=== PATIENT | female | born 2000 | race Caucasian/White ===

== ENCOUNTER → 2018-03-30 12:00 | Outpatient (CLI) | payer MEDICAID, SELFPAY ==
--- NOTE | 2018-03-30 12:00 | DT_ITS ---
This patient was seen during an EMR downtime March 27, 2018 - April 03, 2018. This patient may have a combination of paper and electronic documentation or all paper documentation. All documentation is viewable within the e-chart portion of [facility] for each patient visit.
[2018-04-02 09:28] LABS: Chlamydia Trachomatis by PCR Negative (Negative); Neisserai gonorrhoeae by PCR Negative (Negative); Probe Check PASS; Sample Adequacy Control PASS; Specimen Processing Control PASS
== END ==
PROVIDERS: Visit Provider Obstetrics & Gynecology
DX: Z11.3 Encounter for screening for infections with a predominantly sexual mode of transmission (principal)
CPT/HCPCS: 87491; 87591

== ENCOUNTER → 2018-04-07 10:38 | Outpatient (CLI) | payer MEDICAID, SELFPAY ==
--- NOTE | 2018-04-07 10:44 | EKG12_ITS ---
Test Reason : SYNCOPE Blood Pressure : / mmHG Vent. Rate : 061 BPM Atrial Rate : 061 BPM P-R Int : 146 ms QRS Dur : 078 ms QT Int : 408 ms P-R-T Axes : -07 076 030 degrees QTc Int : 410 ms Normal sinus rhythm with sinus arrhythmia Normal ECG Confirmed by JAMIE MURRAY, SHIVA ([id number]), editor publications HANNAH ELLIS ([id number]) on 04/12/2018 3:16:22 PM Referred By: AYLA BAILEY Confirmed By:SHIVA AYALA MD
== END ==
PROVIDERS: Visit Provider Obstetrics & Gynecology
DX: R55 Syncope and collapse (principal)
CPT/HCPCS: 93005

== ENCOUNTER → 2018-04-28 10:35 | Outpatient (CLI) | payer MEDICAID, SELFPAY ==
[2018-04-28 11:40] LABS: Absolute Lymphocyte Count 1.53 X10^3/ul (0.83-4.51); Absolute Neutrophil Count 4.2 X10^3/uL (2.0-7.7); Basophil# 0.02 X10^3/uL; Basophil% 0.3 % (0-1); Eosinophil# 0.22 X10^3/uL; Eosinophils% 3.5 % (0-5); Hematocrit 38.2 % (37-47); Lymphocyte # 1.53 X10^3/ul (4.0); Lymphocyte % 24.4 % (19-41); Mean Corpuscular Hgb 28.4 pg (27.0-32.0); Mean Corpuscular Volume 83.6 fL (81-99); Monocyte# 0.32 X10^3/uL; Monocyte% 5.1 % (0-10); Neutrophil # 4.18 X10^3/uL (2.7-7.7); Neutrophil % 66.7 % (47-70); Platelet Count 204 K/mm3 (150-450); RBC Distribution Width SD 39.3 fl (35.1-43.9); Red Blood Count 4.57 M/mm3 (4.2-5.4); White Blood Count 6.3 K/mm3 (4.4-11.0)
[2018-04-28 11:41] LABS: POSITIVE COUNT NO; POSITIVE DIFFERENTIAL NO; POSITIVE MORPHOLOGY NO
[2018-04-28 11:43] LABS: Color, Urine Yellow (Yellow); Glucose, Dipstick Normal (Normal); Ketone-Dipstick Negative (Negative); Leukocyte Esterase-Dipstick 500 /ul (Negative); Nitrite-Dipstick Negative (Negative); Occult Blood-Urine Negative /ul (Negative); Protein-Dipstick Negative (Negative); Urine Bilirubin Dipstick Negative (Negative); Urine Clarity Clear (Clear); Urine Urobilinogen Normal (Normal)
[2018-04-28 11:56] LABS: Amphetamine Urine VISTA NEGATIVE (<1000 ng/mL); Barbiturate Urine VISTA NEGATIVE (< 200 ng/mL); Benzodiazepine Urine VISTA NEGATIVE (< 200 ng/mL); Cocaine Urine VISTA NEGATIVE (< 300 ng/mL); Ecstacy Urine VISTA NEGATIVE (< 500 ng/mL); Methadone Urine VISTA NEGATIVE (< 300 ng/mL); PCP Urine VISTA NEGATIVE (< 25 ng/mL); THC Urine VISTA NEGATIVE (< 50 ng/mL); Vista UDS pH Range 6
[2018-04-28 12:04] LABS: Free T3 2.8 pg/mL (2.18-3.98); T4 Free Direct 1.18 ng/dL (0.76-1.46); Thyroid Stim Hormone (TSH) 2.76 uIU/mL (0.358-3.74)
[2018-04-28 13:20] LABS: HIV - WCH Non-Reactive (Nonreactive)
[2018-05-01 10:23] LABS: HEPATITIS B SURFACE AG Negative (Negative); Hep C Antibodies <0.1 s/co ratio (0.0-0.9)
[2018-05-05 02:40] LABS: Prenatal RPR NONREACTIVE (NONREACTIVE)
== END ==
PROVIDERS: Visit Provider Obstetrics & Gynecology
DX: Z34.81 Encounter for supervision of other normal pregnancy, first trimester (principal)
CPT/HCPCS: 36415; 80307; 81002; 84439; 84443; 84481; 85025; 86703; 86762; 86803; 87340

== ENCOUNTER → 2018-05-03 09:45 | Outpatient (CLI) | payer MEDICAID, SELFPAY ==
--- NOTE | 2018-05-03 09:46 | ECHOD_ITS ---
Reason For Study: SYNCOPE/NEAR SYNCOPE Procedure This was a 2D Doppler, Color Flow transthoracic echocardiogram. Exam performed in department. Left Ventricle Normal size and thickness. The estimated ejection fraction is 65 %. Normal diastology for age. No regional wall motion abnormalities noted. Right Ventricle Normal size and thickness. Normal systolic function. Atria Normal left atrium. Normal right atrium. Normal atrial septum. Mitral Valve The mitral valve is structurally normal. No prolapse or stenosis seen. Tricuspid Valve Normal tricuspid valve. Trivial tricuspid valve insufficiency. Right ventricular systolic pressure estimated to be 33 mmHg. Aortic Valve Trisinus/trileaflet aortic valve. Pulmonic Valve Normal pulmonic valve. Trivial pulmonic valve insufficiency. Great Vessels Normal aortic root. Normal arch. Normal inferior vena cava. Inferior vena cava collapse with sniff. Pericardium/Pleural No pericardial effusion. MMode/2D Measurements & Calculations LVIDd: 4.9 cm IVSd: 0.86 cm Ao root diam: 2.4 cm LVIDs: 3.2 cm LVPWd: 0.87 cm LA dimension: 3.5 cm RVDd: 3.0 cm FS: 35.3 % LAV(MOD-bp): 48.9 ml LA A4 area: 17.9 cm2 RA A4 area: 15.8 cm2 LAV(MOD-bp) Indexed: 26.9 ml/m2 LAV(MOD-sp2): 42.3 ml LAV(MOD-sp4): 56.5 ml Doppler Measurements & Calculations MV E max leonel: 85.1 cm/sec Lat Peak E' Leonel: 23.1 cm/sec Med Peak E' Leonel: 15.0 cm/sec MV A max leonel: 44.4 cm/sec E/E' lat: 3.7 E/E' med: 5.7 MV E/A: 1.9 PA V2 max: 108.5 cm/sec TR max leonel: 260.8 cm/sec TR max P.2 mmHg Interpretation Summary The estimated ejection fraction is 65 %. Normal diastology for age. Trivial tricuspid valve insufficiency. Right ventricular systolic pressure estimated to be 33 mmHg. There is no comparison study available. Ordering Physician: Arsalan Logan Performed By: Yazmin Almanza, OTONIEL, RVT
[2018-05-03 11:04] LABS: Absolute Lymphocyte Count 1.64 X10^3/ul (0.83-4.51); Absolute Neutrophil Count 5.2 X10^3/uL (2.0-7.7); Basophil# 0.02 X10^3/uL; Basophil% 0.3 % (0-1); Eosinophil# 0.19 X10^3/uL; Eosinophils% 2.5 % (0-5); Hematocrit 36.9 % (37-47); Hemoglobin 12.6 g/dl (12.0-15.0); Lymphocyte # 1.64 X10^3/ul (4.0); Lymphocyte % 21.8 % (19-41); Mean Corp Hgb Conc 34.1 g/gl (32-36); Mean Corpuscular Hgb 28.5 pg (27.0-32.0); Mean Corpuscular Volume 83.5 fL (81-99); Mean Platelet Vol. 9.6 fl (6.2-12.0); Monocyte# 0.45 X10^3/uL; Neutrophil # 5.21 X10^3/uL (2.7-7.7); Neutrophil % 69.4 % (47-70); POSITIVE COUNT NO; POSITIVE DIFFERENTIAL NO; POSITIVE MORPHOLOGY NO; Platelet Count 231 K/mm3 (150-450); RBC Distribution Width CV 12.8 % (11.6-14.6); RBC Distribution Width SD 38.9 fl (35.1-43.9); Red Blood Count 4.42 M/mm3 (4.2-5.4); White Blood Count 7.5 K/mm3 (4.4-11.0)
[2018-05-03 11:36] LABS: AST(SGOT) 8 U/L (15-37); Alanine Aminotransfer ALT/SGPT 18 U/L (13-56); Albumin, Serum 3.4 g/dL (3.2-5.0); Alkaline Phosphatase 40 U/L (45-117); Anion Gap 10 (5-15); BUN 6 mg/dL (7-18); BUN/Creat Ratio 9.9 RATIO (10-20); Bilirubin, Direct 0.12 mg/dL (0.00-0.30); Calcium,Total 8.5 mg/dL (8.5-10.1); Chloride 107 mmol/L (98-107); Cholesterol 135 mg/dL (200); Creatinine, Serum 0.61 mg/dL (0.55-1.02); EST Glomerular Filtration Rate 135 mL/min (>60); Est Glom Filt Rate - Afr Amer 163 mL/min (>60); Globulin 3.5 g/dL (2.2-4.2); Glucose 77 mg/dL (74-106); High Density Lipoprotein 56 mg/dL; Potassium 3.7 mmol/L (3.5-5.1); Protein, Total 6.9 g/dL (6.4-8.2); Sodium Level 140 mmol/L (136-145); T4 Total, Thyroxin 17.5 ug/dL (4.8-13.9); Thyroid Stim Hormone (TSH) 4.02 uIU/mL (0.358-3.74); Triglycerides 88 mg/dL; Very Low Density Lipoprotein 18 mg/dL (5-40)
== END ==
PROVIDERS: Visit Provider Internal Medicine Cardiovascular Disease
DX: R55 Syncope and collapse (principal); Z87.898 Personal history of other specified conditions
CPT/HCPCS: 36415; 80048; 80061; 80076; 84436; 84443; 85025; 93306

== ENCOUNTER → 2018-06-22 13:31 | Outpatient (CLI) | payer MEDICAID, SELFPAY ==
[2018-06-22 15:49] LABS: Free T3 2.9 pg/mL (2.18-3.98); T4 Free Direct 1.09 ng/dL (0.76-1.46)
== END ==
PROVIDERS: Visit Provider Nurse Practitioner
DX: E03.9 Hypothyroidism, unspecified (principal)
CPT/HCPCS: 36415; 84439; 84443; 84481

== ENCOUNTER → 2018-08-02 16:42 | Outpatient (CLI) | payer MEDICAID, SELFPAY ==
[2018-08-02 17:38] LABS: Free T3 2.9 pg/mL (2.18-3.98); T4 Free Direct 1.05 ng/dL (0.76-1.46); Thyroid Stim Hormone (TSH) 3.59 uIU/mL (0.358-3.74)
== END ==
PROVIDERS: Referring Provider Nurse Practitioner; Visit Provider Nurse Practitioner
DX: E03.9 Hypothyroidism, unspecified (principal)
CPT/HCPCS: 36415; 84439; 84443; 84481

== ENCOUNTER → 2018-08-10 13:18 | Outpatient (CLI) | payer MEDICAID, SELFPAY ==
[2018-08-10 15:56] LABS: Glucose Challenge Gest 1H 50g 86 mg/dL (70-140)
[2018-08-10 16:12] LABS: Hematocrit 35.7 % (37-47); Mean Corp Hgb Conc 33.6 g/gl (32-36); Mean Corpuscular Hgb 29.1 pg (27.0-32.0); Mean Corpuscular Volume 86.4 fL (81-99); Mean Platelet Vol. 10.8 fl (6.2-12.0); Platelet Count 220 K/mm3 (150-450); RBC Distribution Width CV 12.6 % (11.6-14.6); RBC Distribution Width SD 38.5 fl (35.1-43.9); Red Blood Count 4.13 M/mm3 (4.2-5.4); White Blood Count 8.8 K/mm3 (4.4-11.0)
[2018-08-10 16:16] LABS: Scan Indicated on CBC? Y/N NO
== END ==
PROVIDERS: Visit Provider Obstetrics & Gynecology
DX: Z34.82 Encounter for supervision of other normal pregnancy, second trimester (principal)
CPT/HCPCS: 36415; 82950; 85027

== ENCOUNTER → 2018-09-25 15:34 | Outpatient (CLI) | payer MEDICAID, SELFPAY ==
[2018-08-02 16:14] VITALS: BMI 27.1
[2018-09-25 15:39] LABS: Mucous, Urine 0 SEEN /hpf (<or=2+)
[2018-09-25 16:13] LABS: Color, Urine Yellow (Yellow); Glucose, Dipstick Normal (Normal); Ketone-Dipstick Negative (Negative); Leukocyte Esterase-Dipstick 500 /ul (Negative); Nitrite-Dipstick Negative (Negative); Occult Blood-Urine 10 /ul (Negative); Protein-Dipstick 15 mg/dl (Negative); Specific Gravity, Urine 1.025 (1.002-1.030); Urine Bilirubin Dipstick Negative (Negative); Urine Clarity Cloudy (Clear); Urine Urobilinogen Normal (Normal)
[2018-09-25 16:30] LABS: Fetal Fibronectin POSITIVE
[2018-09-25 17:28] LABS: Bacteria 3+ /hpf (None Seen); Red Blood Cells-Urine 0-5 SEEN /hpf (0-5); Squamous Epithelial Cells - UA 0-5 SEEN /hpf (5-10); White Blood Cells 25-50 SEEN /hpf (0-5)
== END ==
PROVIDERS: Visit Provider Obstetrics & Gynecology
DX: Z34.83 Encounter for supervision of other normal pregnancy, third trimester (principal)
CPT/HCPCS: 81001; 82731; 87086; 87088

== ENCOUNTER → 2018-10-19 16:58 | Outpatient (CLI) | payer MEDICAID, SELFPAY ==
[2018-08-02 16:14] VITALS: BMI 27.1
== END ==
PROVIDERS: Visit Provider Obstetrics & Gynecology
DX: Z36.85 Encounter for antenatal screening for Streptococcus B (principal)
CPT/HCPCS: 87081

== ENCOUNTER 2018-11-04 18:05 | Inpatient (IN) | payer MEDICAID, SELFPAY ==
[2018-11-04 17:33] VITALS: BMI 29.7
[2018-11-04 17:57] LABS: ROM Internal Control Test YES-OK TO RESULT pt. (Internal QC)
[2018-11-04 17:59] LABS: ROM Patient Test POSITIVE (Negative)
[2018-11-04 18:33] LABS: Hematocrit 34.5 % (37-47); Hemoglobin 11.1 g/dl (12.0-15.0); Mean Corp Hgb Conc 32.2 g/gl (32-36); Mean Corpuscular Hgb 26.4 pg (27.0-32.0); Mean Corpuscular Volume 81.9 fL (81-99); Mean Platelet Vol. 10.2 fl (6.2-12.0); Platelet Count 196 K/mm3 (150-450); RBC Distribution Width CV 13.8 % (11.6-14.6); Red Blood Count 4.21 M/mm3 (4.2-5.4); White Blood Count 12.8 K/mm3 (4.4-11.0)
[2018-11-04 18:34] LABS: Scan Indicated on CBC? Y/N NO
[2018-11-04] MEDS: Lactated Ringers 1,000 ML 50 ML IV (18:57)
--- NOTE | 2018-11-04 20:10 | PCM.PN.OB ---
Subjective: Feeling more pressure. Objective: Afeb VSS FHR tracing Cat 1. - Physical Exam General: Alert, Oriented x3, Cooperative, No apparent distress Lungs: Clear to auscultation, Normal air movement Cardiovascular: Regular rate, Regular Rhythm Abdomen: Soft, Non Tender, Non-Distended, Gravid, Appropriate for Gestational Age Extremities: No edema Skin: No rashes Neurological: Neuro grossly intact Psych/Mental Status: Normal Affect Comment: CE /-1 forebag present Weight: 201 lb 0.985 oz Body Mass Index (BMI) 29.7 Laboratory Tests Past 24 Hrs 11/04/18 11/04/18 11/04/18 17:23 18:20 18:20 WBC 12.8 H RBC 4.21 Hgb 11.1 L Hct 34.5 L MCV 81.9 MCH 26.4 L MCHC 32.2 RDW 13.8 RDW Differential 41.0 Plt Count 196 MPV 10.2 Vag Amniotic Fld Detect POSITIVE H Blood Type B POSITIVE Antibody Screen NEGATIVE Medical Necessity - Tobacco Use Smoking Status: Never smoker Assessment/Plan All Active Problems (Last Reviewed 08/02/18 @ 16:13 by Rose Peralta) Orthostatic hypotension (Acute) Syncope and collapse (Acute) Progressing in labor. Expect to enter second stage of labor soon.
[2018-11-04] MEDS: Oxytocin 30 units/NS 500 ml 30 UNITS/500 ML IV.SOLN 334 UNITS IV (20:35)
--- NOTE | 2018-11-04 20:41 | PCM.OB.VAG ---
Vaginal Delivery Maternal Presentation: Active Labor, Spontaneous Rupture of Membranes Presents at 38w4d ega with SROM at home. Amniotic Membrane Rupture Type: Spontaneous at home Rupture of Membrane time: 1330 Amniotic Fluid Description: Clear Final [facility]: 11/14/18 Final [facility] Source: US <20 weeks Gestational age: 38 Weeks and 4 Days Date of Procedure: 11/04/18 Pre-Operative Diagnosis: Labor Post-Operative Diagnosis: same Surgery/ Procedure Performed: Spontaneous Vaginal Delivery Type of Anesthesia: None Description of Procedure: Progressed to FD then pushed for about 25 minutes to deliver a live male without complication. At delivery the mouth and nares were suctioned and baby dried. Delayed cord clamping was employed. There was an active cry within 30 seconds of delivery. The cord was then clamped and cut. The placenta delivered spontaneously intact with a centrally located 3VC. Inspection revealed no cervical, vaginal, or perineal tears. The uterus contracted well. Presentation: Vertex Placental Delivery Description: Spontaneous Placenta Disposition: [facility] Percentage of Placenta Abruption: 0 Cord Vessel Description: 3 Vessels Nuchal Cord Compression: Without compression Cord Entanglement: None Estimated Blood Loss: 250cc A gender: Male (1 minute): 8 (5 minute): 8 Episiotomy Description: None Laceration: None Medications given after delivery: IV Pitocin Complications: None
--- NOTE | 2018-11-04 20:46 | DCINST_ITS ---
Discharge Diet: No Restrictions Discharge Activity: Return to Normal Activity, May Drive, May Shower Return to work on:: 01/02/19 May shower in (days): 0 May resume sexual activity in: 4-6 weeks Call your doctor if your incision/area has: Sudden Increased Bleeding, Increased Pain/ Swelling, Increased Redness, Foul Smelling Discharge Call your doctor if you observe: Fever of 101 or Higher, Inability to urinate, Inability to have a bowel movement, Using more than one pad per hour, Shortness of breath, Chest pain, Calf discomfort, Uncontrolled pain Cleanse incision/area with: Soap & Water Additional Instructions: If you experience any of the following, contact your healthcare provider. * Bleeding that soaks a pad every hour for 2 hours * Fever 100.4 or higher * Unrelieved incision or abdominal pain * Swelling, redness, discharge or bleeding from your incision or episiotomy site * Your incision begins to separate * Problems urinating (including inability to urinate or burning while urinating). * Visual changes * Severe headache * Flu-like symptoms * Pain or redness in one of both of your breasts * Pain, warmth, tenderness or swelling in your legs, especially the calf area * Frequent nausea and vomiting * Symptoms of depression or anxiety If you experience any of the following, call 911 or go to the nearest Emergency Room. * Chest pain * Problems breathing * Seizure activity * Partial or complete paralysis of a body part, slurred speech, weakness or drooping of the face, or a sudden inability to walk or hold your balance Allergies/Adverse Reactions: Allergies ibuprofen Adverse Reaction (Mild, Verified 11/04/18 17:31) headache acetaminophen Adverse Reaction (Verified 11/04/18 17:31) Other headache NSAIDS (Non-Steroidal Anti-Inflamma Adverse Reaction (Verified 11/04/18 17:31) Other headache Medications to take at Discharge levothyroxine 50 mcg tablet See Rx Instructions PO .COMPLEX #34 tab 08/03/18 Ibuprofen 600 mg PO 4X/DAY #30 tab 11/04/18 The following prescriptions were given: Ibuprofen 600 mg PO 4X/DAY #30 tab Please Follow Up With: Jovanna Guevara MD When: 6 weeks Primary Care Physician: Care Physician,No Primary [Primary Care Provider] - Test Results: Test results from this visit will be discussed in further detail at your follow- up appointment, if applicable. Proposed Discharge Date: 11/06/18
[2018-11-04] MEDS: Oxytocin 30 units/NS 500 ml 30 UNITS/500 ML IV.SOLN 167 UNITS IV (21:05)
[2018-11-04] MEDS: 0.9% Saline Lock 10 ML Syringe IV (22:19)
[2018-11-05 01:30] VITALS: BP 124/50; PULSE 98; RESP 18; TEMP 36.6
[2018-11-05 04:35] VITALS: BP 111/45; PULSE 87; RESP 16; TEMP 36.4
[2018-11-05] MEDS: Levothyroxine 50 MCG Tablet PO (06:10)
[2018-11-05 06:28] LABS: Hematocrit 33.7 % (37-47); Hemoglobin 10.9 g/dl (12.0-15.0); Mean Corp Hgb Conc 32.3 g/gl (32-36); Mean Corpuscular Hgb 26.3 pg (27.0-32.0); Mean Corpuscular Volume 81.4 fL (81-99); Platelet Count 210 K/mm3 (150-450); RBC Distribution Width CV 13.8 % (11.6-14.6); RBC Distribution Width SD 40.7 fl (35.1-43.9); Red Blood Count 4.14 M/mm3 (4.2-5.4); White Blood Count 14.7 K/mm3 (4.4-11.0)
[2018-11-05 06:32] LABS: Scan Indicated on CBC? Y/N NO
[2018-11-05 08:58] VITALS: BP 119/45; PULSE 92; RESP 16; TEMP 37; O2SAT 97
--- NOTE | 2018-11-05 09:28 | NURSING ---
On assessment patient noted that she has been developing small blisters to nipples with cluster feeds. No blisters noted on assessment. Patient educated to encourage deeper latch with baby. Lanolin cream provided at patient request. Will continue to monitor.
--- NOTE | 2018-11-05 09:54 | PCM.PN.OB ---
Subjective: No complaints. Bleeding light. Breast feeding. Objective: Afeb VSS Hgb stable on PP day#1. - Physical Exam General: Alert, Oriented x3, Cooperative, No apparent distress Lungs: Clear to auscultation, Normal air movement Cardiovascular: Regular rate, Regular Rhythm Abdomen: Soft, Non Tender, Non-Distended, - - Fundus firm nontender Extremities: No edema Skin: No rashes Neurological: Neuro grossly intact Psych/Mental Status: Normal Affect Comment: Lochia light Vital Signs Temp Pulse Resp BP Pulse Ox 98.6 F 92 16 119/45 L 97 11/05/18 08:58 11/05/18 08:58 11/05/18 08:58 11/05/18 08:58 11/05/18 08:58 Oxygen Delivery Method Room Air Weight: 201 lb 0.985 oz Body Mass Index (BMI) 29.7 Intake and Output for Last 24 Hours 11/03/18 11/04/18 11/05/18 23:59 23:59 23:59 Output Total 500 / 500 Balance -500 / -500 Laboratory Tests Past 24 Hrs 11/04/18 11/04/18 11/04/18 17:23 18:20 18:20 WBC 12.8 H RBC 4.21 Hgb 11.1 L Hct 34.5 L MCV 81.9 MCH 26.4 L MCHC 32.2 RDW 13.8 RDW Differential 41.0 Plt Count 196 MPV 10.2 Vag Amniotic Fld Detect POSITIVE H Blood Type B POSITIVE Antibody Screen NEGATIVE 11/05/18 06:15 WBC 14.7 H RBC 4.14 L Hgb 10.9 L Hct 33.7 L MCV 81.4 MCH 26.3 L MCHC 32.3 RDW 13.8 RDW Differential 40.7 Plt Count 210 MPV 10.0 Vag Amniotic Fld Detect Blood Type Antibody Screen Medical Necessity - Tobacco Use Smoking Status: Never smoker Assessment/Plan All Active Problems (Last Reviewed 08/02/18 @ 16:13 by Rose Peralta) Orthostatic hypotension (Acute) Syncope and collapse (Acute) Doing well on PP day#1. Continue routine PP care. Anticipate discharge home on PP day#2.
[2018-11-05 14:00] VITALS: BP 125/44; PULSE 93; RESP 16; TEMP 36.6; O2SAT 97
[2018-11-05 20:30] VITALS: BP 131/59; PULSE 81; RESP 16; TEMP 37.3; O2SAT 98
[2018-11-06 02:00] VITALS: BP 114/36; PULSE 75; RESP 16; TEMP 36.3
[2018-11-06] MEDS: Levothyroxine 75 MCG Tablet PO (05:54)
--- NOTE | 2018-11-06 07:25 | PCM.PN.OB ---
Subjective: No specific complaints. Breast feeding. Bleeding light Objective: Afeb VSS - Physical Exam General: Alert, Oriented x3, Cooperative, No apparent distress Lungs: Clear to auscultation, Normal air movement Cardiovascular: Regular rate, Regular Rhythm Abdomen: Soft, Non Tender, Non-Distended, - - Fundus firm nontender Extremities: No edema Skin: No rashes Neurological: Neuro grossly intact Psych/Mental Status: Normal Affect Comment: Lochia light Vital Signs Temp Pulse Resp BP Pulse Ox 97.4 F L 75 16 114/36 L 98 11/06/18 02:00 11/06/18 02:00 11/06/18 02:00 11/06/18 02:00 11/05/18 20:30 Oxygen Delivery Method Room Air Weight: 201 lb 0.985 oz Body Mass Index (BMI) 29.7 Intake and Output for Last 24 Hours 11/04/18 11/05/18 11/06/18 23:59 23:59 23:59 Output Total 500 / 500 Balance -500 / -500 Medical Necessity - Tobacco Use Smoking Status: Never smoker Assessment/Plan All Active Problems (Last Reviewed 08/02/18 @ 16:13 by Rose Peralta) Orthostatic hypotension (Acute) Syncope and collapse (Acute) Doing well on PP day#2. Cleared for discharge home today. Home going instructions and warnings given.
--- NOTE | 2018-11-06 07:26 | PCM.DC.SUM ---
Discharge Date and Diagnosis Date of Admission: 11/04/18 Date of Discharge: 11/06/18 - Primary Discharge Diagnosis S/P - Secondary Discharge Diagnosis Chronic Problems (Last Reviewed 08/02/18 @ 16:13 by Rose Peralta) Hypothyroidism (acquired) (Chronic) History of palpitations (Chronic) Hospital Course and Treatment Operations: None Procedures: - - Summary of Care Provided: The patient is a 18 year old F [admitted in labor with SROM. Progressed to fully dilated then pushed for a short time to deliver a live without complication. Post course unremarkable. Discharged home on PP day#2.] - Physical Exam Vital Signs Temp Pulse Resp BP Pulse Ox 97.4 F L 75 16 114/36 L 98 11/06/18 02:00 11/06/18 02:00 11/06/18 02:00 11/06/18 02:00 11/05/18 20:30 Oxygen Delivery Method Room Air Weight: 201 lb 0.985 oz Body Mass Index (BMI) 29.7 Intake and Output for Last 24 Hours 11/04/18 11/05/18 11/06/18 23:59 23:59 23:59 Output Total 500 / 500 Balance -500 / -500 Discharge Diet: No Restrictions Discharge Activity: Return to Normal Activity, May Drive, May Shower Return to work on:: 01/02/19 May shower in (days): 0 May resume sexual activity in: 4-6 weeks Call your doctor if your incision/area has: Sudden Increased Bleeding, Increased Pain/ Swelling, Increased Redness, Foul Smelling Discharge Call your doctor if you observe: Fever of 101 or Higher, Inability to urinate, Inability to have a bowel movement, Using more than one pad per hour, Shortness of breath, Chest pain, Calf discomfort, Uncontrolled pain Cleanse incision/area with: Soap & Water Home Medications: Medications to take at Discharge levothyroxine 50 mcg tablet See Rx Instructions PO .COMPLEX #34 tab 08/03/18 Ibuprofen 600 mg PO 4X/DAY #30 tab 11/04/18 Following Prescrptions Were Given to Patient: Ibuprofen 600 mg PO 4X/DAY #30 tab Primary Care Physician: Care Physician,No Primary [Primary Care Provider] - Please Follow Up With: Jovanna Guevara MD When: 6 weeks Disposition: Home Minutes spent on discharge:: 15 Patient Condition:: Good Medical Necessity - Tobacco Use Smoking Status: Never smoker Meaningful Use Info Meaningful Use Diagnoses (Choose all that apply): None applicable
[2018-11-06 08:56] VITALS: BP 112/50; PULSE 69; RESP 16; TEMP 36.6
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
[2018-11-06 14:00] VITALS: BP 116/59; PULSE 69; RESP 16; TEMP 36.9
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
== END 2018-11-06 17:00 | disposition home or self-care (01) | DRG 560 ==
LOC: WPOUT 18:13
PROVIDERS: Admitting Provider Obstetrics & Gynecology; Referring Provider Obstetrics & Gynecology; Visit Provider Obstetrics & Gynecology
DX: O42.02 Full-term premature rupture of membranes, onset of labor within 24 hours of rupture (principal); O23.43 Unspecified infection of urinary tract in pregnancy, third trimester; O99.284 Endocrine, nutritional and metabolic diseases complicating childbirth; E03.9 Hypothyroidism, unspecified; Z86.79 Personal history of other diseases of the circulatory system; Z3A.38 38 weeks gestation of pregnancy; Z37.0 Single live birth
CPT/HCPCS: 59025; 59050; 84112; 85027; 86850; 86900; 99218; J7120; A4216; G0378

== ENCOUNTER → 2019-02-02 13:49 | Outpatient (CLI) | payer MEDICAID, SELFPAY ==
[2018-12-28 16:13] VITALS: BMI 28.0
[2019-02-02 18:21] LABS: Chlamydia Trachomatis by PCR Negative (Negative); Neisserai gonorrhoeae by PCR Negative (Negative); Probe Check PASS; Sample Adequacy Control PASS; Specimen Processing Control PASS
== END ==
PROVIDERS: Visit Provider Obstetrics & Gynecology
DX: Z11.3 Encounter for screening for infections with a predominantly sexual mode of transmission (principal); N39.0 Urinary tract infection, site not specified
CPT/HCPCS: 87086; 87088; 87186; 87491; 87591

== ENCOUNTER → 2019-02-20 10:29 | Outpatient (CLI) | payer MEDICAID, SELFPAY ==
[2018-12-28 16:13] VITALS: BMI 28.0
[2019-02-20 13:41] LABS: Color, Urine Yellow (Yellow); Glucose, Dipstick Normal (Normal); Ketone-Dipstick Negative (Negative); Leukocyte Esterase-Dipstick 25 /ul (Negative); Nitrite-Dipstick Negative (Negative); Occult Blood-Urine Negative /ul (Negative); Protein-Dipstick Negative (Negative); Urine Bilirubin Dipstick Negative (Negative); Urine Clarity Sl. Cloudy (Clear); Urine Urobilinogen Normal (Normal)
[2019-02-20 13:49] LABS: Absolute Lymphocyte Count 1.24 X10^3/ul (0.83-4.51); Absolute Neutrophil Count 4.8 X10^3/uL (2.0-7.7); Basophil# 0.02 X10^3/uL; Basophil% 0.3 % (0-1); Eosinophil# 0.23 X10^3/uL; Eosinophils% 3.4 % (0-5); Hematocrit 38.5 % (37-47); Lymphocyte # 1.24 X10^3/ul (4.0); Lymphocyte % 18.3 % (19-41); Mean Corp Hgb Conc 33.8 g/gl (32-36); Mean Platelet Vol. 10.9 fl (6.2-12.0); Monocyte# 0.54 X10^3/uL; Neutrophil # 4.75 X10^3/uL (2.7-7.7); Neutrophil % 69.9 % (47-70); Platelet Count 207 K/mm3 (150-450); RBC Distribution Width CV 13.1 % (11.6-14.6); Red Blood Count 4.81 M/mm3 (4.2-5.4); White Blood Count 6.8 K/mm3 (4.4-11.0)
[2019-02-20 13:53] LABS: Amphetamine Urine VISTA NEGATIVE (<1000 ng/mL); Barbiturate Urine VISTA NEGATIVE (< 200 ng/mL); Benzodiazepine Urine VISTA NEGATIVE (< 200 ng/mL); Cocaine Urine VISTA NEGATIVE (< 300 ng/mL); Ecstacy Urine VISTA NEGATIVE (< 500 ng/mL); Methadone Urine VISTA NEGATIVE (< 300 ng/mL); PCP Urine VISTA NEGATIVE (< 25 ng/mL); POSITIVE COUNT NO; POSITIVE DIFFERENTIAL NO; POSITIVE MORPHOLOGY NO; THC Urine VISTA NEGATIVE (< 50 ng/mL); Vista UDS pH Range 6
[2019-02-20 14:27] LABS: Thyroid Stim Hormone (TSH) 2.07 uIU/mL (0.358-3.74)
[2019-02-20 18:32] LABS: HIV - WCH Non-Reactive (Nonreactive); Rubella IgG 73.1 IU/mL; Vitamin D,25 Hydroxy 12.6 ng/mL (29.95-100.01)
[2019-02-21 09:04] LABS: HEPATITIS B SURFACE AG Negative (Negative); Hep C Antibodies <0.1 s/co ratio (0.0-0.9)
[2019-02-23 01:35] LABS: Prenatal RPR NONREACTIVE (NONREACTIVE)
== END ==
PROVIDERS: Visit Provider Obstetrics & Gynecology
DX: Z34.81 Encounter for supervision of other normal pregnancy, first trimester (principal)
CPT/HCPCS: 36415; 80307; 81002; 82306; 84443; 85025; 86703; 86762; 86803; 87340

== ENCOUNTER → 2019-04-12 | Outpatient (CLI) | payer MEDICAID, SELFPAY ==
[2018-12-28 16:13] VITALS: BMI 28.0
[2019-04-15 03:07] LABS: AFP MoM Value 0.56 (.); AFP Value-EIA 13.9 ng/mL (.); Comment Report (.); DIA MoM Value 0.77 (.); DSR (By Age) 1150 (.); DSR (Second Trimester) 3399 (.); Gestat. Age Based On As provided (.); Insulin Dep Diabetes No (.); Maternal Age At EDD 20.9 yr (.); hCG MoM 0.93 (.); hCG Value 49409 mIU/mL (.)
== END | disposition home or self-care (01) ==
LOC: WOBLAB 15:50
PROVIDERS: Visit Provider Obstetrics & Gynecology
DX: Z34.82 Encounter for supervision of other normal pregnancy, second trimester (principal)
CPT/HCPCS: 36415; 82105; 82677; 84702

== ENCOUNTER → 2019-06-14 17:21 | Outpatient (CLI) | payer MEDICAID, SELFPAY ==
[2019-05-15 15:54] VITALS: BMI 29.4
== END ==
PROVIDERS: Referring Provider Obstetrics & Gynecology; Visit Provider Obstetrics & Gynecology
DX: R30.0 Dysuria (principal)
CPT/HCPCS: 87077; 87086; 87088; 87186

== ENCOUNTER → 2019-07-12 10:12 | Outpatient (CLI) | payer MEDICAID, SELFPAY ==
[2019-05-15 15:54] VITALS: BMI 29.4
[2019-07-12 12:13] LABS: Hematocrit 34.1 % (37-47); Hemoglobin 11.2 g/dL (12.0-15.0); Mean Corp Hgb Conc 32.8 g/dL (32-36); Mean Corpuscular Hgb 28.5 pg (27.0-32.0); Mean Corpuscular Volume 86.8 fL (81-99); Mean Platelet Vol. 10.8 fl (6.2-12.0); Platelet Count 183 K/mm3 (150-450); RBC Distribution Width CV 13.1 % (11.6-14.6); RBC Distribution Width SD 41.3 fl (35.1-43.9); Red Blood Count 3.93 M/mm3 (4.2-5.4)
[2019-07-12 12:55] LABS: Free T3 2.7 pg/mL (2.18-3.98); Glucose Challenge Gest 1H 50g 109 mg/dL (70-140); T4 Free Direct 0.94 ng/dL (0.76-1.46); Thyroid Stim Hormone (TSH) 3.59 uIU/mL (0.358-3.74)
[2019-07-12 13:00] LABS: Vitamin D,25 Hydroxy 21.9 ng/mL (29.95-100.01)
[2019-07-12 14:04] LABS: T4 Total, Thyroxin 15.7 ug/dL (4.8-13.9)
== END ==
PROVIDERS: Internal Medicine Cardiovascular Disease; Visit Provider Obstetrics & Gynecology
DX: O99.283 Endocrine, nutritional and metabolic diseases complicating pregnancy, third trimester (principal); E55.9 Vitamin D deficiency, unspecified; Z3A.00 Weeks of gestation of pregnancy not specified
CPT/HCPCS: 36415; 82306; 82950; 84436; 84439; 84443; 84481; 85027

== ENCOUNTER → 2019-07-26 12:48 | Outpatient (CLI) | payer MEDICAID, SELFPAY ==
[2019-05-15 15:54] VITALS: BMI 29.4
[2019-07-26 13:09] LABS: Color, Urine Yellow (Yellow); Glucose, Dipstick Normal (Normal); Ketone-Dipstick 5 mg/dl (Negative); Leukocyte Esterase-Dipstick 500 /ul (Negative); Nitrite-Dipstick Negative (Negative); Occult Blood-Urine 25 /ul (Negative); Protein-Dipstick 30 mg/dl (Negative); Urine Bilirubin Dipstick Negative (Negative); Urine Clarity Sl. Cloudy (Clear); Urine Urobilinogen Normal (Normal)
[2019-07-26 13:15] LABS: White Blood Cells 50-100 SEEN /hpf (0-5)
[2019-07-26 13:17] LABS: Bacteria 2+ /hpf (None Seen); Mucous, Urine RARE /hpf (<or=2+); Red Blood Cells-Urine 0-5 SEEN /hpf (0-5); Squamous Epithelial Cells - UA 25-50 SEEN /hpf (5-10)
[2019-07-26 13:25] LABS: ROM Internal Control Test YES-OK TO RESULT pt. (Internal QC)
[2019-07-26 13:26] LABS: ROM Patient Test Negative (Negative); Record Kit Lot#, ROM+ J8255
== END ==
PROVIDERS: Referring Provider Obstetrics & Gynecology; Visit Provider Obstetrics & Gynecology
DX: O23.43 Unspecified infection of urinary tract in pregnancy, third trimester (principal); Z3A.00 Weeks of gestation of pregnancy not specified
CPT/HCPCS: 81001; 84112; 87086; 87088

== ENCOUNTER 2019-07-29 17:10 | Outpatient (CLI) | payer MEDICAID, SELFPAY ==
[2019-05-15 15:54] VITALS: BMI 29.4
[2019-07-29 17:40] VITALS: BMI 29.9
[2019-07-29 18:03] LABS: Absolute Lymphocyte Count 0.64 X10^3/uL (0.83-4.51); Absolute Neutrophil Count 3.9 X10^3/uL (2.0-7.7); Basophil# 0.01 X10^3/uL; Basophil% 0.2 % (0-1); Eosinophil# 0.01 X10^3/uL; Eosinophils% 0.2 % (0-5); Hematocrit 30.4 % (37-47); Lymphocyte # 0.64 X10^3/ul (4.0); Lymphocyte % 12.9 % (19-41); Mean Corp Hgb Conc 32.9 g/dL (32-36); Mean Corpuscular Hgb 28.3 pg (27.0-32.0); Mean Corpuscular Volume 86.1 fL (81-99); Monocyte# 0.35 X10^3/uL; NRBC Flagged by Analyzer 0 % (0-5); Neutrophil # 3.93 X10^3/uL (2.7-7.7); Neutrophil % 78.9 % (47-70); Platelet Count 199 K/mm3 (150-450); RBC Distribution Width CV 13.2 % (11.6-14.6); RBC Distribution Width SD 41.1 fl (35.1-43.9); Red Blood Count 3.53 M/mm3 (4.2-5.4)
--- NOTE | 2019-07-29 18:44 | US_ITS ---
HISTORY: Vaginal bleeding on third trimester for one day. UTI. Pelvic pain for 5 days. 29 images. No comparison imaging. Findings: Some fluid is present within the endocervical canal likely representing blood. The endocervical canal measures 6 cm. There is a length of perhaps 4.8 cm within the region of the endocervical canal that could be considered finally into the side of the cervix, or could be related to a posterior uterine lower uterine segment contraction. The placenta is anterior. heart motion is detected at 152 bpm. Presentation is cephalic. MELY is 21.4 cm. The independent agent music education describes an area of anterior lower uterine placental separation. Thinners and color Doppler imaging over this region. I believe this likely represents normal venous lakes that have flow too slow to be demonstrated on the settings of color Doppler insonated by the independent agent music education I do not believe it is placental separation. measurements were not obtained. anatomy assessment was not performed. US/OB Limited (No Biometrics) IMPRESSION: Fluid, likely blood within the endocervical canal. 4.8 cm area of possible funneling into the side of the endocervical canal and the internal cervical os with widening of the canal filled with fluid. at 2108 Reported and signed by: Mic King MD Electronically Signed: Mic King MD at 21:06 EDT Tel , Service support ,
--- NOTE | 2019-07-29 18:47 | OB.TRI.NOTE ---
- Problem List (1) 31 weeks gestation of Status: Acute (2) Third trimester bleeding, antepartum Status: Acute History of Present Illness Date of Service: 07/29/19 Was patient seen by the physician?: Yes Reason For Visit: RULE OUT LABOR Final [facility]: 09/28/19 Final [facility] Source: US <20 weeks Gestational age: 31 Weeks and 2 Days History of Present Illness: 18yo @ 31 2/7wga with c/o vaginal bleeding, lower abdominal pain and fever. Was seen in the office last week and diagnosed with UTI. She started Keflex with no improvement of symptoms over 48 hours. She was evaluated in [place] yesterday evening and switched to Nitrofurantoin for UTI and started on Metronidazole PO. She had 3 vaginal exams at that visit and noted passage of some mucus plug. She has had low grade fevers today to 100.6, however had Tm 102.5 yesterday. This afternoon she started with BRB per vagina also noted with wiping after sitting on toilet. She had to use a pad and came in. She reports bleeding has slowed now. Denies abdominal trauma or falls or motor vehicle accidents. + FM, no leaking of fluid. Allergies ibuprofen Adverse Reaction (Mild, Verified 07/24/19 18:35) headache acetaminophen Adverse Reaction (Verified 07/29/19 17:59) Other headache NSAIDS (Non-Steroidal Anti-Inflamma Adverse Reaction (Verified 07/24/19 18:35) Other headache - Pertinent Past Medical History Medical History: Past Medical History (Last Updated 07/29/19 @ 23:09 by Jovanna Guevara MD) Frequent PVCs (Acute) Palpitations (Acute) Asthma (Chronic) Hypothyroidism (acquired) (Chronic) Syncope and collapse (Acute) Normal vaginal delivery Onset Date: 11/04/18 Surgical History: Past Surgical History (Last Updated 07/29/19 @ 23:30 by Jovanna Guevara MD) No history of previous surgery Laboratory Studies: Laboratory Tests 07/29/19 Range/Units 17:47 WBC 5.0 (4.4-11.0) K/mm3 RBC 3.53 L (4.2-5.4) M/mm3 Hgb 10.0 L (12.0-15.0) g/dL Hct 30.4 L (37-47) % MCV 86.1 (81-99) fL MCH 28.3 (27.0-32.0) pg MCHC 32.9 (32-36) g/dL RDW Std Deviation 41.1 (35.1-43.9) fl RDW Coeff of [place] 13.2 (11.6-14.6) % Plt Count 199 (150-450) K/mm3 MPV 10.0 (6.2-12.0) fl Immature Gran % (Auto) 0.800 (0.0-0.9) % Neut % (Auto) 78.9 H (47-70) % Lymph % (Auto) 12.9 L (19-41) % [place] % (Auto) 7.0 (0-10) % Eos % (Auto) 0.2 (0-5) % Baso % (Auto) 0.2 (0-1) % Absolute Neuts (auto) 3.9 (2.0-7.7) X10^3/uL Absolute Lymphs (auto) 0.64 L (0.83-4.51) X10^3/uL Nucleated RBC % 0 (0-5) % Review of Systems Constitutional: Reports: Fever Cardiovascular: Denies: Chest Pain, Light Headedness, Palpitations Respiratory: Denies: Shortness of Breath Gastrointestinal: Reports: Abdominal Pain, Constipation. Denies: Diarrhea, Hematochezia, Nausea, Vomiting Genitourinary: Denies: Dysuria, Hematuria Gynecological: Reports: Vaginal bleeding Physical Exam Vitals: avss General: Alert, Oriented x3, Cooperative, No apparent distress HEENT: Atraumatic, Normocephalic Cardiovascular: Regular rate, Regular Rhythm, Normal S1, Normal S2 Lungs: Clear to auscultation, Normal air movement Abdomen: Soft, Non Tender, Non-Distended, - - blood on underwear Neurological: Neuro grossly intact RECYCLING OPERATIONS MANAGER: Normal external genitalia Estimated gestational size: Appropriate for gestational size Presentation: Cephalic NST - FHR Rate Baby A Baseline: 150 Variability:: Moderate Accelerations:: 15 x 15 Decelerations:: None NST Reactive:: Yes FHR Category:: Category I Uterine Activity:: 0/10 min Impression/Plan 31 2/7wga with third trimester bleeding and fever, Cat I FHR -No clear evidence of infection, patient not cricket, wbc normal, pt completing treatment for UTI. Possible viral syndrome, however bleeding concerning given drop in H/H from prior labs. Cannot r/o partial abruption. Bleeding may also be due to serial vaginal exams. Will send iron studies, KB, PT/PTT. US ordered.
[2019-07-29 19:46] LABS: Prothrombin Time (Protime)PT. 12.7 SECONDS (11.7-14.9)
[2019-07-29 19:51] LABS: ROM Internal Control Test YES-OK TO RESULT pt. (Internal QC); ROM Patient Test POSITIVE (Negative)
[2019-07-29 19:52] LABS: Record Kit Lot#, ROM+ J8255
[2019-07-29 20:11] LABS: Ferritin 25 ng/mL (8-252); Iron 26 ug/dL (50-170); Iron Binding Capacity,Total 450 ug/dL (250-450); PERCENT IRON SATURATION 5.8 % (15.0-55.0)
[2019-07-29 22:53] LABS: Bacteria 0 SEEN /hpf (None Seen); Mucous, Urine 0 SEEN /hpf (<or=2+)
[2019-07-29 22:57] LABS: Color, Urine Yellow (Yellow); Glucose, Dipstick Normal (Normal); Ketone-Dipstick 50 mg/dl (Negative); Leukocyte Esterase-Dipstick Negative /ul (Negative); Nitrite-Dipstick Negative (Negative); Occult Blood-Urine 25 /ul (Negative); Protein-Dipstick Negative (Negative); Urine Bilirubin Dipstick Negative (Negative); Urine Clarity Clear (Clear); Urine Urobilinogen Normal (Normal)
[2019-07-29 23:02] LABS: Squamous Epithelial Cells - UA 0-5 SEEN /hpf (5-10)
[2019-07-29] MEDS: Acetaminophen 325 MG Tablet 650 MG PO (23:03)
[2019-07-29 23:04] LABS: Red Blood Cells-Urine 0-5 SEEN /hpf (0-5); White Blood Cells 0-5 SEEN /hpf (0-5)
--- NOTE | 2019-07-29 23:08 | HP.PCM_ITS ---
- Problem List (1) 31 weeks gestation of Status: Acute (2) Third trimester bleeding, antepartum Status: Acute (3) Maternal pyrexia, antepartum Status: Acute History Date of Admission: 11/04/18 Final [facility]: 09/28/19 Final [facility] Source: US <20 weeks Gestational age: 31 Weeks and 2 Days History of this : This is a 18 year-old, G 3 P2002 at 31 2/7 weeks gestational age admitted with vaginal bleeding and fever. She felt unwell for the last several day c/o persistent lower abdominal pain, fever and discharge and was seen in the office 07/26/19 and diagnosed with recurrent UTI. Vaginitis swab and ROM plus was negative for infection. She was started on Keflex with no significant improvement of symptoms after 48 hours and was evaluated at [facility] on 07/28/19. She was switched to Macrobid and Flagyl and discharged home. She reports her cervix there was no more than 1cm dilated. She presented to our hospital this evening with vaginal bleeding. Last intercourse 3 weeks ago, no recent motor vehicle collisions or abdominal trauma or falls. She wore 1 pad into the hospital. Denies cramping or contractions. She continues with discharge. +FM. OB Problem List: -NSAID Allergy -hx syncope -hx palpitation on Pindolol -History UTI -Short interval Medical History: Medical History (Last Updated 07/29/19 @ 23:09 by Jovanna Guevara MD) Frequent PVCs (Acute) I49.3 Palpitations (Acute) R00.2 Asthma (Chronic) J45.909 Hypothyroidism (acquired) (Chronic) E03.9 Syncope and collapse (Acute) R55 Normal vaginal delivery Onset Date: 11/04/18 O80 Surgical History: Surgical History (Last Updated 07/29/19 @ 23:30 by Jovanna Guevara MD) No history of previous surgery Allergies ibuprofen Adverse Reaction (Mild, Verified 07/24/19 18:35) headache acetaminophen Adverse Reaction (Verified 07/29/19 17:59) Other headache NSAIDS (Non-Steroidal Anti-Inflamma Adverse Reaction (Verified 07/24/19 18:35) Other headache Home Medications: Home Medications compression stocking,knee high,long length,large circum See Dose Instructions .ROUTE .MEDSUPPLY #2 ea 04/09/19 cholecalciferol (vitamin D3) 5,000 unit capsule 5,000 unit PO DAILY 05/15/19 vitamin,calcium,uzdxgpkd-eyzg-qnuky acid tablet 1 tab PO DAILY 05/15/19 Nitrofurantoin 100 mg PO BID 07/29/19 RX: Levothyroxine Sodium See Rx Instructions PO .COMPLEX 07/29/19 RX: Metronidazole 1 tab PO BID 07/29/19 RX: Pindolol [Pindolol (Beta Randall)] 5 mg PO .COMPLEX 07/29/19 Smoking Status: Never smoker Alcohol: None Number of Fetus(es): 1 NST - FHR Rate Baby A Baseline: 150 Variability:: Moderate Accelerations:: 15 x 15 Decelerations:: None NST Reactive:: Yes FHR Category:: Category I Uterine Activity:: 3-01/31 History Past Pregnancies: Past Pregnancies Delivery Date Name GA/Weeks Outcome Route Weight Gender Labor Length Anesthesia Delivery Location Provider FOB 02/2017 Manfred 38 Living 7lb 7 oz M 8 Epidural Ashtyn Benekos Jair 10/2018 Dre 38 Living 7lb 11oz M 3 None Ashtyn Seals Jair Labs: Mom's Microbiology 07/29/19 22:25 Blood Culture (Wb) - Venous Blood Culture - Pending 07/29/19 22:25 Blood Culture (Wb) - Venous Blood Culture - Pending Mom's Problem List Problem Status Onset Code 31 weeks gestation of Acute Z3A.31 Third trimester bleeding, antepartum Acute O46.93 labs 07/12/19 1h GTT 109 mg/dL 02/20/19 RPR nonreactive, HCV Ab negative, HBsAg neg, HIV nonreactive, Rubella immune, B positive 02/02/19 GC/CT neg Mom's Labs & Results 07/29/19 07/29/19 07/29/19 17:47 19:05 19:21 WBC 5.0 RBC 3.53 L Hgb 10.0 L Hct 30.4 L MCV 86.1 MCH 28.3 MCHC 32.9 RDW Std Deviation 41.1 RDW Coeff of [place] 13.2 Plt Count 199 MPV 10.0 Immature Gran % (Auto) 0.800 Neut % (Auto) 78.9 H Lymph % (Auto) 12.9 L Jenkins % (Auto) 7.0 Eos % (Auto) 0.2 Baso % (Auto) 0.2 Absolute Neuts (auto) 3.9 Absolute Lymphs (auto) 0.64 L Nucleated RBC % 0 Kleihauer-Betke F Hgb PT INR Lactic Acid Iron 26 L TIBC 450 Iron Saturation 5.8 L Ferritin 25 Urine Color Urine Clarity Urine pH Ur Specific [place] Urine Protein Urine Glucose (UA) Urine Ketones Urine Occult Blood Urine Nitrite Urine Bilirubin Urine Urobilinogen Ur Leukocyte Esterase Urine RBC Urine WBC Ur Squamous Epith Cells Urine Bacteria Urine Mucus Vag Amniotic Fld Detect POSITIVE H Group B Strep DNA Specimen Comment 07/29/19 07/29/19 07/29/19 19:21 19:21 22:25 WBC RBC Hgb Hct MCV MCH MCHC RDW Std Deviation RDW Coeff of [place] Plt Count MPV Immature Gran % (Auto) Neut % (Auto) Lymph % (Auto) Jenkins % (Auto) Eos % (Auto) Baso % (Auto) Absolute Neuts (auto) Absolute Lymphs (auto) Nucleated RBC % Kleihauer-Betke F Hgb Pending PT 12.7 INR 1.0 Lactic Acid Pending Iron TIBC Iron Saturation Ferritin Urine Color Urine Clarity Urine pH Ur Specific [place] Urine Protein Urine Glucose (UA) Urine Ketones Urine Occult Blood Urine Nitrite Urine Bilirubin Urine Urobilinogen Ur Leukocyte Esterase Urine RBC Urine WBC Ur Squamous Epith Cells Urine Bacteria Urine Mucus Vag Amniotic Fld Detect Group B Strep DNA Specimen Comment 07/29/19 07/29/19 22:30 22:30 WBC RBC Hgb Hct MCV MCH MCHC RDW Std Deviation RDW Coeff of [place] Plt Count MPV Immature Gran % (Auto) Neut % (Auto) Lymph % (Auto) Jenkins % (Auto) Eos % (Auto) Baso % (Auto) Absolute Neuts (auto) Absolute Lymphs (auto) Nucleated RBC % Kleihauer-Betke F Hgb PT INR Lactic Acid Iron TIBC Iron Saturation Ferritin Urine Color Yellow Urine Clarity Clear Urine pH 7.0 Ur Specific [place] 1.010 Urine Protein Negative Urine Glucose (UA) Normal Urine Ketones 50 H Urine Occult Blood 25 H Urine Nitrite Negative Urine Bilirubin Negative Urine Urobilinogen Normal Ur Leukocyte Esterase Negative Urine RBC 0-5 SEEN Urine WBC 0-5 SEEN Ur Squamous Epith Cells 0-5 SEEN Urine Bacteria 0 SEEN Urine Mucus 0 SEEN Vag Amniotic Fld Detect Group B Strep DNA Pending Specimen Comment Pending Number of Visits: 7 Review of Systems Constitutional: Reports: Chills, Fever HEENT: Denies: Head Aches, Nasal Congestion, Sinus Congestion, Sore Throat Respiratory: Denies: Cough Gastrointestinal: Reports: Abdominal Pain, Constipation. Denies: Diarrhea, Hematochezia, Nausea, Vomiting Genitourinary: Reports: Dysuria, Frequency. Denies: Hematuria Gynecological: Reports: Vaginal bleeding Physical Exam Vitals: AVSS General: Alert, Oriented x3, Cooperative, No apparent distress HEENT: Atraumatic, Normocephalic Cardiovascular: Regular Rhythm, Normal S1, Normal S2, Tachycardic Lungs: Clear to auscultation, Normal air movement, No rhonchi, No wheeze, No rales Abdomen: Soft, Non Tender, Non-Distended, Gravid Extremities:: No edema, No tenderness/swelling Neurological: Neuro grossly intact ISOTOPE HYDROLOGIST: Normal external genitalia Presentation: Cephalic Cervix Dilation (cm): 0 - visually on SSE, neg pool, 50cc blood/clot Assessment/Plan All Active Problems (Last Updated 07/29/19 @ 23:09 by Jovanna Guevara MD) 31 weeks gestation of (Acute) Third trimester bleeding, antepartum (Acute) Maternal pyrexia, antepartum (Acute) Frequent PVCs (Acute) Palpitations (Acute) Syncope and collapse (Acute) This is a 18 year-old, G [3], P [2], at 31 2/7 weeks gestational age with resolved vaginal bleed, fever, positive ROM plus. Patient was seen for (Last Updated 07/29/19 @ 23:09 by Jovanna Guevara MD) 31 weeks gestation of (Acute) Third trimester bleeding, antepartum (Acute) - US with no evidence of retroplacental bleeding however clearly from uterus - H/H decreased from prior thus KB pending. Normal coags and patient nontender. - Will need biometry Maternal Fever -Dfdx viral syndrome, recurrent UTI, PPROM. -Patient generally well appearing with no leukocytosis, suspect false positive PPROM due to bleeding however too much blood to appreciate fern, otherwise, no pool on SSE. Nitrazine deferred. -Blood culture pending; outpatient Ucx c/w contamination and vaginitis NAAT negative -GBS NAAT -Call to [facility] - following discussion with Dr. Chowdhury patient to be transported to [facility]. Will send straight cath Ucx, start IV fluid bolus and Ceftriaxone.
[2019-07-29 23:21] LABS: Lactic Acid 0.7 mmol/L (0.4-2.0)
[2019-07-29] MEDS: Ceftriaxone 1 GM/50 ML BAG IV (23:35)
[2019-07-29] MEDS: 0.9% Normal Saline 1,000 ML 999 ML IV (23:35)
[2019-07-29 23:57] LABS: Group B Strep DNA By PCR Negative (Negative); Internal Control PASS; Probe Check PASS; Specimen Processing Control PASS
[2019-07-30 08:49] LABS: Kleihauer-Betke POSITIVE
== END 2019-07-30 | disposition short-term general hospital (02) ==
LOC: WPOUT 17:37 → OBT 17:38 → WP 22:08
PROVIDERS: Referring Provider Obstetrics & Gynecology; Visit Provider Obstetrics & Gynecology
DX: O46.93 Antepartum hemorrhage, unspecified, third trimester (principal); O23.43 Unspecified infection of urinary tract in pregnancy, third trimester; Z87.440 Personal history of urinary (tract) infections; O99.283 Endocrine, nutritional and metabolic diseases complicating pregnancy, third trimester; E03.9 Hypothyroidism, unspecified; O99.413 Diseases of the circulatory system complicating pregnancy, third trimester; I49.3 Ventricular premature depolarization; Z3A.31 31 weeks gestation of pregnancy
CPT/HCPCS: 96365; 36415; 59025; 59050; 76815; 81001; 82728; 83540; 83550; 83605; 84112; 85025; 85460; 85610; 87040; 87081; 87086; 87653; 99218; J7030; G0378; J0702

== ENCOUNTER → 2019-08-29 15:02 | Outpatient (CLI) | payer MEDICAID, SELFPAY ==
[2019-08-31 16:23] LABS: HSV 1 IgG < 0.91 index (0.00-0.90)
== END ==
PROVIDERS: Visit Provider Obstetrics & Gynecology
DX: Z11.3 Encounter for screening for infections with a predominantly sexual mode of transmission (principal)
CPT/HCPCS: 36415; 86695; 86696

== ENCOUNTER → 2019-09-13 16:53 | Outpatient (CLI) | payer MEDICAID, SELFPAY ==
[2019-09-19 12:44] LABS: HPV Reflexed? NOT INDICATED
== END ==
PROVIDERS: Visit Provider Obstetrics & Gynecology
DX: Z12.4 Encounter for screening for malignant neoplasm of cervix (principal); Z78.0 Asymptomatic menopausal state
CPT/HCPCS: 88175; G0145

== ENCOUNTER → 2020-06-16 12:24 | Outpatient (CLI) | payer MEDICAID, SELFPAY ==
[2020-06-16 14:25] LABS: HIV - WCH Non-Reactive (Nonreactive); Hepatitis B Surface Antibody Non-Reactive; Hepatitis C Antibody Non-Reactive (Nonreactive)
== END ==
PROVIDERS: Referring Provider Obstetrics & Gynecology; Visit Provider Obstetrics & Gynecology
DX: Z11.3 Encounter for screening for infections with a predominantly sexual mode of transmission (principal)
CPT/HCPCS: 36415; 86703; 86706; 86803

== ENCOUNTER → 2020-09-03 14:19 | Outpatient (CLI) | payer MEDICAID, SELFPAY ==
[2020-09-03 15:16] LABS: Absolute Neutrophil Count 6.2 X10^3/uL (2.0-7.7); Basophil# 0.03 X10^3/uL; Basophil% 0.4 % (0-1); Eosinophil# 0.16 X10^3/uL; Eosinophils% 1.9 % (0-5); Hematocrit 37.6 % (37-47); Hemoglobin 12.4 g/dL (12.0-15.0); Mean Corpuscular Hgb 28.2 pg (27.0-32.0); Mean Corpuscular Volume 85.6 fL (81-99); Mean Platelet Vol. 10.1 fl (6.2-12.0); Monocyte# 0.46 X10^3/uL; Monocyte% 5.5 % (0-10); NRBC Flagged by Analyzer 0 % (0-5); Neutrophil # 6.16 X10^3/uL (2.7-7.7); Neutrophil % 72.8 % (47-70); Platelet Count 276 K/mm3 (150-450); RBC Distribution Width CV 12.3 % (11.6-14.6); RBC Distribution Width SD 38.5 fl (35.1-43.9); Red Blood Count 4.39 M/mm3 (4.2-5.4); White Blood Count 8.4 K/mm3 (4.4-11.0)
[2020-09-03 15:23] LABS: Color, Urine Yellow (Yellow); Glucose, Dipstick Normal (Normal); Ketone-Dipstick Negative (Negative); Leukocyte Esterase-Dipstick 500 /ul (Negative); Nitrite-Dipstick Negative (Negative); Occult Blood-Urine Negative /ul (Negative); Protein-Dipstick 15 mg/dl (Negative); Specific Gravity, Urine 1.015 (1.002-1.030); Urine Bilirubin Dipstick Negative (Negative); Urine Clarity Sl. Cloudy (Clear); Urine Urobilinogen Normal (Normal); Urine pH 6.5 (5.0 - 8.0)
[2020-09-03 15:37] LABS: Amphetamine Urine VISTA NEGATIVE (<1000 ng/mL); Barbiturate Urine VISTA NEGATIVE (< 200 ng/mL); Benzodiazepine Urine VISTA NEGATIVE (< 200 ng/mL); Cocaine Urine VISTA NEGATIVE (< 300 ng/mL); Ecstacy Urine VISTA NEGATIVE (< 500 ng/mL); Methadone Urine VISTA NEGATIVE (< 300 ng/mL); PCP Urine VISTA NEGATIVE (< 25 ng/mL); THC Urine VISTA NEGATIVE (< 50 ng/mL); Vista UDS pH Range 6
[2020-09-03 16:00] LABS: Free T3 2.7 pg/mL (2.18-3.98); T4 Free Direct 1.18 ng/dL (0.76-1.46); Thyroid Stim Hormone (TSH) 2.08 uIU/mL (0.358-3.74)
[2020-09-03 16:31] LABS: HIV - WCH Non-Reactive (Nonreactive); Hepatitis B Surface Antigen Non-Reactive (Nonreactive); Hepatitis C Antibody Non-Reactive (Nonreactive); Progesterone Level 19.68 ng/mL (See Comment); Rubella IgG Reactive (Nonreactive); Vitamin D,25 Hydroxy 24.4 ng/mL
[2020-09-04 01:21] LABS: Prenatal RPR NONREACTIVE (NONREACTIVE)
[2020-09-06 03:06] LABS: Chlamydia By Nucleic Acid AMP Negative (Negative)
[2020-09-08 04:35] LABS: Gonococcus By Nucleic Acid AMP Negative (Negative)
[2020-09-11 13:42] LABS: CF, Screen Comment: (.)
== END ==
PROVIDERS: Visit Provider Obstetrics & Gynecology
DX: O09.91 Supervision of high risk pregnancy, unspecified, first trimester (principal); E55.9 Vitamin D deficiency, unspecified; Z3A.00 Weeks of gestation of pregnancy not specified
CPT/HCPCS: 36415; 80307; 81002; 81220; 82306; 84144; 84439; 84443; 84481; 85025; 86703; 86762; 86803; 87086; 87088; 87340; 87491; 87591

== ENCOUNTER → 2020-09-16 10:50 | Outpatient (CLI) | payer MEDICAID, SELFPAY | PROVIDERS: Visit Provider Obstetrics & Gynecology | DX: Z34.81 Encounter for supervision of other normal pregnancy, first trimester (principal) ==

== ENCOUNTER → 2020-12-23 10:26 | Outpatient (CLI) | payer MEDICAID, SELFPAY ==
[2020-10-30 14:41] VITALS: BMI 25.5
[2020-12-23 11:08] LABS: Hemoglobin 12.1 g/dL (12.0-15.0); Mean Corp Hgb Conc 32.7 g/dL (32-36); Mean Corpuscular Hgb 28.5 pg (27.0-32.0); Mean Corpuscular Volume 87.3 fL (81-99); Mean Platelet Vol. 10.1 fl (6.2-12.0); Platelet Count 290 K/mm3 (150-450); RBC Distribution Width CV 12.8 % (11.6-14.6); RBC Distribution Width SD 39.9 fl (35.1-43.9); Red Blood Count 4.24 M/mm3 (4.2-5.4); White Blood Count 15.1 K/mm3 (4.4-11.0)
[2020-12-23 11:26] LABS: Glucose Challenge Gest 1H 50g 123 mg/dL (70-140)
== END ==
PROVIDERS: Visit Provider Student in an Organized Health Care Education/Training Program
DX: Z34.82 Encounter for supervision of other normal pregnancy, second trimester (principal)
CPT/HCPCS: 36415; 82950; 85027

== ENCOUNTER 2020-12-25 04:22 | Emergency (ER) | payer MEDICAID, SELFPAY ==
[2020-10-30 14:41] VITALS: BMI 25.5
[2020-12-25 04:23] VITALS: BP 133/46; PULSE 76; RESP 16; TEMP 36.9; O2SAT 92; BMI 29.5
[2020-12-25 04:26] VITALS: BP 133/46; PULSE 76; RESP 16; TEMP 36.9; O2SAT 92
--- NOTE | 2020-12-25 04:43 | ED.VIS.GEN ---
History of Present Illness Chief Complaint: Dental Narrative: 20-year-old female presenting with right-sided facial pain and swelling. She states that she has an infected tooth. This started on Tuesday and she saw her dentist yesterday who could not look in her mouth because her job is too swollen to open. She cannot be sedated because she is 25 weeks . She has not had a fever. She states that the jaw pain radiates into the upper portion of her neck although has no throat swelling, tongue swelling, difficulty breathing. Patient took 1 dose of amoxicillin at 1 AM. - Past Medical History (1) Asthma Status: Chronic (2) Hypothyroidism (acquired) Status: Chronic Past Medical History - Allergies and Home Meds Allergies/Adverse Reactions: Allergies ibuprofen Adverse Reaction (Mild, Verified 12/25/20 04:27) headache acetaminophen Adverse Reaction (Verified 12/25/20 04:27) Other headache NSAIDS (Non-Steroidal Anti-Inflamma Adverse Reaction (Verified 12/25/20 04:27) Other headache Primary Care Physician: Care Physician,No Primary [Primary Care Provider] - Prior records reviewed: Yes Past Medical History: - - Reviewed in problem list Surgical History: noncontributory Lives: Spouse/ Significant Other Smoking Status: Never smoker Alcohol: None Drugs: None Review of Systems General: Denies: Chills, Fever, Malaise Eyes: Denies: Visual changes - bilaterally, Diplopia ENT: Reports: - - Right sided jaw swelling. Percussion tenderness on the right mandible. No sublingual edema. Right sided dental pain. Denies: Rhinorrhea, Sore throat Respiratory: Denies: Dyspnea, Cough Gastrointestinal: Denies: Abdominal pain, Nausea Genitourinary: Denies: Dysuria, Hematuria Musculoskeletal: Denies: Myalgias, Arthralgias Skin: Denies: Rash, Abscess Neurological: Denies: Headache, Weakness, Parasthesia Physical Exam Vital Signs/Narrative: Vital Signs Temp Pulse Resp BP Pulse Ox 12/25/20 04:26 98.5 F 76 16 133/46 H 92 12/25/20 04:23 98.5 F 76 16 133/46 H 92 Inital Vital Signs reviewed: Yes General: Well nourished, Well developed Head: Atraumatic Eyes: Perrl, EOMI ENT: Moist mucous membranes, No rhinorrhea, - - Right sided jaw swelling. Percussion tenderness on the right mandible. No sublingual edema. Tongue is not swollen. No stridor. Patient is swallowing her own secretions. Neck: Supple, No lymphadenopathy Cardiovascular: Regular rate, Regular rhythm Respiratory: No distress, CTA bilaterally Extremities: Nontender, No edema Skin: Normal color, No rash Neurological: Alert, Oriented x3, Cranial nerves II-XII grossly intact Psychological: Normal affect, Normal Mood Diagnostic/Tx/Re-eval - Medical Decision Making 20-year-old female presented with dental pain and facial swelling. She states is been swelling since Tuesday. She is only taken 1 dose of antibiotics which is amoxicillin. The dentist will not remove her tooth until her swelling goes down. She has not had a fever or red flag signs or symptoms. There is no signs of Art's angina. Given that the patient is we did discuss risk benefits of getting CT imaging versus changing her to Augmentin and seeing if her facial swelling gets better. At this time she wants to withhold the CT and try Augmentin. She will return if he has worsening symptoms. Patient stable for discharge at this time. Impression: 1. Dental abscess ED Disposition - Plan for ED Patient: Instructions: Dental Abscess Prescriptions: Amox/Clavulanate Tablet [Augmentin Tablet] 875 mg PO Q12H #20 tab Prescription Printed DiphenhydrAMINE [Benadryl] 25 mg PO QHS PRN PRN #20 cap PRN Reason: Insomnia Prescription Printed Referrals: Care Physician,No Primary [Primary Care Provider] -
== END 2020-12-25 05:52 | disposition home or self-care (01) ==
PROVIDERS: Emergency Provider Student in an Organized Health Care Education/Training Program
DX: O99.612 Diseases of the digestive system complicating pregnancy, second trimester (principal); K04.7 Periapical abscess without sinus; Z3A.25 25 weeks gestation of pregnancy
CPT/HCPCS: 99282

== ENCOUNTER 2021-02-17 20:30 | Outpatient (CLI) | payer MEDICAID, SELFPAY ==
[2021-02-17 20:56] VITALS: BP 119/61; PULSE 97; PULSE 99; TEMP 36.8; O2SAT 98
[2021-02-17 21:03] VITALS: BMI 33.3
[2021-02-17 21:54] LABS: ROM Internal Control Test YES-OK TO RESULT pt. (Internal QC); ROM Patient Test Negative (Negative)
--- NOTE | 2021-02-19 19:00 | PN_ITS ---
Progress Note 20-year-old G4, P3 living 2 at 32/5 weeks who presented to triage with thin watery discharge and decreased movement. Patient had watery discharge throughout the day and had had intercourse that morning. Did have some cramping but no regular contractions. Stated that her baby was still moving but that movements have changed or felt decrease. Physical Exam Narrative Exam completed by fire lieutenant & Plan Assessment/Plan (1) Decreased movement: Status: Acute Code(s): O36.8190 - Decreased movements, unspecified trimester, not applicable or unspecified Plan: G4, P3 living 2 at 32/5 weeks presenting with decreased movement. Patient feeling more movement while in triage. NST reactive: heart rate 125/moderate variability/positive accelerations/no decelerations, toco quiet. Cervix not checked as there were no contractions noted on the monitor and abdomen was palpated soft by nurse. ROM was sent and was found to be negative. No evidence of rupture of membranes. Patient discharged with precautions and kick counts. Follow-up in office the next morning.
== END 2021-02-17 22:05 ==
LOC: WPOUT 20:32 → WP 20:33
PROVIDERS: Visit Provider Student in an Organized Health Care Education/Training Program
DX: O36.8130 Decreased fetal movements, third trimester, not applicable or unspecified (principal); Z3A.32 32 weeks gestation of pregnancy
CPT/HCPCS: 59025; 59050; 84112

== ENCOUNTER → 2021-03-17 12:20 | Outpatient (CLI) | payer MEDICAID, SELFPAY ==
[2021-02-17 21:03] VITALS: BMI 33.3
[2021-03-17 13:21] LABS: Hematocrit 32.7 % (37-47); Hemoglobin 10.5 g/dL (12.0-15.0); Mean Corp Hgb Conc 32.1 g/dL (32-36); Mean Corpuscular Hgb 26.6 pg (27.0-32.0); Mean Corpuscular Volume 82.8 fL (81-99); Mean Platelet Vol. 11.3 fl (6.2-12.0); Platelet Count 200 K/mm3 (150-450); RBC Distribution Width CV 13.5 % (11.6-14.6); RBC Distribution Width SD 40.5 fl (35.1-43.9); Red Blood Count 3.95 M/mm3 (4.2-5.4); White Blood Count 10.1 K/mm3 (4.4-11.0)
[2021-03-17 13:30] LABS: Protein, Urine (Random) 15.5 mg/dL (<11.9); Protein:Creat Ratio 167 mg/g CRE (0-200)
[2021-03-17 13:38] LABS: ALB/GLOB Ratio 0.7 RATIO (0.9-2.4); AST(SGOT) 12 U/L (15-37); Alanine Aminotransfer ALT/SGPT 18 U/L (13-56); Albumin, Serum 2.7 g/dL (3.2-5.0); Alkaline Phosphatase 100 U/L (45-117); Anion Gap 5 (5-15); BUN 7 mg/dL (7-18); BUN/Creat Ratio 9.9 RATIO (10-20); Calcium,Total 8.7 mg/dL (8.5-10.1); Chloride 109 mmol/L (98-107); EST Glomerular Filtration Rate 110 mL/min (>60); Est Glom Filt Rate - Afr Amer 133 mL/min (>60); Globulin 3.8 g/dL (2.2-4.2); Glucose 102 mg/dL (74-106); Potassium 3.8 mmol/L (3.5-5.1); Protein, Total 6.5 g/dL (6.4-8.2); Sodium Level 138 mmol/L (136-145); Uric Acid 3.8 mg/dL (2.6-6.0)
[2021-03-17 17:00] LABS: Group B Strep DNA By PCR Negative (Negative)
[2021-03-17 17:01] LABS: Internal Control PASS; Probe Check PASS; Specimen Processing Control PASS
== END ==
PROVIDERS: Referring Provider Obstetrics & Gynecology; Visit Provider Obstetrics & Gynecology
DX: Z36.85 Encounter for antenatal screening for Streptococcus B (principal)
CPT/HCPCS: 36415; 80053; 82570; 84156; 84550; 85027; 87081; 87653

== ENCOUNTER → 2021-03-25 11:24 | Outpatient (CLI) | payer MEDICAID, SELFPAY | PROVIDERS: Visit Provider Obstetrics & Gynecology | DX: Z36.85 Encounter for antenatal screening for Streptococcus B (principal) | CPT/HCPCS: 87081 ==

== ENCOUNTER 2021-04-07 06:50 | Inpatient (IN) | payer MEDICAID, SELFPAY ==
[2021-04-07] VITALS (37 sets, daily range): BP systolic 101–155; BP diastolic 46–83; PULSE 38–107; RESP 16–18; TEMP 36.2–37; O2SAT 82–100; BMI 37.1
[2021-04-07] MEDS: Lactated Ringers 1,000 ML 50 ML IV (07:45)
[2021-04-07] MEDS: Oxytocin 30 units/NS 500 ml 30 UNITS/500 ML IV.SOLN IV (07:50)
[2021-04-07 08:00] LABS: Absolute Lymphocyte Count 1.76 X10^3/uL (0.83-4.51); Absolute Neutrophil Count 8.1 X10^3/uL (2.0-7.7); Basophil# 0.03 X10^3/uL; Basophil% 0.3 % (0-1); Eosinophil# 0.28 X10^3/uL; Eosinophils% 2.5 % (0-5); Hematocrit 31.9 % (37-47); Hemoglobin 10.1 g/dL (12.0-15.0); Lymphocyte # 1.76 X10^3/ul (0.83-4.51); Lymphocyte % 15.7 % (19-41); Mean Corp Hgb Conc 31.7 g/dL (32-36); Mean Corpuscular Hgb 25.8 pg (27.0-32.0); Mean Corpuscular Volume 81.4 fL (81-99); Monocyte# 0.86 X10^3/uL; Monocyte% 7.7 % (0-10); NRBC Flagged by Analyzer 0 % (0-5); Neutrophil # 8.14 X10^3/uL (2.7-7.7); Neutrophil % 72.6 % (47-70); Platelet Count 166 K/mm3 (150-450); RBC Distribution Width CV 14.6 % (11.6-14.6); RBC Distribution Width SD 42.5 fl (35.1-43.9); Red Blood Count 3.92 M/mm3 (4.2-5.4); White Blood Count 11.2 K/mm3 (4.4-11.0)
--- NOTE | 2021-04-07 08:39 | HP.PCM_ITS ---
History and Physical Date of Admission: 04/07/21 ACOG ANTEPARTUM RECORD - HISTORY AND PHYSICAL (04/07/2021) Name: KAITLIN SAEED History of this : This is a 20 year old [id number] presents at 39 wks + 5 days gestation for prior demise for HSV. History of prior section and 2 prior vaginal deliveries. OB Physician: Jovanna Hilliard MD [place]'s Physician: Dr Burton ...................................................................... : 2000 Age: 20 Address: [address] [place] [address] Phone: H) [phone] ([phone] Insurance Carrier: [employer] CLAIMS DEPT [id number] Emergency Contact: RICARDO SAEED [phone] ...................................................................... Final A[facility]A: 04/09/21 By Ultrasound: 10 weeks 5 days PARITY: (G-Total Pregnancies P-Fullterm,Premature,Induced AB,Spont AB, Ectopics, Multiple,Living) [facility] CONFIRMATION: By LMP: 07/03/20 Initial Exam: 04/09/21 By First Ultrasound Exam: 04/06/21 Final [facility]: 04/09/21 OB PROBLEM LIST: ALLERGIC TO ALL NSAIDS. 2nd cousin and niece with Heterotaxy Breast feeding planned. Depression - on Zoloft Emergency C/S with 3rd child, she plans a EPDS on 09/03/2020 = 20. G3 - PPROM, chorioamnioniotis, C/S for NRFHT with infant demise 2/2 HSV H/O UTIs HSV ppx at 36wga hx syncope, palpitations New FOB, he has a 3 year old son Pt has a first cousin with Spina Bifida, Muscular Dystophy, Autism, chromosomal defect REPEAT GBS AFTER 03/18- LAB error, no culture run only PCR Short interval ALLERGIES: Advil Migraine Aleve Migraine Ibuprofen Migraine No Known Drug Allergies MEDICATIONS: Valtrex 1 gram tablet 1 tab po bid x 7 days Valtrex 1 gram tablet 1 tab po daily Valtrex 500 mg tablet two times daily Vitamin D3 125 mcg (5,000 unit) tablet 1 tab po daily Zoloft 100 mg tablet 1 tab po daily SOCIAL HISTORY: Smoking - Never Alcohol Use - denies drinking Diet - needs improvement Lifestyle - moderate stress lifestyle and single Exercise - minimal Job Description - Illicit Drug Use - denies use of street drugs Sexual Activity - multiple sexual partners Residence - R[place] duplex lives with new GUY and her boys. Place of - [place] Spouse-Sig Other Name - Jake TOVAR Spouse-Sig Other Occupation - [employer] Spouse-Sig Other Phone No - [phone] Children Name(s) - Manfred (EB), Dre (DS), Pamela (19-) PRIOR DELIVERY HISTORY DEL DATE GEST LAB WT LB WT OZ TYPE ANES LABOR TX 10 Aug 11 31 48 4 0 C-Sec Epidural No March 09 38 8 7 7 Vag Epidural No Nov 11 38 3 7 11 Vag None No ANTEPARTUM FLOW CHART VISIT GE RTC FU F F HI U U DATE WK MD WKS HT PN HR M SS BP ED WT HI GL D EF ST __ ____ ___ __ __ ___ __ __ __ ___ __ __ __ ___ __ 09 Mar 38 SHM 1 38 V + 134/72 2+ 226 tr - 2 60 -3 Mar 37 SHM 1 37 V + + 126/60 tr 221 ne ne 2 60 -3 17 March 36 SHM 1 37 V + + 142/72 2+ 222 - - 09 March 35 SHM 1 35 V + + 142/70 1+ 218 tr ne 28 Apr 32 CM + 132/66 1+ 208 tr - 13 Apr 30 CM 2 30 + + 126/62 1+ 200 - - 30 Jan 18 JM 2 28 - + + 132/70 sl 194 - - 02 Mar 24 CM 4 24 + + 134/72 0 183 - tr Feb 20 CM 4 20 +U + 120/62 0 177 - - Oct 06 JMW 4 14 + O 120/70 0 169 tr - 04 Oct 04 SHM 4 + o 122/62 0 164 tr - Sep 02 SHM 4 on US 120/72 0 163 tr - ANTEPARTUM NOTE(S): Apr 01 2021: wants induction Mar 25 2021: Mar 17 2021: see note Mar 09 2021: US today Feb 18 2021: Feb 03 2021: swelling Jan 20 2021: loose joints, nito barba Dec 23 2020: Nov 25 2020: Sono Today, Good FM,Feeling Well Oct 15 2020: see note Sep 26 2020: heart palpations Sep 16 2020: see note COMPREHENSIVE ANTEPARTUM NOTE(S): Apr 02 2021: H taken to OB. tkg Apr 02 2021: I spoke with Carolina CHERY at and scheduled Induction for Tuesday04/07/21 at 0700 and reminded Kaitlin to call at 0500 for verification of arrival/room. Verbalized understanding. ENIO Apr 01 2021: Interested in having membranes stripped and discussing induction. More uncomfortable with increased edema again. Further discussion regarding induction with Dr SKY. LMT Apr 01 2021: Cervix moderate and midposition. Mar 25 2021: Kaitlin is here for PNV. Shares that her swelling has gone way down from last week. Still showing a trace of edema in hands and feet. Also states that she is having no ctx. Having good FM. Would like a cervix check today. Asked about having a membrane sweep. Advised usually wait until 39 weeks. Urine neg/neg. LSS Mar 25 2021: NST today for audible deceleration. Defer membrane stripping for 39wga, will do if patient feels well and no sx HSV. Continue Valtrex ppx. Labor, ROM, FM precautions. Mar 25 2021: H taken to OB. tkg Mar 17 2021: Declines cervical check today. GBS obtained. Discussed r/b TOLAC/ vs. Repeat C/S. Reviewed risk for uterine rupture approx 0.5-1% with catastrophic rupture and loss approx 1/800. Pt understands maternal complications greater with C/S and that safety campos > scheduled C/S > emergency C/S. Pt anxious that she had not yet delivered and potential for IOL. Reviewed with her that there is n Mar 17 2021: Kaitlin is here for visit. Has several concerns today. States increased edema and worried about this. B/P slightly elevated again today, 142/72. No proteinuria noted. She relates she has no contractions and concerned about this. She is planning a but worried about not going into labor prior to 40 weeks. Advised this is not likely a concern at this point. She declines LARC but ma Mar 09 2021: Kaitlin is here with SO for PVN following US. Has noteable edema in hands and feet. BP prior to US elevated 142/70 using lg cuff on left arm. Having good FM. Would like examined for and outbreak in the perineal area. Urine tr/neg. LSS BP retaken after US 134/64 using lg cuff right arm. LSS Mar 09 2021: Perineal tenderness without lesions present. Pt reports frequent nonadherence to twice daily schedule. Will treat with high dose Valtrex as if primary outbreak given non-adherence, then reduce to once daily 1g po dosing. Labor, ROM, FM precautions. US today, EFW 2921g (71st%), MELY 15.6cm. Feb 18 2021: Went to OB last night d/t watery discharge. ROM negative. No further watery discharge. No cramping. No spotting. Good FM. Long dip ua showing sp gr 1.015, ph 6.5, trace protein, rest is negative. kb Feb 18 2021: 32/6w visit. Was seen in triage last night for watery discharge and decreased FM. NST reactive, ROM neg. Reports normal discharge today, baby moving well. Cramping decreased. DIscussed kick counts, labor precautions. Hx of secondary to disseminated HSV. Pt still desiring TOLAC. Discussed risks of HSV, need for c/s with symptoms or lesions. Okay with being induced. F/u 2w. CM Feb 03 2021: Kaitlin is here with her SO for a PNV at 30 wk's. Good FM. 1+ edema in hands, sl in feet. Pt states she consistently has swelling in her hands especially in the mornings. Worries about baby's positioning due to a lot of FM, wants to make sure baby is head down. No other concerns expressed. Feb 03 2021: 30/5w visit. Hx of disseminated HSV in last delivery with of . Continue valtrex. DIscussed possible TOLAC vs c/s. Discussed need for c/s if she has symptoms or evidence of lesions. Depression stable. F/u 2w. CM Jan 20 2021: Kaitlin is here for a PNV with SO. Good FM. Sl edema present in fingers. Complains of loose joints' in hips and lower back. Occasional [place] Barba. Recently stopped taking Zoloft, pt states she stopped taking it because she got to the place she needed to be. Has not started Valtrex yet. No concerns expressed at this time. Jan 20 2021: 28wk, 1hr GTT wnl. Hx of Depression previously on zoloft. Stopped meds on her own, discussed depression and . Agreeable to start back up if need in the future. Pt with hx of demise with HSV, to start on valtrex after last visit but pt did no start. Uncertain why she needs it, educated. Pt reassured and says she will start valtrex after her oral surgery in a few weeks. Dec 23 2020: Kaitlin has an appt tomorrow @ [facility] in [place] re: tooth infection. Dental protocol given to her. Reporting good FM. 1 Hr Glucose, CBC drawn today. kbm Dec 23 2020: 24/5w visit. Hx of secondary to disseminated HSV. Start valtrex suppression. Dental issue - seeing dentist tomorrow. Depression - stable on zoloft. Pt worried about milk supply, encouraged continuation of med at this time as it is helping her a lot. F/u 4w. CM Nov 25 2020: 20/5w visit. Anatomy US wnl. Hx of depression: stable on zoloft. Hx of HSV with baby who of disseminated HSV. Will need PPX. Considering . F/u 4w. CM Oct 15 2020: Kaitlin is here for visit. Dr SKY out and pt will be discussed with her, FHT's easily obtained and in the 140's. Weight gain is noted today in office, She had cfDNA testing that showed normal female and reports that this has helped her feel more motivated. Still not feeling much motivation. Zoloft increased to 100 mg daily. No counseling appt yet. Will call and try to expediate Sep 26 2020: Kaitlin is here for a PNV. N/V have improved. Handling increased Zoloft dose w/o issues. Feels her moods are increasingly better and finds that she has more motivation to do things throughout the day. Denies thoughts of harming herself and others. Denies need for vitamin B6, motion sickness bracelets and Unisom. Tries to stay hydrated throughout the day, drinks approximately 3 - 16 oz water bottl Sep 26 2020: Kaitlin presents for emergency entertainment & media correspondent visit. Reports 24h of irritation outside of the vagina with intermittent nerve irritation. Denies vaginal discharge, odor, painfulness, itching, burning sensation. She has long hair and reported shedding a lot and had removed a couple of hairs that had gotten caught between her legs and she noted worsed irritation at that time. Denies fever, chills. hx 31w PPR Sep 17 2020: TELEHEALTH NOB VISIT, DURATION 45 MINUTES. Kaitlin is a 19 year old L2 (32 week loss), with an AURORA of 04/09/2021, current GA is 10 w 6 d. She resides with her SO/new FOB, Jake Valles, and she shares custody of her two sons with their father. Jake has a 3 year old son form a prior relationship. Kaitlin states that Jake is supportive. Delivery at [facility] is planned, she had a emergency C/ Sep 16 2020: Kaitlin is here for visit. She reports that she is feeling poorly. The Zoloft increased her nausea and now she feels like she has thrown up all day even if she has not. She initially thought maybe the Zoloft was helping but now she is not so sure. She has actually felt much worse this last week. Relates that she has no motivation to do anything. She is laying around all day and then Sep 16 2020: Mood not significantly improved. Continues with decreased motivation, apathy, depressed emotions. Denies SI/HI. Will increase Zoloft to 100mg daily. She has been awaiting call back from [facility]. I asked her to call them again as she has been followed by them previously in the last year. REviewe d labs, B pos, low Vitamin D. She is taking Vitamin D gummies 2000 IU daily, I advised her to luis Sep 03 2020: Kaitlin is her with Jake FOMichelle for missed menses. LMP 07/03/20 UPT in office positive with AURORA of 04/09/21, approx 8 wks 6 days. Both her had FOB are happy and excited about this . She states that she is nausea, tender breast and depression has increased the past months. She is not on any Rx or vitamins. States that she is not taking care of her health. pkt reviewed and Sep 03 2020: as above. Kaitlin is here with her boyfriend and FOB, May, for confirmation. Kaitlin is a with hx depression, hypothyroidism and tachycardia. She had at 38w, then at 37w, then C/S at 32wga. C/S on 08/02/20 for NFHT during 32w IOL for PPROM with chorioamnionoitis at [facility] however her due to HSV infection. She notes she lost all 3 of her ch REVIEW OF SYSTEMS: GENERAL - Denies fever, or chills SKIN - Denies rash, new skin lesions, or change in moles EYES - Denies blurred vision, or change in visual acuity EARS - Denies ear pain, or difficulty hearing NOSE - Denies nasal congestion, discharge, or bleeding MOUTH - Denies sore throat, or difficulty swallowing NECK - Denies pain or swelling RESPIRATORY - Denies shortness of breath, cough, wheezing CARDIOVASCULAR - Denies palpitations, chest pain, orthopnea, PND, peripheral edema, syncope or claudication GASTROINTESTINAL - Denies nausea, vomiting, diarrhea, constipation, Denies abdominal pain, melena and or bright red blood GENITOURINARY - Denies dysuria, frequency of urination, urgency, or hesitancy MUSCULOSKELETAL - Denies joint or muscle pain, or back pain NEUROLOGICAL - Denies localized numbness, weakness, or tingling PSYCHIATRIC - Denies depression, anxiety, substance abuse or suicide attempts ENDOCRINE - Denies heat or cold intolerance, weight loss or gain, increasing thirst HEMATO-IMMUNOLOGIC - Denies easy bruising, bleeding, oral ulcerations or recurrent infections GENETICS SCREENING: Age 35+ years: No, ` Thalassemia: No Neural Tube Defect: No Down Syndrome: No MONSE-SACHS: No Sickle Cell Disease: No Hemophilia: No Musc. Dystrophy: Yes Cystic Fibrosis: No, Screening done [place] Chorea: No Mental Retardation: No Fragile X: No Other genetic: Heterotaxy Other defects: Heterotaxy SABs/still births: No Drugs since LMP: No INFECTION HISTORY: High risk AIDS: No High risk Hepatitis: No Exposed to TB: No Exposed to Herpes: No Rash/viral illness since LMP: No History of STD: No Comments: HSV MENSTRUAL HISTORY: *Menses Amount/Duration: 4 days and normal amountMenses Regularity: RegularFrequency: monthlyMenarche (Age Onset): 9* PAST SUMMARY: PARITY: 1. Total Pregnancies............ 4 2. Full Term Pregnancies........ 2 3. Premature.................... 1 4. Abortions - Induced.......... 0 5. Abortions - Spontaneous...... 0 6. Ectopics..................... 0 7. Multiple Births.............. 0 8. Living Children.............. 2 PAST #1: Date of :.................. 03/03/17 Gestation Weeks:................ 38 Length of labor(hours):......... 8 Sex:............................ M Weight-lbs:............... 7 Weight-oz:................ 7 Type of Delivery:............... Vag Type of Anesthesia:............. Epidural Place of Delivery:.............. [place] Treatment of Labor?:.... No Comment: SROM PAST #2: Date of :.................. 11/04/18 Gestation Weeks:................ 38 Length of labor(hours):......... 3 Sex:............................ M Weight-lbs:............... 7 Weight-oz:................ 11 Type of Delivery:............... Vag Type of Anesthesia:............. None Place of Delivery:.............. [place] Treatment of Labor?:.... No Comment: UTIS IN PG. PAST #3: Date of :.................. 08/02/19 Gestation Weeks:................ 31 Length of labor(hours):......... 48 Sex:............................ F Weight-lbs:............... 4 Weight-oz:................ 0 Type of Delivery:............... C-Sect Type of Anesthesia:............. Epidural Place of Delivery:.............. [place] Treatment of Labor?:.... No Comment: PPROM, NRFHT, HSV, PHYSICAL EXAMINATION General Appearence: 20 yo female in no acute distress Vital Signs: AF, VSS Heart: RRR without rubs or gallops Lungs: CTA x 2 Breasts: deferred Abdomen: gravid Pelvis: Cervix: 1/60 Presentation: cephalic Station: -3 Fetus: Size: AGA Movement: present Heart: present Impression /Plan: 39 wks + 5 days intrauterine for induction. Preparations in progress for delivery.
[2021-04-07] MEDS: Ondansetron 4 MG/2 ML Vial IV (11:53)
[2021-04-07] MEDS: Lactated Ringers 500 ML 999 ML IV (11:57)
[2021-04-07] MEDS: Oxytocin 30 units/NS 500 ml 30 UNITS/500 ML IV.SOLN 334 UNITS IV (13:15)
--- NOTE | 2021-04-07 13:27 | EX.PCM.OBRPT ---
Assessment & Plan (1) 39 weeks gestation of : (2) (vaginal after ): Maternal Data Information A[facility]A Calculator Estimated Delivery Date Method Current WG Current Estimate 04/09/21 Manual 39w 5d Final A[facility]A: 04/09/21 Final A[facility]A Source: US <20 weeks Gestational age: 39 5/7 weeks gestation Vaginal Delivery Maternal Presentation Maternal Presentation: Medically Indicated Induction Maternal Presentation: 20-year-old 4 para 2-1-0-2 presents at 39-5/7 weeks gestational age for scheduled induction of labor for prior demise due to disseminated HSV. Type of Induction: Pitocin and Amniotomy Medical Reason for Induction: - (History of demise due to disseminated HSV) Operative Information Date of Procedure: 04/07/21 Pre-Operative Diagnosis: 39-5/7 weeks gestation, trial of labor after section Post-Operative Diagnosis: A 9-5/7 weeks gestation, vaginal after section Surgery / Procedure Performed: Type of Anesthesia: Epidural Anesthesiologist: Luke Bell Estimated Blood Loss: 200 mL Time of Delivery: 13:07 Findings Description of Procedure: Arrived to room and patient was fully dilated and +32 station with category 1 heart rate tracing. She pushed to deliver the head in [place]. Infant mouth and nares were bulb suctioned at the perineum. The female infant delivered through a tight nuchal cord and was placed on the maternal abdomen. The infant was further attended by the nursery personnel. The cord was doubly clamped and cut at 5 minutes of life. The placenta delivered spontaneously and appeared intact on inspection. On fundal massage there was expulsion of urine thus straight catheterization of the bladder was performed after chlorhexidine wash was applied and rinsed. Fundal massage expressed a small clot. Intrauterine exam was performed with retrieval of approximately 50 cc clot. Hemostasis was obtained. A right labial minora tear was noted however superficial and hemostatic, no repair indicated. Perineum was intact. Sponge count was correct x2. Presentation: Vertex Amniotic Membrane Rupture Type: Artificial Amniotic Fluid Description: Clear Placental Delivery Description: Spontaneous Placenta Disposition: [facility] Cord Vessel Description: 3 Vessels Cord Entanglement: Around neck x 1, tight Infant A Gender: Female (1 minute): 8 (5 minute): 9 Delayed Cord Clamping: Yes Post Vaginal Delivery Medications Given After Delivery: IV Pitocin Episiotomy Description: None Laceration: None Complication Complications: None
[2021-04-07] MEDS: 0.9% Saline Lock 10 ML Syringe IV (15:51)
[2021-04-07] MEDS: Acyclovir 200 MG Capsule 400 MG PO (21:27)
[2021-04-08 01:00] VITALS: BP 108/52; PULSE 84; RESP 14; TEMP 37.1
[2021-04-08 01:02] VITALS: BP 108/52; PULSE 84
[2021-04-08 03:43] VITALS: BP 120/60; PULSE 83; RESP 16; TEMP 36.2
--- NOTE | 2021-04-08 08:30 | PCM.PN.OB ---
Subjective Subjective Has intermittent uterine cramping. Denies heavy lochia. is going well. She would like to go home later today. Objective Data Objective Data Vital Signs: Vital Signs Temp Pulse Resp BP Pulse Ox 97.1 F L 83 16 120/60 83 04/08/21 03:43 04/08/21 03:43 04/08/21 03:43 04/08/21 03:43 04/07/21 13:09 Oxygen Delivery Method Room Air Weight: 104.5 kg Body Mass Index (BMI) 37.1 Intake & Output: Intake and Output for Last 24 Hours 04/06/21 04/07/21 04/08/21 23:59 23:59 23:59 Intake Total 1538.53 / 1538.53 Output Total 950 / 950 Balance 588.53 / 588.53 Lab / Micro Data Result Diagrams: 04/07/21 07:45 Labs: Laboratory Results - last 24 hr 04/07/21 07:45 Blood Type B POSITIVE Antibody Screen NEGATIVE Micro: Microbiology 04/07/21 08:05 Mucosa - Nose SARS-CoV-2 Antigen (Rapid) - Final Physical Exam Const alert, oriented x3 and no apparent distress Narrative: Fundus firm and nontender, lochia scant Extremity no calf tenderness Extremity Narrative: trace b/l LE edema Assessment & Plan (1) (vaginal after ): PLAN: Rh positive Routine care Case management consultation - hx prior demise anticipate d/c later today
--- NOTE | 2021-04-08 08:46 | PCM.DC.SUM ---
Providers Date of Admission: 04/07/21 Primary Care Physician: Jessica Primary Care Phys Reason For Visit: VAGINAL DELIVERY Diagnosis Discharge Diagnosis (1) (vaginal after ): Status: Acute Code(s): O34.219 - Maternal care for unspecified type scar from previous delivery Medications at Discharge Home Medications valacyclovir [Valtrex] 1,000 mg PO DAILY 04/07/21 ibuprofen 600 mg PO Q8H PRN PRN #30 tab 04/08/21 Hospital Course Operations None Procedures None Summary of Care Provided Hospital Course: 20yo admitted at 39 5/7 weeks gestation for induction of labor. She received pitocin and amniotomy performed. She had an uncomplicated approximately 4 hours later. Her course was unremarkable and she was discharged to home on day #1. Weight / BMI Weight Weight: 104.5 kg Body Mass Index (BMI) 37.1 ABG / Lab / Microbiology Data Result Diagrams: 04/07/21 07:45 Laboratory: Laboratory Results - last 24 hr 04/07/21 07:45 Blood Type B POSITIVE Antibody Screen NEGATIVE Microbiology: Microbiology 04/07/21 08:05 SARS-CoV-2 Antigen (Rapid) - Final Mucosa - Nose Microbiology 04/07/21 08:05 Mucosa - Nose SARS-CoV-2 Antigen (Rapid) - Final D/C Instructions Discharge Diet: No restrictions May resume sexual activity in: 4-6 weeks Lifting Restricted to (Lbs): 20 Call your doctor if you observe: Fever of 101 or Higher, Using more than 1 pad per hour, Shortness of breath, Chest pain, Calf discomfort, Uncontrolled pain and - (Persistent or severe headache) Please Follow Up With: Jovanna Hilliard MD When: 3 weeks for telehealth follow up 6 weeks for visit Meaningful Use Info Meaningful Use Diagnoses (Choose all that apply): None applicable Discharge Plan Admission Admit Date/Time: 04/07/21 06:50 Primary Reason for Your Visit: Vaginal after section Attending Provider: Jovanna Breaux Primary Care Provider: Care Physician,No Primary Instructions Patient Instructions: After a Vaginal Discharge Orders/Prescriptions Prescriptions: New ibuprofen 600 mg Tablet 600 mg PO Q8H PRN PRN (Reason: Pain Score 1-3) Qty: 30 RF: 0 Continued valacyclovir [Valtrex] 1 gram Tablet 1,000 mg PO DAILY RF: 0 Referrals / Follow Up: Care Physician,No Primary [Primary Care Provider] - Disposition Disposition (needs filled in before D/C Order can be placed): Home, self care
[2021-04-08 08:53] VITALS: BP 131/63; PULSE 93; RESP 16; TEMP 36.9
[2021-04-08] MEDS: Acyclovir 200 MG Capsule 400 MG PO (10:11)
[2021-04-08 12:00] VITALS: BP 132/60; PULSE 86; RESP 16; TEMP 36.7
[2021-04-08 13:53] VITALS: BP 132/60; PULSE 86
[2021-04-08] MEDS: Ibuprofen 600 MG Tablet PO (14:02)
== END 2021-04-08 15:30 | disposition home or self-care (01) | DRG 560 ==
PROVIDERS: Admitting Provider Obstetrics & Gynecology; Visit Provider Obstetrics & Gynecology
DX: O34.219 Maternal care for unspecified type scar from previous cesarean delivery (principal); Z37.0 Single live birth; Z3A.39 39 weeks gestation of pregnancy; O98.32 Other infections with a predominantly sexual mode of transmission complicating childbirth; A60.00 Herpesviral infection of urogenital system, unspecified; O99.344 Other mental disorders complicating childbirth; F32.9 Major depressive disorder, single episode, unspecified; O69.1XX0 Labor and delivery complicated by cord around neck, with compression, not applicable or unspecified; O70.0 First degree perineal laceration during delivery
CPT/HCPCS: 59025; 59050; 85025; 86850; 86900; 86901; 87426; 99218; J7120; A4216; G0378; J2405

== ENCOUNTER → 2021-05-19 15:20 | Outpatient (CLI) | payer MEDICAID, SELFPAY ==
[2021-04-07 07:29] VITALS: BMI 37.1
[2021-05-19 16:42] LABS: Free T3 2.7 pg/mL (2.18-3.98); T4 Free Direct 0.86 ng/dL (0.76-1.46); Thyroid Stim Hormone (TSH) 3.18 uIU/mL (0.358-3.74)
[2021-05-22 03:07] LABS: Chlamydia By Nucleic Acid AMP Negative (Negative)
[2021-05-22 10:21] LABS: Gonococcus By Nucleic Acid AMP Negative (Negative)
== END ==
PROVIDERS: Visit Provider Obstetrics & Gynecology
DX: E03.9 Hypothyroidism, unspecified (principal)
CPT/HCPCS: 36415; 84439; 84443; 84481; 87491; 87591

== ENCOUNTER → 2021-10-05 16:47 | Outpatient (CLI) | payer MEDICAID, SELFPAY | PROVIDERS: Visit Provider Student in an Organized Health Care Education/Training Program | DX: Z00.00 Encounter for general adult medical examination without abnormal findings (principal); N77.1 Vaginitis, vulvitis and vulvovaginitis in diseases classified elsewhere ==

== ENCOUNTER → 2022-03-02 | Outpatient (CLI) | payer MEDICAID, SELFPAY ==
[2022-03-05 01:08] LABS: Chlamydia By Nucleic Acid AMP Negative (Negative)
[2022-03-05 13:47] LABS: Gonococcus By Nucleic Acid AMP Negative (Negative)
== END | disposition home or self-care (01) ==
PROVIDERS: Visit Provider Obstetrics & Gynecology
DX: Z11.3 Encounter for screening for infections with a predominantly sexual mode of transmission (principal)
CPT/HCPCS: 87491; 87591

== ENCOUNTER 2022-06-29 07:55 | Emergency (ER) | payer MEDICAID, SELFPAY ==
[2022-06-29 07:55] VITALS: BP 113/50; PULSE 86; RESP 16; TEMP 35.6; O2SAT 100; BMI 27.9
--- NOTE | 2022-06-29 08:09 | EKG12_ITS ---
Test Reason : DIZZINESS Blood Pressure : / mmHG Vent. Rate : 077 BPM Atrial Rate : 077 BPM P-R Int : 168 ms QRS Dur : 076 ms QT Int : 386 ms P-R-T Axes : -06 068 004 degrees QTc Int : 436 ms Sinus rhythm with frequent Premature ventricular complexes Otherwise normal ECG Confirmed by GRETCHEN MURRAY, MISTY ([id number]), magazine editor KYLIE EWING ([id number]) on 06/30/2022 9:29:00 AM Referred By: PENG Confirmed By:MISTY GODINEZ MD
--- NOTE | 2022-06-29 08:10 | EDS_ITS ---
HPI History of Present Illness Chief Complaint: Dizziness Informant: patient Onset/Context/Timing Onset: Today Timing: Intermittent Quality: lightheaded / near-syncope Current Severity: Mild Maximum Severity: Severe Worsened by: working/exertion Relieved by: lying on floor w/ head down Associated Symptoms Associated Symptoms: palpitations Narrative Narrative: Patient has a longstanding history of palpitations for which she has been on beta-blockers before, she is 10-12 weeks right now and was restarted on propranolol 1 week ago, she states it has been helping but she still has palpitations that are usually worse in the morning, and this morning at work she has been having them, and she started feeling lightheaded like she was going to pass out. She had a lay down on the floor multiple times to keep from passing out so her resident services supervisor sent her to the emergency department. The patient states she has had this happen before. She follows with cardiology. She denies any recent illness. 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 She had COVID 3 weeks ago or so, she said that it hit her hard and she was really wiped out and weak and ever since she feels like she does not have as much work capacity as she did before due to feeling tired. She has been having no dyspnea but she feels like occasionally she has to take a deep breath or yawn, and it may be associated with the palpitation she has been having when they occur more. The near syncopal episodes this morning have not necessarily been associated with feeling more palpitations but she states since she is feeling foggy in her head it is hard to tell. She denies any chest pain, abdominal pain, vaginal bleeding or leakage, she has not had an ultrasound during this yet. [facility] Medical History Asthma Frequent PVCs Hypothyroidism (acquired) Palpitations Syncope and collapse Home Medications valacyclovir 1 gram tablet (Valtrex) 1,000 mg PO DAILY hx of loss 04/07/21 [History Last Taken 04/06/21 21:00] ibuprofen 600 mg tablet 600 mg PO Q8H PRN PRN Pain Score 1-3 #30 tabs 04/08/21 [Rx Last Taken Unknown] Allergy/AdvReac Type Severity Reaction Status Date / Time No Known Allergies Allergy Verified 04/07/21 07:31 Family History Mother Heart disease Thyroid disorder Surgical History No history of previous surgery Social History Smoking Status: Never smoker alcohol intake: never caffeine: No ROS ROS ED Constitutional Constitutional ED: Denies chills or fever(s) Eyes Eyes: Denies change in vision or diplopia ENT ENT ED: Denies rhinorrhea or sore throat Cardiovascular Cardiovascular: Reports lightheadedness and palpitations; Denies chest pain Respiratory/Chest Respiratory/Chest: Denies cough or dyspnea Gastrointestinal Gastrointestinal: Denies abdominal pain, diarrhea, nausea or vomiting Genitourinary Genitourinary ED: Denies dysuria or hematuria Musculoskeletal Musculoskeletal: Denies back pain or neck pain Integumentary Denies abscess or rash Neurologic Neurologic: Denies headache(s), paresthesias or weakness Psychiatric Psychiatric: Denies anxiety or suicidal thoughts EXAM Physical Exam Const Vital Signs: 06/29/22 07:55 Temperature 96.0 F L Temperature Source Temporal Pulse Rate 86 Respiratory Rate 16 Blood Pressure 113/50 L Blood Pressure Mean 71 Pulse Ox 100 Oxygen Delivery Method Room Air Positive well nourished and well developed General Appearance ED: well developed and NAD HEENT Reports moist mucous membranes normocephalic and atraumatic Eyes PERRL and EOMs intact bilaterally Neck full ROM and supple Resp normal respiratory effort and clear to auscultation bilaterally Cardio no murmurs Rhythm: abnormal rhythm irregularly irregular GI non-tender and non-distended Auscultation: normoactive bowel sounds Palpation: soft Back/Spine no CVA tenderness General Back: other FROM Extremity normal to inspection General Extremety ED: Negative for edema, pulses abnormal or tenderness General Extremity: Negative for edema or pulses abnormal Neuro oriented x3, CN's II-XII intact bilaterally, no sensory deficits noted and gait normal Sensorium / Orientation: awake and alert Motor Exam: strength 5/5 throughout Skin no rashes or lesions noted and no wounds MDM MDM MDM Narrative Medical decision making narrative: Patient is on propranolol 10 mg twice daily for the last week. She is having frequent PVCs here in emergency department and symptomatic with most of them, including lightheadedness. Her blood pressure is on the low side, currently 112/43. She was 113/50 when she signed in. Discussed with cardiology and we discussed her prior echocardiogram and event monitor that she wore for over 2 weeks and had 3300 PVCs, 3500 PACs, no dysrhythmias. She has had no dysrhythmias here. Dr. Pugh request that under the circumstances along with her borderline blood pressures and frequent PVCs/ectopy, that we discontinue her propranolol, place her on a 24-hour Holter monitor and have her follow-up closely in the office. We will give her a work note for today and a liter of IV fluids. Lab Data Attestation: I reviewed the patient's lab results. Labs: Laboratory Results - last 24 hr 06/29/22 06/29/22 06/29/22 08:33 08:59 08:59 WBC 8.2 RBC 4.23 Hgb 12.3 Hct 35.7 L MCV 84.4 MCH 29.1 MCHC 34.5 RDW Std Deviation 41.1 RDW Coeff of [place] 13.5 Plt Count 266 MPV 10.3 Immature Gran % (Auto) 0.200 Neut % (Auto) 79.0 H Lymph % (Auto) 14.1 L Dougherty % (Auto) 4.6 Eos % (Auto) 1.7 Baso % (Auto) 0.4 Absolute Neuts (auto) 6.5 Absolute Lymphs (auto) 1.16 Nucleated RBC % 0 Sodium 138 Potassium 3.7 Chloride 103 Carbon Dioxide 24.0 Anion Gap 11 BUN 8 Creatinine 0.67 Estim Creat Clear Calc 122.25 Est GFR (MDRD) Af Amer 140 Est GFR (MDRD) Non-Af 115 BUN/Creatinine Ratio 12.0 Glucose 86 Calcium 8.7 POC Glucose 82 Rhythm Strip Rhythm Strip: Sinus Rhythm Rate: 85 Ectopy: PVC(s) EKG Initial EKG: Attestation: I personally reviewed and interpreted this EKG as follows: Interpretation: Sinus Rhythm and No Acute Injury Pattern Comments: Frequent monofocal PVCs. Otherwise normal. Discharge Plan Triage Chief Complaint: Dizziness ED Provider: Bryan Tang Dx/Rx/DC Orders Clinical Impression: Near syncope, Frequent PVCs, First trimester Instructions: PVCs Prescriptions: No Action valacyclovir [Valtrex] 1 gram Tablet 1,000 mg PO DAILY ibuprofen 600 mg Tablet 600 mg PO Q8H PRN PRN (Reason: Pain Score 1-3) Qty: 30 0RF Stand Alone Forms: ED Work / School Excuse Primary Care Provider: Care Physician,No Primary Referrals: Zachary Pugh MD [Med Staff - Active Staff] - As soon as possible (call for appt) Care Physician,No Primary [Primary Care Provider] - Activity Restrictions/Additional Instructions: STOP your propranolol. Drink plenty of fluids. Disposition Disposition: Home, Self Care
[2022-06-29 08:55] LABS: Bedside Glucose 82 mg/dL (74-106)
[2022-06-29 09:07] LABS: Absolute Lymphocyte Count 1.16 X10^3/uL (0.83-4.51); Absolute Neutrophil Count 6.5 X10^3/uL (2.0-7.7); Basophil# 0.03 X10^3/uL; Basophil% 0.4 % (0-1); Eosinophil# 0.14 X10^3/uL; Eosinophils% 1.7 % (0-5); Hematocrit 35.7 % (37-47); Hemoglobin 12.3 g/dL (12.0-15.0); Lymphocyte # 1.16 X10^3/ul (0.83-4.51); Lymphocyte % 14.1 % (19-41); Mean Corp Hgb Conc 34.5 g/dL (32-36); Mean Corpuscular Hgb 29.1 pg (27.0-32.0); Mean Corpuscular Volume 84.4 fL (81-99); Mean Platelet Vol. 10.3 fl (6.2-12.0); Monocyte# 0.38 X10^3/uL; Monocyte% 4.6 % (0-10); NRBC Flagged by Analyzer 0 % (0-5); Neutrophil # 6.51 X10^3/uL (2.7-7.7); Platelet Count 266 K/mm3 (150-450); RBC Distribution Width CV 13.5 % (11.6-14.6); RBC Distribution Width SD 41.1 fl (35.1-43.9); Red Blood Count 4.23 M/mm3 (4.2-5.4); White Blood Count 8.2 K/mm3 (4.4-11.0)
[2022-06-29 09:21] LABS: Anion Gap 11 (5-15); BUN 8 mg/dL (7-18); Calcium,Total 8.7 mg/dL (8.5-10.1); Chloride 103 mmol/L (98-107); Creatinine, Serum 0.67 mg/dL (0.55-1.02); EST Glomerular Filtration Rate 115 mL/min (>60); Est Glom Filt Rate - Afr Amer 140 mL/min (>60); Estimated Creatinine Clearance 122.25 ml/min; Glucose 86 mg/dL (74-106); Potassium 3.7 mmol/L (3.5-5.1); Sodium Level 138 mmol/L (136-145)
[2022-06-29] MEDS: 0.9% Normal Saline 1,000 ML 999 ML IV (10:05)
[2022-06-29 10:06] VITALS: BP 113/56; PULSE 62; RESP 16; O2SAT 100
[2022-06-29 11:49] VITALS: BP 109/43; PULSE 56; RESP 16; O2SAT 99
== END 2022-06-29 11:54 | disposition home or self-care (01) ==
PROVIDERS: Emergency Provider Emergency Medicine; Visit Provider Emergency Medicine
DX: O99.891 Other specified diseases and conditions complicating pregnancy (principal); O99.411 Diseases of the circulatory system complicating pregnancy, first trimester; I49.3 Ventricular premature depolarization; R55 Syncope and collapse; Z86.16 Personal history of COVID-19; Z3A.12 12 weeks gestation of pregnancy
CPT/HCPCS: 93005; 82962; 80048; 85025; J7030; A4216

== ENCOUNTER → 2022-06-29 | Outpatient (CLI) | payer MEDICAID, SELFPAY | END | disposition home or self-care (01) | LOC: CVS 09:49 | PROVIDERS: Visit Provider Emergency Medicine | DX: O99.891 Other specified diseases and conditions complicating pregnancy (principal); O99.411 Diseases of the circulatory system complicating pregnancy, first trimester; R42 Dizziness and giddiness; I49.3 Ventricular premature depolarization; R55 Syncope and collapse; Z86.16 Personal history of COVID-19; Z3A.12 12 weeks gestation of pregnancy | CPT/HCPCS: 80048; 82962; 85025; 93005; 93225; 93226; 99284; J7030; A4216 ==

== ENCOUNTER → 2022-07-01 | Outpatient (CLI) | payer MEDICAID, SELFPAY ==
[2022-07-01 12:24] LABS: Free T3 2.6 pg/mL (2.18-3.98); Magnesium 1.8 mg/dL (1.6-2.6); T4 Free Direct 1.31 ng/dL (0.76-1.46); Thyroid Stim Hormone (TSH) 1.43 uIU/mL (0.358-3.74)
== END | disposition home or self-care (01) ==
LOC: LAB 11:22
PROVIDERS: PCP Family Medicine; Visit Provider Nurse Practitioner Gerontology
DX: R00.2 Palpitations (principal)
CPT/HCPCS: 36415; 83735; 84439; 84443; 84481

== ENCOUNTER → 2022-07-13 | Outpatient (CLI) | payer MEDICAID, SELFPAY ==
[2022-07-13 17:32] LABS: Absolute Lymphocyte Count 1.82 X10^3/uL (0.83-4.51); Absolute Neutrophil Count 6.4 X10^3/uL (2.0-7.7); Basophil# 0.03 X10^3/uL; Basophil% 0.3 % (0-1); Eosinophils% 2.2 % (0-5); Hematocrit 33.6 % (37-47); Lymphocyte # 1.82 X10^3/ul (0.83-4.51); Lymphocyte % 20.3 % (19-41); Mean Corp Hgb Conc 32.7 g/dL (32-36); Mean Corpuscular Hgb 28.3 pg (27.0-32.0); Mean Corpuscular Volume 86.4 fL (81-99); Mean Platelet Vol. 11.3 fl (6.2-12.0); Monocyte# 0.56 X10^3/uL; Monocyte% 6.2 % (0-10); NRBC Flagged by Analyzer 0 % (0-5); Neutrophil # 6.35 X10^3/uL (2.7-7.7); Neutrophil % 70.8 % (47-70); Platelet Count 176 K/mm3 (150-450); RBC Distribution Width SD 43.8 fl (35.1-43.9); Red Blood Count 3.89 M/mm3 (4.2-5.4)
[2022-07-13 19:22] LABS: HIV - WCH Non-Reactive (Nonreactive); Hepatitis B Surface Antigen Non-Reactive (Nonreactive); Hepatitis C Antibody Non-Reactive (Nonreactive); Rubella IgG Reactive (Nonreactive); Syphilis Antibodies Non-reactive
[2022-07-15 08:29] LABS: V-Zoster IgG (Immunity) 369 index (Immune >165)
[2022-07-16 05:07] LABS: Chlamydia By Nucleic Acid AMP Negative (Negative)
[2022-07-16 19:21] LABS: Gonococcus By Nucleic Acid AMP Negative (Negative)
[2022-07-21 10:58] LABS: HPV Reflexed? NOT INDICATED
== END | disposition home or self-care (01) ==
LOC: WOBLAB 16:57
PROVIDERS: PCP Family Medicine; Visit Provider Student in an Organized Health Care Education/Training Program
DX: Z34.81 Encounter for supervision of other normal pregnancy, first trimester (principal)
CPT/HCPCS: 36415; 85025; 86703; 86762; 86780; 86787; 86803; 87340; 87491; 87591; 88175; G0145

== ENCOUNTER → 2022-07-15 | Outpatient (CLI) | payer MEDICAID, SELFPAY ==
--- NOTE | 2022-07-15 13:48 | ECHOD_ITS ---
Reason For Study: Palpitations, Near Syncope Procedure This was a 2D Doppler, Color Flow transthoracic echocardiogram. Exam performed in department. Left Ventricle Normal left ventricle. The left ventricular ejection fraction is 65 %. Right Ventricle Normal right ventricle. Atria The left and right atria are normal. Mitral Valve The mitral valve is structurally normal. No prolapse or stenosis seen. Tricuspid Valve Normal tricuspid valve. Aortic Valve There is no aortic stenosis. No aortic valve insufficiency. Pulmonic Valve The pulmonic valve is not well visualized. Great Vessels Normal sized aortic root. Pericardium/Pleural No pericardial effusion. MMode/2D Measurements & Calculations LVIDd: 4.9 cm IVSd: 0.64 cm LVOT diam: 2.1 cm LVIDs: 3.3 cm LVPWd: 0.74 cm LVOT area: 3.4 cm2 RVDd: 3.2 cm FS: 32.4 % Ao root diam: 2.5 cm LAV(MOD-bp): 55.0 ml LVAd ap4: 31.2 cm2 LAV(MOD-bp) Indexed: 29.3 ml/m2 LVLd ap4: 8.7 cm LAV(MOD-sp2): 41.7 ml EDV(MOD-sp4): 93.0 ml LAV(MOD-sp4): 56.1 ml EDV(sp4-el): 94.3 ml LVAs ap4: 18.1 cm2 LVLs ap4: 7.3 cm ESV(MOD-sp4): 41.1 ml ESV(sp4-el): 38.3 ml EF(MOD-sp4): 55.8 % EF(sp4-el): 59.4 % LVAd ap2: 32.2 cm2 SV(MOD-sp4): 51.9 ml SV(MOD-sp2): 64.9 ml LVLd ap2: 8.7 cm EDV(MOD-sp2): 100.4 ml EDV(sp2-el): 100.8 ml LVAs ap2: 17.3 cm2 LVLs ap2: 7.5 cm ESV(MOD-sp2): 35.5 ml ESV(sp2-el): 34.0 ml EF(MOD-sp2): 64.7 % SV(sp4-el): 56.0 ml LA dimension(2D): 3.7 cm LA A4 area: 19.6 cm2 RA A4 area: 15.1 cm2 Time Measurements MV dec time: 0.22 sec Doppler Measurements & Calculations MV E max leonel: 85.7 cm/sec Lat Peak E' Leonel: 24.8 cm/sec Med Peak E' Leonel: 18.1 cm/sec MV A max leonel: 58.1 cm/sec E/E' lat: 3.5 E/E' med: 4.7 MV E/A: 1.5 Ao V2 max: 173.4 cm/sec LV V1 max: 101.4 cm/sec MV dec slope: 393.5 cm/sec2 Ao max P.1 mmHg LV V1 max P.1 mmHg Ao V2 mean: 124.5 cm/sec LV V1 mean P.6 mmHg Ao mean P.0 mmHg LV V1 mean: 76.7 cm/sec Ao V2 VTI: 35.5 cm LV V1 VTI: 22.2 cm YANET(I,D): 2.2 cm2 YANET(V,D): 2.0 cm2 SV(LVOT): 76.3 ml PA V2 max: 122.8 cm/sec ECHO/Echo Complete Interpretation Summary The left ventricular ejection fraction is 65 %. Ordering Physician: Kitty Martinez Referring Physician: Eusebio Ramires Performed By: Yazmin Almanza, OTONIEL, RVT
== END | disposition home or self-care (01) ==
LOC: CVS 13:48
PROVIDERS: PCP Family Medicine; Referring Provider Nurse Practitioner Gerontology; Visit Provider Nurse Practitioner Gerontology
DX: R00.2 Palpitations (principal); R55 Syncope and collapse
CPT/HCPCS: 93306

== ENCOUNTER → 2022-08-09 | Outpatient (CLI) | payer MEDICAID, SELFPAY | END | disposition home or self-care (01) | LOC: LABSPEC 16:27 | PROVIDERS: PCP Family Medicine; Visit Provider Student in an Organized Health Care Education/Training Program | DX: N39.0 Urinary tract infection, site not specified (principal) | CPT/HCPCS: 87086; 87088 ==

== ENCOUNTER → 2022-08-16 | Outpatient (CLI) | payer MEDICAID, SELFPAY ==
[2022-08-16 13:42] LABS: Anion Gap 10 (5-15); BUN 8 mg/dL (7-18); BUN/Creat Ratio 12.8 RATIO (10-20); Calcium,Total 9.1 mg/dL (8.5-10.1); Chloride 106 mmol/L (98-107); Creatinine, Serum 0.62 mg/dL (0.55-1.02); EST Glomerular Filtration Rate 125 mL/min (>60); Est Glom Filt Rate - Afr Amer 152 mL/min (>60); Glucose 81 mg/dL (74-106); Magnesium 1.9 mg/dL (1.6-2.6); Potassium 3.9 mmol/L (3.5-5.1); Sodium Level 136 mmol/L (136-145)
== END | disposition home or self-care (01) ==
LOC: LAB 11:21
PROVIDERS: PCP Family Medicine; Referring Provider Internal Medicine Cardiovascular Disease; Visit Provider Internal Medicine Cardiovascular Disease
DX: I49.3 Ventricular premature depolarization (principal)
CPT/HCPCS: 36415; 80048; 83735

== ENCOUNTER → 2022-08-20 | Outpatient (CLI) | payer MEDICAID, SELFPAY ==
--- NOTE | 2022-08-23 11:38 | STRESSREP ---
Stress Test Report Date: 08/23/2022 Procedure: Exercise tolerance test Indications: Palpitations Consent: Per the patient Procedure: The patient exercised on a Anshu protocol for 9 minutes achieving a peak heart rate of 164 bpm (83% predicted maximal heart rate) with a peak blood pressure 144/38 mmHg and a peak MET capacity of approximately 10.1 MET's. The baseline ECG demonstrated normal sinus rhythm. The peak exercise ECG demonstrated no ischemic changes. PVCs noted during exercise and in recovery. The functional capacity was considered average. The patient had no complaints of chest discomfort during exercise or recovery. The examination was discontinued secondary to target heart rate being achieved. Impression: 1. Technically adequate (percent predicted maximal heart rate greater than 85%) exercise tolerance test 2. Peak exercise ECG with no ischemic changes. 3. PVCs noted during exercise and in recovery. No sustained or nonsustained VT. No couplets or triplets. This note was generated with [employer] software. It may contain incorrect words, spelling, and punctuation that were not noted in checking the note before signing.
== END | disposition home or self-care (01) ==
LOC: CVS 12:07
PROVIDERS: PCP Family Medicine; Visit Provider Internal Medicine Cardiovascular Disease
DX: O99.891 Other specified diseases and conditions complicating pregnancy (principal); O99.413 Diseases of the circulatory system complicating pregnancy, third trimester; I49.3 Ventricular premature depolarization; R00.2 Palpitations; R55 Syncope and collapse; Z3A.39 39 weeks gestation of pregnancy
CPT/HCPCS: 93017

== ENCOUNTER → 2022-10-04 | Outpatient (CLI) | payer MEDICAID, SELFPAY ==
[2022-10-04 16:38] LABS: Absolute Lymphocyte Count 0.95 X10^3/uL (0.83-4.51); Basophil# 0.02 X10^3/uL; Basophil% 0.3 % (0-1); Eosinophil# 0.12 X10^3/uL; Eosinophils% 1.6 % (0-5); Hematocrit 30.7 % (37-47); Hemoglobin 9.8 g/dL (12.0-15.0); Lymphocyte # 0.95 X10^3/ul (0.83-4.51); Lymphocyte % 12.4 % (19-41); Mean Corp Hgb Conc 31.9 g/dL (32-36); Mean Corpuscular Hgb 26.6 pg (27.0-32.0); Mean Corpuscular Volume 83.4 fL (81-99); Mean Platelet Vol. 11.3 fl (6.2-12.0); Monocyte# 0.57 X10^3/uL; Monocyte% 7.4 % (0-10); NRBC Flagged by Analyzer 0 % (0-5); Neutrophil # 5.97 X10^3/uL (2.7-7.7); Neutrophil % 77.8 % (47-70); Platelet Count 150 K/mm3 (150-450); RBC Distribution Width SD 39.1 fl (35.1-43.9); Red Blood Count 3.68 M/mm3 (4.2-5.4); White Blood Count 7.7 K/mm3 (4.4-11.0)
[2022-10-04 17:39] LABS: Glucose Challenge Gest 1H 50g 93 mg/dL (70-140)
== END | disposition home or self-care (01) ==
LOC: WOBLAB 15:49
PROVIDERS: PCP Family Medicine; Visit Provider Student in an Organized Health Care Education/Training Program
DX: Z34.82 Encounter for supervision of other normal pregnancy, second trimester (principal)
CPT/HCPCS: 36415; 82950; 85025

== ENCOUNTER → 2022-10-28 | Outpatient (CLI) | payer MEDICAID, SELFPAY | END | disposition home or self-care (01) | LOC: LABSPEC 16:12 | PROVIDERS: PCP Family Medicine; Visit Provider Obstetrics & Gynecology | DX: R30.0 Dysuria (principal) | CPT/HCPCS: 87077; 87086; 87088; 87186 ==

== ENCOUNTER → 2022-11-29 | Outpatient (CLI) | payer MEDICAID, SELFPAY | END | disposition home or self-care (01) | PROVIDERS: PCP Family Medicine; Visit Provider Student in an Organized Health Care Education/Training Program | DX: Z36.85 Encounter for antenatal screening for Streptococcus B (principal) | CPT/HCPCS: 87081 ==

== ENCOUNTER 2022-12-01 20:45 | Inpatient (IN) | payer MEDICAID, SELFPAY ==
[2022-12-01 19:47] VITALS: PULSE 80; O2SAT 99
[2022-12-01 19:49] VITALS: BP 118/57; PULSE 83
[2022-12-01 20:00] VITALS: BMI 30.4
[2022-12-01 20:20] LABS: ROM Internal Control Test YES-OK TO RESULT pt. (Internal QC)
[2022-12-01 20:21] LABS: ROM Patient Test POSITIVE (Negative)
[2022-12-01 20:26] LABS: Color, Urine Yellow (Yellow); Glucose, Dipstick Normal (Normal); Ketone-Dipstick 5 mg/dl (Negative); Leukocyte Esterase-Dipstick 25 /ul (Negative); Nitrite-Dipstick Negative (Negative); Occult Blood-Urine Negative /ul (Negative); Protein-Dipstick 30 mg/dl (Negative); Urine Bilirubin Dipstick Negative (Negative); Urine Clarity Clear (Clear); Urine Urobilinogen 1 mg/dl (Normal); Urine pH 6.5 (5.0 - 8.0)
[2022-12-01] MEDS: Betamethasone/Betamethasone 30 MG/5 ML Vial 12 MG IM (21:14)
--- NOTE | 2022-12-01 21:21 | PCM.HP.BLA ---
History and Physical Date of Admission: 12/01/22 Chief complaint: Leakage of fluid History present illness: 22-year-old G5, P4 living 3 at 33 weeks and 0 days with [facility]: 01/19/2023 arrives with leakage of clear fluid at 1800. Denies headache, vision change, chest pain, shortness of breath, nausea vomit, right upper quadrant pain. Patient states good movement. is complicated by history of demise baby from HSV 9 days after delivery, history of section, history of HSV Obstetric history: G1: 37-week 7 pounds 7 ounces male G2: 36-week 7 pounds 11 ounces male G3: 31-week P PROM primary section 4 pounds female. 9 days later from HSV G4: 39-week 8 pounds 12 ounces female G5: Current Past medical history: HSV Medications: vitamin Past surgical history: section Allergies: Ibuprofen Family history: Denies history DVT or PE Social history: Denies smoking, alcohol use, drug use Review of systems: Besides above pertinent positives a full review of systems was performed and found to be negative Physical exam: Vitals: Blood pressure 118/57 pulse 83 General: Normal-appearing no acute distress HEENT: Normocephalic atraumatic no cervical lymphadenopathy Cardiac/respiratory: No use of accessory muscles, nonlabored breathing Abdomen: Soft, nontender, gravid Pelvic exam: Sterile speculum exam with signs of grossly ruptured, 3 cm cervical dilation visualized. No signs of herpes lesions Extremities: No peripheral edema normal peripheral pulses Psych: Normal affect normal demeanor nonpressured speech Bedside ultrasound: Cephalic Labs: ROM positive Assessment plan: 22-year-old living 3 at 33 weeks and 0 days with P PROM. Celestone given. To start azithromycin 500 mg IV daily. Start ampicillin 2 g IV every 6 hours. PCN for GBS. Patient afebrile, vital signs stable. No signs of chorioamnionitis for latency antibiotics as above and needs antepartum continuous monitoring for planned delivery at 34 weeks. Patient with history of HSV, no history of lesions baby previously from HSV but patient has never had lesions and has always been asymptomatic, patient not taking Valtrex as instructed for suppression therapy as she did not think she would deliver this early. To start acyclovir now. Sterile speculum exam negative for lesions. Baby cephalic. Discussed patient with Dr. Alexy GARDINER, who accepted transport for P PROM. Transfer team called. Physician Intensivist notified.
[2022-12-01] MEDS: Lactated Ringers 1,000 ML 50 ML IV (21:45)
[2022-12-01 21:46] VITALS: TEMP 36.8
[2022-12-01 22:00] VITALS: BP 109/52; PULSE 83
[2022-12-01 22:02] LABS: Absolute Neutrophil Count 8.4 X10^3/uL (2.0-7.7); Basophil# 0.02 X10^3/uL; Basophil% 0.2 % (0-1); Eosinophil# 0.14 X10^3/uL; Eosinophils% 1.3 % (0-5); Hematocrit 28.6 % (37-47); Hemoglobin 8.9 g/dL (12.0-15.0); Lymphocyte % 14.6 % (19-41); Mean Corp Hgb Conc 31.1 g/dL (32-36); Mean Corpuscular Hgb 24.3 pg (27.0-32.0); Mean Corpuscular Volume 77.9 fL (81-99); Monocyte# 0.76 X10^3/uL; Monocyte% 6.9 % (0-10); NRBC Flagged by Analyzer 0 % (0-5); Neutrophil # 8.39 X10^3/uL (2.7-7.7); Neutrophil % 76.4 % (47-70); POSITIVE COUNT YES; Platelet Count 78 K/mm3 (150-450); RBC Distribution Width CV 14.7 % (11.6-14.6); RBC Distribution Width SD 41.1 fl (35.1-43.9); Red Blood Count 3.67 M/mm3 (4.2-5.4)
[2022-12-01 22:15] LABS: Differential Indicated SCAN CRITERIA MET
[2022-12-01] MEDS: Acyclovir 200 MG Capsule 400 MG PO (22:38)
[2022-12-01 22:52] LABS: Differential Comment SCANNED
[2022-12-01 22:59] LABS: Partial Thromboplast Time 27.8 Seconds (24.1-36.2)
[2022-12-01 23:13] LABS: ALB/GLOB Ratio 0.8 RATIO (0.9-2.4); AST(SGOT) 8 U/L (15-37); Alanine Aminotransfer ALT/SGPT 14 U/L (13-56); Albumin, Serum 2.9 g/dL (3.2-5.0); Alkaline Phosphatase 69 U/L (45-117); Anion Gap 6 (5-15); BUN 8 mg/dL (7-18); BUN/Creat Ratio 14.2 RATIO (10-20); Calcium,Total 9.1 mg/dL (8.5-10.1); Chloride 111 mmol/L (98-107); Creatinine, Serum 0.56 mg/dL (0.55-1.02); EST Glomerular Filtration Rate 141 mL/min (>60); Est Glom Filt Rate - Afr Amer 170 mL/min (>60); Estimated Creatinine Clearance 150.64 ml/min; Globulin 3.5 g/dL (2.2-4.2); Glucose 115 mg/dL (74-106); LDH 149 U/L (84-246); Potassium 3.4 mmol/L (3.5-5.1); Protein, Total 6.4 g/dL (6.4-8.2); Sodium Level 140 mmol/L (136-145)
[2022-12-01 23:55] VITALS: BP 108/53; PULSE 80
[2022-12-01 23:56] VITALS: TEMP 36.9
== END 2022-12-02 01:45 | disposition short-term general hospital (02) | DRG 566 ==
LOC: WPOUT 20:47 → WP 20:47
PROVIDERS: Admitting Provider Obstetrics & Gynecology; PCP Family Medicine; Visit Provider Obstetrics & Gynecology
DX: O42.913 Preterm premature rupture of membranes, unspecified as to length of time between rupture and onset of labor, third trimester (principal); Z36.85 Encounter for antenatal screening for Streptococcus B; Z3A.33 33 weeks gestation of pregnancy; Z91.14 Patient's other noncompliance with medication regimen; Z87.59 Personal history of other complications of pregnancy, childbirth and the puerperium; Z86.19 Personal history of other infectious and parasitic diseases
CPT/HCPCS: 59025; 59050; 76815; 80053; 81002; 83615; 84112; 85025; 85610; 85730; 86850; 86900; 86901; 87081; J7120; J0702

== ENCOUNTER 2023-01-15 14:35 | Emergency (ER) | payer MEDICAID, SELFPAY ==
[2023-01-15 14:36] VITALS: BP 132/59; PULSE 68; RESP 16; TEMP 36.4; O2SAT 99
--- NOTE | 2023-01-15 14:54 | EX.ED.DYSGE1 ---
HPI <LISSET Rae - Last Filed: 01/15/23 15:28> History of Present Illness Chief Complaint: Lower Extremity Injury Narrative Narrative: Patient presenting today with pain to her left pinky toe after falling down the steps yesterday and hitting her toe against a door that was at the bottom of the steps. She denies hitting her head or any loss of consciousness. She denies any other injuries. She is concerned that her toe may be broken. She is able to ambulate. PFSH <LISSET Rae - Last Filed: 01/15/23 15:28> PFSH Medical History Asthma Frequent PVCs Hypothyroidism (acquired) Palpitations Syncope and collapse (vaginal after ) Home Medications metoprolol tartrate 25 mg tablet 25 mg PO BID #30 tabs 09/29/22 [Rx Last Taken Unknown] Allergy/AdvReac Type Severity Reaction Status Date / Time No Known Allergies Allergy Verified 01/15/23 14:38 Family History Mother Heart disease Thyroid disorder Surgical History History of No history of previous surgery Social History Smoking Status: Never smoker alcohol intake: never substance use type: does not use caffeine: No ROS <LISSET aRe - Last Filed: 01/15/23 15:28> ROS ED Constitutional Constitutional ED: Denies chills, fever(s) or sweats Eyes Eyes: Denies blurry vision or diplopia Cardiovascular Cardiovascular: Denies chest pain or palpitations Respiratory/Chest Respiratory/Chest: Denies cough, dyspnea, tachypnea or wheezing Gastrointestinal Gastrointestinal: Denies abdominal pain, nausea or vomiting Musculoskeletal Musculoskeletal: Reports arthralgias; Denies back pain, myalgias or neck pain Integumentary Denies abscess, Abrasions or rash Neurologic Neurologic: Denies confusion, dizziness or paresthesias Psychiatric Psychiatric: Denies anxiety, depression, suicidal ideation or suicidal thoughts EXAM <LISSET Rae - Last Filed: 01/15/23 15:28> Physical Exam Const Vital Signs: 01/15/23 14:36 Temperature 97.5 F L Temperature Source Temporal Pulse Rate 68 Respiratory Rate 16 Blood Pressure 132/59 H Blood Pressure Mean 83 Pulse Ox 99 Oxygen Delivery Method Room Air Positive well nourished, well developed and no apparent distress General Appearance ED: well developed HEENT Reports normocephalic and head/scalp atraumatic Mouth ED: Yes moist mucous membranes normal Eyes PERRL and EOMs intact bilaterally Neck full ROM and supple Chest Wall inspection of chest normal Resp normal respiratory effort and clear to auscultation bilaterally Cardio regular rate and regular rhythm GI soft to palpation, non-tender, non-distended and no masses Back/Spine normal ROM and normal to inspection Extremity full ROM Extremity Narrative: Left fifth toe edematous and tender to palpation. DP pulses 2+ and equal bilaterally, good capillary refill, sensation intact. Neuro oriented x3, CN's II-XII intact bilaterally, moves all extremities, no focal motor deficits and no sensory deficits noted Sensorium / Orientation: awake and alert Psych mental status grossly normal and thought process normal Skin no rashes or lesions noted and no wounds <Dr. Bryan Tang MD - Last Filed: 01/15/23 15:21> Physical Exam Const Vital Signs: 01/15/23 14:36 Temperature 97.5 F L Temperature Source Temporal Pulse Rate 68 Respiratory Rate 16 Blood Pressure 132/59 H Blood Pressure Mean 83 Pulse Ox 99 Oxygen Delivery Method Room Air [facility] <LISSET Rae - Last Filed: 01/15/23 15:28> [facility] Narrative Medical decision making narrative: Patient presenting today with pain in her left pinky toe, she is concerned that it is broken. She injured it yesterday when she fell down a few steps and her toe hit against a door located at the bottom of the steps. X-ray of the left foot obtained to rule out fracture and is negative. She has been given RICE instructions and has been given geni tape. She will be discharged home in stable condition and is comfortable with plan. <Dr. Bryan Tang MD - Last Filed: 01/15/23 15:21> [facility] Treatment and Re-Evaluation Comments:: Seen and evaluated independently and in conjunction with physician contact lens assistant. Agree with notes above unless documented otherwise. Jammed left fifth toe on a door, concerned about fracture. Exam: Contusion medial aspect proximal phalanx of the left fifth toe, tender, no deformity. No other areas of foot bony tenderness. X-ray 3 views of my interpretation negative for any acute fracture. Patient reassured, she was offered a postop shoe and geni taping, she wants both of those, explained use. Discharge Plan Triage Chief Complaint: Lower Extremity Injury ED Midlevel Provider: Sylvie Walsh ED Provider: Bryan Tang Dx/Rx/DC Orders Clinical Impression: Contusion of fifth toe of left foot Instructions: ED Finger or Toe Contusion Prescriptions: No Action metoprolol tartrate 25 mg tablet 25 mg PO BID Qty: 30 6RF Primary Care Provider: Eusebio Ramires Referrals: Eusebio Ramires MD [Primary Care Provider] - 10-14 Days if not better Activity Restrictions/Additional Instructions: Use postop shoe and/or geni tape toes together as needed for discomfort. Also, icing when resting, ibuprofen as needed. Disposition Disposition: Home, Self Care
--- NOTE | 2023-01-15 15:02 | RAD_ITS ---
INDICATION: 5th toe pain and swelling EXAMINATION/TECHNIQUE: X-RAY - LEFT XR Foot 2 Views 3 VIEWS COMPARISON: None. FINDINGS: SOFT TISSUES: No soft tissue swelling or gas. No radiopaque foreign body. BONES/JOINTS: No acute fracture. Joint spaces anatomically aligned. RAD/Foot min 3 Views IMPRESSION: No acute bony abnormality. Electronically Signed: Steve Hanson MD at 15:47 EDT ,
== END 2023-01-15 15:30 | disposition home or self-care (01) ==
LOC: ED 15:27
PROVIDERS: Emergency Provider Emergency Medicine; PCP Family Medicine; Visit Provider Emergency Medicine
DX: S90.122A Contusion of left lesser toe(s) without damage to nail, initial encounter (principal); W10.9XXA Fall (on) (from) unspecified stairs and steps, initial encounter
CPT/HCPCS: 73630; 99283

== ENCOUNTER 2023-11-16 21:12 | Emergency (ER) | payer MEDICAID, SELFPAY ==
[2023-11-16 21:13] VITALS: BP 118/63; PULSE 95; RESP 16; TEMP 36.6; O2SAT 100; BMI 35.9
--- NOTE | 2023-11-16 21:20 | RAD_ITS ---
STUDY: X-RAY - LEFT HAND REASON FOR EXAM: Female, 23 years old. PAIN TECHNIQUE: 3 view(s) of the hand. COMPARISON: None. FINDINGS: Normal radiocarpal articulation. Normal distal radioulnar joint. Normal visualized carpal bones. Normal carpal articulations Normal carpometacarpal articulation of the thumb. Normal second through fifth carpometacarpal joints. Normal metacarpi. Normal metacarpophalangeal joint of the thumb. Normal interphalangeal joint of the thumb. Normal proximal and distal phalanges of the thumb. Normal metacarpophalangeal joints of the second through fifth fingers. Normal proximal and distal interphalangeal joints of the second through fifth fingers. Normal phalanges of the second through fifth fingers. The soft tissue structures are unremarkable. RAD/Hand Min 3 Views IMPRESSION: Normal x-ray examination of the hand. Electronically Signed: Nirav Schultz MD at 21:59 EST ,
--- NOTE | 2023-11-16 22:15 | EX.ED.UPPERE ---
HPI History of Present Illness Chief Complaint: Upper Extremity Injury Detail of Chief Complaint: Left index finger swelling Informant: patient Narrative Narrative: Patient presents with swelling and bruising to her left index finger. She does not know of injury. She states that she had picked up her 8 pound dog and carried him to another room. She felt some swelling in her left finger and when she looked down had swelling and some early bruising. She does not remember injuring her finger. She is right-hand dominant. PFSH PFS Medical History Asthma Frequent PVCs Hypothyroidism (acquired) Palpitations Syncope and collapse (vaginal after ) Home Medications metoprolol tartrate 25 mg tablet 25 mg PO BID #30 tabs 09/29/22 [Rx Last Taken Unknown] Allergy/AdvReac Type Severity Reaction Status Date / Time No Known Allergies Allergy Verified 11/16/23 21:16 Family History Mother Heart disease Thyroid disorder Surgical History History of No history of previous surgery Social History Smoking Status: Never smoker alcohol intake: never substance use type: does not use caffeine: No ROS ROS ED Constitutional Constitutional ED: Denies chills or fever(s) ENT ENT ED: Denies rhinorrhea Cardiovascular Cardiovascular: Denies chest pain Respiratory/Chest Respiratory/Chest: Denies cough or dyspnea Gastrointestinal Gastrointestinal: Denies abdominal pain Musculoskeletal Musculoskeletal: Reports extremity pain; Denies back pain Integumentary Reports other Details: Ecchymosis ; Denies Abrasions or rash Neurologic Neurologic: Denies headache(s), paresthesias or weakness Allergic/Immunologic Allergic/Immunologic ED: Denies lip swelling or urticaria EXAM Physical Exam Const Vital Signs: 11/16/23 21:13 Temperature 97.8 F Temperature Source Temporal Pulse Rate 95 Respiratory Rate 16 Blood Pressure 118/63 Blood Pressure Mean 81 Pulse Ox 100 Oxygen Delivery Method Room Air Positive well nourished and well developed General Appearance ED: well developed Eyes EOMs intact bilaterally Neck full ROM Chest Wall inspection of chest normal and palpation of chest normal Resp normal respiratory effort and clear to auscultation bilaterally Cardio regular rate and regular rhythm GI non-tender Palpation: soft Extremity Extremity Narrative: Minimal edema noted to the left index finger. Slight bruising noted over the flexor surface along the middle phalanx. Good range of motion of the digit. Normal cap refill and sensation distally. No tenderness over the metacarpals or carpals. Neuro oriented x3, moves all extremities, no focal motor deficits and no sensory deficits noted MDM MDM MDM Narrative Medical decision making narrative: Left hand x-ray obtained per nursing protocol. Per my interpretation no evidence of fracture or malalignment. Radiology interpretation is reviewed and agrees. Test results discussed with the patient. She is encouraged to use Tylenol as needed for pain. We discussed appropriate elevation to help with swelling. Radiography Diagnostic Testing: Clinical Impression(s) from Imaging Studies Hand X-Ray 11/16/23 21:20 IMPRESSION: Normal x-ray examination of the hand. Electronically Signed: Nirav Schultz MD at 21:59 EST , Discharge Plan Triage Chief Complaint: Upper Extremity Injury ED Provider: Laura Mendez Dx/Rx/DC Orders Clinical Impression: Contusion of finger Instructions: ED Finger Contusion Prescriptions: No Action metoprolol tartrate 25 mg tablet 25 mg PO BID Qty: 30 6RF Primary Care Provider: Eusebio Ramires Referrals: Eusebio Ramires MD [Primary Care Provider] - As Needed Disposition Disposition: Home, Self Care Discharge Date/Time: 11/16/23 22:21
[2023-11-16 22:19] VITALS: PULSE 77; RESP 15; O2SAT 99
--- OUTSIDE RECORDS SUMMARY | 2023-11-16 22:25 | XMS RPT_ITS | CCD ---
Author Name Unknown Address [address] [place] [address] Organization [facility] Care Team Providers 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 Name Role Phone No, Physician Unavailable Unavailable Longsdorf, Cynthia A Unavailable Unavailab le [place], Jhoana March Unavailable Unavailab le Longsdorf, Cynthia A Unavailable Unavailab le Longsdorf, Cynthia A Unavailable Unavailab le [place], Jhoana March Unavailable Unavailab le Longsdorf, Cynthia A Unavailable Unavailab le Longsdorf, Cynthia A Unavailable Unavailab le [place]sdorf, Cynthia A Unavailable Unavailab le [place], Jhoana March Unavailable Unavailab COCO García Unavailable Unavailable NO, PHYSICIAN Unavailable Unavailable LAN SERNA Unavailable Unavailable REFERRED, SELF Unavailable Unavailable LAN SERNA Unavailable Unavailable Arsalan Logan Unavailable Unavailable Primary Care Provider UnavailLarry Pringle MD Primary Care Provider Larry Ramires MD Primary Care Provider Larry Ramires MD Primary Care Provider Larry Ramires MD Primary Care Provider STELLA MCGREGOR Attending Unavailable KYUNG RTACEY Admitting Unavailable DAVID KOLB Consulting Unavailable No, Physician Primary Care Provider Unavailabl e NO, PHYSICIAN Primary Care Unavailable LOBO GONSALES Attending Unavailable MATY REYES Attending Unavailable LARRY RAMIRES Referring Unavailable LARRY RAMIRES Primary Care Unavailable LARRY RAMIRES Primary Care Unavailable MATY REYES Attending Unavailable LARRY RAMIRES Primary Care Unavailable MATY REYES Attending Unavailable LARRY RAMIRES Primary Care Unavailable PAULINE SAINI Referring Unavailable NITA GARCIA Attending Unavailable ELDERBROCK, LARRY De La Cruz Primary Care Unavailable PAULINE SAINI Referring Unavailable YOEL FRANCO Attending Unavailable ELDERBROCK, LARRY De La Cruz Primary Care Unavailable ELDERBROCK, LARRY De La Cruz Referring Unavailable DAPHNE LAWRENCE Attending Unavailable ELDERBROCK, LARRY De La Cruz Primary Care Unavailable DAPHNE LAWRENCE Referring Unavailable ELDERBROCK, LARRY De La Cruz Primary Care Unavailable YOON GAYTAN Attending Unavailable DAPHNE LAWRENCE Referring Unavailable ELDERBROCK, LARRY De La Cruz Primary Care Unavailable ELDERBROCK, LARRY De La Cruz Primary Care Unavailable LEAH MODI Attending Unavailable ELDERBROCK, LARRY De La Cruz Primary Care Unavailable MELITA ARENAS Attending Unavailable ELDERBROCK, LARRY De La Cruz Primary Care Unavailable LEONIE ARENASA Referring Unavailable ELDERBROCK, LARRY De La Cruz Primary Care Unavailable PAULINE SAINI Referring Unavailable NITA GARCIA Attending Unavailable ELDERBROCK, LARRY De La Cruz Primary Care Unavailable NITA GARCIA Referring Unavailable ELDERBROCK, LARRY Dorothy Primary Care Unavailable NITA GARCIA Referring Unavailable ELDERBROCK, LARRY Dorothy Primary Care Unavailable ELDERBROCK, LARRY Dorothy Primary Care Unavailable ELDERBROCK, LARRY Dorothy Primary Care Unavailable TIARA CHEUNG Attending Unavail able ELDERBROCK, LARRY Dorothy Primary Care Unavailable TIARA CHEUNG Referring Unavail able ELDERBROCK, LARRY Dorothy Primary Care Unavailable PAULINE SAINI Attending Unavailable Allergies Allergy Classification Reported Allergen(s) Allergy Type Date of Onset Reaction(s) Facility (1 source) ibuprofen; Translations: [Motrin] Drug Allergy [facility] Repository (3 sources) Acetaminophen Drug Allergy 9 Other: See Comments [facility] (3 sources) Ibuprofen Drug Allergy 9 Intolerance [facility] Medications Current Medications Medication Drug Class(es) Dates Sig (Normalized) Sig (Original) acetaminophen 325 mg oral tablet (3 sources) Start: 08-02-2019 take 325 mg by mouth every four hours 325 mg, Oral, EVERY 4 HOURS, First dose on Bertha 08/02/19 at 1445 Maximum dose of acetaminophen is 4000 mg from all sources in 24 hours. Completed/Discontinued Medications Medication Drug Class(es) Dates Sig (Normalized) Sig (Original) [id number] 200 actuat albuterol 0.09 mg/actuat metered dose inhaler (20 sources) beta2-Adrenergic Agonist Start: 12-02-2021 take 2 puff(s) by inhalation every four hours as needed for wheezing albuterol HFA (PROVENTIL HFA, VENTOLIN HFA) 90 mcg/actuation inhaler Inhale 2 Puffs as instructed every 4 hours as needed for wheezing/shortnes s of breath. 18 g 1 12/02/2021 Active Problems Active Problems Problem Classification Problem Date Documented Da te Episodic/Chronic Administrative/social admission (1 source) Food insecurity; Translations: [Food insecurity] 06-22-2023 Episodic Allergic reactions (1 source) Contact dermatitis due to Genus Toxicodendron; Translations: [Unspecified contact dermatitis due to plants, except food] Episodic Anxiety disorders (20 sources) Mixed anxiety and depressive disorder; Translations: [Other specified anxiety disorders] Onset: 08-27-2021 08-27-2021 Chronic Cardiac dysrhythmias (20 sources) Ventricular premature depolarization; Translations: [Multiple premature ventricular complexes] Onset: 09-30-2022 Chronic Cardiac dysrhythmias (2 sources) Palpitations; Translations: [Palpitations] Episodic Fever of unknown origin (2 sources) Fever with infection; Translations: [Fever due to infection] Onset: 07-30-2019 Resolved: 08-05-2019 08-05-2019 Immunizations and screening for infectious disease (3 sources) Mantoux: positive; Translations: [Nonspecific reaction to tuberculin skin test without active tuberculosis] Onset: 09-14-2023 09-14-2023 Episodic Miscellaneous mental health disorders (20 sources) Binge eating disorder; Translations: [Binge eating disorder] Onset: 08-27-2021 08-27-2021 Chronic Mood disorders (5 sources) Depressive disorder; Translations: [Depression, unspecified depression type] Onset: 09-23-2023 08-26-2023 Chronic Mood disorders (1 source) Mood disorders; Translations: [ depression in second trimester] Onset: 09-14-2023 Mycoses (1 source) Tinea pedis; Translations: [Tinea pedis] Episodic Other complications of (2 sources) Maternal obesity complicating , childbirth and the puerperium, antepartum; Translations: [Obesity complicating , second trimester] 08-12-2023 Chronic Other complications of (1 source) Obesity complicating , second trimester; Translations: [Obesity affecting in second trimester, unspecified obesity type] Onset: 10-13-2023 Chronic Other complications of (1 source) Uncertain viability of ; Translations: [ with inconclusive viability, not applicable or unspecified] 06-22-2023 Episodic Other complications of (8 sources) Complication occurring during ; Translations: [ complication before ] Onset: 08-29-2023 08-29-2023 Episodic Other complications of (1 source) depression; Translations: [Other mental disorders complicating , second trimester] 09-14-2023 Episodic Other complications of (1 source) Other mental disorders complicating , second trimester; Translations: [ depression in second trimester] Onset: 09-14-2023 Episodic Other complications of (1 source) with inconclusive viability, not applicable or unspecified; Translations: [ with uncertain viability, single or unspecified fetus] Onset: 08-26-2023 Episodic Other female genital disorders (1 source) Personal history of pre-term labor; Translations: [History of delivery] Onset: 10-13-2023 Episodic Other infections; including parasitic (1 source) Post-viral disorder; Translations: [Post covid-19 condition, unspecified] Chronic Other infections; including parasitic (1 source) Personal history of other infectious and parasitic diseases; Translations: [History of herpes genitalis] Onset: 11-04-2023 Episodic Other nutritional; endocrine; and metabolic disorders (1 source) H/O: hypothyroidism; Translations: [Personal history of other endocrine, nutritional and metabolic disease] 06-09-2023 Episodic Other nutritional; endocrine; and metabolic disorders (1 source) Personal history of other endocrine, nutritional and metabolic disease; Translations: [History of hypothyroidism] Onset: 11-04-2023 Episodic Other and delivery including normal (3 sources) Early stage of ; Translations: [Encounter for supervision of normal , unspecified, unspecified trimester] Onset: 10-13-2023 Episodic Other upper respiratory infections (4 sources) Viral upper respiratory tract infection; Translations: [Acute upper respiratory infection, unspecified] Onset: 09-07-2023 Episodic Residual codes; unclassified (1 source) History of syncope; Translations: [Personal history of other specified conditions] Episodic Residual codes; unclassified (1 source) Gestation period, 17 weeks; Translations: [17 weeks gestation of ] 07-29-2023 Episodic Residual codes; unclassified (1 source) Gestation period, 19 weeks; Translations: [19 weeks gestation of ] 08-12-2023 Episodic Residual codes; unclassified (2 sources) Gestation period, 21 weeks; Translations: [21 weeks gestation of ] 08-26-2023 Episodic Residual codes; unclassified (1 source) 31 weeks gestation of ; Translations: [31 weeks gestation of ] Onset: 11-04-2023 Episodic Residual codes; unclassified (1 source) 28 weeks gestation of ; Translations: [28 weeks gestation of ] Onset: 10-13-2023 Episodic Residual codes; unclassified (1 source) 26 weeks gestation of ; Translations: [26 weeks gestation of ] Onset: 10-13-2023 Episodic Thyroid disorders (20 sources) Acquired hypothyroidism; Translations: [Hypothyroidism, unspecified] Onset: 08-27-2021 08-27-2021 Chronic Viral infection (1 source) Viral disease; Translations: [Viral infection, unspecified] Episodic Past or Other Problems Problem Classification Problem Date Documented Date Episodic/Chronic Conditions associated with dizziness or vertigo (3 sources) Dizziness; Translations: [Dizziness and giddiness] Onset: 06-09-2023 Episodic Nausea and vomiting (2 sources) Nausea; Translations: [Nausea] Onset: 01-10-2023 Episodic Other acquired deformities (20 sources) Osteochondral defect of talus; Translations: [Other specified acquired deformities of musculoskeletal system] Onset: 04-09-2020 04-09-2020 Episodic Other and unspecified benign neoplasm (2 sources) Other benign neoplasm of skin of trunk; Translations: [Other benign neoplasm of skin of trunk] Onset: 07-05-2017 Episodic Other complications of (20 sources) H/O: ; Translations: [Supervision of with other poor reproductive or obstetric history, first trimester] Onset: 06-22-2023 06-22-2023 Episodic Other complications of (20 sources) H/O: premature delivery; Translations: [Supervision of other high risk pregnancies, unspecified trimester] Onset: 06-22-2023 06-22-2023 Episodic Other complications of (20 sources) H/O: depression; Translations: [History of depression, currently ] Onset: 06-22-2023 06-22-2023 Episodic Other non-traumatic joint disorders (20 sources) Acute ankle pain; Translations: [Pain in right ankle and joints of right foot] Onset: 04-09-2020 04-09-2020 Episodic Other screening for suspected conditions (not mental disorders or infectious disease) (4 sources) Patient encounter status; Translations: [Encounter for screening for diseases of the blood and blood-forming organs and certain disorders involving the immune mechanism] Onset: 06-09-2023 06-09-2023 Episodic Other skin disorders (2 sources) Acne vulgaris; Translations: [Acne vulgaris] Onset: 07-05-2017 Episodic Polyhydramnios and other problems of amniotic cavity (4 sources) Chorioamnionitis; Translations: [ premature rupture of membranes, unspecified as to length of time between rupture and onset of labor, unspecified trimester] Onset: 12-02-2022 Resolved: 08-05-2019 08-05-2019 Episodic Previous (1 source) Maternal care for unspecified type scar from previous delivery; Translations: [Hx successful (vaginal after ), currently ] Onset: 06-22-2023 Episodic Residual codes; unclassified (1 source) 17 weeks gestation of ; Translations: [17 weeks gestation of ] Onset: 07-29-2023 Episodic NEGATED: Highlighted row has been ruled out!Unclassified (1 source) No known active problems 09-07-2023 Results Test Name Value Interpretation Reference Range Facil ity Vital Signs Date Time Vital Sign Value Performing Clinician Facility 09-07-2023 18:39-0500 Body temperature 97.59 [degF] Lobo Gonsales DO Work Phone: [facility] 09-07-2023 18:39-0500 Diastolic blood pressure 65 mm[Hg] Lobo Gonsales DO Work Phone: [facility] 09-07-2023 18:39-0500 Heart rate 92 /min Lobo Gonsales DO Work Phone: [facility] 09-07-2023 18:39-0500 Respiratory rate 16 /min Lobo Gonsales DO Work Phone: [facility] 09-07-2023 18:39-0500 SaO2% (BldA) [Mass fraction] 97 % Lobo Gonsales DO Work Phone: [facility] 09-07-2023 18:39-0500 Systolic blood pressure 105 mm[Hg] Lobo Gonsales DO Work Phone: [facility] 08-26-2023 15:56-0400 Body weight 89.81 kg Nita Garcia PHOTOGRAPHER ASSISTANT.CNM Work Phone: [facility] 08-26-2023 15:56-0400 Diastolic blood pressure 74 mm[Hg] Nita Garcia PHOTOGRAPHER ASSISTANT.CNM Work Phone: [facility] 08-26-2023 15:56-0400 Systolic blood pressure 116 mm[Hg] Nita Garcia PHOTOGRAPHER ASSISTANT.CNM Work Phone: [facility] 07-29-2023 16:34-0400 Body weight 90.45 kg Nita Garcia PHOTOGRAPHER ASSISTANT.CNM Work Phone: [facility] 07-29-2023 16:34-0400 Diastolic blood pressure 70 mm[Hg] Nita Garcia PHOTOGRAPHER ASSISTANT.CNM Work Phone: [facility] 07-29-2023 16:34-0400 Systolic blood pressure 110 mm[Hg] Nita Garcia APRN.CNM Work Phone: [facility] 06-22-2023 13:10-0400 Body height 167.6 cm Pauline Saini APRN.AIRCRAFT 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: [facility] 06-22-2023 13:10-0400 Body weight 86.55 kg Pauline Saini APRN.AIRCRAFT 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: [facility] 06-22-2023 13:10-0400 Diastolic blood pressure 60 mm[Hg] Pauline Saini APRN.AIRCRAFT 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: [facility] 06-22-2023 13:10-0400 Systolic blood pressure 100 mm[Hg] Pauline Saini PHOTOGRAPHER ASSISTANT.AIRCRAFT 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: [facility] 06-09-2023 09:23-0400 Body weight 86.18 kg Tiara Shen MD Work Phone: [facility] 06-09-2023 09:23-0400 Diastolic blood pressure 64 mm[Hg] Tiara Shen MD Work Phone: [facility] 06-09-2023 09:23-0400 Systolic blood pressure 116 mm[Hg] Tiara Shen MD Work Phone: [facility] 01-10-2023 14:28-0400 Body weight 86.64 kg Leah Modi PHOTOGRAPHER ASSISTANT.AIRCRAFT 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: [facility] 01-10-2023 14:28-0400 Diastolic blood pressure 80 mm[Hg] Leah Luxhof PHOTOGRAPHER ASSISTANT.AIRCRAFT 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: [facility] 01-10-2023 14:28-0400 Heart rate 78 /min Leah Luxhof PHOTOGRAPHER ASSISTANT.AIRCRAFT 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: [facility] 01-10-2023 14:28-0400 Respiratory rate 16 /min Leah Luxhof PHOTOGRAPHER ASSISTANT.AIRCRAFT 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: [facility] 01-10-2023 14:28-0400 SaO2% (BldA) [Mass fraction] 96 % Leah Luxhof PHOTOGRAPHER ASSISTANT.AIRCRAFT 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: [facility] 01-10-2023 14:28-0400 Systolic blood pressure 118 mm[Hg] Leah Luxhof PHOTOGRAPHER ASSISTANT.AIRCRAFT 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: [facility] 08-29-2022 12:13-0500 Body temperature 98.29 [degF] Melba Wilson PA-C Work Phone: [facility] 08-29-2022 12:13-0500 Body weight 79.29 kg Melba Wilson PA-C Work Phone: [facility] 08-29-2022 12:13-0500 Diastolic blood pressure 52 mm[Hg] Melba Athy PA-C Work Phone: [facility] 08-29-2022 12:13-0500 Heart rate 90 /min Melba Athy PA-C Work Phone: [facility] 08-29-2022 12:13-0500 Respiratory rate 21 /min Melba Athy PA-C Work Phone: [facility] 08-29-2022 12:13-0500 SaO2% (BldA) [Mass fraction] 98 % Melba Athy PA-C Work Phone: [facility] 08-29-2022 12:13-0500 Systolic blood pressure 100 mm[Hg] Melba Athy PA-C Work Phone: [facility] 06-22-2022 10:30-0400 Body weight 78.74 kg Larry Ramires MD Work Phone: [facility] 06-22-2022 10:30-0400 Diastolic blood pressure 72 mm[Hg] Larry Ramires MD Work Phone: [facility] 06-22-2022 10:30-0400 Heart rate 80 /min Larry Ramires MD Work Phone: [facility] 06-22-2022 10:30-0400 Respiratory rate 16 /min Larry Ramires MD Work Phone: [facility] 06-22-2022 10:30-0400 Systolic blood pressure 114 mm[Hg] Larry Ramires MD Work Phone: [facility] 04-20-2022 16:23-0400 Body temperature 97.11 [degF] Nigel Peña APRN.AIRCRAFT 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: [facility] 04-20-2022 16:23-0400 Body weight 80.74 kg Nigel Peña APRN.AIRCRAFT 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: [facility] 04-20-2022 16:23-0400 Diastolic blood pressure 62 mm[Hg] Nigel Peña APRN.AIRCRAFT 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: [facility] 04-20-2022 16:23-0400 Heart rate 96 /min Nigel Csaey PHOTOGRAPHER ASSISTANT.AIRCRAFT 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: [facility] 04-20-2022 16:23-0400 Respiratory rate 16 /min Nigel Casey PHOTOGRAPHER ASSISTANT.AIRCRAFT 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: [facility] 04-20-2022 16:23-0400 SaO2% (BldA) [Mass fraction] 98 % Nigel Casey PHOTOGRAPHER ASSISTANT.AIRCRAFT 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: [facility] 04-20-2022 16:23-0400 Systolic blood pressure 108 mm[Hg] Nigel Casey PHOTOGRAPHER ASSISTANT.AIRCRAFT 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: [facility] 01-16-2022 13:29-0400 Body temperature 100.71 [degF] Tatyana Praisler-Wood PHOTOGRAPHER ASSISTANT.AIRCRAFT 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: [facility] 01-16-2022 13:29-0400 Body weight 83.46 kg Tatyana Praisler-Wood PHOTOGRAPHER ASSISTANT.AIRCRAFT 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: [facility] 01-16-2022 13:29-0400 Diastolic blood pressure 70 mm[Hg] Tatyana Praisler-Wood PHOTOGRAPHER ASSISTANT.AIRCRAFT 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: [facility] 01-16-2022 13:29-0400 Heart rate 108 /min Tatyana Praisler-Wood PHOTOGRAPHER ASSISTANT.AIRCRAFT 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: [facility] 01-16-2022 13:29-0400 Respiratory rate 20 /min Tatyana Praisler-Wood PHOTOGRAPHER ASSISTANT.AIRCRAFT 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: [facility] 01-16-2022 13:29-0400 SaO2% (BldA) [Mass fraction] 98 % Tatyana Praisler-Wood PHOTOGRAPHER ASSISTANT.AIRCRAFT 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: [facility] 01-16-2022 13:29-0400 Systolic blood pressure 118 mm[Hg] Tatyana Praisler-Wood PHOTOGRAPHER ASSISTANT.AIRCRAFT 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: [facility] 08-05-2019 14:56-0400 BP Diastolic 60 mm[Hg] Meli Jose Alfredo [place], [place] 08-05-2019 14:56-0400 BP Systolic 114 mm[Hg] Meli [place], [place] 08-05-2019 14:56-0400 Pulse (Heart Rate) 78 /min Meli Saeed [place], [place] 08-05-2019 08:45-0400 Body Temperature 97 [degF] Melihumberto Saeed [place], [place] 08-05-2019 08:45-0400 Pulse Oximetry 98 % Melihumberto Saeed [place], [place] 08-05-2019 08:45-0400 Respiratory Rate 16 /min [place], [place] 07-30-2019 02:12-0400 BMI (Body Mass Index) 31.37 kg/m2 Melihumberto Saeed [place], [place] 07-30-2019 02:12-0400 Body weight 90.86 kg Meli Jose Alfredo [place], [place] 07-30-2019 02:12-0400 Height 170.2 cm [place], [place] Encounters Encounter Date Encounter Type Care Provider Facility Start: 11-04-2023 End: 11-05-2023 ambulatory LARRY RAMIRES Facility:[facility] Start: 10-13-2023 End: 10-14-[address] [facility] Start: 10-07-2023 End: 10-07-2023 [facility] Maty Reyes Work Phone: Psychiatry Procedures Date Procedure Procedure Detail Performing Clinician Start: 08-26-2023 URINE OB DIP B/O Dakotah Garcia APRN.CNJhoana Work Phone: Start: 08-26-2023 Us preg uterus after 1st trimest 1/1st gestation Pauline Saini APRN.AIRCRAFT 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: Start: 08-12-2023 Us preg uterus after 1st trimest 1/1st gestation Nita Garcia APRN.CNM Work Phone: Start: 06-22-2023 Antibody screen LARRY DIAZ Plan of Treatment Date Care Activity Detail Author Start: 07-31-2029 Tetanus vaccination Tetanus: Every [address] [facility] Start: 07-31-2029 Urine microalbumin profile [facility] Start: 07-13-2025 PAP TESTING PAP TESTING [facility] Start: 07-13-2025 Screening for malign ant neoplasm of cervix Pap Testing [facility] Start: 06-22-2024 Screening for Chlamy lisa trachomatis Chlamydia Screening [facility] Start: 01-11-2024 ANNUAL PCP TEAM BUFFING WHEEL RAKER MAMIE DISEASE VISIT ANNUAL PCP TEAM CHRONIC DISEASE VISIT [facility] Start: 09-30-2023 End: 09-23-2024 ECG COMPLETE ECG COMPLETE ECG Routine Moderate mixed bipolar I disorder (HCC) Expected: 09/30/2023 (Approximate), Expires: 09/23/2024 [facility] Work Phone: Immunizations Immunization Date Immunization Notes Care Provider Fa nicolety 08-02-2019 diphtheria, tetanus toxoids and acellular pertussis vaccine, unspecified formulation [facility] , [place] 08-02-2019 measles, mumps and rubella virus vaccine [facility], [place] 07-31-2019 tetanus toxoid, redu lavonne diphtheria toxoid, and acellular pertussis vaccine, adsorbed [facility] Work Phone: 07-31-2019 diphtheria, tetanus toxoids and acellular pertussis vaccine, unspecified formulation [facility] , [place] 05-14-2016 meningococcal oligosaccharide (groups A, C, Y and W-135) diphtheria toxoid conjugate vaccine (MCV4O) Leah Modi APRN.AIRCRAFT 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: [facility] Work Phone: 04-04-2012 human papilloma viru s vaccine, quadrivalent Leah Modi APRN.AIRCRAFT 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: [facility] Work Phone: 09-09-2011 hepatitis A vaccine, pediatric/adolescent dosage, 2 dose schedule Leah Modi APRN.AIRCRAFT 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: [facility] Work Phone: 09-09-2011 human papilloma viru s vaccine, quadrivalent Leah Modi APRN.AIRCRAFT 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: [facility] Work Phone: 01-08-2010 hepatitis A vaccine, pediatric/adolescent dosage, 2 dose schedule Leah Modi APRN.[facility] Work Phone: [facility] Work Phone: 01-08-2010 human papilloma viru s vaccine, quadrivalent Leah Modi PHOTOGRAPHER ASSISTANT.[facility] Work Phone: [facility] Work Phone: 01-08-2010 meningococcal polysaccharide (groups A, C, Y and W-135) diphtheria toxoid conjugate vaccine (MCV4P) Leah Modi APRN.[facility] Work Phone: [facility] Work Phone: 01-08-2010 tetanus toxoid, redu lavonne diphtheria toxoid, and acellular pertussis vaccine, adsorbed Leahjian Modi PHOTOGRAPHER ASSISTANT.[facility] Work Phone: [facility] Work Phone: 01-08-2010 varicella virus vaccine Shwetha Modi PHOTOGRAPHER ASSISTANT.[facility] Work Phone: [facility] Work Phone: 11-13-2009 influenza, seasonal, injectable Leah Modi APRN.[facility] Work Phone: [facility] Work Phone: 11-13-2009 novel Influenza-H1N1 -09, live virus for nasal administration Leah Modi APRN.[facility] Work Phone: [facility] Work Phone: 11-13-2009 influenza virus vacc ine, unspecified formulation Jhoana Triplett [facility] 07-01-2004 diphtheria, tetanus toxoids and acellular pertussis vaccine Leah Modi APRN.[facility] Work Phone: [facility] Work Phone: 07-01-2004 measles, mumps and rubella virus vaccine Leah Modi PHOTOGRAPHER ASSISTANT.[facility] Work Phone: [facility] Work Phone: 07-01-2004 poliovirus vaccine, inactivated Leah Modi PHOTOGRAPHER ASSISTANT.[facility] Work Phone: [facility] Work Phone: 09-21-2000 pneumococcal conjuga te vaccine, 7 valent Leah Modi PHOTOGRAPHER ASSISTANT.AIRCRAFT 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: [facility] Work Phone: 09-21-2000 poliovirus vaccine, inactivated Leah Modi PHOTOGRAPHER ASSISTANT.AIRCRAFT 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: [facility] Work Phone: 02-06-2000 diphtheria, tetanus toxoids and acellular pertussis vaccine Leah Maravillaf PHOTOGRAPHER ASSISTANT.[facility] Work Phone: [facility] Work Phone: 02-06-2000 haemophilus influenz ae type b vaccine, PRP-T conjugate Leah Luxf PHOTOGRAPHER ASSISTANT.[facility] Work Phone: [facility] Work Phone: 10-31-1999 measles, mumps and rubella virus vaccine Leah Luxhof PHOTOGRAPHER ASSISTANT.AIRCRAFT 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: [facility] Work Phone: 10-31-1999 varicella virus vaccine Ash dennis Luxf PHOTOGRAPHER ASSISTANT.[facility] Work Phone: [facility] Work Phone: 1999 hepatitis B vaccine, pediatric or pediatric/adolescent dosage Leah Luxhof PHOTOGRAPHER ASSISTANT.AIRCRAFT 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: [facility] Work Phone: 07-27-1999 hepatitis B vaccine, pediatric or pediatric/adolescent dosage Leah Luxhof PHOTOGRAPHER ASSISTANT.AIRCRAFT 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: [facility] Work Phone: 05-02-1999 diphtheria, tetanus toxoids and acellular pertussis vaccine Leah Maravillaf PHOTOGRAPHER ASSISTANT.AIRCRAFT 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: [facility] Work Phone: 05-02-1999 haemophilus influenz ae type b vaccine, PRP-T conjugate Leah Luxf PHOTOGRAPHER ASSISTANT.AIRCRAFT 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: [facility] Work Phone: 02-07-1999 diphtheria, tetanus toxoids and acellular pertussis vaccine Leah Tannhof PHOTOGRAPHER ASSISTANT.AIRCRAFT 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: [facility] Work Phone: 02-07-1999 haemophilus influenz ae type b vaccine, PRP-T conjugate Leah Tannhof PHOTOGRAPHER ASSISTANT.[facility] Work Phone: [facility] Work Phone: 02-07-1999 poliovirus vaccine, inactivated Leah Tannhof PHOTOGRAPHER ASSISTANT.[facility] Work Phone: [facility] Work Phone: 1998 diphtheria, tetanus toxoids and acellular pertussis vaccine Leah Tannhof PHOTOGRAPHER ASSISTANT.[facility] Work Phone: [facility] Work Phone: 1998 haemophilus influenz ae type b vaccine, PRP-T conjugate Leah Tannhof PHOTOGRAPHER ASSISTANT.[facility] Work Phone: [facility] Work Phone: 1998 hepatitis B vaccine, pediatric or pediatric/adolescent dosage Leah Tannhof PHOTOGRAPHER ASSISTANT.[facility] Work Phone: [facility] Work Phone: 1998 poliovirus vaccine, inactivated Leah Tannhof PHOTOGRAPHER ASSISTANT.[facility] Work Phone: [facility] Work Phone: 1998 hepatitis B vaccine, pediatric or pediatric/adolescent dosage Leah Tannhof PHOTOGRAPHER ASSISTANT.[facility] Work Phone: [facility] Work Phone: NEGATED: Highlighted row has not occurred!08-05-2019 measles, mumps and rubella virus vaccine [facility]- [place], [place] Payers Date Payer Category Payer Medicaid [employer] [id number] 2019-Present [phone] [address] [place] [address] Medicaid [id number] 2018 Unknown xxxxxxxxxxx [id number] 2017 Unknown 2016 Medicaid [id number] 2016 Medicaid [id number] 2016 Medicaid [id number] 1998 Unknown [id number] 1998 Unknown [id number] Social History Date Type Detail Facility Start: 07-05-2017 End: 08-29-2022 Tobacco smoking status WYIS Never smoker [facility] Work Phone: Start: 2000 Sex Assigned At Not on file [facility] Work Phone: Start: 07-27-2019 Tobacco smoking status [facility] Unknown if ever smoked [facility] Start: 08-02-2019 End: 06-09-2023 Alcohol intake Not Currently [facility] Start: 05-28-2019 End: 08-29-2022 Tobacco use and exposure Smokeless tobacco non-user [facility] Work Phone: Start: 2000 Sex Assigned At Female [facility] Start: 12-27-2021 End: 08-29-2022 Exposure to SARS-CoV-2 (event) Not sure [facility] Start: 06-09-2023 End: 10-07-2023 History of Social function [facility] Adult Depression Screening Assessment 6 [facility] Start: 08-13-2021 Gender identity Identifies as female gender (finding) [facility] Start: 08-13-2021 Sexual orientation Heterosexual (finding) [facility] Start: 06-22-2023 End: 09-29-2023 Alcohol intake Ex-drinker (finding) [facility] Start: 04-11-2023 [facility] Goals Date Patient Goal Desired Activity /State Personal health goal Clinical Notes 01-15-2022 to 11-07-2023 Maty Reyes, DO - 10/07/2023 10:09 AM Maty Frank, - 09/23/2023 11:04 AM ESTTelephone Encounter - Nita aGrcia APRN.CNM - 09/23/2023 9:38 AM ESTPatient Instructions Note Date & Type Note Facility 11-07-2023 Note HNO ID: [id number] Author: YOEL FRANCO LISW Service: ? Author Type: Control Cabinet Assembler Type: Progress Notes Filed: 11/07/2023 08:46 Note Text: System cancelled appointment technical difficulties in MYC. R/S Add-on TuesdayNov 09 t 4 pm VV FLAVIO [facility] 10-13-2023 Note HNO ID: [id number] Author: Fernando Montilla Cma Service: ? Author Type: ? Type: Progress Notes Filed: 10/13/2023 4:37 PM Note Text: Patient identified by name and date of . Kaitlin Saeed presents today for a vaccination of Tdap. Patient denies an allergy to latex: yes Patient denies a severe (life-threatening) allergy to a previous dose of Tdap, DTP, DTaP, DT or Td vaccine. Yes Patient denies history of epilepsy or neurological problems: Yes Patient is afebrile and denies being moderately or severely ill: Yes Patient denies history of Guillain-Blackwater Syndrome (a severe paralytic illness): Yes Tdap Adacel injection was given without incident. See immunizations for details of immunizations administered today. VIS sheet provided: Yes Provider Yoon Gaytan CNM was present in office at time of injection. Fernando Montilla Cma [facility] 10-07-2023 Note HNO ID: [id number] Author: Maty Reyes DO Service: ? Author Type: Physician Type: Progress Notes Filed: 10/07/2023 3:36 PM Note Text: FOLLOW UP - PSYCHIATRIC PROGRESS NOTE Visit Type:Virtual Visit utilizing two-way audio and video for at least a portion of the visit. Consent for virtual visit obtained verbally. Confidentiality limitations with virtual visits reviewed with the patient and guardian, if present, who have accepted the risk verbally prior to proceeding with encounter. I have communicated my name and active licensure. The patient's identity and physical location were verified at the time of this visit. Either the patient or their legal office machines sales representative has been informed of the risks and benefits of -- and alternatives to -- treatment through a remote evaluation and consents to proceed with the evaluation remotely. Reason for Visit: Outpatient follow-up and safety monitoring of previously prescribed psychiatric medication, psychotherapy or other treatment CC: insomnia HPI: She has been with less down moods in terms of not feeling to take a nap throughout the day for the last 3 weeks. She is less exhausted and less irritable. She felt she was sleeping with the seroquel 100 mg but when she increased the lamictal to 50 mg po daily . She is currently not . She has been trying to pick a name and feeling him move. Alejandrina has RSV and has been clinging. Her being less irritable has given her the chance to hollis better . She was at the ER last night with baby having RSV. She has the time off work right now. Risks and benefits of the medication, including any black box warnings, were discussed with the patient. Interval Progress: some improvement PATIENT DATA: Generalized Anxiety Disorder Scale (LORI-7) LORI - 7 SCORES 09/23/2023 10/07/2023 LORI-7 Score 12 6 (0-4) minimal anxiety, (5-9) mild anxiety, (10-14) moderate anxiety, (15-21) severe anxiety Patient Health Questionnaire (PHQ-9) PHQ-9 08/27/2021 09/23/2023 10/07/2023 Score 21 16 14 (0-4) minimal depression, (5-9) mild depression, (10-14) moderate depression, (15-19) moderately severe depression, (20-27) severe depression PROMIS Global Health PROMIS Global Health - (T-Scores - the mean of general population = 50. Five points is a clinically meaningful difference.) 09/23/2023 10/07/2023 Physical T-Score 44.9 47.7 Mental T-Score 36.3 36.3 PAST MEDICAL HISTORY Diagnosis Date Asthma History of depression, currently Hypothyroidism Palpitations PAST SURGICAL HISTORY Procedure Laterality Date DELIVERY ONLY Current Outpatient Medications Medication Sig Dispense Refill QUEtiapine (SEROQUEL) 100 mg tablet Take 1 tablet by mouth daily at bedtime. 30 tablet 2 lamoTRIgine (LAMICTAL) 25 mg tablet take one tablet daily for 2 weeks then increase to 2 tablets daily 60 tablet 0 QUEtiapine (SEROQUEL) 100 mg tablet Take 1 tablet by mouth daily at bedtime. 30 tablet 0 Cholecalciferol, Vitamin D3, (VITAMIN D) 25 mcg (1,000 unit) cap Take 1 capsule by mouth once daily. 90 capsule 3 multivitamin (CLASSIC ) 28 mg iron- 800 mcg tab(s) Take 1 tablet by mouth once daily. 90 tablet 3 fluticasone (FLONASE) 50 mcg/actuation nasal spray Use 2 Sprays in each nostril once daily. Rinse mouth after use. 1 Each 0 Arm Brace (WRIST BRACE MEDIUM) misc 1 Each once daily. 1 Each 0 albuterol HFA (PROVENTIL HFA, VENTOLIN HFA) 90 mcg/actuation inhaler Inhale 2 Puffs as instructed every 4 hours as needed for wheezing/shortness of breath. 18 g 1 fluticasone (FLONASE) 50 mcg/actuation nasal spray Use 2 Sprays in each nostril once daily. Rinse mouth after use. 1 Bottle 0 No current facility-administered medications for this visit. ROS: denied PFSH: none VITAL SIGNS: There were no vitals filed for this visit. MENTAL STATUS EXAM: CONSTITUTIONAL: Appropriately dressed ORIENTATION: Person, Place, Time and Situation MEMORY: wnl CONCENTRATION: Normal MOOD: tired AFFECT: Full affect SPEECH : Clear AND distinct LANGUAGE : Normal ASSOCIATIONS: Intact THOUGHT PROCESS : Logical, Coherent, and Rational PROGRESSION : There was no evidence of disturbance in thought perception or progression. FUND OF KNOWLEDGE : Appropriate and Adequate SUICIDE: None HOMICIDE: None DATA REVIEWED: None DIAGNOSIS MINI-MENTAL STATUS EXAMINATION: not performed IMPRESSION: 22 yr old female who is 24 weeks with PPD (baby 10 months old) DIAGNOSIS: PRIMARY:PTSD depression PPD Bipolar 2 depression PLAN: 1.Lamictal 50 mg po daily for 2 weeks then 100 mg po daily , SJS not 2. Applied for SSI and food stamps will write for leave. 3. Seroquel 200 mg po if unable to sleep can increase to 300 mg po qhs 4. QTC EKG needed 5. Yoel Franco in Oct 6. Not interested in group therapy I spent a total of 60 m (more content not included)... [facility] 10-07-2023 History of Present illness Narrative FOLLOW UP - PSYCHIATRIC PROGRESS NOTE Visit Type:Virtual Visit utilizing two-way audio and video for at least a portion of the visit. Consent for virtual visit obtained verbally. Confidentiality limitations with virtual visits reviewed with the patient and guardian, if present, who have accepted the risk verbally prior to proceeding with encounter. I have communicated my name and active licensure. The patient's identity and physical location were verified at the time of this visit. Either the patient or their legal office machines sales representative has been informed of the risks and benefits of -- and alternatives to -- treatment through a remote evaluation and consents to proceed with the evaluation remotely. Reason for Visit: Outpatient follow-up and safety monitoring of previously prescribed psychiatric medication, psychotherapy or other treatment CC: insomnia HPI: She has been with less down moods in terms of not feeling to take a nap throughout the day for the last 3 weeks. She is less exhausted and less irritable. She felt she was sleeping with the seroquel 100 mg but when she increased the lamictal to 50 mg po daily . She is currently not . She has been trying to pick a name and feeling him move. Alejandrina has RSV and has been clinging. Her being less irritable has given her the chance to hollis better . She was at the ER last night with baby having RSV. She has the time off work right now. Risks and benefits of the medication, including any black box warnings, were discussed with the patient. Interval Progress: some improvement PATIENT DATA: Generalized Anxiety Disorder Scale (LORI-7) LORI - 7 SCORES 09/23/2023 10/07/2023 LORI-7 Score 12 6 (0-4) minimal anxiety, (5-9) mild anxiety, (10-14) moderate anxiety, (15-21) severe anxiety Patient Health Questionnaire (PHQ-9) PHQ-9 08/27/2021 09/23/2023 10/07/2023 Score 21 16 14 (0-4) minimal depression, (5-9) mild depression, (10-14) moderate depression, (15-19) moderately severe depression, (20-27) severe depression PROMIS Global Health PROMIS Global Health - (T-Scores - the mean of general population = 50. Five points is a clinically meaningful difference.) 09/23/2023 10/07/2023 Physical T-Score 44.9 47.7 Mental T-Score 36.3 36.3 PAST MEDICAL HISTORY Diagnosis Date Asthma History of depression, currently Hypothyroidism Palpitations PAST SURGICAL HISTORY Procedure Laterality Date DELIVERY ONLY Current Outpatient Medications Medication Sig Dispense Refill QUEtiapine (SEROQUEL) 100 mg tablet Take 1 tablet by mouth daily at bedtime. 30 tablet 2 lamoTRIgine (LAMICTAL) 25 mg tablet take one tablet daily for 2 weeks then increase to 2 tablets daily 60 tablet 0 QUEtiapine (SEROQUEL) 100 mg tablet Take 1 tablet by mouth daily at bedtime. 30 tablet 0 Cholecalciferol, Vitamin D3, (VITAMIN D) 25 mcg (1,000 unit) cap Take 1 capsule by mouth once daily. 90 capsule 3 multivitamin (CLASSIC ) 28 mg iron- 800 mcg tab(s) Take 1 tablet by mouth once daily. 90 tablet 3 fluticasone (FLONASE) 50 mcg/actuation nasal spray Use 2 Sprays in each nostril once daily. Rinse mouth after use. 1 Each 0 Arm Brace (WRIST BRACE MEDIUM) misc 1 Each once daily. 1 Each 0 albuterol HFA (PROVENTIL HFA, VENTOLIN HFA) 90 mcg/actuation inhaler Inhale 2 Puffs as instructed every 4 hours as needed for wheezing/shortness of breath. 18 g 1 fluticasone (FLONASE) 50 mcg/actuation nasal spray Use 2 Sprays in each nostril once daily. Rinse mouth after use. 1 Bottle 0 No current facility-administered medications for this visit. ROS: denied PFSH: none VITAL SIGNS: There were no vitals filed for this visit. MENTAL STATUS EXAM: CONSTITUTIONAL: Appropriately dressed ORIENTATION: Person, Place, Time and Situation MEMORY: wnl CONCENTRATION: Normal MOOD: tired AFFECT: Full affect SPEECH : Clear & distinct LANGUAGE : Normal ASSOCIATIONS: Intact THOUGHT PROCESS : Logical, Coherent, and Rational PROGRESSION : There was no evidence of disturbance in thought perception or progression. FUND OF KNOWLEDGE : Appropriate and Adequate SUICIDE: None HOMICIDE: None DATA REVIEWED: None DIAGNOSIS MINI-MENTAL STATUS EXAMINATION: not performed IMPRESSION: 22 yr old female who is 24 weeks with PPD (baby 10 months old) DIAGNOSIS: PRIMARY:PTSD depression PPD Bipolar 2 depression PLAN: 1.Lamictal 50 mg po daily for 2 weeks then 100 mg po daily , SJS not 2. Applied for SSI and food stamps will write for leave. 3. Seroquel 200 mg po if unable to sleep can increase to 300 mg po qhs 4. QTC EKG needed 5. Yoel Franco in Oct 29. Not interested in group therapy I spent a total of 60 minutes on the date of the service which included preparing to see the patient, [id number] patient care, and completing clinical documentation. I spent a total of 30 minutes on the date of the service which included preparing to see the patient, [id number] patient care, and completing clinical documentation. ADD ON PSYCHOTHERAPY CODE : No SIGNATURE: Maty Reyes DO PATIENT NAME: Kaitlin Saeed DATE: October 07, 2023 TIME: 10:10 AM documented in this encounter [facility] 09-23-2023 Note HNO ID: [id number] Author: Maty Reyes DO Service: ? Author Type: Physician Type: Progress Notes Filed: 09/23/2023 3:37 PM Note Text: FOLLOW UP - PSYCHIATRIC PROGRESS NOTE Visit Type:Virtual Visit utilizing two-way audio and video for at least a portion of the visit. Consent for virtual visit obtained verbally. Confidentiality limitations with virtual visits reviewed with the patient and guardian, if present, who have accepted the risk verbally prior to proceeding with encounter. I have communicated my name and active licensure. The patient's identity and physical location were verified at the time of this visit. Either the patient or their legal office machines sales representative has been informed of the risks and benefits of -- and alternatives to -- treatment through a remote evaluation and consents to proceed with the evaluation remotely. Reason for Visit: Outpatient follow-up and safety monitoring of previously prescribed psychiatric medication, psychotherapy or other treatment CC: bipolar in follow up HPI: Pt is very irritable and annoyed with the children currently on the video visit with them. She knows to walk away and never has smacked them. Pt is 26 weeks has a 2.5 yr old and 10 month old son who is sleeping through the night. Pt will wake up 2-3 times with seroquel 50 mg at bedtime. Denies any side effects . She is concerned about the mood swings as her bf pointed out that at Thanksgiving will have to leave the room. She feels not overwhelmed but that she is irritable. She gets into moods where she is talking a lot , doesn't stop talking will be random things not a full conversation . She admits to having racing thoughts and a lot of irritability. When she is cleaning she is cleaning excessively with organizing. She just moved here and ignores things she doesn't touch. She denies any panic attacks. She has more down moods and the up moods are less often and not as long. Patient has manic days where she is absolutely doing everything and accomplishing a lot. Her partner doesn't live with her and she doesn't want him to be with her . She doesn't know how she is going to feel . It is leading to problems with his relationship. She has a rabbit that she got impulsively. She has 10 depressed days and 3 manic days that cycle. Dx with depression at 10 or 11 and ppd. Its more than ppd as she has been one after another. She is more up during the . During the she has the ability to say that she can deal with it but after not the case where she sees it. Risks and benefits of the medication, including any black box warnings, were discussed with the patient. Interval Progress: same PATIENT DATA: Generalized Anxiety Disorder Scale (LORI-7) LORI - 7 SCORES 09/23/2023 LORI-7 Score 12 (0-4) minimal anxiety, (5-9) mild anxiety, (10-14) moderate anxiety, (15-21) severe anxiety Patient Health Questionnaire (PHQ-9) PHQ-9 08/27/2021 09/23/2023 Score 21 16 (0-4) minimal depression, (5-9) mild depression, (10-14) moderate depression, (15-19) moderately severe depression, (20-27) severe depression PROMIS Global Health PROMIS Global Health - (T-Scores - the mean of general population = 50. Five points is a clinically meaningful difference.) 09/23/2023 Physical T-Score 44.9 Mental T-Score 36.3 PAST MEDICAL HISTORY Diagnosis Date Asthma History of depression, currently Hypothyroidism Palpitations PAST SURGICAL HISTORY Procedure Laterality Date DELIVERY ONLY Current Outpatient Medications Medication Sig Dispense Refill QUEtiapine (SEROQUEL) 25 mg tablet Take 1 tablet by mouth daily at bedtime. 30 tablet 2 Cholecalciferol, Vitamin D3, (VITAMIN D) 25 mcg (1,000 unit) cap Take 1 capsule by mouth once daily. 90 capsule 3 multivitamin (CLASSIC ) 28 mg iron- 800 mcg tab(s) Take 1 tablet by mouth once daily. 90 tablet 3 fluticasone (FLONASE) 50 mcg/actuation nasal spray Use 2 Sprays in each nostril once daily. Rinse mouth after use. 1 Each 0 Arm Brace (WRIST BRACE MEDIUM) misc 1 Each once daily. 1 Each 0 albuterol HFA (PROVENTIL HFA, VENTOLIN HFA) 90 mcg/actuation inhaler Inhale 2 Puffs as instructed every 4 hours as needed for wheezing/shortness of breath. 18 g 1 fluticasone (FLONASE) 50 mcg/actuation nasal spray Use 2 Sprays in each nostril once daily. Rinse mouth after use. (Patient not taking: Reported on 01/10/2023) 1 Bottle 0 No current facility-administered medications for this visit. ROS: denied PFSH: none VITAL SIGNS: There were no vitals filed for this visit. MENTAL STATUS EXAM: CONSTITUTIONAL: Well groomed ORIENTATION: Person, Place, Time and Situation MEMORY: Recent intact CONCENTRATION: Normal MOOD: irritable AFFECT: Full and appropriate to topic SPEECH : Clear AND distinct LANGUAGE : Normal ASSOCIATIONS: Intact THOUGHT PROCESS : (more content not included)... [facility] 09-23-2023 History of Present illness Narrative FOLLOW UP - PSYCHIATRIC PROGRESS NOTE Visit Type:Virtual Visit utilizing two-way audio and video for at least a portion of the visit. Consent for virtual visit obtained verbally. Confidentiality limitations with virtual visits reviewed with the patient and guardian, if present, who have accepted the risk verbally prior to proceeding with encounter. I have communicated my name and active licensure. The patient's identity and physical location were verified at the time of this visit. Either the patient or their legal office machines sales representative has been informed of the risks and benefits of -- and alternatives to -- treatment through a remote evaluation and consents to proceed with the evaluation remotely. Reason for Visit: Outpatient follow-up and safety monitoring of previously prescribed psychiatric medication, psychotherapy or other treatment CC: bipolar in follow up HPI: Pt is very irritable and annoyed with the children currently on the video visit with them. She knows to walk away and never has smacked them. Pt is 26 weeks has a 2.5 yr old and 10 month old son who is sleeping through the night. Pt will wake up 2-3 times with seroquel 50 mg at bedtime. Denies any side effects . She is concerned about the mood swings as her bf pointed out that at Thanksgiving will have to leave the room. She feels not overwhelmed but that she is irritable. She gets into moods where she is talking a lot , doesn't stop talking will be random things not a full conversation . She admits to having racing thoughts and a lot of irritability. When she is cleaning she is cleaning excessively with organizing. She just moved here and ignores things she doesn't touch. She denies any panic attacks. She has more down moods and the up moods are less often and not as long. Patient has manic days where she is absolutely doing everything and accomplishing a lot. Her partner doesn't live with her and she doesn't want him to be with her . She doesn't know how she is going to feel . It is leading to problems with his relationship. She has a rabbit that she got impulsively. She has 10 depressed days and 3 manic days that cycle. Dx with depression at 10 or 11 and ppd. Its more than ppd as she has been one after another. She is more up during the . During the she has the ability to say that she can deal with it but after not the case where she sees it. Risks and benefits of the medication, including any black box warnings, were discussed with the patient. Interval Progress: same PATIENT DATA: Generalized Anxiety Disorder Scale (LORI-7) LORI - 7 SCORES 09/23/2023 LORI-7 Score 12 (0-4) minimal anxiety, (5-9) mild anxiety, (10-14) moderate anxiety, (15-21) severe anxiety Patient Health Questionnaire (PHQ-9) PHQ-9 08/27/2021 09/23/2023 Score 21 16 (0-4) minimal depression, (5-9) mild depression, (10-14) moderate depression, (15-19) moderately severe depression, (20-27) severe depression PROMIS Global Health PROMIS Global Health - (T-Scores - the mean of general population = 50. Five points is a clinically meaningful difference.) 09/23/2023 Physical T-Score 44.9 Mental T-Score 36.3 PAST MEDICAL HISTORY Diagnosis Date Asthma History of depression, currently Hypothyroidism Palpitations PAST SURGICAL HISTORY Procedure Laterality Date DELIVERY ONLY Current Outpatient Medications Medication Sig Dispense Refill QUEtiapine (SEROQUEL) 25 mg tablet Take 1 tablet by mouth daily at bedtime. 30 tablet 2 Cholecalciferol, Vitamin D3, (VITAMIN D) 25 mcg (1,000 unit) cap Take 1 capsule by mouth once daily. 90 capsule 3 multivitamin (CLASSIC ) 28 mg iron- 800 mcg tab(s) Take 1 tablet by mouth once daily. 90 tablet 3 fluticasone (FLONASE) 50 mcg/actuation nasal spray Use 2 Sprays in each nostril once daily. Rinse mouth after use. 1 Each 0 Arm Brace (WRIST BRACE MEDIUM) misc 1 Each once daily. 1 Each 0 albuterol HFA (PROVENTIL HFA, VENTOLIN HFA) 90 mcg/actuation inhaler Inhale 2 Puffs as instructed every 4 hours as needed for wheezing/shortness of breath. 18 g 1 fluticasone (FLONASE) 50 mcg/actuation nasal spray Use 2 Sprays in each nostril once daily. Rinse mouth after use. (Patient not taking: Reported on 01/10/2023) 1 Bottle 0 No current facility-administered medications for this visit. ROS: denied PFSH: none VITAL SIGNS: There were no vitals filed for this visit. MENTAL STATUS EXAM: CONSTITUTIONAL: Well groomed ORIENTATION: Person, Place, Time and Situation MEMORY: Recent intact CONCENTRATION: Normal MOOD: irritable AFFECT: Full and appropriate to topic SPEECH : Clear & distinct LANGUAGE : Normal ASSOCIATIONS: Intact THOUGHT PROCESS : Logical, Coherent, and Rational PROGRESSION : There was no evidence of disturbance in thought perception or progression. FUND OF KNOWLEDGE : Appropriate and Adequate SUICIDE: None HOMICIDE: None DATA REVIEWED: None DIAGNOSIS: Bipolar disorder mixed episode Binge eating disorder TREATMENT PLAN: 1. Seroquel increase to 100 mg po qhs, start lamictal 25 mg po for 2 weeks then increase to 50 mg po daily for 2 weeks r/b/a SJS low risk of defects early on so now 26 weeks if came in at 6 weeks would wait but not a concern in now and safe 2. EKG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 past previous 2 pregnancies she has not taken any levothyroxine. Patient states she does have a history of anemia. Patient offers no other concerns at this time. OB History T0 L0 SAB0 IAB0 Ectopic0 Multiple0 Live Births0 Financial Aid History LMP: 01/03/2022 (Exact Date), Unknown Age at Menarche: Age at First : Age at Menopause: Financial Aid History Comments: Sexual Activity: No sexual activity data on record; No partner data on record Contraception: No contraception data on record PAST MEDICAL HISTORY Diagnosis Date Asthma Hypothyroidism Palpitations No past surgical history on file. No family history on file. Social History Tobacco Use Smoking status: Never Smokeless tobacco: Never Current Outpatient Medications Medication Sig metoprolol tartrate, short acting, (LOPRESSOR) 25 mg tablet TAKE 1/2 (ONE-HALF) TABLET BY MOUTH TWICE DAILY fluticasone (FLONASE) 50 mcg/actuation nasal spray Use 2 Sprays in each nostril once daily. Rinse mouth after use. albuterol HFA (PROVENTIL HFA, VENTOLIN HFA) 90 mcg/actuation inhaler Inhale 2 Puffs as instructed every 4 hours as needed for wheezing/shortness of breath. PARoxetine (PAXIL) 10 mg tablet Take 1 tablet by mouth once daily. propranolol (INDERAL) 10 mg tablet Take 1 tablet by mouth twice daily. (Patient not taking: Reported on 08/29/2022) Arm Brace (WRIST BRACE MEDIUM) misc 1 Each once daily. fluticasone (FLONASE) 50 mcg/actuation nasal spray Use 2 Sprays in each nostril once daily. Rinse mouth after use. (Patient not taking: Reported on 01/10/2023) No current facility-administered medications for this visit. Allergies As of Date: 06/09/2023 (No Known Allergies) Fully Assessed 06/09/2023 REVIEW OF SYSTEMS Allergies and current medication updated:Yes EXAM: BP 116/64 Wt 190 lb (86.2kg) LMP 03/28/2023 GENERAL: pleasant, female in no apparent distress HEENT: Normocephalic and atraumatic NECK: full range of motion DERMATOLOGY: without lesions NEURO: alert and oriented x3,exam grossly non-focal ASSESSMENT AND PLAN: Encounter Diagnosis ICD-10-CM 1. Dizziness R42 CBC BASIC METABOLIC PNL 2. Palpitations R00.2 3. Early stage of Z34.90 4. History of hypothyroidism Z86.39 TSH BLD 5. Screening, anemia, deficiency, iron Z13.0 6. Encounter for vitamin deficiency screening Z13.21 VITAMIN D 25 HYDROXY 7. Discussed common causes of dizziness in . Reviewed changing positions slowly avoid sitting or standing for prolonged time. Discussed staying hydrated and using electrolyte drinks. Discussed using higher protein snacks and avoiding high sugar carbohydrates. We will get basic lab results today. Discussed that she needs to follow-up with cardiology. Discussed beta-blockers in . 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 Reviewed blood pressure parameters and reassurance was given. 8. Follow up new ob as scheduled Medical Decision Making: Problems: Moderate: 1+ chronic illnesses with change Data: Unique test(s) ordered: 3+ Medical Decision Making Level: 4 - Moderate Tiara King MD [facility] 06-09-2023 History of Present illness Narrative Kaitlin Saeed is a 22 year old female who presents for clearance for her job due to increasing blood pressure after episodes of dizziness. Patient reports she takes metoprolol for fast heartbeat but has not been taking it for approximately the past month. Patient states that at work she sometimes gets dizzy and then her team takes her blood pressure and it can be as high as 140/48 or 140/60. Her job is making her get clearance. Patient reports has never had high blood pressure. She states with her previous pregnancies she does take propranolol or metoprolol for her fast heartbeat. Last time she used a Holter monitor was approximately 9 months ago. She reports that her next follow-up visit with cardiology is approximately 4 months. She states she has not told cardiology that she is . She states that she does have a history of hypothyroid and previously was on levothyroxine but a couple of years ago. She states that for the past previous 2 pregnancies she has not taken any levothyroxine. Patient states she does have a history of anemia. Patient offers no other concerns at this time. OB History T0 L0 SAB0 IAB0 Ectopic0 Multiple0 Live Births0 Financial Aid History LMP: 01/03/2022 (Exact Date), Unknown Age at Menarche: Age at First : Age at Menopause: Financial Aid History Comments: Sexual Activity: No sexual activity data on record; No partner data on record Contraception: No contraception data on record PAST MEDICAL HISTORY Diagnosis Date Asthma Hypothyroidism Palpitations No past surgical history on file. No family history on file. Social History Tobacco Use Smoking status: Never Smokeless tobacco: Never Current Outpatient Medications Medication Sig metoprolol tartrate, short acting, (LOPRESSOR) 25 mg tablet TAKE 1/2 (ONE-HALF) TABLET BY MOUTH TWICE DAILY fluticasone (FLONASE) 50 mcg/actuation nasal spray Use 2 Sprays in each nostril once daily. Rinse mouth after use. albuterol HFA (PROVENTIL HFA, VENTOLIN HFA) 90 mcg/actuation inhaler Inhale 2 Puffs as instructed every 4 hours as needed for wheezing/shortness of breath. PARoxetine (PAXIL) 10 mg tablet Take 1 tablet by mouth once daily. propranolol (INDERAL) 10 mg tablet Take 1 tablet by mouth twice daily. (Patient not taking: Reported on 08/29/2022) Arm Brace (WRIST BRACE MEDIUM) misc 1 Each once daily. fluticasone (FLONASE) 50 mcg/actuation nasal spray Use 2 Sprays in each nostril once daily. Rinse mouth after use. (Patient not taking: Reported on 01/10/2023) No current facility-administered medications for this visit. Allergies As of Date: 06/09/2023 (No Known Allergies) Fully Assessed 06/09/2023 REVIEW OF SYSTEMS Allergies and current medication updated:Yes EXAM: BP 116/64 Wt 190 lb (86.2kg) LMP 03/28/2023 GENERAL: pleasant, female in no apparent distress HEENT: Normocephalic and atraumatic NECK: full range of motion DERMATOLOGY: without lesions NEURO: alert and oriented x3,exam grossly non-focal ASSESSMENT AND PLAN: Encounter Diagnosis ICD-10-CM 1. Dizziness R42 CBC BASIC METABOLIC PNL 2. Palpitations R00.2 3. Early stage of Z34.90 4. History of hypothyroidism Z86.39 TSH BLD 5. Screening, anemia, deficiency, iron Z13.0 6. Encounter for vitamin deficiency screening Z13.21 VITAMIN D 25 HYDROXY 7. Discussed common causes of dizziness in . Reviewed changing positions slowly avoid sitting or standing for prolonged time. Discussed staying hydrated and using electrolyte drinks. Discussed using higher protein snacks and avoiding high sugar carbohydrates. We will get basic lab results today. Discussed that she needs to follow-up with cardiology. Discussed beta-blockers in . 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 Reviewed blood pressure parameters and reassurance was given. 8. Follow up new ob as scheduled Medical Decision Making: Problems: Moderate: 1+ chronic illnesses with change Data: Unique test(s) ordered: 3+ Medical Decision Making Level: 4 - Moderate Tiara King MD documented in this encounter [facility] 01-10-2023 Note HNO ID: [id number] Author: Leah Modi APRN.AIRCRAFT MAINTENANCE TECHNICIAN Service: ? Author Type: Nurse Practitioner Type: Progress Notes Filed: 01/10/2023 3:29 PM Note Text: This is a 22 year old female who presents today with: Patient presents with: Acute Visit: depression HISTORY OF PRESENT ILLNESS: Kaitlin Saeed is a 22 year old female. Patient presents with: Acute Visit: depression Here in the office to discuss depression. Just had a baby boy on 12/03/2022, baby was in NICU for several weeks. Refers that he was having heart events at the hospital. Increased anxiety because she is worried about the baby. Her previous daughter at 31 weeks. Holding him to fall asleep. Some mild sadness, loss of interest or get out of bed. Denies any SI/HI. History of anxiety with depression in the past, was taking Paxil prior to .Currently . PAST MEDICAL HISTORY: PAST MEDICAL HISTORY Diagnosis Date Asthma Hypothyroidism Palpitations No past surgical history on file. ALLERGIES Patient has no known allergies. MEDICATIONS Current Outpatient Medications Medication Sig metoprolol tartrate, short acting, (LOPRESSOR) 25 mg tablet TAKE 1/2 (ONE-HALF) TABLET BY MOUTH TWICE DAILY fluticasone (FLONASE) 50 mcg/actuation nasal spray Use 2 Sprays in each nostril once daily. Rinse mouth after use. propranolol (INDERAL) 10 mg tablet Take 1 tablet by mouth twice daily. (Patient not taking: Reported on 08/29/2022) Arm Brace (WRIST BRACE MEDIUM) misc 1 Each once daily. albuterol HFA (PROVENTIL HFA, VENTOLIN HFA) 90 mcg/actuation inhaler Inhale 2 Puffs as instructed every 4 hours as needed for wheezing/shortness of breath. fluticasone (FLONASE) 50 mcg/actuation nasal spray Use 2 Sprays in each nostril once daily. Rinse mouth after use. No current facility-administered medications for this visit. No family history on file. Social History Tobacco Use Smoking status: Never Smokeless tobacco: Never REVIEW OF SYSTEMS GENERAL: No weight loss, malaise or fevers/chills HEENT: Negative for frequent or significant headaches, No changes in hearing or vision. NECK: Negative for lumps, goiter, pain and significant neck swelling RESPIRATORY: Negative for cough, hemoptysis, wheezing, dyspnea or shortness of breath CARDIOVASCULAR: Negative for chest pain, leg swelling, orthopnea, or palpitations GI: No nausea, vomiting, or diarrhea/constipation. No hematochezia/melena. No heartburn or reflux symptoms. : No history of dysuria, frequency or incontinence MUSCULOSKELETAL: Negative for joint pain or swelling. SKIN: Negative for lesions, rash, and itching ENDOCRINE: Negative for cold or heat intolerance, polyuria, polydipsia and goiter NEURO: No history of headaches, syncope, paralysis, seizures or tremors MOOD: + Anxiety, Sadness EXAM: BP 118/80 Pulse 78 Resp 16 Wt 86.6 kg (191 lb) LMP 01/03/2022 (Exact Date) SpO2 96% Yes PHYSICAL EXAM: General Appearance: Well appearing, alert, in no acute distress, well-hydrated, well nourished. Skin: Skin color, texture, turgor normal, no suspicious rashes or lesions. Head: Normocephalic, no masses, lesions, tenderness or abnormalities. Eyes: Anicteric sclera. Extraocular movements are intact. Lungs: Lungs clear to auscultation. No wheezing, rhonchi, rales. Heart: RRR without murmur, gallop, or rubs. No ectopy. Extremities: No deformities, edema, skin discoloration, clubbing or cyanosis. Good capillary refill. Peripheral Pulses: Normal, Capillary refill <2secs, strong peripheral pulses, Pulses palpable. Neurologic: Gait normal. Reflexes normal and symmetric. Sensation grossly intact.. Mood: Pleasant, good eye contact, engaged. ASSESSMENT/PLAN: 1. Anxiety with depression - ICD9: 300.4, ICD10: F41.8 (primary diagnosis) - Start Paxil 10 mg daily. - Medication education and instructions discussed. - Discussed safe sleep with baby. - Follow-up in 1 month. - PAROXETINE 10 MG TABLET 2. Nausea - ICD9: 787.02, ICD10: R11.0 - May use Zofran as needed. - ONDANSETRON 4 MG DISINTEGRATING TABLET Follow-up in 1 month or sooner as needed. Discussed treatment plan and patient voices understanding. Patient's questions answered appropriately. Medications and potential side effects were discussed and patient voices understanding. Leah Modi APRN.ZAHIRA This note was partially generated using Keepio voice recognition system. Note was reviewed for accuracy. There may be minor misspellings or grammar miscues with Keepio voice recognition. [facility] 01-10-2023 Instructions Leah Modi APRN.CNP - 01/10/2023 2:39 PM EDT Start Paxil 10 mg daily. May increase to 20 mg daily in 2 weeks. Follow up in 1 month or sooner as needed. May use zofran as needed for nausea. SSRI: We discussed starting medication during today s visit for your anxiety and/or depression. This medication will take 4-6 weeks to start feeling better. The most common side effects of this medication are nausea and dry mouth. If you experience any side effects from this medication (mood changes, insomnia, etc), please contact your healthcare provider for further instructions. Do not stop taking this medication abruptly. documented in this encounter [facility] 01-10-2023 History of Present illness Narrative This is a 22 year old female who presents today with: Patient presents with: Acute Visit: depression HISTORY OF PRESENT ILLNESS: Kaitlin Saeed is a 22 year old female. Patient presents with: Acute Visit: depression Here in the office to discuss depression. Just had a baby boy on 12/03/2022, baby was in NICU for several weeks. Refers that he was having heart events at the hospital. Increased anxiety because she is worried about the baby. Her previous daughter at 31 weeks. Holding him to fall asleep. Some mild sadness, loss of interest or get out of bed. Denies any SI/HI. History of anxiety with depression in the past, was taking Paxil prior to .Currently . PAST MEDICAL HISTORY: PAST MEDICAL HISTORY Diagnosis Date Asthma Hypothyroidism Palpitations No past surgical history on file. ALLERGIES Patient has no known allergies. MEDICATIONS Current Outpatient Medications Medication Sig metoprolol tartrate, short acting, (LOPRESSOR) 25 mg tablet TAKE 1/2 (ONE-HALF) TABLET BY MOUTH TWICE DAILY fluticasone (FLONASE) 50 mcg/actuation nasal spray Use 2 Sprays in each nostril once daily. Rinse mouth after use. propranolol (INDERAL) 10 mg tablet Take 1 tablet by mouth twice daily. (Patient not taking: Reported on 08/29/2022) Arm Brace (WRIST BRACE MEDIUM) misc 1 Each once daily. albuterol HFA (PROVENTIL HFA, VENTOLIN HFA) 90 mcg/actuation inhaler Inhale 2 Puffs as instructed every 4 hours as needed for wheezing/shortness of breath. fluticasone (FLONASE) 50 mcg/actuation nasal spray Use 2 Sprays in each nostril once daily. Rinse mouth after use. No current facility-administered medications for this visit. No family history on file. Social History Tobacco Use Smoking status: Never Smokeless tobacco: Never REVIEW OF SYSTEMS GENERAL: No weight loss, malaise or fevers/chills HEENT: Negative for frequent or significant headaches, No changes in hearing or vision. NECK: Negative for lumps, goiter, pain and significant neck swelling RESPIRATORY: Negative for cough, hemoptysis, wheezing, dyspnea or shortness of breath CARDIOVASCULAR: Negative for chest pain, leg swelling, orthopnea, or palpitations GI: No nausea, vomiting, or diarrhea/constipation. No hematochezia/melena. No heartburn or reflux symptoms. : No history of dysuria, frequency or incontinence MUSCULOSKELETAL: Negative for joint pain or swelling. SKIN: Negative for lesions, rash, and itching ENDOCRINE: Negative for cold or heat intolerance, polyuria, polydipsia and goiter NEURO: No history of headaches, syncope, paralysis, seizures or tremors MOOD: + Anxiety, Sadness EXAM: BP 118/80 Pulse 78 Resp 16 Wt 86.6 kg (191 lb) LMP 01/03/2022 (Exact Date) SpO2 96% Yes PHYSICAL EXAM: General Appearance: Well appearing, alert, in no acute distress, well-hydrated, well nourished. Skin: Skin color, texture, turgor normal, no suspicious rashes or lesions. Head: Normocephalic, no masses, lesions, tenderness or abnormalities. Eyes: Anicteric sclera. Extraocular movements are intact. Lungs: Lungs clear to auscultation. No wheezing, rhonchi, rales. Heart: RRR without murmur, gallop, or rubs. No ectopy. Extremities: No deformities, edema, skin discoloration, clubbing or cyanosis. Good capillary refill. Peripheral Pulses: Normal, Capillary refill <2secs, strong peripheral pulses, Pulses palpable. Neurologic: Gait normal. Reflexes normal and symmetric. Sensation grossly intact.. Mood: Pleasant, good eye contact, engaged. ASSESSMENT/PLAN: 1. Anxiety with depression - ICD9: 300.4, ICD10: F41.8 (primary diagnosis) - Start Paxil 10 mg daily. - Medication education and instructions discussed. - Discussed safe sleep with baby. - Follow-up in 1 month. - PAROXETINE 10 MG TABLET 2. Nausea - ICD9: 787.02, ICD10: R11.0 - May use Zofran as needed. - ONDANSETRON 4 MG DISINTEGRATING TABLET Follow-up in 1 month or sooner as needed. Discussed treatment plan and patient voices understanding. Patient's questions answered appropriately. Medications and potential side effects were discussed and patient voices understanding. Leah Modi APRN.AIRCRAFT MAINTENANCE TECHNICIAN This note was partially generated using MR Presta recognition system. Note was reviewed for accuracy. There may be minor misspellings or grammar miscues with Dragon voice recognition. documented in this encounter [facility] 12-05-2022 Note Department of Obstet rics and Gynecology Delivery Discharge Summary Admission on 12/02/2022 2:54 AM Hospital course: Kaitlin Saeed at 33w2d admitted for PPROM. She received latency antibiotics and 2 doses of BMZ. She declined expectant management. Her labor course consisted of pitocin. Once she progressed to 9 cm she was moved to the OR and the NICU staff was contacted for delivery. She quickly made change to complete and pushed once prior to successful . course & complications: - Uncomplicated Surgical Operations & Procedures: Date of delivery: 12/03/22 Procedure: : Spontaneous Anesthesia: none Laceration(s): None Delivery Complications: none EBL: 400 mL Pertinent Findings & Procedures: Information for the patient's : Olena Saeed [[id number]] male 5 lb 0.8 oz (2.29 kg) Apgars: Information for the patient's : Jose AlfredoOlena [[id number]] : Infant: boy Blood Type/Rh: B Antibody Screen: No results found for: LABANTI Rubella: No results found for: RUBELLAIGG Contraception: no method : VTE Prophylaxis: Not Indicated Meds at Discharge: Medication List START taking these medications DSS 100 MG capsule Take 1 capsule (100 mg) by mouth 2 times daily as needed for constipation (Vaginal Delivery) for up to 10 days. ferrous sulfate 325 (65 Fe) MG tablet Take 1 tablet (325 mg) by mouth daily (with breakfast). ibuprofen 600 MG tablet Take 1 tablet (600 mg) by mouth every 6 hours as needed for mild pain (1-3) for up to 10 days. CONTINUE taking these medications albuterol 108 (90 Base) MCG/ACT inhaler metoprolol tartrate 25 MG tablet Commonly known as: Lopressor STOP taking these medications valACYclovir 1 g tablet Commonly known as: Valtrex Where to Get Your Medications These medications were sent to [facility] [address] [place] [id number] Hours: Tuesday to Tuesday 10 am to 6 pm DSS 100 MG capsule ferrous sulfate 325 (65 Fe) MG tablet ibuprofen 600 MG tablet Activity: Activity as tolerated Diet: Regular diet Follow-up Appointments: - visit - depression screen If a patient meets criteria for hypertension, make sure the following are done prior to discharge: [] Order a blood pressure kit through [facility] (or the patient's own pharmacy on the weekend) [] [facility] [] Place an office visit or telephone encounter for a 3-to-5-day blood pressure check. [] Include blood pressure dot phrase (.sumobhypertension) in discharge instructions [x] Check here if the patient does NOT meet criteria for hypertension Condition on discharge: Stable Discharge to: Home Discharge date: 12/05/22 Discharge Dx: 1. s/p 2. Hx CD 3. HSV 4. Thrombocytopenia 5. Asthma 6. Palpitations 7. Hx demise premature rupture of membranes (PPROM) with unknown onset of labor [O42.919] Patient Active Problem List Diagnosis premature rupture of membranes (PPROM) with unknown onset of labor Asthma Anxiety with depression Vaginal after Palpitations Acquired hypothyroidism Comments: Home care, Follow-up care and control were reviewed. Signs and symptoms of mastitis and Depression were reviewed. The patient is to notify her physician if any of these occur. [facility] 12-03-2022 Note Labor Progress Note Date: 12/03/2022 Time: 12:36 AM Subjective: Kaitlin Saeed is a 22 y.o. female at 33w2d admitted for PPROM. Complications: PPROM HSV Hx PTD, Hx Demise Hx CD Palpitations Asthma Thrombocytopenia SVE on admission: Visually 2-3 cm GBS: []Pos []Neg [x]Unknown Patient admitted to PNU for management of PPROM. She was started on latency antibiotics and received two dose of BMZ. Through shared decision making, decision made to proceed with induction of labor given patient's history of in similar situation. Patient has a history of one prior section and TOLAC consent was signed with patient. Patient was confirmed vertex prior to induction. Latency antibiotics were discontinued. Cx:defer FHT: Cat I [place]:none A/P: 1. AOL-PPROM: Cat I FHT with baseline 130, moderate variability, spontaneous accelerations, and no decelerations. BP normotensive since last note time. Will plan to start pitocin and titrate per protocol. CCM. Cx:defer FHT: Cat I [place]:None A/P: 1. AOL-PROM. FHT 130 baseline, with moderate variability, Accelerations present Yes, and no decelerations seen . BP normotensive. Pitocin running at 2cc/hr, will continue to titrate per protocol. Cx:defer FHT: Cat I [place]:none A/P: 1. AOL-PPROM. FHT 125 baseline. Moderate variability. Spontaneous accelerations present. No decelerations. Pitocin at 4 mL/hr. Continue to titrate per protocol. CCM. Cx:defer FHT: Cat I [place]:not tracing well A/P: 1. AOL-PPROM: Cat I FHT with baseline 120, moderate variability, spontaneous accelerations, and no decelerations. BP normotensive since last note time. Pitocin @ 8 cc/hr, continue to titrate per protocol. CCM. Cx:Defer FHP: Defer FHT: Cat I [place]:difficulty tracing A/P: 1. AOL-PPROM FHT Cat I with normal baseline, moderate variability and spontaneous accelerations present, no deceleration. Pitocin @ 12 mL/hr, continue to titrate per protocol. BP normotensive. CCM. Cx: defer FHP: defer FHT: Cat I [place]: not tracing well A/P: 1. AOL-PPROM: FHT Category I, with moderate variability, accelerations spontaneous, and decelerations absent. Blood pressure NT. Pit @ 14. RN states she is still very comfortable. Continue titration. PARI BLANC DO 12/03/2022 10:22 AM Cx:3/70/-2 FHP:defer FHT: Cat I [place]:not tracing well A/P: 1. AOL-PPROM - Cat I. Pitocin now at 20. Patient not really feeling any contractions, just some mild cramping. IUPC placed at this time. Will monitor MVUs and determine POC, of maintaining at 20 vs going above despite TOLAC status. Patient still oc with continuing induction at this time. Normotenisv.e Discussed plan with Dr. Isaacs, pit currently at 20cc/hr since 1115 and patient still not getting uncomfortable. Will do a pit holiday for 30 minutes and restart at half after. Patient agreeable. Contractions q 2 min. FHT cat I. BP's normotensive to mild range. CCM. Toyin Levine MD 12/03/2022 1:28 PM Pitocin restarted at 10cc/hr, continue to titrate per protocol. FHT cat I. Toyin Levine MD 12/03/2022 2:14 PM Cx:defer FHP: defer FHT: Cat I [place]:q3-4min A/P: 1. AOL-PPROM FHR Cat I with a baseline of 130 's, moderate variability, accelerations present, and no decelerations. Pitocin at 16 cc/hr. Continue to titrate per protocol. BP's normotensive. Will reassess when pitocin at 20cc/hr. Cx:unchanged per Dr. Elkins FHP: defer FHT: Cat I [place]:q3-4 min A/P: 1. AOL-PPROM: FHT Category I. Pit at 20 ml/hr. Patient still comfortable. Normotensive. IUPC in place with inadequate MVUs. Continue currnet management. Patient wants to continue for at least 3 hours, and consider section at that time. PARI BLANC DO 12/03/2022 6:13 PM SVE at this time. 570/-3. Rupture of forebag at this time for minimal bloody fluid. Has been overall Cat I. Due to rupture and forebag with SVE, will continue AOL at this time. PARI BLANC DO 12/03/2022 9:24 PM Patient feeling pressured. Unchanged. PARI JAYASHREE, DO 12/03/2022 9:56 PM Feeling pressure, SVE 6/80/-3. PARI JAYASHREE, DO 12/03/2022 10:23 PM [facility] 12-03-2022 Note Patient: Kaitlin Saeed Procedure Information Date: 12/02/22 Procedure: Labor Analgesia Relevant Problems No relevant active problems Clinical information reviewed: Tobacco Allergies Meds Med Hx Surg Hx Fam Hx Soc Hx Physical Exam Airway Mallampati: II TM distance: >3 FB Neck ROM: full Mouth Open: normalendotracheal tube not in place Cardiovascular - normal exam Dental Pulmonary - normal exam Abdominal - normal exam Anesthesia Plan ASA 2 epidural The patient is not a current smoker. Anesthetic plan and risks discussed with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 immediately: Trouble breathing Persistent pain or pressure in the chest New confusion Inability to wake or stay awake Bluish lips or face *This list is not all possible symptoms. Please call your medical provider for any other symptoms that are severe or concerning to you. Call 911 or call ahead to your local emergency facility: Notify the motor coach tour operator that you are seeking care for someone who has or may have COVID-19. Ending Home Isolation - When you can be around others after you had or likely had COVID-19 When you can be around others after you had or likely had COVID-19 If You Test Positive for COVID-19 (Isolation) Everyone, regardless of vaccination status: 1. Stay home for 5 days. Note: Day 0 is your first day of symptoms or the date of collection of a positive viral test if no symptoms. Day 1 is the first full day after symptoms developed or test specimen was collected. 2. If you have no symptoms or your symptoms are resolving after 5 days, you can leave your house. 3. Continue to wear a mask around others for 5 additional days. If you have a fever, continue to stay home until your fever resolves, even if it is longer than 5 days. If You Were Exposed to Someone with COVID-19 (Quarantine) If you: 1. Have been boosted OR 2. Completed the primary series of Pfizer or Moderna vaccine within the last 6 months OR 3. Completed the primary series of J&J vaccine within the last 2 months THEN: 1. Wear a mask around others for 10 days. 2. Test on day 5, if possible. If you develop symptoms get a test and stay home. If You Were Exposed to Someone with COVID-19 (Quarantine) If you: 1. Completed the primary series of Pfizer or Moderna vaccine over 6 months ago and are not boosted OR 2. Completed the primary series of J&J over 2 months ago and are not boosted OR 3. Are unvaccinated THEN: 1. Stay home for 5 days. After that continue to wear a mask around others for 5 additional days. 2. If you can't quarantine you must wear a mask for 10 days. 3. Test on day 5 if possible. If you develop symptoms get a test and stay home. I had COVID-19 or I tested positive for COVID-19 and I have a weakened immune system If you have a weakened immune system (immunocompromised) due to a health condition or medication, you might need to stay home and isolate longer than 10 days. Talk to your healthcare provider for more information. Your doctor may work with an infectious disease expert at your local health department to determine when you can be around others. How to Manage Common Symptoms Associated with COVID for Adults Fever- Fever is a temperature over 100.4 F and can occur when the body is fighting an infection. To help treat a fever: Drink plenty of fluids and stay well hydrated. Eat small amounts of easy to digest food. Rest. Your body needs rest to recover, but getting up and moving around the house frequently is a good idea. You should try to continue doing your normal daily activities (bathing, toileting, grooming, cooking), though you will probably feel tired, and need to rest often. Avoid any heavy activity or exercise, as this will increase your body temperature. Dress in light clothing and stay covered in a light sheet. Keep the room temperature cool. Take a slightly warm (not cold or cool) bath, or apply damp washcloths to the forehead and wrists. Cough- Cough is a common symptom associated with COVID and can be bothersome. To help treat a cough: Stay well hydrated. Try warm water or tea with lemon and/or honey to help soothe the cough. Use a humidifier to add moisture to the air. Try a product with menthol, like a cough drop or a rub for your chest such as Vicks, which can help reduce cough. Try cough drops. Avoid smoking and other strong odors or perfumes. Try breathing exercises to keep your lungs open and clear. Take a big deep breath through your nose and hold for 5 seconds before slowly releasing. Repeat frequently, while you are awake. Congestion- Runny nose or nasal congestion can occur with COVID. Treatment can help relieve symptoms: Try OTC nasal saline spray, or nasal saline rinse to relieve mucus congestion. Nasal strips can help keep nasal passages open, to increase airflow. Elevating your head with an extra pillow in bed can help reduce congestion. Using a humidifier can increase moisture in the air, and make breathing easier. Sore Throat- Another common symptom with COVID, can be managed at home by: Stay well hydrated. Gargle with salt water mix teaspoon salt with 1 cup of warm water and gargle. This helps to loosen mucus in the back of the throat and may reduce discomfort. Try ice chips, popsicles or lozenges to soothe the throat. Nausea/Vomiting/Diarrhea- These are common symptoms, and staying hydrated is most important. If you are nauseous or vomiting, start with small sips of water every 10-15 minutes and increase as tolerated. You can try sucking an ice cube too. If tolerating, you can try pedialyte or Gatorade, or flat sprite or maryjane-kang. Start slowly and increase as you are able to. Instead of meals, try smaller, more frequent snacks. Try eating bland foods like crackers, toast, rice, and applesauce. Avoid spicy, greasy or fried foods and dairy containing foods. Even if you aren't feeling hungry due to lack of smell or taste, it is important to try to take in some food when you are able. After drinking and eating, rest in an upright position for up to two hours as needed to help decrease nauseous feelings. Try closing your eyes, avoid moving and watching TV. Avoid strong odors that can make you feel more nauseated. When to seek emergency medical attention Look for emergency warning signs for COVID-19. If having any of these symptoms, seek emergency medical care immediately: Trouble breathing Persistent pain or pressure in the chest New confusion Inability to wake or stay awake Bluish lips or face *This list is not all possible symptoms. Please call your medical provider for any other symptoms that are severe or concerning to you. documented in this encounter [facility] 01-15-2022 Miscellaneous Notes Pt notified via [place]. Jo [place] Ma Can you please call the patient and let her know that I reviewed her EMG results. Results show mild bilateral carpal tunnel. I would recommend continuing to use wrist braces and NSAIDs as discussed during office visit. If pain is getting worse and I would recommend following up with orthopedics. Please let me know if she has any questions. Thank you. Leah Modi APRN.ZAHIRA documented in this encounter [facility] Diagnosis Rhus dermatitis- Primary Contact dermatitis and other eczema due to plants (except food) Athlete's foot on left Dermatophytosis of foot [facility] Diagnosis Palpitations- Primary Dizziness Dizziness and giddiness Hx of syncope Other specified personal history presenting hazards to health Hypothyroidism, unspecified type at early stage state, incidental Post covid-19 condition, unspecified [facility] Diagnosis Viral URI- Primary Acute upper respiratory infections of unspecified site [facility] Diagnosis Anxiety with depression- Primary Nausea Nausea alone [facility] Diagnosis Dizziness- Primary Dizziness and giddiness Palpitations Early stage of state, incidental History of hypothyroidism Personal history of other endocrine, metabolic, and immunity disorders Screening, anemia, deficiency, iron Screening for iron deficiency anemia Encounter for vitamin deficiency screening Screening for other and unspecified endocrine, nutritional, metabolic, and immunity disorders [facility] Diagnosis with uncertain viability, single or unspecified fetus- Primary in first trimester with history of , antepartum History of delivery, currently with history of pre-term labor Hx successful (vaginal after ), currently Previous delivery, unspecified as to episode of care or not applicable Premature ventricular contractions (PVCs) (VPCs) Other premature beats History of depression, currently with other poor obstetric history Food insecurity [facility] Diagnosis 17 weeks gestation of - Primary state, incidental documented in this encounter [facility] note* Diagnosis Encounter for anatomic survey- Primary 19 weeks gestation of state, incidental Obesity affecting in second trimester, unspecified obesity type documented in this encounter [facility] note* Diagnosis History of delivery, currently - Primary with history of pre-term labor 21 weeks gestation of state, incidental documented in this encounter [facility] note* Diagnosis Obesity affecting in second trimester, unspecified obesity type- Primary 21 weeks gestation of state, incidental History of depression Depression, unspecified depression type documented in this encounter [facility] note* Diagnosis Acute non-recurrent maxillary sinusitis- Primary documented in this encounter [facility]* 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 depression in second trimester [facility] Diagnosis History of delivery- Primary documented in this encounter [facility] note* Diagnosis Moderate mixed bipolar I disorder (HCC)- Primary Bipolar I disorder, most recent episode (or current) mixed, moderate documented in this encounter [facility] note* Diagnosis Moderate mixed bipolar I disorder (HCC)- Primary Bipolar I disorder, most recent episode (or current) mixed, moderate [facility] Attachments The following attachments cannot be sent through Care Everywhere. * Sinusitis: Acute ([place] Leone[place]) documented in [facility] encounter[facility]Health[facility] for referral (narrative)* Diagnostic Procedure Only (Routine) - Authorized Specialty Diagnoses / Procedures Referred By Contearnest t Referred To Contact [facility] Diagnoses 17 weeks gestation of Procedures OBSTETRIC ULTRASOUND WHI US PREG UTERUS AFTER 1ST TRIMEST GESTATION Nita Garcia APRN.CNJhoana [address] [place] [address] [id number] [place] [address] Referral ID Status Reason Start Date Expiration Date Visits Requested Visits Authorized [id number] Authorized Auto-Generat ed Referral 07/29/2023 07/28/2024 1 1 * Consult, Test, Treat (Routine) - Authorized Specialty Diagnoses / Procedures Referred By Contac t Referred To Contact Diagnoses 17 weeks gestation of Procedures CONSULT TO MATERNAL MEDI OFFICE/OUTPATIENT NEW HIGH MDM 60-74 MINUTES Nita Garcia APRN.CNM [address] [place] [address] Referral ID Status Reason Start Date Expiration Date Visits Requested Visits Authorized [id number] Authorized PCP Requested Referral Auto-Generate d Referral 07/29/2023 07/28/2024 1 1 [facility] for referral (narrative)* Diagnostic Procedure Only (Routine) - Authorized Specialty Diagnoses / Procedures Referred By Contac t Referred To Contact [facility] Diagnoses History of delivery Procedures OBSTETRIC ULTRASOUND WHI US PREG UTERUS AFTER 1ST TRIMEST 1/ GESTATION Nita Garcia APRN.CNM [address] [place] [address] [address] Referral ID Status Reason Start Date Expiration Date Visits Requested Visits Authorized [id number] Authorized Auto-Generat ed Referral 09/23/2023 09/22/2024 1 1 [facility] for referral (narrative)* Outpatient Procedure (Routine) - Pending Review Specialty Diagnoses / Procedures Referred By Contac t Referred To [facility] Diagnoses Moderate mixed bipolar I disorder (HCC) Procedures ECG COMPLETE ECG ROUTINE ECG W/LEAST 12 LDS W/I&R Reyes, Maty W, DO [address] [place] [address] [facility] [place] [address] Referral ID Status Reason Start Date Expiration Date Visits Requested Visits Authorized [id number] Pending Review Auto-Generat ed Referral 09/30/2023 09/22/2024 1 1 [facility] Assessments Diagnosis Acne vulgaris - Primary Other acne Benign neoplasm of skin of t runk, except scrotum Diagnosis Fever due to infection Chorioamnionitis in third trimester Infection of amniotic cavity, antepartum Summary Purpose Family History No Family History Records FoundNo Family History Records FoundNo Family History Records FoundNo Family History Records FoundNo Family History Records FoundNo Family History Records FoundNo Family History Records FoundNo Family History Records FoundNo Family History Records FoundNo Family History Records FoundNo Family History Records Found Advance Directives No Advanced Directives Records FoundDocuments on File Type Date Recorded 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 Advance Directives and Living Will Power of Director Medical Surgical Latest Code Status on File Code Status Date Activated Date Inactivated Comments Full Code 08/02/2019 2:22 PM Full Code 08/02/2019 11:41 AM 08/02/2019 2:22 PM Full Code 07/31/2019 8:08 PM 08/02/2019 11:41 AM Full Code 07/30/2019 2:52 AM 07/31/2019 8:08 PM Full Code 07/30/2019 2:34 AM 07/30/2019 2:52 AM Hospital Course * Michele Augustin MD - 07/30/2019 4:20 AM EDT Department of Obstetrics and Gynecology Discharge Summary Admission on 07/30/2019 1:19 AM Reason for admission: VB, PPROM Kaitlin Saeed is a 18yo at 31w3d presented to [facility] as a transfer for [facility]. Patient was evaluated on 07/29/19 for concern for PPROM. She had initially presented to the outpatient office on Wednesday 07/25 with complaints of fever and LOF. She was diagnosed with a UTI and started on Keflex.Symptoms did not improve so she was switched on Macrobid. On 07/29 she presented to [facility] ED with worsening suprapubic pain and bleeding. She was diagnosed with PPROM on ROM-plus test with MELY 21, and transferred to [facility] for further evaluation. On admission she was found to have 30cc blood in vault with a small area of ferning. She was started on latency antibiotics on 07/30/19 and received BMZ (07/30,07/31) for lung maturity. Fibrinogenand coag studies were within normal limits. Intrapartum Course: Choriamnionitis and Cat 2 FHR PC-01 Indications for Delivery: Was patient delivered between 37 - 39 weeks? yes: OBSTETRIC INDICATIONS: PROM: onset of labor more than 24 hours after rupture, INDICATIONS: N/A: indications not applicable to this patient. See obstetrical or maternal, MATERNAL INDICATIONS: N/A: maternal indications not applicable for this patient. See or obstetrical Surgical Operations & Procedures: Date of delivery: 08/02/19 Delivery Type: with labor Anesthesia: Epidural anesthesia Laceration(s): n/a Delivery Complications: none EBL: 800 cc Pertinent Findings & Procedures: Information for the patient's : Joao Saeed [[id number]] female Weight: 4 lb 0.9 oz (1.84 kg) Apgars: Information for the patient's : Joao Saeed [[id number]] One Minute : 7 Five Minute : 8 Course: Uncomplicated : Female Blood Type/Rh: B POS Antibody Screen: Antibody Screen Date Value Ref Range Status 08/02/2019 NEG NA Final Comment: Test Performed by [facility], [address] [place] [id number] Rubella: No results found for: RUBELLAIGG Contraception: no method : yes DVT ppx: none Meds: Kaitlin Saeed Home Medication Instructions SHANEKA:[id number] Printed on:08/05/19 1449 Medication Information acetaminophen (TYLENOL) 325 MG tablet Take 650 mg by mouth every 6 hours as needed for Pain (fever >101.0) ibuprofen (ADVIL;MOTRIN) 600 MG tablet Take 1 tablet by mouth every 6 hours levothyroxine (SYNTHROID) 75 MCG tablet Take 75 mcg by mouth Daily Tuesday & Tuesday-75 mcg. Tuesday-50mcg-Pt takes at HS Vit-Fe Fumarate-FA ( 1 PLUS 1 PO) Take 1 tablet by mouth daily propranolol (INDERAL) 10 MG tablet Take 1 tablet by mouth 3 times daily Activity: Activity as tolerated Diet: Regular diet Follow up Care: Follow up appointment in [address] [facility] Condition on discharge: Good and stable Discharge to: Home Discharge date: 08/05/2019 Discharge Dx: same Instructions to Patient:: Pelvic Rest (no intercourse, tampons, douching, etc) x 6 weeks Specific discharge instruction printed Fever due to infection [R50.81, B99.9] Patient Active Problem List Diagnosis (none) - all problems resolved or deleted Comments: Home care, Follow-up care and control were reviewed. Signs and symptoms of mastitis and Post Depression were reviewed. The patient is to notify her physician if any of these occur. Michele Augustin MD on 08/05/2019 at 2:42 PM documented in this encounter Discharge Instructions * Instructions* Cyndi Mustafa RN - 08/05/2019 After Your Delivery (the Period): Your Care Instructions Congratulations on the of your baby. Like , the period can be a time of excitement, timoteo, and exhaustion. You may look at your wondrous little baby and feel happy. You may also be overwhelmed by your new sleep hours and new responsibilities. In these first weeks after delivery, try to take good care of yourself. It may take 4 to 6 weeks to feel like yourself again, and possibly longer if you had a . You will likely feel very tired for several weeks. Your dayswill be full of ups and downs, but lots of timoteo as well. FOLLOW-UP: Your follow-up care is a delacruz part of your treatment and safety. Follow-up with your OB doctor in {Time; 1 to 12 weeks:69258} weeks or as specified by your physician. Be sure to make and go to all appointments, and call your doctor if you are having problems. It's also a good idea to know your test results and keep a list of the medicines you take. BLEEDING Vaginal bleeding will decrease in amount over the next few weeks. Bleeding may sweet pickle maker and then decrease again around 7-10 days . Use pads instead of tampons for the bloody flow that may last as long as 2 weeks. You will notice that as your activity increases, your flow may increase. Call your doctor if you are saturating one maxi pad in an hour & passing large clots for 3 hours or more. ACTIVITY NO SEXUAL activity for 6 weeks or until advised by your doctor; Nothing in vagina: intercourse, tampons, or douching. Showering is okay; NO tub baths, swimming, or hot tubs. Gradually increase your activity. Resume exercise regimen only after advice by your doctor. Avoid lifting anything heavier than your baby or a gallon of milk for six weeks. Avoid driving 1 week for vaginal delivery and 2 weeks for section, or longer if you are onprescription pain medicine unless otherwise instructed by your doctor. Rise slowly from a lying to sitting and then a standing position. Climb stairs carefully. Use caution when carrying your baby up and down the stairs. You may feel tired or have a lack of energy. You may continue your vitamin to replenish nutrients post delivery. Nap when baby naps to catch up on sleep. EMOTIONS You may feel ku, sad, teary, & overwhelmed for the first 2 weeks ; however, feelings of post depression may occur any time within the first year after delivery. Contact your OB provider if you feel you may be showing signs of depression, or have thoughts of harming yourself or your . If will not stop crying, contact another adult for help or place infant in their crib on their back and take a break. NEVER shake your infant. WOUND CARE For Vaginal Delivery: Shower daily, and cleanse your perineum (bottom) with mild soap from front to Back. Use the plasticsquirt bottle until bleeding stops each time you use the restroom instead of wiping with toilet paper. Ease soreness of hemorrhoids and the area between your vagina and rectum with ice compresses or witch lashae pads. If used, stitches will dissolve in 4-6 weeks on their own. You may use a sitz bath or soak in a clean tub with drain open and water running for comfort. Kegel exercises will help restore bladder control. To do these tighten your muscles as if you were stopping your urine flow. Hold for a few seconds and then relax. Do these throughout the day. For Section Delivery: Keep your incision clean and dry. If you had steri-strips you may remove these once they start falling off. If you have jae they need to be removed 3-10 days after delivery. If you have steri-strips, remove after 7 - 10 days. Do not wear clothing that irritates the incision line. If your incision in in a crease that is not dry, use a hair-dryer to dry the area 3 times a day. If you develop fever, shaking chills, redness, swelling, drainage or discharge from your wound, or if your wound looks like it's coming apart call your doctor immediately. BREAST CARE If you develop a warm, red, tender area on your breast or develop a fever contact your doctor. For moms: If you become engorged, feeding may be more difficult or painful for 1-2 days. You may find it helpful to hand express some milk so that the infant can latch on more easily or ease soreness with wet,warm washcloths. While , continue to take your vitamins as directed by your doctor. For non- moms: You may apply ice packs to your breasts over you bra for twenty minutes at a time for comfort. Cabbage leaves may be applied to breasts, replace when wilted. Avoid stimulation to your breasts, when showering allow the water to strike your back not your breasts. Do not express milk or your body will make more. Wear a good fitting bra until your milk dries, such as a sports bra. DIET & CONSTIPATION Eat a well balanced diet focusing on foods high in fiber and protein such as: whole grain cereals and breads, fruits and vegetables and legumes (eg, beans, lentils) Drink 8-10 glasses of fluids daily, especially water. To avoid constipation you may take a mild [id number] stool softener (such as colace) as recommended by your doctor. SWELLING Try to keep your legs elevated when you are sitting or lying down. Stay hydrated and take walks. BABY Babies sleep safest on their back in a crib without bumpers, blankets or stuffed animals. Do not sleep with your baby in your bed or the couch. Do not expose baby to smoke, this can increase risks of asthma and sudden syndrome. Ifyou or someone around baby smokes have them change their shirt and wash any facial hair before holding baby. Do not smoke inside the house and change the ventilation filters in the house before bringing baby home. WHEN TO CALL THE DOCTOR Signs of infection, including fever and chills Increased bleeding: soaking more than one sanitary pad an hour Wounds that become red, swollen or drain pus Vaginal discharge that smells foul New pain, swelling, or tenderness in your legs Pain that you can't control with the medications you've been given Pain, burning, urgency or frequency of urination, or persistent bleeding in the urine Cough, shortness of breath, or chest pain Depression, suicidal thoughts, or feelings of harming your baby Breasts that are hot, red and accompanied by fever Any cracking or bleeding from the nipple or areola (the dark-colored area of the breast) In case of an emergency, call 911 immediately. documented in this encounter History of Present Illness * Tamra Cervantes IBCLC - 08/05/2019 11:04 AM EDT Mom pumping for baby in NICU. States her areola is thicker and firmer since she having the baby. States she noticed it when she started getting IV fluids. Discussed how this area can have swelling after delivery that subsides as her baby excretes the extra fluid. Discussed breast engorgement. Shownbreastfeeding section of Taking Care of Yourself and Baby booklet.Reviewed: breast engorgement, contact information, and mothers group. Encouraged patient to call for assistance prn. Patient verbalized understanding. * Michele Augustin MD - 08/05/2019 6:03 AM EDT POST DAY # 3 Kaitlin Saeed is a 18 y.o. female This patient was seen & examined today. Her was complicated by: Patient Active Problem List Diagnosis Fever due to infection Chorioamnionitis in third trimester She is doing well today without any complaints. +BM. Vital Signs: Vitals: 08/04/19 1945 08/04/19 2133 08/05/19 0048 08/05/19 0539 BP: (!) 114/58 (!) 123/50 (!) 102/50 133/67 Pulse: 73 60 60 57 Resp: 16 Temp: 96.5 F (35.8 C) TempSrc: Temporal Temporal Temporal SpO2: 97% 96% 97% Weight: Height: Physical Exam: General: no apparent distress, alert and cooperative Abdomen: abdomen soft, non-distended, non-tender Fundus: non-tender, normal size, firm, below umbilicus Incision: clean, dry, intact and steri trips in place Assessment and Plan: Kaitlin Saeed is a POD # 3 s/p PLTCS 2/2 Chorio and PPROM - Doing well, VSS - female - Hx arrhythmia - currently asx - propranolol 10 mg TID - cardiology consulted this admission - Chorioamnionitis - amp and gent continued for 24 hr PP - last maternal fever 08/02 at 0900 - afebrile and asx this a.m. 1. Contraception: None 2. DVT prophylaxis:ppx dosing until discharge 3. Antihypertensive medication: None 4. Disposition: per private attending Nandini Escamilla MD Family Medicine PGY-1 Pager [phone] Maternal Medicine Attending attestation: Patient was seen and evaluated. 18 yo P2 POD #3 s/p CD Chorio and PPROM Patient reports to be feeling very well, denies any abnormal symptoms in any organ system. She stated that she is ambulating and has no dizziness and is able to walk long distance and stand for a long time, and is ready to go home today. She denies depression and is very happy to have breast fed the baby directly today and had good latching Abd: soft non tender, incision with steri-strips, clean dry and intact and non-tender Extr: no calf tenderness Agree with plan above, plus: - stable for discharge home today - Routine post- and post op care and continue vitamins - Monitor closely for signs and symptoms of post- depression * Michele Augustin MD - 08/04/2019 6:19 AM EDT POST DAY # 2 Kaitlin Saeed is a 18 y.o. female This patient was seen & examined today. Her was complicated by: Patient Active Problem List Diagnosis Fever due to infection She is doing well today without any complaints. She has met all milestones including adequate pain control on standard medication, stable lochia, spontaneous voiding, passing flatus, tolerating solids and liquids, and ambulation. Vital Signs: Vitals: 08/03/19 0406 08/03/19 0710 08/03/19 0844 08/03/19 1110 BP: (!) 101/47 (!) 109/51 110/60 113/76 Pulse: 60 55 68 79 Resp: 18 16 16 Temp: 96.6 F (35.9 C) 96 F (35.6 C) 96.8 F (36 C) TempSrc: Temporal Temporal Temporal SpO2: 93% 94% 100% Weight: Height: Physical Exam: General: no apparent distress, alert and cooperative Abdomen: abdomen soft, non-distended, non-tender Fundus: non-tender, normal size, firm, below umbilicus Incision: clean, dry and intact Assessment and Plan: Kaitlin Saeed is a POD # 2 s/p PLTCS 2/2 Chorio and PPROM - Doing well, VSS - female 1. Hx arrhythmia - currently asx - propranolol 10 mg TID - cardiology consulted this admission 2. Chorioamnionitis - amp and gent continued for 24 hr PP - last maternal fever 08/02 at 0900 - afebrile and asx this a.m. 3. Contraception: None 4. DVT prophylaxis: ppx dosing until discharge 5. Antihypertensive medication: None 6. Disposition: continue current care Maternal Medicine Attending attestation: Attempted to see patient twice today Patient not in room and was in NICU Case was discussed with Nurse who stated that the patient is doing well and only comes up briefly for medications and goes back down to NICU POD#2 s/p primary CS Agree with plan above, plus: - DVT prophylaxis also with SCDs and ambulate ad salina - Monitor closely for signs and symptoms of post- depression * Tamra Cervantes IBCLC - 08/03/2019 8:29 AM EDT Reinforced use and care of hospital breast pump and pumping for baby in NICU. instr mom to speak with NICU staff about a pump for home use. Gave mom number for LC to call with BF concerns and [facility] BF support group information. Mom verbalized understanding. * Ford Kendall MD - 08/03/2019 5:17 AM EDT POST OPERATIVE DAY # 1 Kaitlin Saeed is a 18 y.o. female This patient was seen & examined today. Her was complicated by: Patient Active Problem List Diagnosis Fever due to infection No acute events reported overnight. She has no new complaints this AM. Her lochia is light. She denies chest pain, shortness of breath, headache, lightheadedness and blurred vision. She is ambulatingwithout difficulty. She is passing flatus. Patient has not had a bowel movement. She has not voidedyet since the flor catheter was removed this AM. Pain is well-controlled at this time. Vital Signs: Vitals: 08/02/19 1941 08/02/19 2221 08/03/19 0020 08/03/19 0406 BP: (!) 107/50 (!) 112/39 (!) 105/37 (!) 101/47 Pulse: 81 74 72 60 Resp: 18 18 18 Temp: 96.9 F (36.1 C) 97.9 F (36.6 C) 96.6 F (35.9 C) 96.6 F (35.9 C) TempSrc: Temporal Temporal Temporal Temporal SpO2: 91% 96% 93% Weight: Height: BLOOD PRESSURE RANGE: Systolic (24hrs), Av , Min:101 , Max:117 ; Diastolic (24hrs), Av, Min:33, Max:52 Urine Input & Output last 24hrs: Intake/Output Summary (Last 24 hours) at 08/03/2019 0517 Last data filed at 08/03/2019 0225 Gross per 24 hour Intake 3678 ml Output 3140 ml Net 538 ml Physical Exam: General: no apparent distress, alert and cooperative Affect: appropriate Lungs: No increased work of breathing, good air exchange, clear to auscultation bilaterally, no crackles or wheezing Heart: regular rate and rhythm Abdomen: abdomen soft, non-distended, non-tender Fundus: non-tender, normal size, firm, below umbilicus Incision: clean, dry and intact Extremities: no calf tenderness, non edematous Labs: Lab Results Component Value Date WBC 3.2 (L) 08/02/2019 HGB 10.3 (L) 08/03/2019 HCT 26.2 (L) 08/02/2019 MCV 82.9 08/02/2019 PLT 176 08/02/2019 B POS Antibody Screen: Antibody Screen Date Value Ref Range Status 08/02/2019 NEG NA Final Comment: Test Performed by [facility], [address] [place] [id number] No results found for: RUBELLAIGG LABOR DELIVERY ??? SCD's ONLY (labor through ambulation) SCD's PLUS Prophylactic Anticoagulation until discharge SCD's PLUS Prophylactic Anticoagulation for 6 weeks SCD's PLUS Therapeutic Anticoagulation for 6 weeks Vaginal Delivery [] BMI ? 40 kg/m2 Delivery All patients Vaginal Delivery [] BMI ? 40 kg/m2 AND [] Antepartum hospitalization ? 72 hours within the past month Delivery 1 Major Risk Factor: [] BMI ? 35 kg/m2 [] Low Risk Thrombophilia [] PPH+RBCs, IR, or operation [x] Infection+Antibiotics [x] Antepartum hospitalization ? 72 hours within the past month [] PMH: Sickle Cell, SLE, Cardiac Dz, Active IBD, Active Cancer, Nephrotic Syndrome OR 2 Minor Risk Factors: [] Multiple gestation [] Age > 40 [] PPH ? 1,000cc [] (+)FMH of VTE [] Smoker [] Preeclampsia [] BMI ? 40 kg/m2 AND [] Low Risk Thrombophilia OR ANY OF THE FOLLOWING: [] High Risk Thrombophilia without prior VTE [] Low Risk Thrombophilia with (+)FMH of VTE [] Any single prior VTE ANY OF THE FOLLOWING: [] Already on LMWH/UFH [] Multiple prior VTE [] High Risk Thrombophilia with prior VTE [] Not Applicable [] Not Applicable [] Not Applicable [] Not Applicable Low Risk Thrombophilia: FVL (heterozygous), Prothrombin (heterozygous), Protein C, Protein S High Risk Thrombophilia: FVL (homozygous), Prothrombin (homozygous), FVL+Prothrombin (heterozygous), Antithrombin III, APLS Active Problems: Fever due to infection Resolved Problems: * No resolved hospital problems. * Assessment/Plan: 1. Kaitlin Saeed is a POD # 1 s/p PLTCS 2/2 Chorio and PPROM per [facility] recomendations - Doing well, VSS - Female - Encourage ambulation - Postoperative Hb 10.3 2. Post VTE Prophylaxis: Prophylactic Lovenox Dosing until Discharge 3. Hx of Arrhythmia 1. Asymptomatic 2. Propranolol 10 mg TID 3. Cardiology consulted this admission 4. Chorioamnionitis 1. Continue Amp and Gent for 24 hours post 2. Last maternal fever on 08/02/19 at 0100 3. Afebrile and asymptomatic this AM 5. Breast and Bottle feeding 6. Contraception: per private attending 7. Continue current care Provider's Name: MD Elio Arredondo MD Maternal Medicine attending attestation: I reviewed and agree with the care provided by the resident during or immediately following the visit including the patient's medical history, the resident's findings in the physical exam, patient's diagnosis and treatment plan. I spent 15 minutes evaluating the patient * Do Braden RN - 08/02/2019 2:19 PM EDT Spoke with Dr. Navarrete regarding request of orders for phenergan and a probiotic, states he will place those orders. * Nasrin Mata DO - 08/02/2019 11:25 AM EDT Section Brief Operative Note Patient: Kaitlin Saeed : 2000 Date of Procedure: 08/02/19 Pre-operative Diagnosis: 18 y.o. female PPROM, Chorioamnionitis , Cat II FHT unable to Augment, Remote from Delivery Post-operative Diagnosis: Same, Procedure: Primary Low Transverse Section Surgeon: Dr. Andrews Dialysis Nurse(s): Dr. Mata Anesthesia: spinal, Duramorph Utilized: Yes, TAP Block Yes Findings: viable female infant in cephalic presentation, weight 1840g. Uterus, tubes, and ovaries wnl. Total IV fluids/Blood products: 2000 ml crystalloid Urine Output: 500 ml clear urine Estimated blood loss: 800 ml Drains: flor catheter Specimens: Placenta, cord blood Instrument and Sponge Count: Correct x 2 Yes Complications: none Disposition: Mother stable to recovery and infant stable to NICU VTE Prophylaxis: Prophylactic Dosing until Discharge LABOR DELIVERY ??? SCD's ONLY (labor through ambulation) SCD's PLUS Prophylactic Anticoagulation until discharge SCD's PLUS Prophylactic Anticoagulation for 6 weeks SCD's PLUS Therapeutic Anticoagulation for 6 weeks Vaginal Delivery [] BMI ? 40 kg/m2 Delivery All patients Vaginal Delivery [] BMI ? 40 kg/m2 AND [] Antepartum hospitalization ? 72 hours within the past month Delivery 1 Major Risk Factor: [] BMI ? 35 kg/m2 [] Low Risk Thrombophilia [] PPH+RBCs, IR, or operation [] Infection+Antibiotics [x] Antepartum hospitalization ? 72 hours within the past month [] PMH: Sickle Cell, SLE, Cardiac Dz, Active IBD, Active Cancer, Nephrotic Syndrome OR 2 Minor Risk Factors: [] Multiple gestation [] Age > 40 [] PPH ? 1,000cc [] (+)FMH of VTE [] Smoker [] Preeclampsia [] BMI ? 40 kg/m2 AND [] Low Risk Thrombophilia OR ANY OF THE FOLLOWING: [] High Risk Thrombophilia without prior VTE [] Low Risk Thrombophilia with (+)FMH of VTE [] Any single prior VTE ANY OF THE FOLLOWING: [] Already on LMWH/UFH [] Multiple prior VTE [] High Risk Thrombophilia with prior VTE Low Risk Thrombophilia: FVL (heterozygous), Prothrombin (heterozygous), Protein C, Protein S High Risk Thrombophilia: FVL (homozygous), Prothrombin (homozygous), FVL+Prothrombin (heterozygous), Antithrombin III, APLS See full operative report for further details. Nasrin Mata DO 08/02/2019, 11:25 AM Associated attestation - Francis Andrews MD - 08/03/2019 5:28 PM EDT I reviewed and agree with the care provided by the resident/CNM/AMBROCIO during the visit including the patient's medical history, the resident's findings in the physical exam, patient's diagnosis and treatment plan. * Alta Clemens DTR - 08/01/2019 12:42 PM EDT Nutrition rescreen completed. Chart reviewed. Monitor liquid diet status. Patient to be monitored and followed by the diet electronic sales and service technician. * Levar Krishnan MD - 08/01/2019 12:08 PM EDT CARDIOLOGY PROGRESS NOTE Chart and interval events reviewed. Reason for Visit Tachycardia SUBJECTIVE: Kaitlin Saeed states she feels much better. Denies palpitations. Echo still pending. SCHEDULED MEDICATIONS: propranolol 10 mg Oral TID lactated ringers bolus 1,000 mL Intravenous Once ibuprofen 600 mg Oral Once ampicillin IV 2 g Intravenous 4 times per day gentamicin 5 mg/kg Intravenous Q24H misoprostol 25 mcg Vaginal Q4H metroNIDAZOLE 500 mg Oral TID levothyroxine 75 mcg Oral Q MWF levothyroxine 50 mcg Oral Once per day on Tue influenza virus vaccine 0.5 mL Intramuscular Once Active Problems: Fever due to infection Resolved Problems: * No resolved hospital problems. * Review of Systems: Review of Systems Constitutional: Feeling better. Heart racing has resolved. No lightheadedness Cardiovascular: Negative for chest pain and palpitations. Neurological: Negative for dizziness and light-headedness. All other systems reviewed and are negative. VITAL SIGNS: Vitals: 08/01/19 1032 08/01/19 1035 08/01/19 1040 08/01/19 1045 BP: (!) 111/37 Pulse: 99 100 102 100 Resp: Temp: TempSrc: SpO2: Weight: Height: Intake/Output Summary (Last 24 hours) at 08/01/2019 1208 Last data filed at 07/31/2019 1848 Gross per 24 hour Intake 2175 ml Output Net 2175 ml Patient Vitals for the past 96 hrs (Last 3 readings): Weight 07/30/19 0212 200 lb 5 oz (90.9 kg) Physical Exam: Physical Exam Constitutional: She is oriented to person, place, and time. She appears well- developed and well-nourished. HENT: Head: Normocephalic. Right Ear: External ear normal. Left Ear: External ear normal. Nose: Nose normal. Mouth/Throat: Oropharynx is clear and moist. Eyes: Pupils are equal, round, and reactive to light. Conjunctivae and EOM are normal. Right eye exhibits no discharge. Left eye exhibits no discharge. No scleral icterus. Neck: Neck supple. No JVD present. Carotid bruit is not present. No thyromegaly present. Cardiovascular: Regular rhythm. Tachycardia present. PMI is not displaced. Exam reveals no gallop and no friction rub. Murmur (LUSB) heard. Systolic murmur is present with a grade of 2/6. Pulmonary/Chest: Effort normal and breath sounds normal. No respiratory distress. She has no wheezes. She has no rhonchi. She has no rales. Abdominal: Soft. Bowel sounds are normal. She exhibits no distension, no abdominal bruit and no mass. There is no hepatosplenomegaly. There is no tenderness. , 31 weeks Musculoskeletal: She exhibits no edema, tenderness or deformity. Neurological: She is alert and oriented to person, place, and time. She has normal strength. Coordination normal. Skin: Skin is warm, dry and intact. No rash noted. No erythema. Psychiatric: She has a normal mood and affect. Her behavior is normal. Data: Scheduled Meds: Reviewed Continuous Infusions: oxytocin 1 sandeep-units/min (08/01/19 1008) lactated ringers 125 mL/hr at 07/31/19 2030 oxytocin magnesium sulfate 2 g/hr (08/01/19 0916) lactated ringers 125 mL/hr at 07/31/19 1331 CBC: Recent Labs 07/30/19 0323 WBC 4.4 HGB 9.9* HCT 29.1* PLT 184 BMP:No results for input(s): NA, K, CL, CO2, BUN, CREATININE, LABGLOM in the last 72 hours. Invalid input(s): GLU, CA INR: Recent Labs 07/30/19 0323 INR 0.9 No results for input(s): BNP in the last 72 hours. TSH: No results found for: TSH Cardiac Injury Profile: No results for input(s): CKTOTAL, CKMB, TROPONINI in the last 72 hours. Lipid Profile: No results found for: TRIG, HDL, LDLCALC, CHOL EKG: personally reviewed. Sinus tachycardia. No ectopy Telemetry Reviewed: N/A Echo: See Report IMPRESSIONS/RECOMMENDATIONS: 1. Tachycardia/palpitations: marked improvement after changing Pindolol to Propranolol. Propranololdose may be increased safely, if so desired. 2. History of syncope: evaluation has to wait until after delivery and normalization of hormonal status. 3. L&D: preparing for delivery. I will continue to follow. Electronicallysigned by Levar Krishnan MD on 08/01/2019 at 12:08 PM * Jacinta Tinoco MD - 07/31/2019 9:37 PM EDT Labor Progress Note Date: 07/31/2019 Time: 9:37 PM Assessment/Plan: 1. Kaitlin Saeed is a 18 y.o. female 31w4d admitted for IOL - chorio and PPROM 2. Heart Rate: Category 2 3. GBS negative, No indication, Ampicillin and Pen G for GBS prophylaxis 4. Membranes Are: Ruptured clear fluid 5. Chorio 6. PPROM 7. Continue management Cx: /-3 FHT: Cat II [place]: not tracing well A/P: 1. IOL - Chorio and PPROM. Cat II for tachycardia but overall reassuring with moderate variability and accels. Cytotec placed at this time. Febrile 101.3 @ 2100. Cx: defer FHT: Cat II [place]: not tracing well A/P: 1. IOL - Chorio and PPROM. Cat II for tachycardia but overall reassuring with moderate variability and accels. Afebrile since last note. BP's normotensive. Cytotec up at this time. Magnesium started @ 2330, no UOP recorded at this time. Cx: /-3 FHT: Cat II [place]: not tracing well, irritable A/P: 1. Cat II for tachycardia with baseline FHR 160-165. Overall reassuring w/ mod variability. Second cytotec placed at this note time. Febrile to 100.6, tylenol 650mg PO given. Cx: /-3 FHT: Cat II [place]: not tracing well A/P: 1. Cat II for rare variable deceleration. Baseline FHR 150. Ctx not tracing on toco, pt reports she has only felt 4 ctx in the last hour, and they are not painful. Third cytotec placed at this time. Per RN, afebrile on most recent temp check. 520cc UOP over last 4h. Cx:defer FHT: Cat I [place]:Not tracing well A/P: 1. IOL - PPROM complicated by Chorio - Cytotec placed at 0600. 2. Chorio/PPROM - Intermittently febrile since 07/25/19 with history of UTI. Currently on Amp/Gent. Tmax 101.3, Last temp today at 0900 - 100.4. No foul smelling discharge or fundal tenderness. 3. POTS/Arrythmia - Cleared by cardiology for labor and delivery this admission. Medication changed from Pindolol to Propranolol 10 mg TID. Cx:defer FHP:defer FHT: Cat II [place]:irritable A/P: 1. IOL-PPROM/Chorio Third cytotec time is up. Plan to start standard pit protocol at this time. Defer cvx exam to reduce risk of infection. Currently tachy with baseline at 160-165 bpm. Maternal fever at 100.4. Tylenol given. Will recheck when ctx are regular. Cx:deferred FHP: NA FHT: Cat I [place]:q4-6min A/P: 1. IOL -PPROM/Chorio: Pit at 4cc/hr, cricket every 4-6min. Not yet uncomfortable with contractions. Will continue to titrate pitocin per protocol. Most recently afebrile. No longer tachycardic. Will recheck once more uncomfortable. Cx:defer FHT: Cat I [place]:q2-3mins A/P: 1. IOL-PPROM/Chorio: Pit @ 6 mu/min. Most recently afebrile and not tachycardic at this time. Continue to titrate pitocin per protocol. Will recheck once patient is more uncomfortable. Cx:3/40/-3 FHT: Cat I [place]:q2-6mins A/P: 1. IOL-PPROM/Chorio: Patient requesting SVE. Remains unchanged. Pit @ 12 mu/min. Patient feeling contractions but is relatively comfortable. Will continue to titrate pitocin to get contractions more regular and patient more uncomfortable. Will reassess once pitocin reaches 20. Last febrile at 1400. Tylenol was given. Not currently tachycardic. Cx: defer FHT: Cat II [place]: q2-5m A/P: 1. Cat II for intermittent late and rare variable decelerations. Overall moderate variability so low concern for hypoxia at this time. Pit at 18cc/hr. Considering IUPC placement, which will allow for determination of ctx adequacy. At that point, if ctx are inadequate, will consider goingabove pit of 20cc/hr. UOP 256cc over last 4 hours. Normotensive. Labor course reviewed. Pit is currently at 20mu/min. Deferred IUPC placement as patient has chorio.Patient having intermittent variable decels. Will do pit holiday for 1 hr. Magnesium discontinued as it has likely had max effect for neuroprotection at this point. BPs normotensive. Pitocin restarted at 2100, now at 4mu/min. FHT cat I since restarting. Patient has been afebrile since 09 this AM. BPs have been normotensive. deferred. Pit at 10, titrate per protocol. Will plan for SVE at next note time. FHT Cat I with ctx 2-5 min. Temp 101.1, will give Tylenol and recheck 1hr. Amp/Gent running for ABx for intrapartumintra amniotic infection. CCM Cx: unchanged FHT: Cat I [place]: q3min A/P: 1. IOL-PPROM/chorio. SVE unchanged, pit at 10mu/min. Forebag AROMed for copious amounts of clear fluid. FHT cat I. On amp and gent. Last febrile at 0100. Vital signs otherwise normal. Cx: unchanged FHT: Cat I [place]: not tracing well A/P: 1. IOL-PPROM/chorio. SVE unchanged. Pit now at 14mu/min, will titrate per protocol. Afebrile since 0100. Discussed plan of care with RADHA Ramirez to place [facility] as we will likely need to titratepit above 20mu/min. Vital signs within normal limits Cx:defer FHT: Cat II [place]: q 3 min A/P: 1. IOL - PPROM/Chorio - Pitocin at 14 ml/Hr will titrate per protocol. Recurrent late decels for 30 minutes with moderate variability. Pt repositioned and fluid bolus given. Plan to continue conservative interventions at this time. Cx:/-3 FHT: Cat II [place]: q 3 min A/P: 1. IOL - PROM - Pitocin off at this time for recurrent variable decels for 45 minutes in latent phase labor. Continues to have moderate variability. Fluid bolus given and pt repositioned. Plan to continue conservative interventions at this time. Safety Huddle Note Decision Time: 934 Safety Huddle occurred to discuss: Section Attendees included: Primary RN, CNRA, CNM, Charge Nurse and Patient's Primary Nurse Events prior to safety huddle: Pt previously admitted for PPROM when she developed chorio the decision was made to induce for maternal indications. During induction there were periods of cat II for tachycardia and then recurrent late decels requiring stopping pitocin. During rounds with MFM and neonatology the descision was made to proceed with delivery - remote from delivery unable augment and cat II. - Not a 30 minute section. The decision was made to proceed with Urgent Non-Emergent Section All parties present agree and all concerns/questions addressed * Leah Isaacs MD - 07/31/2019 6:38 PM EDT Notified by RN of temp 99.8 and flushed. Patient evaluated at bedside. No complaints, intermittent cramping. No fundal tenderness on exam. Will plan to trend oral temps q1h with CEFM. FHT Cat II intermittently for tachy. Plan of care discussed with Dr. Allison Temp 100.5 with repeat 30min tempt of 100.6. Now meets criteria for chorio. Will proceed with IOL. Start Amp/Gent. Vtx by BSUS. SVE /3, plan for cytotec augmentation. Dr. Alilson updated over phone, induction will be covered by [facility]. * Marylou Aguilera RN - 07/31/2019 6:03 PM EDT Pt temp 99.8, HR 120, BP 86/50. Pt cheeks hakeem and pt has chills. FHR tachy in the 170's-180's. Resident paged * Marylou Aguilera RN - 07/31/2019 5:[address] Velazco requested return pae through [employer] with updated BP and HR 30 Min after propanolol. Perfect [employer] page automatically diverted the page to who is senior information security consultant which is Dr Ortiz. [employer] paged sent with BP and HR. NO return call at this time. Patient continues to be asymptomatic. Educated patient on moving slowly from sit to stand and call if any feelings of being dizzy or unstable. Pt verbalized understanding * Marylou Aguilera RN - 07/31/2019 4:[address] Christensen paged through [employer] regarding patient BP, HR and propanolol. He wants the propanolol given now and to check a HR and BP in 30 minutes. Orders in EPIC * Marylou Aguilera RN - 07/31/2019 3:47 PM EDT Pt due for propanolol. BP 88/52, HR 124. Pt asymptomatic. Dr Masters paged. Will assess for parameters for propanolol. * Nasrin Mata DO - 07/31/2019 8:24 AM EDT Notified by the RN of patient feeling abdominal cramps and when placed on the monitor was found to having contractions. Repeat SSE closed on exam discharge think like pink tinged fluid. Wet prep negative. Slide with ferning and wbcs.MHR 120s at this time pt reports feeling jittery. FHT baseline 165mod variability. accels present, no decels noted. TOCO with occasional contractions q 10 min with mostly irritability. Will continue to keep patient on the monitor at this time. * Demond Hauser DO - 07/31/2019 5:56 AM EDT Maternal Medicine Service Resident Progress Note 07/31/2019 5:56 AM 07/30/2019 Hospital Day: 2 Kaitlin Saeed, 18 y.o. 31w4d Patient has been seen and examined. Pt complains of feeling jittery and short of breath. Patient states that her Pindolol makes her feel this way from time to time. Denies fever, chills, nausea, vomiting, chest pain, headache, blurred vision. No changes in the odor or color of her fluid. Positive movement Negative vaginal bleeding Positive LOF Negative Contractions Vitals: 07/30/19203707/30/19 2040 07/30/19 2314 07/31/19 0259 BP: (!) 111/53 (!) 111/53 (!) 112/50 (!) 109/57 Pulse: 121 121 103 114 Resp: 16 16 16 Temp: 97.9 F (36.6 C) 98.6 F (37 C) 98.9 F (37.2 C) TempSrc: Temporal Temporal Temporal SpO2: 98% 98% 96% Weight: Height: FHT: 150, moderate variability Accels: present Decels: absent Contractions: none Physical Exam: Gen: NAD HEENT: Normocephalic, Atraumatic, EOMI, MMM Resp: CTABL, no WRR Card: RRR S1S2 Abd: soft, gravid, NTND, no rebound, no guarding. Negative fundal tenderness Ext: No LE edema, no calf tenderness or swelling Medications: Current Facility-Administered Medications Medication Dose Route Frequency Provider Last Rate Last Dose pindolol (VISKEN) tablet 5 mg 5 mg Oral BID Jeimy Clemente MD 5 mg at 07/30/192037 metroNIDAZOLE (FLAGYL) tablet 500 mg 500 mg Oral TID Jeimy Clemente MD 500 mg at 07/30/192037 sodium chloride flush 0.9 % injection 10 mL 10 mL Intravenous 2 times per day Jeimy Clemente MD sodium chloride flush 0.9 % injection 10 mL 10 mL Intravenous PRN Jeimy Clemente MD docusate sodium (COLACE) capsule 100 mg 100 mg Oral BID Jeimy Clemente MD ondansetron (ZOFRAN) injection 4 mg 4 mg Intravenous Q6H PRN Jeimy Clemente MD vitamin 27-1 MG tablet 1 tablet 1 tablet Oral Daily Jeimy Clemente MD 1 tablet at 07/30/19 09 azithromycin (ZITHROMAX) 500 mg in D5W 250ml Vial Mate 500 mg Intravenous Q24H Jeimy Clemente MD 250 mL/hr at 07/31/19 0255 500 mg at 07/31/19 0255 ampicillin 2 g ivpb mini bag 2 g Intravenous 4 times per day Jeimy Clemente MD Stopped at 07/30/19 233 Followed by [START ON 08/01/2019] amoxicillin (AMOXIL) capsule 500 mg 500 mg Oral TID Jeimy Clemente MD lactated ringers infusion Intravenous Continuous Jeimy Clemente MD 125 mL/hr at 07/30/19 183 levothyroxine (SYNTHROID) tablet 75 mcg 75 mcg Oral Q MWF Jeimy Clemente MD 75 mcg at 07/30/192037 levothyroxine (SYNTHROID) tablet 50 mcg 50 mcg Oral Once per day on Tue Jeimy Clemente MD albuterol sulfate HFA 108 (90 Base) MCG/ACT inhaler 2 puff 2 puff Inhalation Q6H PRN Demond Hauser DO influenza quadrivalent split vaccine (FLUZONE;FLUARIX;FLULAVAL;AFLURIA) injection 0.5 mL 0.5 mL Intramuscular Once Cynthia Allison DO Nnbvgxa-Biizuh-Uudhh Pertussis (BOOSTRIX) injection 0.5 mL 0.5 mL Intramuscular Once Cynthia Allison DO Assessment/Plan: Kaitlin Saeed is a 18 y.o. female 31w4d 1. VB, PPROM - Timing of ROM unclear, patient states she started leaking fluid on 10/2, however SSE negative at that time. - SSE 07/29 + ROM Plus test. Positive SSE at [facility] 07/30 with 30cc pooled blood, + Nitrazine, small area of ferning. - MELY 07/29 @ OSH 21.9cm. Repeat 07/30 23.8cm. - On Latency antibiotics, Day 2 - Given BMZ x2 07/30, 07/31. - Patient intermittently febrile for 4 days, has been afebrile since admit. No fundal tenderness, no tachycardia. Continue to monitor for signs of chorio. - PT/INR, Fibrinogen, CBC WNL. Low suspicion for abruption given patient presentation. - Vaginal bleeding resolved at this time. 2. Fever - Febrile since 07/25, per patient report. - Treated with Keflex 07/25 for suspicion of UTI, transitioned to Macrobid 07/27, started on Flagyl 07/28. - Blood Cx and Urine Cx pending at [facility]. Will obtain results today. - Procal negative. - Last febrile to 101.8 @ 2150 on 07/29. 3. Cardiac Arrhythmia - Follows with [facility]. - On Pindolol 5mg BID, continue. - Per patient, cleared for vaginal delivery. - Patient states she is currently feeling jittery and short of breath, which she states is due to the Pindolol. Has had this occur before. She states that she has an arrhythmia where her heart spasms every fifth beat. 4. Hypothyroid - Continue home Synthroid 75mcg MWFSu, 50mg TuThSa 5. BV - Continue treatment with Flagyl. Currently Day 4. 6. IUP @ - Cephalic on BSUS - CLD - NST BID - BMZ x2 07/30, 07/31 - GBS pending. Further plan pending d/w attending. Demond Hauser DO 07/31/2019, 5:56 AM Associated attestation - Cynthia Allison DO - 07/31/2019 11:00 AM EDT Attending Supervising Physician's Attestation Statement I performed a history and physical examination on the patient and discussed the management with theresident physician. I reviewed and agree with the findings and plan as documented in the note. 31w4d PPROM, reported cramping. SSE repeated, cervix remains closed. No s/s of chorio. No active bleeding. Monitoring: CFM due to contractions. Maternal tachycardia and hx of arrhythmia. On pindolol from cardiology. Consult cardiology for evaluation. I spent 15 minutes in the visit, with more than 50% of the total rrek-pu-peae time of the visit in counseling/coordination of care. * Post, Melita E - 07/31/2019 5:52 AM EDT Maternal Medicine Service Resident Progress Note 07/31/2019 5:52 AM 07/30/2019 Hospital Day: 2 Kaitlin Saeed, 18 y.o. 31w4d Patient has been seen and examined. Pt is worried about affect of BMZ on arrhythmia- states she feels palpitations and chest tightening afterwards. Denies CP/SOB/lightheadedness/dizziness. She is concerned her current B-jaime dose is insufficient. Positive movement Negative vaginal bleeding Positive LOF- saturated 1 pad overnight with pink-tinged fluid Negative Contractions (does feel crampy) Vitals: 07/30/19203707/30/19 2040 07/30/19 2314 07/31/19 0259 BP: (!) 111/53 (!) 111/53 (!) 112/50 (!) 109/57 Pulse: 121 121 103 114 Resp: 16 16 16 Temp: 97.9 F (36.6 C) 98.6 F (37 C) 98.9 F (37.2 C) TempSrc: Temporal Temporal Temporal SpO2: 98% 98% 96% Weight: Height: FHT: 155, moderate variability Accels: present Decels: absent Contractions: none Physical Exam: Gen: NAD HEENT: Normocephalic, Atraumatic, EOMI Resp: CTABL, no WRR Card: RRR S1S2 Abd: soft, gravid, NTND, no rebound, no guarding. No fundal tenderness Ext: No LE edema, no calf tenderness or swelling Medications: Current Facility-Administered Medications Medication Dose Route Frequency Provider Last Rate Last Dose pindolol (VISKEN) tablet 5 mg 5 mg Oral BID Jeimy Clemente MD 5 mg at 07/30/192037 metroNIDAZOLE (FLAGYL) tablet 500 mg 500 mg Oral TID Jeimy Clemente MD 500 mg at 07/30/192037 sodium chloride flush 0.9 % injection 10 mL 10 mL Intravenous 2 times per day Jeimy Clemente MD sodium chloride flush 0.9 % injection 10 mL 10 mL Intravenous PRN Jeimy Clemente MD docusate sodium (COLACE) capsule 100 mg 100 mg Oral BID Jeimy Clemente MD ondansetron (ZOFRAN) injection 4 mg 4 mg Intravenous Q6H PRN Jeimy Clemente MD vitamin 27-1 MG tablet 1 tablet 1 tablet Oral Daily Jeimy Clemente MD 1 tablet at 07/30/19 0926 azithromycin (ZITHROMAX) 500 mg in D5W 250ml Vial Mate 500 mg Intravenous Q24H Jeimy Clemente MD 250 mL/hr at 07/31/19 0255 500 mg at 07/31/19 0255 ampicillin 2 g ivpb mini bag 2 g Intravenous 4 times per day Jeimy Clemente MD Stopped at 07/30/19 2339 Followed by [START ON 08/01/2019] amoxicillin (AMOXIL) capsule 500 mg 500 mg Oral TID Jeimy Clemente MD lactated ringers infusion Intravenous Continuous Jeimy Clemente MD 125 mL/hr at 07/30/19 183 levothyroxine (SYNTHROID) tablet 75 mcg 75 mcg Oral Q MWF Jeimy Clemente MD 75 mcg at 07/30/192037 levothyroxine (SYNTHROID) tablet 50 mcg 50 mcg Oral Once per day on Tue Jeimy Clemente MD albuterol sulfate HFA 108 (90 Base) MCG/ACT inhaler 2 puff 2 puff Inhalation Q6H PRN Demond Hauser DO influenza quadrivalent split vaccine (FLUZONE;FLUARIX;FLULAVAL;AFLURIA) injection 0.5 mL 0.5 mL Intramuscular Once Cynthia Allison DO Hpbycta-Xkiefb-Oawaq Pertussis (BOOSTRIX) injection 0.5 mL 0.5 mL Intramuscular Once Cynthia Allison DO Assessment/Plan: Kaitlin Saeed is a 18 y.o. female 31w4d 1. PPROM - Time of ROM unclear- patient reports leaking clear fluid Tuesday, but SSE 07/25 and 10/5 negative for ROM. SSE 07/29 with positive ROM Plus test - SSE on presentation to [facility] 07/30 positive for pooling of 30cc blood, positive Nitrazine, 1 small spot of ferning with RBCs - MELY 23.87 on US 07/30 - Latency antibiotics started 07/30, currently day 2 - S/p BMZ x 2 on 07/30 and 07/31 - Afebrile since admission, no signs/sx of IAI 2. Fever - Febrile since 07/25 per patient report - Treated with Keflex on 07/25 for UTI due to suprapubic pain, called nursing line 07/27 d/t persistent fever and antibiotics changed to Macrobid - ROS negative for cough, congestion, N/V/diarrhea - Negative UA at [facility]- denies dysuria, urgency, frequency. Straight cath culture pending. -No fundal tenderness, tachycardia or purulent discharge. - Blood cultures and urine culture pending at [facility]. Will need to call for results - LA 0.7 at [facility]. Procal wnl. - Last febrile 101.8 on 07/29 at 2152, afebrile since admission 3. Vaginal bleeding - SVE with 30cc dark blood in the vault. 10cc clot expressed from os with valsalva on admission. - Concern for abruption given active bleeding and suprapubic pain - Anterior placenta away from os on US at [facility] - Abruption labs wnl - FHT cat I currrently and not cricket on toco. Will continue to monitor 4. Hypothyroidism - continue home Synthroid 75mcg MWFSu, 50mg TuThSa 5. Cardiac Arrhythmia - per patient follows with cardiology- referred to EP but has not seen them yet. States they would defer intervention until after delivery - per Patient, OK for vaginal delivery - on Pindolol 5mg BID, will continue - BP wnl on presentation, HR > 120 x 2 overnight 6. Asthma - Continue albuterol inhaler PRN 7. Bacterial vaginosis - dx on 07/28 - continue Flagyl 50mg BID 8. IUP at 31w3d - dated by 1st trimester US - cephalic - CLD - CEFM - BMZ x2 given on 07/30, 07/31 - GBS pending Further plan pending d/w attending. Melita Jernigan, MS4 07/31/2019, 5:52 AM Associated attestation - Cynthia Allison DO - 07/31/2019 2:35 PM EDT See progress note. * Analisa Demond Horacio, - 07/30/2019 5:36 AM EDT Maternal Medicine Service Resident Progress Note 07/30/2019 5:37 AM 07/30/2019 Hospital Day: 1 Kaitlin Saeed, 18 y.o. 31w3d Patient has been seen and examined. Pt without complaint this morning. Woke from sleep. States she has not had any additional vaginal bleeding. Patient denies fever, chills, nausea, vomiting, shortness of breath, chest pain, headache, vision changes. Positive movement Negative vaginal bleeding Negative LOF Negative Contractions Vitals: 07/30/19 0235 07/30/19 0240 07/30/19 0245 07/30/19 0421 BP: (!) 111/57 Pulse: 90 87 86 96 Resp: 18 Temp: 98.3 F (36.8 C) TempSrc: Oral SpO2: 98% Weight: Height: FHT: 130, moderate variability Accels: present Decels: absent Contractions: Rare Physical Exam: Gen: NAD HEENT: Normocephalic, Atraumatic, EOMI, MMM Resp: CTABL, no WRR Card: RRR S1S2 Abd: soft, gravid, NTND, no rebound, no guarding. Negative fundal tenderness Ext: No LE edema, no calf tenderness or swelling Medications: Current Facility-Administered Medications Medication Dose Route Frequency Provider Last Rate Last Dose pindolol (VISKEN) tablet 5 mg 5 mg Oral BID Jeimy Clemente MD metroNIDAZOLE (FLAGYL) tablet 500 mg 500 mg Oral TID Jeimy Clemente MD sodium chloride flush 0.9 % injection 10 mL 10 mL Intravenous 2 times per day Jeimy Clemente MD sodium chloride flush 0.9 % injection 10 mL 10 mL Intravenous PRN Jeimy Clemente MD docusate sodium (COLACE) capsule 100 mg 100 mg Oral BID Jeimy Clemente MD ondansetron (ZOFRAN) injection 4 mg 4 mg Intravenous Q6H PRN Jeimy Clemente MD vitamin 27-1 MG tablet 1 tablet 1 tablet Oral Daily Jeimy Clemente MD azithromycin (ZITHROMAX) 500 mg in D5W 250ml Vial Mate 500 mg Intravenous Q24H Jeimy Clemente MD 250 mL/hr at 07/30/19 0405 500 mg at 07/30/19 0405 betamethasone acetate-betamethasone sodium phosphate (CELESTONE) injection 12 mg 12 mg Intramuscular Q24H Jeimy Clemente MD 12 mg at 07/30/19 0302 ampicillin 2 g ivpb mini bag 2 g Intravenous 4 times per day Jeimy Clemente MD Stopped at 07/30/19 0350 Followed by [START ON 08/01/2019] amoxicillin (AMOXIL) capsule 500 mg 500 mg Oral TID Jeimy Clemente MD lactated ringers infusion Intravenous Continuous Jeimy Clemente MD 125 mL/hr at 07/30/19 0322 levothyroxine (SYNTHROID) tablet 75 mcg 75 mcg Oral Q MWF Jeimy Clemente MD [START ON 07/31/2019] levothyroxine (SYNTHROID) tablet 50 mcg 50 mcg Oral Once per day on Tue Jeimy Clemente MD albuterol sulfate HFA 108 (90 Base) MCG/ACT inhaler 2 puff 2 puff Inhalation Q6H PRN Demond Hauser, Assessment/Plan: Kaitlin Saeed is a 18 y.o. female 31w3d 1. VB, PPROM - Timing of ROM unclear, patient states she started leaking fluid on 07/25, however SSE negative at that time. - SSE 07/29 + ROM Plus test. Positive SSE at [facility] 07/30 with 30cc pooled blood, + Nitrazine, small area of ferning. - MELY 07/29 @ OSH 21.9cm. Repeat pending this AM. - On Latency antibiotics, Day 1 - Given BMZ x1 07/30 @ 0300. Repeat dose tomorrow. - Patient has been intermittently febrile for 4 days; currently afebrile, no fundal tenderness, no tachycardia. Continue to monitor for signs of chorio. - PT/INR, Fibrinogen, CBC WNL. Low suspicion for abruption given patient presentation. 2. Fever - Febrile since 07/25, per patient report. - Treated with Keflex 07/25 for suspicion of UTI, transitioned to Macrobid 07/27, started on Flagyl 07/28. - Blood Cx and Urine Cx pending at [facility]. Will obtain results. - Procal pending. - Last febrile to 101.8 @ 2150 on 07/29. 3. Cardiac Arrhythmia - Follows with cardiology. - On Pindolol 5mg BID, continue. - Per patient, cleared for vaginal delivery. 4. Hypothyroid - Continue home Synthroid 75mcg MWFSu, 50mg TuThSa 5. BV - Continue treatment with Flagyl. Currently Day 3. 6. IUP @ 21/01 - Cephalic on BSUS - CLD - CEFM - BMZ x1 07/30 @ 0300 - GBS pending. Further plan pending d/w attending. Demond Hauser DO 07/30/2019, 5:37 AM Associated attestation - Cynthia Allison DO - 07/30/2019 2:02 PM EDT Attending Supervising Physician's Attestation Statement I performed a history and physical examination on the patient and discussed the management with theresident physician. I reviewed and agree with the findings and plan as documented in the note. Pt 31w3d with PPROM, VB. Reported fever at home, afebrile since admission. No uterine tenderness. Appears well. Recommend continuing latency antibiotics. Continue Flagyl for tx of BV. Recommend delivery if signs of chorioamnionitis. I spent 30 minutes in the visit, with more than 50% of the total mqaz-eq-qyxh time of the visit in counseling/coordination of care. * Melita Jernigan - 07/30/2019 5:32 AM EDT Maternal Medicine Service Resident Progress Note 07/30/2019 5:32 AM 07/30/2019 Hospital Day: 1 Kaitlin Saeed, 18 y.o. 31w3d Patient has been seen and examined. Pt has no current complaints. Reports cramping but does not feel like they are contractions. Positive movement Positive vaginal bleeding- reports ~light period, has changed pad 3x since admission Positive LOF Negative Contractions Vitals: 07/30/19 0235 07/30/19 0240 07/30/19 0245 07/30/19 0421 BP: (!) 111/57 Pulse: 90 87 86 96 Resp: 18 Temp: 98.3 F (36.8 C) TempSrc: Oral SpO2: 98% Weight: Height: FHT: 140, moderate variability Accels: absent Decels: absent Contractions: none Physical Exam: Gen: NAD HEENT: Normocephalic, Atraumatic, EOMI Resp: CTABL, no WRR Card: RRR S1S2 Abd: soft, gravid, NTND, no rebound, no guarding. No fundal tenderness Ext: No LE edema, no calf tenderness or swelling Medications: Current Facility-Administered Medications Medication Dose Route Frequency Provider Last Rate Last Dose pindolol (VISKEN) tablet 5 mg 5 mg Oral BID Jeimy Clemente MD metroNIDAZOLE (FLAGYL) tablet 500 mg 500 mg Oral TID Jeimy Clemente MD sodium chloride flush 0.9 % injection 10 mL 10 mL Intravenous 2 times per day Jeimy Clemente MD sodium chloride flush 0.9 % injection 10 mL 10 mL Intravenous PRN Jeimy Clemente MD docusate sodium (COLACE) capsule 100 mg 100 mg Oral BID Jeimy Clemente MD ondansetron (ZOFRAN) injection 4 mg 4 mg Intravenous Q6H PRN Jeimy Clemente MD vitamin 27-1 MG tablet 1 tablet 1 tablet Oral Daily Jeimy Clemente MD azithromycin (ZITHROMAX) 500 mg in D5W 250ml Vial Mate 500 mg Intravenous Q24H Jeimy Clemente MD 250 mL/hr at 07/30/19 0405 500 mg at 07/30/19 0405 betamethasone acetate-betamethasone sodium phosphate (CELESTONE) injection 12 mg 12 mg Intramuscular Q24H Jeimy Clemente MD 12 mg at 07/30/19 0302 ampicillin 2 g ivpb mini bag 2 g Intravenous 4 times per day Jeimy Clemente MD Stopped at 07/30/19 0350 Followed by [START ON 08/01/2019] amoxicillin (AMOXIL) capsule 500 mg 500 mg Oral TID Jeimy Clemente MD lactated ringers infusion Intravenous Continuous Jeimy Clemente MD 125 mL/hr at 07/30/19 0322 levothyroxine (SYNTHROID) tablet 75 mcg 75 mcg Oral Q MWF Jeimy Clemente MD [START ON 07/31/2019] levothyroxine (SYNTHROID) tablet 50 mcg 50 mcg Oral Once per day on Tue Sat Jeimy Clemente MD albuterol sulfate HFA 108 (90 Base) MCG/ACT inhaler 2 puff 2 puff Inhalation Q6H PRN Demond Hauser, Assessment/Plan: Kaitlin Saeed is a 18 y.o. female 31w3d 1. PPROM - Time of ROM unclear- patient reports leaking clear fluid Tuesday, but SSE 07/25 and 07/28 negative for ROM. SSE 07/29 with positive ROM Plus test - SSE on presentation to [facility] 07/30 positive for pooling of 30cc blood, positive Nitrazine, 1 small spot of ferning with RBCs - MELY at [facility] 21.9, will repeat US today - Latency antibiotics started - BMZ x1 given at 0302 on 07/30 - Has been febrile since 07/25, however, currently afebrile, no fundal tenderness, no tachycardia 2. Fever - Febrile since 07/25 per patient report - Treated with Keflex on 07/25 for UTI due to suprapubic pain, called nursing line 07/27 d/t persistent fever and antibiotics changed to Macrobid - ROS negative for cough, congestion, N/V/diarrhea - Negative UA at [facility]- denies dysuria, urgency, frequency. Straight cath culture pending. -No fundal tenderness, tachycardia or purulent discharge. - Blood cultures and urine culture pending at [facility]. Will need to call for results - LA 0.7 at [facility]. Procal pending - last febrile 101.8 on 07/29 at 2152 3. Vaginal bleeding - SVE with 30cc dark blood in the vault. 10cc clot expressed from os with valsalva on admission. - Concern for abruption given active bleeding and suprapubic pain - Anterior placenta away from os on US at [facility] - Abruption labs wnl - FHT cat I currrently and not cricket on toco. Will continue to monitor 4. Hypothyroidism - continue home Synthroid 75mcg MWFSu, 50mg TuThSa 5. Cardiac Arrhythmia - per patient follows with cardiology- referred to EP but has not seen them yet. States they would defer intervention until after delivery - per Patient, OK for vaginal delivery - on Pindolol 5mg BID, will continue - BP wnl on presentation 6. Asthma - Continue albuterol inhaler PRN 7. Bacterial vaginosis - dx on 07/28 - continue Flagyl 50mg BID 8. IUP at 31w3d - dated by 1st trimester US - cephalic - CLD - CEFM - BMZ x1 given at 0302 on 07/30 - GBS pending Further plan pending d/w attending. Associated attestation - Cynthia Allison DO - 07/31/2019 2:35 PM EDT See progress note. * Fallon Magaña RN - 07/30/2019 4:35 AM EDT Culture tubes obtained by Dr Clemente labeled, scanned & sent to lab. * Fallon Magaña RN - 07/30/2019 3:25 AM EDT Scant amt of red drainage noted on peripad after returning from bathroom. there wasn't any when I was in the [place] documented in this encounter Health Concerns Infection Onset Date Last Indicated Resolved Time COVID-19 Rule-Out 01/16/2022 01/16/2022 Infection Onset Date Last Indicated Resolved Time COVID-19 Rule-Out 08/29/2022 08/29/2022 Problem Noted Date Diagnosed Date [facility] - [facility] 06/22/2023 [place] - [place] 06/22/2023 Problem Noted Date Diagnosed Date [facility] - [facility] 06/22/2023 [place] - [place] 06/22/2023 Problem Noted Date Diagnosed Date [facility] - [facility] 06/22/2023 [place] - [place] 06/22/2023 Problem Noted Date Diagnosed Date [facility] - [facility] 06/22/2023 Education - [place] 06/22/2023 Problem Noted Date Diagnosed Date [facility] - [facility] 06/22/2023 Education - [place] 06/22/2023 Problem Noted Date Diagnosed Date [facility] - [facility] 06/22/2023 Education - [place] 06/22/2023 Problem Noted Date Diagnosed Date [facility] - [facility] 06/22/2023 Education - [place] 06/22/2023 Problem Noted Date Diagnosed Date [facility] - [facility] 06/22/2023 Education - [place] 06/22/2023 Problem Noted Date Diagnosed Date [facility] - [facility] 06/22/2023 Education - [place] 06[place]22/2023 Problem Noted Date Diagnosed Date [facility] - [facility] 06/22/2023 Education - [place] 06/22/2023 Problem Noted Date Diagnosed Date [facility] - [facility] 06/22/2023 Education - [place] 06/22/2023 Problem Noted Date Diagnosed Date [facility] - [facility] 06/22/2023 Education - [place] 06/22/2023 Problem Noted Date Diagnosed Date [facility] - [facility] 06/22/2023 [place] - [place] 06/22/2023 Reason for Referral Specialty Diagnoses / Procedures Referred By Curtis t Referred To Contact Diagnoses in first trimester with history of , antepartum History of delivery, currently History of depression, currently Food insecurity Procedures PRIMARY CARE SOCIAL WORK CONSULT Pauline Saini APRN.AIRCRAFT MAINTENANCE TECHNICIAN [address] [address] Adriana Almodovar, MALIA Referral ID Status Reason Start Date Expiration Date Visits Requested Visits Authorized [id number] Ref Not Required PCP Requested Referral 06/22/2023 09/20/2023 1 1 Specialty Diagnoses / Procedures Referred By Curtis t Referred To Contact [facility] Diagnoses with uncertain viability, single or unspecified fetus Procedures OBSTETRIC ULTRASOUND WHI US PREG UTERUS AFTER 1ST TRIMEST 1/ GESTATION Pauline Saini APRN.AIRCRAFT MAINTENANCE TECHNICIAN [address] [place] [address] [facility] [address] [address] Referral ID Status Reason Start Date Expiration Date Visits Requested Visits Authorized [id number] Pending Review Auto-Generat ed Referral 06/22/2023 06/21/2024 1 1 Specialty Diagnoses / Procedures Referred By Contac t Referred To Contact [facility] Diagnoses with uncertain viability, single or unspecified fetus Procedures NUCHAL TRANSLUCENCY WHI US NUCHAL TRANSLUCENCY 1ST GESTATION Pauline Saini, MARCELA.AIRCRAFT MAINTENANCE TECHNICIAN [address] [place] [address] [facility] [address] [address] Referral ID Status Reason Start Date Expiration Date V isits Requested Visits Authorized [id number] Closed Auto-Generate d Referral 06/22/2023 06/21/2024 1 1 Additional Source Comments INFORMATION SOURCE (unrecogn ized section and content) DATE CREATED AUTHOR AUTHOR'S ORGANIZ ATION 04/19/2018 [facility] DATE CREATED AUTHOR AUTHOR'S ORGANIZ ATION 04/19/2018 [facility] DATE CREATED AUTHOR AUTHOR'S ORGANIZ ATION 08/14/2019 [facility] DATE CREATED AUTHOR AUTHOR'S ORGANIZ ATION 08/19/2019 [facility] DATE CREATED AUTHOR AUTHOR'S ORGANIZ ATION 10/01/2022 [facility] DATE CREATED AUTHOR AUTHOR'S ORGANIZ ATION 04/03/2023 [facility] DATE CREATED AUTHOR AUTHOR'S ORGANIZ ATION 09/09/2023 [facility] DATE CREATED AUTHOR AUTHOR'S ORGANIZ ATION 11/01/2023 [facility] DATE CREATED AUTHOR AUTHOR'S ORGANIZ ATION 11/08/2023 [facility] DATE CREATED AUTHOR AUTHOR'S ORGANIZ ATION 11/11/2023 [facility] Reason for Visit (unrecogniz ed section and content) Reason Comments Results Reason Comments Fever nausea, diarrhea, fa tigue x last night Reason Comments Rash x 2 days, itching Reason Comments Follow Up Reason Comments External labs Reason Comments Sinus Problem X 2 days Reason Comments Acute Visit depression Reason Comments Discussion Reason Comments Initial OB Visit Reason Onset Date Comments Care 07/29/2023 Reason Comments US Specialty Diagnoses / Procedures Referred By Contac t Referred To Contact [facility] Diagnoses 17 weeks gestation of Procedures OBSTETRIC ULTRASOUND WHI US PREG UTERUS AFTER 1ST TRIMEST GESTATION Nita Garcia, PHOTOGRAPHER ASSISTANT.CNM [address] [place] [address] [facility] [address] [place] [address] Referral ID Status Reason Start Date Expiration Date V isits Requested Visits Authorized [id number] Closed Auto-Generate d Referral 07/29/2023 07/28/2024 1 1 Reason Comments Appointment Specialty Diagnoses / Procedures Referred By Contac t Referred To Contact [facility] Diagnoses with uncertain viability, single or unspecified fetus Procedures OBSTETRIC ULTRASOUND WHI US PREG UTERUS AFTER 1ST TRIMEST GESTATION Pauline Saini, PHOTOGRAPHER ASSISTANT.AIRCRAFT MAINTENANCE TECHNICIAN [address] [place] [address] [address] Referral ID Status Reason Start Date Expiration Date V isits Requested Visits Authorized [id number] Closed Auto-Generate d Referral 06/22/2023 06/21/2024 1 1 Reason Onset Date Comments Care 08/26/2023 Reason Comments PRAF Reason Comments Illness Head congestion, sin us pressure, facial pain, drainage ST, coughing x's 3-4 weeks, 23 weeks Specialty Diagnoses / Procedures Referred By Contac t Referred To Contact Psychiatry / ADULT PSYCHIATRY Diagnoses 21 weeks gestation of [Z3A.21] History of depression [Z87.59, Z86.59] Procedures NEW PSYC ADULT Larry Ramires MD [address] [place] [address] Maty Reyes, [address] [place] [address] Referral ID Status Reason Start Date Expiration Date V isits Requested Visits Authorized [id number] Pending Review 09/14/2023 12/13/2023 1 1 Reason Comments Bipolar Disorder Reason Comments Bipolar Disorder Specialty Diagnoses / Procedures Referred By Contac t Referred To Contact Psychiatry / ADULT PSYCHIATRY Diagnoses vv Procedures VIDEO PSYC/PSYL EST Self Maty Reyes, [address] [place] [address] Referral ID Status Reason Start Date Expiration Date V isits Requested Visits Authorized [id number] Outside PCP 10/07/2023 10/23/2024 99 99 Source Comments (unrecognize d section and content) In the event this informatio n is protected by the Federal Confidentiality of Alcohol and Drug Abuse Patient Records regulations: The Federal rules restrict any use of the information to criminally investigate or prosecute any alcohol or drug abuse patient.[facility] the event this information is protected by the Federal Confidentiality of Alcohol and Drug Abuse Patient Records regulations: The Federal rules restrict any use of the information to criminally investigate or prosecute any alcohol or drug abuse patient.[facility] the event this information is protected by the Federal Confidentiality of Alcohol and Drug Abuse Patient Records regulations: The Federal rules restrict any use of the information to criminally investigate or prosecute any alcohol or drug abuse patient.[facility] the event this information is protected by the Federal Confidentiality of Alcohol and Drug Abuse Patient Records regulations: The Federal rules restrict any use of the information to criminally investigate or prosecute any alcohol or drug abuse patient.[facility] Hospital[facility] the event this information is protected by the Federal Confidentiality of Alcohol and Drug Abuse Patient Records regulations: The Federal rules restrict any use of the information to criminally investigate or prosecute any alcohol or drug abuse patient.[facility] HospitalIn the event this information is protected by the Federal Confidentiality of Alcohol and Drug Abuse Patient Records regulations: The Federal rules restrict any use of the information to criminally investigate or prosecute any alcohol or drug abuse patient.[facility] Hospital[facility] the event this information is protected by the Federal Confidentiality of Alcohol and Drug Abuse Patient Records regulations: The Federal rules restrict any use of the information to criminally investigate or prosecute any alcohol or drug abuse patient.[facility] HospitalIn the event this information is protected by the Federal Confidentiality of Alcohol and Drug Abuse Patient Records regulations: The Federal rules restrict any use of the information to criminally investigate or prosecute any alcohol or drug abuse patient.[facility] Hospital[facility] the event this information is protected by the Federal Confidentiality of Alcohol and Drug Abuse Patient Records regulations: The Federal rules restrict any use of the information to criminally investigate or prosecute any alcohol or drug abuse patient.[facility] Hospital[facility] the event this information is protected by the Federal Confidentiality of Alcohol and Drug Abuse Patient Records regulations: The Federal rules restrict any use of the information to criminally investigate or prosecute any alcohol or drug abuse patient.[facility] HospitalIn the event this information is protected by the Federal Confidentiality of Alcohol and Drug Abuse Patient Records regulations: The Federal rules restrict any use of the information to criminally investigate or prosecute any alcohol or drug abuse patient.[facility] HospitalIn the event this information is protected by the Federal Confidentiality of Alcohol and Drug Abuse Patient Records regulations: The Federal rules restrict any use of the information to criminally investigate or prosecute any alcohol or drug abuse patient.[facility] HospitalIn the event this information is protected by the Federal Confidentiality of Alcohol and Drug Abuse Patient Records regulations: The Federal rules restrict any use of the information to criminally investigate or prosecute any alcohol or drug abuse patient.[facility] Hospital[facility] the event this information is protected by the Federal Confidentiality of Alcohol and Drug Abuse Patient Records regulations: The Federal rules restrict any use of the information to criminally investigate or prosecute any alcohol or drug abuse patient.[facility] HospitalIn the event this information is protected by the Federal Confidentiality of Alcohol and Drug Abuse Patient Records regulations: The Federal rules restrict any use of the information to criminally investigate or prosecute any alcohol or drug abuse patient.[facility] HospitalIn the event this information is protected by the Federal Confidentiality of Alcohol and Drug Abuse Patient Records regulations: The Federal rules restrict any use of the information to criminally investigate or prosecute any alcohol or drug abuse patient.[facility] HospitalIn the event this information is protected by the Federal Confidentiality of Alcohol and Drug Abuse Patient Records regulations: The Federal rules restrict any use of the information to criminally investigate or prosecute any alcohol or drug abuse patient.[facility] HospitalIn the event this information is protected by the Federal Confidentiality of Alcohol and Drug Abuse Patient Records regulations: The Federal rules restrict any use of the information to criminally investigate or prosecute any alcohol or drug abuse patient.[facility] HospitalIn the event this information is protected by the Federal Confidentiality of Alcohol and Drug Abuse Patient Records regulations: The Federal rules restrict any use of the information to criminally investigate or prosecute any alcohol or drug abuse patient.[facility] HospitalIn the event this information is protected by the Federal Confidentiality of Alcohol and Drug Abuse Patient Records regulations: The Federal rules restrict any use of the information to criminally investigate or prosecute any alcohol or drug abuse patient.[facility] HospitalIn the event this information is protected by the Federal Confidentiality of Alcohol and Drug Abuse Patient Records regulations: The Federal rules restrict any use of the information to criminally investigate or prosecute any alcohol or drug abuse patient.[facility] HospitalIn the event this information is protected by the Federal Confidentiality of Alcohol and Drug Abuse Patient Records regulations: The Federal rules restrict any use of the information to criminally investigate or prosecute any alcohol or drug abuse patient.[facility] HospitalIn the event this information is protected by the Federal Confidentiality of Alcohol and Drug Abuse Patient Records regulations: The Federal rules restrict any use of the information to criminally investigate or prosecute any alcohol or drug abuse patient.[facility] HospitalIn the event this information is protected by the Federal Confidentiality of Alcohol and Drug Abuse Patient Records regulations: The Federal rules restrict any use of the information to criminally investigate or prosecute any alcohol or drug abuse patient.[facility] HospitalIn the event this information is protected by the Federal Confidentiality of Alcohol and Drug Abuse Patient Records regulations: The Federal rules restrict any use of the information to criminally investigate or prosecute any alcohol or drug abuse patient.[facility] HospitalIn the event this information is protected by the Federal Confidentiality of Alcohol and Drug Abuse Patient Records regulations: The Federal rules restrict any use of the information to criminally investigate or prosecute any alcohol or drug abuse patient.[facility] HospitalIn the event this information is protected by the Federal Confidentiality of Alcohol and Drug Abuse Patient Records regulations: The Federal rules restrict any use of the information to criminally investigate or prosecute any alcohol or drug abuse patient.[facility] Care Teams (unrecognized sec tion and content) 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 Relationship Specialty Start Date End Date Larry Ramires MD [address] [place] [address] PCP - General Family Practice 09/21/21 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 Relationship Specialty Start Date End Date Larry Ramires MD [address] [place] [address] PCP - General Family Practice 09/21/21 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 Relationship Specialty Start Date End Date Larry Ramires MD [address] [place] [address] PCP - General Family Practice 09/21/21 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 Relationship Specialty Start Date End Date Larry Ramires MD [address] [place] [address] PCP - General Family Medicine 09/21/21 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 Relationship Specialty Start Date End Date Larry Ramires MD [facility] [place] [address] PCP - General Family Medicine 09/21/21 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 Relationship Specialty Start Date End Date Larry Ramires MD [address] [place] [address] PCP - General Family Medicine 09/21/21 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 Relationship Specialty Start Date End Date Larry Ramires MD [address] [place] [address] PCP - General Family Medicine 09/21/21 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 Relationship Specialty Start Date End Date Larry Ramires MD [address] [place] [address] PCP - General Family Medicine 09/21/21 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 Relationship Specialty Start Date End Date Larry Ramires MD [address] [place] [address] PCP - General Family Medicine 09/21/21 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 Relationship Specialty Start Date End Date Larry Ramires MD [address] [place] [address] PCP - General Family Medicine 09/21/21 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 Relationship Specialty Start Date End Date Larry Ramires MD [address] [place] [address] PCP - General Family Medicine 09/21/21 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 Relationship Specialty Start Date End Date Larry Ramires MD [address] [place] [address] PCP - General Family Medicine 09/21/21 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 Relationship Specialty Start Date End Date Larry Ramires MD [address] [place] [address] PCP - General Family Medicine 09/21/21 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 Relationship Specialty Start Date End Date Larry Ramires MD [address] [place] [address] PCP - General Family Medicine 09/21/21 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 Relationship Specialty Start Date End Date Larry Ramires MD [address] [place] [address] PCP - General Family Medicine 09/21/21 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 Relationship Specialty Start Date End Date Larry Ramires MD [address] [place] [address] PCP - General Family Medicine 09/21/21 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 Relationship Specialty Start Date End Date Larry Ramires MD [address] [place] [address] PCP - General Family Medicine 09/21/21 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 Relationship Specialty Start Date End Date , [facility] PCP - General 07/01/17 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 Relationship Specialty Start Date End Date Larry Ramires MD [address] [place] [address] PCP - General Family Medicine 09/21/21 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 This clinical summary was aggregated from multiple sources. Caution should be exercised in using it in the provision of clinical care. This summary normalizes information from multiple sources, and as a consequence, information in this document may materially change the coding, format and clinical context of patient data. In addition, data may be omitted in some cases. CLINICAL DECISIONS SHOULD BE BASED ON THE PRIMARY CLINICAL RECORDS. [facility] [facility]. provides no warranty or guarantee of the accuracy or completeness of information in this document.
== END 2023-11-16 22:21 | disposition home or self-care (01) ==
LOC: ED 22:21
PROVIDERS: Emergency Provider Emergency Medicine; PCP Family Medicine; Visit Provider Emergency Medicine
DX: S60.022A Contusion of left index finger without damage to nail, initial encounter (principal); X58.XXXA Exposure to other specified factors, initial encounter
CPT/HCPCS: 73130; 99282

== ENCOUNTER 2023-12-01 18:30 | Outpatient (CLI) | payer MEDICAID, SELFPAY ==
[2023-12-01 18:43] VITALS: BP 114/57; PULSE 86
--- OUTSIDE RECORDS SUMMARY | 2023-12-01 18:43 | XMS RPT_ITS | CCD ---
Author Name Unknown Address [address] [place] [address] Organization [facility] Care Team Providers Care Manager Enterprise Content Management Name Role Phone No, Physician Unavailable Unavailable Longsdorf, Cynthia A Unavailable Unavailab le [place], Jhoana March Unavailable Unavailab le Longsdorf, Cynthia A Unavailable Unavailab le Longsdorf, Cynthia A Unavailable Unavailab le [place], Jhoana March Unavailable Unavailab le Longsdorf, Cynthia A Unavailable Unavailab le Longsdorf, Cynthia A Unavailable Unavailab le Longsdorf, Cynthia A Unavailable Unavailab le [place], Jhoana March Unavailable Unavailab COCO García Unavailable Unavailable NO, PHYSICIAN Unavailable Unavailable LAN SERNA Unavailable Unavailable REFERRED, SELF Unavailable Unavailable LAN SERNA Unavailable Unavailable Arsalan Logan Unavailable Unavailable Primary Care Provider UnavailLarry Pringle MD Primary Care Provider Larry Ramires MD Primary Care Provider Larry Ramires MD Primary Care Provider Larry Ramires MD Primary Care Provider STELLA MCGREGOR Attending Unavailable KYUNG TRACEY Admitting Unavailable DAVID KOLB Consulting Unavailable No, Physician Primary Care Provider Unavailabl e NO, PHYSICIAN Primary Care Unavailable LOBO GONSALES Attending Unavailable DAPHNE LAWRENCE Attending Unavailable LARRY RAMIRES Primary Care Unavailable DAPHNE LAWRENCE Referring Unavailable LARRY RAMIRES Primary Care Unavailable YOON GAYTAN Attending Unavailable DAPHNE LAWRENCE Referring Unavailable LARRY RAMIRES Primary Care Unavailable LARRY RAMIRES Primary Care Unavailable WISWELL, MELITA Attending Unavailable ELDERBROCK, LARRY D Primary Care Unavailable WISWELL, MELITA Referring Unavailable ELDERBROCK, LARRY D Primary Care Unavailable EDVIN JOHNSONILY Attending Unavailable ELDERBROCK, LARRY D Primary Care Unavailable PAULINE SAINI Attending Unavailable ELDERBROCK, LARRY D Primary Care Unavailable NITA GARCIA Attending Unavailable ELDERBROCK, LARRY D Primary Care Unavailable GARCIA, NITA Referring Unavailable ELDERBROCK, LARRY D Primary Care Unavailable ELDERBROCK, LARRY D Primary Care Unavailable PARVEEN PAULINE Referring Unavailable ELDERBROCK, LARRY D Primary Care Unavailable LEAH MODI Attending Unavailable ELDERBROCK, LARRY D Primary Care Unavailable TIARA CHEUNG Attending Unavail able ELDERBROCK, LARRY D Primary Care Unavailable FALCONIDRE Referring Unavail able GARCIA, NITA Referring Unavailable ELDERBROCK, LARRY D Primary Care Unavailable ELDERBROCK, LARRY D Primary Care Unavailable PARVEEN, PAULINE Referring Unavailable JOSE, NITA Attending Unavailable ELDERBROCK, LARRY D Primary Care Unavailable PARVEEN, PAULINE Referring Unavailable YOEL FRANCO Attending Unavailable ELDERBROCK, LARRY D Primary Care Unavailable ELDERBROCK, LARRY D Referring Unavailable ELDERBROCK, LARRY D Referring Unavailable ELDERBROCK, LARRY D Primary Care Unavailable ERIC, MATY W Attending Unavailable ELDERBROCK, LARRY D Primary Care Unavailable ERIC, MATY W Attending Unavailable ELDERBROCK, LARRY D Primary Care Unavailable ERIC, MATY W Attending Unavailable ELDERBROCK, LARRY D Primary Care Unavailable REYES, MATY W Referring Unavailable REYES, MATY W Attending Unavailable Allergies Allergy Classification Reported Allergen(s) Allergy Type Date of Onset Reaction(s) Facility (1 source) ibuprofen; Translations: [Motrin] Drug Allergy [facility] Repository (3 sources) Acetaminophen Drug Allergy 9 Other: See Comments [facility] (3 sources) Ibuprofen Drug Allergy 9 Intolerance [facility] Medications Current Medications Medication Drug Class(es) [...] Drug Class(es) Dates Sig (Normalized) Sig (Original) [id number] 200 actuat albuterol 0.09 mg/actuat metered dose [...] type] Onset: 09-23-2023 08-26-2023 Chronic Mood disorders (2 sources) Mood disorders; Translations: [ depression in third trimester] Onset: 09-14-2023 Mycoses (1 source) Tinea [...] (1 source) Other mental disorders complicating , third trimester; Translations: [ depression in third trimester] Onset: 11-24-2023 Episodic Other complications of (1 source) Other mental disorders complicating , second trimester; Translations: [ depression in second trimester] Onset: 09-14-2023 Episodic Other female genital disorders (1 source) [...] currently ] Onset: 06-22-2023 06-22-2023 Episodic Other complications of (1 source) with inconclusive viability, not applicable or unspecified; Translations: [ with uncertain viability, single or unspecified fetus] Onset: 06-22-2023 Episodic Other non-traumatic joint disorders (20 [...] 97.59 [degF] Lobo Gonsales DO Work Phone: [facility] 09-07-2023 18:39-0500 Diastolic blood pressure 65 mm[Hg] Lobo Gonsales DO Work Phone: [facility] 09-07-2023 18:39-0500 Heart rate 92 /min Lobo Gonsales DO Work Phone: [facility] 09-07-2023 18:39-0500 Respiratory rate 16 /min Lobo Gonsales DO Work Phone: [facility] 09-07-2023 18:39-0500 SaO2% (BldA) [Mass fraction] 97 % Lobo Gonsales DO Work Phone: [facility] 09-07-2023 18:39-0500 Systolic blood pressure 105 mm[Hg] Lobo Gonsales DO Work Phone: [facility] 08-26-2023 15:56-0400 Body weight 89.81 kg Nita Garcia APRN.CNM Work Phone: [facility] 08-26-2023 15:56-0400 Diastolic blood pressure 74 mm[Hg] Nita Garcia APRN.CNM Work Phone: [facility] 08-26-2023 15:56-0400 Systolic blood pressure 116 mm[Hg] Nita Garcia APRN.CNM Work Phone: [facility] 07-29-2023 16:34-0400 Body weight 90.45 kg Nita Garcia APRN.CNM Work Phone: [facility] 07-29-2023 16:34-0400 Diastolic blood pressure 70 mm[Hg] Nita Garcia APRN.CNM Work Phone: [facility] 07-29-2023 16:34-0400 Systolic blood pressure 110 mm[Hg] Nita Jose AVILAN.CNM Work Phone: [facility] 06-22-2023 13:10-0400 Body height 167.6 cm Pauline Saini APRN.BOWLING ALLEY MANAGER Work Phone: [facility] 06-22-2023 13:10-0400 Body weight 86.55 kg Pauline Saini LEAD NITRATE PROCESSOR.BOWLING ALLEY MANAGER Work Phone: [facility] 06-22-2023 13:10-0400 Diastolic blood pressure 60 mm[Hg] Pauline Saini APRN.BOWLING ALLEY MANAGER Work Phone: [facility] 06-22-2023 13:10-0400 Systolic blood pressure 100 mm[Hg] Pauline Saini APRN.BOWLING ALLEY MANAGER Work Phone: [facility] 06-09-2023 09:230400 Body weight 86.18 kg Tiara Shen MD Work Phone: [facility] 06-09-2023 09:[id number] Diastolic blood pressure 64 mm[Hg] Tiara Shen MD Work Phone: [facility] 06-09-2023 09:23-0400 Systolic blood pressure 116 mm[Hg] Tiara Shen MD Work Phone: [facility] 01-10-2023 14:28-0400 Body weight 86.64 kg Leah Modi LEAD NITRATE PROCESSOR.BOWLING ALLEY MANAGER Work Phone: [facility] 01-10-2023 14:28-0400 Diastolic blood pressure 80 mm[Hg] Leah Modi LEAD NITRATE PROCESSOR.BOWLING ALLEY MANAGER Work Phone: [facility] 01-10-2023 14:28-0400 Heart rate 78 /min Leah Luxhof LEAD NITRATE PROCESSOR.BOWLING ALLEY MANAGER Work Phone: [facility] 01-10-2023 14:28-0400 Respiratory rate 16 /min Leah Luxhogypsy LEAD NITRATE PROCESSOR.BOWLING ALLEY MANAGER Work Phone: [facility] 01-10-2023 14:28-0400 SaO2% (BldA) [Mass fraction] 96 % Leah Modi LEAD NITRATE PROCESSOR.BOWLING ALLEY MANAGER Work Phone: [facility] 01-10-2023 14:28-0400 Systolic blood pressure 118 mm[Hg] Leah Luxhof LEAD NITRATE PROCESSOR.BOWLING ALLEY MANAGER Work Phone: [facility] 08-29-2022 12:13-0500 Body temperature 98.29 [degF] Melba Athy PA-C Work Phone: [facility] 08-29-2022 12:130500 Body weight 79.29 kg Melba Athy PA-C Work Phone: [facility] 08-29-2022 12:13-0500 Diastolic blood pressure 52 mm[Hg] Melba Athy PA-C Work Phone: [facility] 08-29-2022 12:13-0500 Heart rate 90 /min Melba Athy PA-C Work Phone: [facility] 08-29-2022 12:13-0500 Respiratory rate 21 /min Melba Athy PA-C Work Phone: [facility] 08-29-2022 12:13-0500 SaO2% (BldA) [Mass fraction] 98 % Melba Athy PA-C Work Phone: [facility] 08-29-2022 12:13-0500 Systolic blood pressure 100 mm[Hg] Melba Athy PA-C Work Phone: [facility] 06-22-2022 10:30-0400 Body weight 78.74 kg Larry Ramires MD Work Phone: [facility] 06-22-2022 10:30-0400 Diastolic blood pressure 72 mm[Hg] Larry Ramires MD Work Phone: [facility] 06-22-2022 10:30-0400 Heart rate 80 /min Larry Ramires MD Work Phone: [facility] 06-22-2022 10:30-0400 Respiratory rate 16 /min Larry Ramires MD Work Phone: [facility] 06-22-2022 10:30-0400 Systolic blood pressure 114 mm[Hg] Larry Ramires MD Work Phone: [facility] 04-20-2022 16:23-0400 Body temperature 97.11 [degF] Nigel Peña APRN.CNP Work Phone: [facility] 04-20-2022 16:23-0400 Body weight 80.74 kg Nigel Casey LEAD NITRATE PROCESSOR.BOWLING ALLEY MANAGER Work Phone: [facility] 04-20-2022 16:23-0400 Diastolic blood pressure 62 mm[Hg] Nigel Casey LEAD NITRATE PROCESSOR.BOWLING ALLEY MANAGER Work Phone: [facility] 04-20-2022 16:23-0400 Heart rate 96 /min Nigel Casey LEAD NITRATE PROCESSOR.BOWLING ALLEY MANAGER Work Phone: [facility] 04-20-2022 16:23-0400 Respiratory rate 16 /min Nigel Casey LEAD NITRATE PROCESSOR.BOWLING ALLEY MANAGER Work Phone: [facility] 04-20-2022 16:23-0400 SaO2% (BldA) [Mass fraction] 98 % Nigel Casey LEAD NITRATE PROCESSOR.BOWLING ALLEY MANAGER Work Phone: [facility] 04-20-2022 16:23-0400 Systolic blood pressure 108 mm[Hg] Nigel Casey LEAD NITRATE PROCESSOR.BOWLING ALLEY MANAGER Work Phone: [facility] 01-16-2022 13:29-0400 Body temperature 100.71 [degF] Tatyana Praisler-Wood LEAD NITRATE PROCESSOR.BOWLING ALLEY MANAGER Work Phone: [facility] 01-16-2022 13:29-0400 Body weight 83.46 kg Tatyana Praisler-Wood LEAD NITRATE PROCESSOR.BOWLING ALLEY MANAGER Work Phone: [facility] 01-16-2022 13:29-0400 Diastolic blood pressure 70 mm[Hg] Tatyana Praisler-Wood LEAD NITRATE PROCESSOR.BOWLING ALLEY MANAGER Work Phone: [facility] 01-16-2022 13:29-0400 Heart rate 108 /min Tatyana Praisler-Wood LEAD NITRATE PROCESSOR.BOWLING ALLEY MANAGER Work Phone: [facility] 01-16-2022 13:29-0400 Respiratory rate 20 /min Tatyana Praisler-Wood LEAD NITRATE PROCESSOR.BOWLING ALLEY MANAGER Work Phone: [facility] 01-16-2022 13:29-0400 SaO2% (BldA) [Mass fraction] 98 % Tatyana Praisler-Wood LEAD NITRATE PROCESSOR.BOWLING ALLEY MANAGER Work Phone: [facility] 01-16-2022 13:29-0400 Systolic blood pressure 118 mm[Hg] Tatyana Avina APRN.BOWLING ALLEY MANAGER Work Phone: [facility] 08-05-2019 14:56-0400 BP Diastolic 60 mm[Hg] Meli Jose Alfredo [place], [place] 08-05-2019 14:56-0400 BP Systolic 114 mm[Hg] [facility] Jose Alfredo [place] 08-05-2019 14:56-0400 Pulse (Heart Rate) 78 /min [place], [place] 08-05-2019 08:45-0400 Body Temperature 97 [degF] [place], [place] 08-05-2019 08:45-0400 Pulse Oximetry 98 % [place], [place] 08-05-2019 08:45-0400 Respiratory Rate 16 /min [place] 07-30-2019 02:12-0400 BMI (Body Mass Index) 31.37 kg/m2 [facility] Jose Alfredo [place], [place] 07-30-2019 02:12-0400 Body weight 90.86 kg [place], [place] 07-30-2019 02:12-0400 Height 170.2 cm [place] Encounters Encounter Date Encounter Type Care Provider Facility Start: 11-24-2023 End: 11-24-2023 ambulatory [facility] Facility:[facility] Start: 11-23-2023 End: 11-23-2023 ambulatory [facility] Facility:[facility] Start: 11-04-2023 End: 11-05-2023 ambulatory [facility] Facility:[facility] Start: 10-13-2023 End: 10-14-2023 ambulatory [facility] Facility:[facility] Start: 10-07-2023 End: 10-07-2023 [facility] Maty Reyes Work Phone: Psychiatry Procedures Date Procedure Procedure Detail Performing Clinician Start: 08-26-2023 URINE OB DIP B/O Jessic a Garcia LEAD NITRATE PROCESSOR.CNM Work Phone: Start: 08-26-2023 Us preg uterus after 1st trimest 10/24 gestation Pauline Saini APRN.BOWLING ALLEY MANAGER Work Phone: Start: 08-12-2023 Us preg uterus after 1st trimest / gestation Nita Garcia APRN.CNM Work Phone: Start: 06-22-2023 Antibody screen DAPHNE LAWRENCE Plan of Treatment Date Care Activity Detail Author Start: 07-31-2029 Tetanus vaccination Tetanus: Every 1 0yrs [facility] Start: 07-31-2029 Urine microalbumin profile [facility] Start: 07-13-2025 PAP TESTING PAP TESTING [facility] Start: 07-13-2025 Screening for malign ant neoplasm of cervix Pap Testing [facility] Start: 06-22-2024 Screening for Chlamy lisa trachomatis Chlamydia Screening [facility] Start: 01-11-2024 ANNUAL PCP TEAM [employer] MAMIE DISEASE VISIT ANNUAL PCP TEAM CHRONIC DISEASE VISIT [facility] Start: 09-30-2023 End: 09-23-2024 ECG COMPLETE ECG COMPLETE ECG Routine Moderate mixed bipolar I disorder (HCC) Expected: 09/30/2023 (Approximate), Expires: 09/23/2024 [facility] Work Phone: Immunizations Immunization Date Immunization Notes Care Provider Denzel strickland 08-02-2019 diphtheria, tetanus toxoids and acellular pertussis vaccine, unspecified formulation [facility] , [place] 08-02-2019 measles, mumps and rubella virus vaccine [facility], [place] 07-31-2019 tetanus toxoid, redu lavonne diphtheria toxoid, and acellular pertussis vaccine, adsorbed [facility] Work Phone: 07-31-2019 diphtheria, tetanus toxoids and acellular pertussis vaccine, unspecified formulation [facility] , [place] 05-14-2016 meningococcal oligosaccharide (groups A, C, Y and W-135) diphtheria toxoid conjugate vaccine (MCV4O) Leah Modi APRN.BOWLING ALLEY MANAGER Work Phone: [facility] Work Phone: 04-04-2012 human papilloma viru s vaccine, quadrivalent Leah Modi LEAD NITRATE PROCESSOR.BOWLING ALLEY MANAGER Work Phone: [facility] Work Phone: 09-09-2011 hepatitis A vaccine, pediatric/adolescent dosage, 2 dose schedule Leah Modi LEAD NITRATE PROCESSOR.BOWLING ALLEY MANAGER Work Phone: [facility] Work Phone: 09-09-2011 human papilloma viru s vaccine, quadrivalent Leah Modi LEAD NITRATE PROCESSOR.BOWLING ALLEY MANAGER Work Phone: [facility] Work Phone: 01-08-2010 hepatitis A vaccine, pediatric/adolescent dosage, 2 dose schedule Leah Modi APRN.BOWLING ALLEY MANAGER Work Phone: [facility] Work Phone: 01-08-2010 human papilloma viru s vaccine, quadrivalent Leah Modi APRN.BOWLING ALLEY MANAGER Work Phone: [facility] Work Phone: 01-08-2010 meningococcal polysaccharide (groups A, C, Y and W-135) diphtheria toxoid conjugate vaccine (MCV4P) Leah Modi APRN.[facility] Work Phone: [facility] Work Phone: 01-08-2010 tetanus toxoid, redu lavonne diphtheria toxoid, and acellular pertussis vaccine, adsorbed Leah Modi APRN.BOWLING ALLEY MANAGER Work Phone: [facility] Work Phone: 01-08-2010 varicella virus vaccine Shwetha Modi APRN.BOWLING ALLEY MANAGER Work Phone: [facility] Work Phone: 11-13-2009 influenza, seasonal, injectable Leah Modi APRN.BOWLING ALLEY MANAGER Work Phone: [facility] Work Phone: 11-13-2009 novel Influenza-H1N1 -09, live virus for nasal administration Leah Modi APRN.BOWLING ALLEY MANAGER Work Phone: [facility] Work Phone: 11-13-2009 influenza virus vacc ine, unspecified formulation Jhoana Triplett [facility] 07-01-2004 diphtheria, tetanus toxoids and acellular pertussis vaccine Leah Modi LEAD NITRATE PROCESSOR.BOWLING ALLEY MANAGER Work Phone: [facility] Work Phone: 07-01-2004 measles, mumps and rubella virus vaccine Leah Maravillaf LEAD NITRATE PROCESSOR.BOWLING ALLEY MANAGER Work Phone: [facility] Work Phone: 07-01-2004 poliovirus vaccine, inactivated Leah Modi LEAD NITRATE PROCESSOR.[facility] Work Phone: [facility] Work Phone: 09-21-2000 pneumococcal conjuga te vaccine, 7 valent Leah Modi LEAD NITRATE PROCESSOR.[facility] Work Phone: [facility] Work Phone: 09-21-2000 poliovirus vaccine, inactivated Leah Modi LEAD NITRATE PROCESSOR.BOWLING ALLEY MANAGER Work Phone: [facility] Work Phone: 02-06-2000 diphtheria, tetanus toxoids and acellular pertussis vaccine Leah Modi LEAD NITRATE PROCESSOR.[facility] Work Phone: [facility] Work Phone: 02-06-2000 haemophilus influenz ae type b vaccine, PRP-T conjugate Leah Modi LEAD NITRATE PROCESSOR.[facility] Work Phone: [facility] Work Phone: 10-31-1999 measles, mumps and rubella virus vaccine Leah Modi LEAD NITRATE PROCESSOR.BOWLING ALLEY MANAGER Work Phone: [facility] Work Phone: 10-31-1999 varicella virus vaccine Shwetha Modi LEAD NITRATE PROCESSOR.BOWLING ALLEY MANAGER Work Phone: [facility] Work Phone: 1999 hepatitis B vaccine, pediatric or pediatric/adolescent dosage Leah Modi LEAD NITRATE PROCESSOR.BOWLING ALLEY MANAGER Work Phone: [facility] Work Phone: 07-27-1999 hepatitis B vaccine, pediatric or pediatric/adolescent dosage Leah Tannhof LEAD NITRATE PROCESSOR.[facility] Work Phone: [facility] Work Phone: 05-02-1999 diphtheria, tetanus toxoids and acellular pertussis vaccine Leah Tannhof LEAD NITRATE PROCESSOR.BOWLING ALLEY MANAGER Work Phone: [facility] Work Phone: 05-02-1999 haemophilus influenz ae type b vaccine, PRP-T conjugate Leah Tannhof LEAD NITRATE PROCESSOR.[facility] Work Phone: [facility] Work Phone: 02-07-1999 diphtheria, tetanus toxoids and acellular pertussis vaccine Leah Tannhof LEAD NITRATE PROCESSOR.[facility] Work Phone: [facility] Work Phone: 02-07-1999 haemophilus influenz ae type b vaccine, PRP-T conjugate Leah Tannhof LEAD NITRATE PROCESSOR.BOWLING ALLEY MANAGER Work Phone: [facility] Work Phone: 02-07-1999 poliovirus vaccine, inactivated Leah Tannhof LEAD NITRATE PROCESSOR.[facility] Work Phone: [facility] Work Phone: 1998 diphtheria, tetanus toxoids and acellular pertussis vaccine Leah Tannhof LEAD NITRATE PROCESSOR.BOWLING ALLEY MANAGER Work Phone: [facility] Work Phone: 1998 haemophilus influenz ae type b vaccine, PRP-T conjugate Leah Tannhof LEAD NITRATE PROCESSOR.BOWLING ALLEY MANAGER Work Phone: [facility] Work Phone: 1998 hepatitis B vaccine, pediatric or pediatric/adolescent dosage Leah Tannhof LEAD NITRATE PROCESSOR.BOWLING ALLEY MANAGER Work Phone: [facility] Work Phone: 1998 poliovirus vaccine, inactivated Leah Tannhof LEAD NITRATE PROCESSOR.[facility] Work Phone: [facility] Work Phone: 1998 hepatitis B vaccine, pediatric or pediatric/adolescent dosage Leah Modi APRN.[facility] Work Phone: [facility] Work Phone: NEGATED: Highlighted row has not occurred!08-05-2019 measles, mumps and rubella virus vaccine [facility] [place] [place] Payers Date Payer Category Payer Medicaid [employer] [facility] MEDICAID [id number] 2019-Present [phone] [address] [place] [address] Medicaid [id number] 2018 Unknown xxxxxxxxxxx [id number] 2017 Unknown 2016 Medicaid [id number] 2016 Medicaid [id number] 2016 Medicaid [id number] 1998 Unknown [id number] 1998 Unknown [id number] Social History Date Type Detail Facility Start: 07-05-2017 End: 08-29-2022 Tobacco smoking status RIIS Never smoker [facility] Work Phone: Start: 2000 Sex Assigned At Not on file [facility] Work Phone: Start: 07-27-2019 Tobacco smoking status RIIS Unknown if ever smoked [facility] Start: 08-02-2019 End: 06-09-2023 Alcohol intake Not Currently [facility] Start: 05-28-2019 End: 08-29-2022 Tobacco use and exposure Smokeless tobacco non-user [facility] Work Phone: Start: 2000 Sex Assigned At Female [facility] Start: 12-27-2021 End: 08-29-2022 Exposure to SARS-CoV-2 (event) Not sure [facility] Start: 06-09-2023 End: 10-07-2023 History of Social function [facility] Adult Depression Screening Assessment 6 [facility] Start: 08-13-2021 Gender identity Identifies as female gender (finding) [facility] Start: 08-13-2021 Sexual orientation Heterosexual (finding) [facility] Start: 06-22-2023 End: 09-29-2023 Alcohol intake Ex-drinker (finding) [facility] Start: 04-11-2023 [facility] Goals Date Patient Goal Desired Activity /State Personal health goal Clinical Notes 01-15-2022 to 11-24-2023 Maty Reyes, - 10/07/2023 10:09 AM Maty Frank, - 09/23/2023 11:04 AM ESTTelephone Encounter - Nita Garcia APRN.[facility] - 09/23/2023 9:38 AM ESTPatient Instructions Note Date & Type Note Facility 11-24-2023 Note HNO ID: [id number] Author: MATY REYES DO Service: ? Author Type: Physician Type: Progress Notes Filed: 11/25/2023 10:48 Note Text: FOLLOW UP - PSYCHIATRIC PROGRESS [...] visit. Either the patient or their legal sales representative health insurance has been informed of the risks and benefits of -- and alternatives to -- treatment through a remote evaluation and consents to proceed with the evaluation remotely. Reason for Visit: Outpatient follow-up and safety monitoring of previously prescribed psychiatric medication, psychotherapy or other treatment CC: mood worse at 34 weeks HPI: Since we lowered the seroquel she has been with more down moods than anything. Seroquel caused leg tingling at 100-150-200 mg which helped the mood then now at 50 but tingling is gone. Sleeping when baby sleeps on 50 mg well , baby is almost a year old . She is newly due January 01 . Dana is going to have a brother . She will have 6 kids 4 boys and 2 girls one . Her car was in the shop but she was anxious not able to sleep so cleaning until 2 am . She has been cleaning a bit extra. Denies any suicidal ideation . Risks and benefits of the medication, including any black box warnings, were discussed with the patient. Interval Progress: more depressed PATIENT DATA: Generalized Anxiety Disorder Scale (LORI-7) LORI - 7 SCORES 10/07/2023 11/07/2023 11/24/2023 LORI-7 Score 6 13 11 (0-4) minimal anxiety, (5-9) mild anxiety, (10-14) moderate anxiety, (15-21) severe anxiety Patient Health Questionnaire (PHQ-9) PHQ-9 10/07/2023 11/07/2023 11/24/2023 Score 14 17 20 (0-4) minimal depression, (5-9) mild depression, (10-14) [...] Current Outpatient Medications Medication Sig Dispense Refill levothyroxine (SYNTHROID) 25 mcg tablet Take 1 tablet by mouth once daily. 30 tablet 1 acyclovir (ZOVIRAX) 400 mg tablet Take 1 tablet by mouth three times a day. 40 tablet 2 lamoTRIgine (LAMICTAL) 150 mg tablet Take 1 tablet by mouth once daily. 30 tablet 0 QUEtiapine (SEROQUEL) 100 mg tablet take one and a half tablet po qhs (Patient taking differently: 150 mg. take one and a half tablet po qhs) 45 tablet 0 famotidine (PEPCID) 20 mg tablet Take 1 tablet by mouth two times a day. 60 tablet 1 Cholecalciferol, Vitamin D3, (VITAMIN D) 25 mcg [...] ORIENTATION: Person, Place, Time and Situation MEMORY: okay CONCENTRATION: Normal MOOD: blah down day AFFECT: Restricted SPEECH : Clear AND distinct LANGUAGE : Normal ASSOCIATIONS: Intact THOUGHT PROCESS : Logical, Coherent, and Rational PROGRESSION : There was no evidence of disturbance in thought perception or progression. FUND OF KNOWLEDGE : Appropriate and Adequate SUICIDE: None HOMICIDE: None DATA REVIEWED: none 22 yr old female who is 34 weeks with depression DIAGNOSIS: PRIMARY:PTSD depression PPD Bipolar 2 depression PLAN: 1.Lamictal increase to 200 mg , SJS not but will be once baby is born 2. Cymbalta 20 mg for a week in am with food then increase to 30 mg po daily 3. Seroquel 50 mg po qhs eric (more content not included)... [facility] 11-07-2023 Note HNO ID: [id number] Author: YOEL FRANCO LISW Service: ? Author Type: Press Breaker Type: Progress Notes Filed: 11/07/2023 08:46 Note Text: System cancelled appointment technical difficulties in MYC. R/S Add-on TuesdayNov 09 t 4 pm VV Yoel JefferyenyFLAVIO [facility] 10-13-2023 Note HNO ID: [id number] Author: Fernando Montilla Cma Service: ? Author [...] severely ill: Yes Patient denies history of Guillain-[place] Syndrome (a severe paralytic illness): Yes Tdap Adacel injection was given without incident. See immunizations for details of immunizations administered today. VIS sheet provided: Yes Provider Yoon Gaytan CNM was present in office at time of injection. Fernando Montilla Cma [facility] 10-07-2023 Note HNO ID: [id number] Author: Maty Reyes, Service: ? Author Type: Physician Type: Progress [...] visit. Either the patient or their legal sales representative health insurance has been informed of the risks and [...] of 60 m (more content not included)... [facility] 10-07-2023 History of Present illness Narrative FOLLOW [...] visit. Either the patient or their legal sales representative health insurance has been informed of the risks and [...] which included preparing to see the patient, [id number] patient care, and completing clinical documentation. I spent a total of 30 minutes on the date of the service which included preparing to see the patient, [id number]-zjza patient care, and completing clinical documentation. ADD ON PSYCHOTHERAPY CODE : No SIGNATURE: Maty Reyes DO PATIENT NAME: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 weeks gestation of Procedures OBSTETRIC ULTRASOUND WHI US PREG UTERUS AFTER 1ST TRIMEST GESTATION Nita Garcia APRN.CNM [address] [place] [address] [facility] [address] [place] [address] Referral ID Status Reason Start Date Expiration Date Visits Requested Visits Authorized [id number] Authorized Auto-Generat ed Referral 07/29/2023 07/28/2024 1 1 * Consult, Test, Treat (Routine) - Authorized Specialty Diagnoses / Procedures Referred By Curtis deng Referred To Contact Diagnoses 17 weeks gestation of Procedures CONSULT TO MATERNAL MEDI OFFICE/OUTPATIENT [facility] 60-74 MINUTES Nita Garcia APRN.CNM [address] [place] [address] Referral ID Status Reason Start Date Expiration Date Visits Requested Visits Authorized [id number] Authorized PCP Requested Referral Auto-Generate d Referral 07/29/2023 07/28/2024 1 1 [facility] for referral (narrative)* Diagnostic Procedure Only (Routine) - Authorized Specialty Diagnoses / Procedures Referred By Contac t Referred To Contact [facility] Diagnoses History of delivery Procedures OBSTETRIC ULTRASOUND WHI US PREG UTERUS AFTER 1ST TRIMEST GESTATION Nita Garcia APRN.CNM [address] [place] [address] [address] Referral ID Status Reason Start Date Expiration Date Visits Requested Visits Authorized [id number] Authorized Auto-Generat ed Referral 09/23/2023 09/22/2024 1 1 [facility] for referral (narrative)* Outpatient Procedure (Routine) - Pending Review Specialty Diagnoses / Procedures Referred By Contac t Referred To Contact [facility] Diagnoses Moderate mixed bipolar I disorder (HCC) Procedures ECG COMPLETE ECG ROUTINE ECG W/LEAST 12 LDS W/I&R Maty Reyes DO [address] [place] [address] [address] Referral ID Status Reason Start Date Expiration Date Visits Requested Visits Authorized [id number] Pending Review Auto-Generat ed Referral 09/30/2023 09/22/2024 1 1 [facility] Assessments Diagnosis Acne vulgaris - Primary [...] FoundDocuments on File Type Date Recorded Patient Director Franchise Sales Expl anation Advance Directives and Living Will Power of Department Store General Manager Latest Code Status on File Code Status [...] is a 18yo at 31w3d presented to [facility] as a transfer for [place]. Patient was evaluated on 07/29/19 for concern for PPROM. She had initially presented to the outpatient office on Wednesday 07/25 with complaints of fever and LOF. She was diagnosed with a UTI and started on Keflex.Symptoms did not improve so she was switched on Macrobid. On 07/29 she presented to [place] ED with worsening suprapubic pain and bleeding. She was diagnosed with PPROM on ROM-plus test with MELY 21, and transferred to [facility] for further evaluation. On admission she was [...] Information for the patient's : Joao Saeed [[id number]] female Weight: 4 lb 0.9 oz (1.84 kg) Apgars: Information for the patient's : Joao Saeed [[id number]] One Minute : 7 Five Minute : 8 Course: Uncomplicated : Female Blood Type/Rh: B POS Antibody Screen: Antibody Screen Date Value Ref Range Status 08/02/2019 NEG NA Final Comment: Test Performed by [email or web address], [address] [place], [place] [id number] Rubella: No results found for: RUBELLAIGG Contraception: no method : yes DVT ppx: none Meds: Kaitlin Saeed Home Medication Instructions SHANEKA:[id number] Printed on:08/05/19 1442 Medication Information acetaminophen (TYLENOL) 325 MG tablet [...] Follow up appointment in 4 weeks with [facility] Condition on discharge: Good and stable Discharge [...] this encounter Discharge Instructions * Instructions* Cyndi Mustafa, RN - 08/05/2019 After Your Delivery (the [...] OB doctor in {Time; 1 to 12 weeks:41227} weeks or as specified by your physician. Be sure to make and go to all appointments, and call your doctor if you are having problems. It's also a good idea to know your test results and keep a list of the medicines you take. BLEEDING Vaginal bleeding will decrease in amount over the next few weeks. Bleeding may picker and packer and then decrease again around 7-10 days [...] have thoughts of harming yourself or your infant. If infant will not stop crying, contact another adult for help or place in their crib on their back and take a break. NEVER shake your . WOUND CARE For Vaginal Delivery: Shower daily, [...] avoid constipation you may take a mild ihjf-qgv-uhspckr stool softener (such as colace) as recommended [...] Baby booklet.Reviewed: breast engorgement, contact information, and bf mothers group. Encouraged patient to call for [...] Nandini Escamilla MD Family Medicine PGY-1 Pager [phone] Maternal Medicine Attending attestation: Patient was seen [...] PPROM - Doing well, VSS - female infant 1. Hx arrhythmia - currently asx - [...] NEG NA Final Comment: Test Performed by [facility], [address] [place] [id number] No results found for: RUBELLAIGG LABOR DELIVERY [...] resolved hospital problems. * Assessment/Plan: 1. Kaitlin Pushpa Saeed is a POD # 1 s/p PLTCS 2/2 Chorio and PPROM per [facility] recomendations - Doing well, VSS - Female [...] Primary Low Transverse Section Surgeon: Dr. Andrews Seat Builder(s): Dr. Mata Anesthesia: spinal, Duramorph Utilized: Yes, TAP Block Yes Findings: viable female in cephalic presentation, weight 1840g. Uterus, tubes, and ovaries wnl. Total IV fluids/Blood products: 2000 ml crystalloid Urine Output: 500 ml clear urine Estimated blood loss: 800 ml Drains: flor catheter Specimens: Placenta, cord blood Instrument and Sponge Count: Correct x 2 Yes Complications: none Disposition: Mother stable to recovery and stable to NICU VTE Prophylaxis: Prophylactic Dosing [...] be monitored and followed by the diet stage technician. * Levar Krishnan MD - 08/01/2019 [...] Oral Once per day on Tue Sat influenza virus vaccine 0.5 mL Intramuscular Once [...] Chorio 6. PPROM 7. Continue management Cx: FHT: Cat II Dillon: not tracing well A/P: 1. IOL - Chorio and PPROM. Cat II for tachycardia but overall reassuring with moderate variability and accels. Cytotec placed at this time. Febrile 101.3 @ 2100. Cx: defer FHT: Cat II Dillon: not tracing well A/P: 1. IOL - Chorio and PPROM. Cat II for tachycardia but overall reassuring with moderate variability and accels. Afebrile since last note. BP's normotensive. Cytotec up at this time. Magnesium started @ 2330, no UOP recorded at this time. Cx: -3 FHT: Cat II Dillon: not tracing well, irritable A/P: 1. Cat II for tachycardia with baseline FHR 160-165. Overall reassuring w/ mod variability. Second cytotec placed at this note time. Febrile to 100.6, tylenol 650mg PO given. Cx: 3 FHT: Cat II Dillon: not tracing well A/P: 1. Cat II for rare variable deceleration. Baseline FHR 150. Ctx not tracing on toco, pt reports she has only felt 4 ctx in the last hour, and they are not painful. Third cytotec placed at this time. Per RN, afebrile on most recent temp check. 520cc UOP over last 4h. Cx:defer FHT: Cat I Dillon:Not tracing well A/P: 1. IOL - PPROM [...] mg TID. Cx:defer FHP:defer FHT: Cat II Dillon:irritable A/P: 1. IOL-PPROM/Chorio Third cytotec time is up. Plan to start standard pit protocol at this time. Defer cvx exam to reduce risk of infection. Currently tachy with baseline at 160-165 bpm. Maternal fever at 100.4. Tylenol given. Will recheck when ctx are regular. Cx:deferred FHP: NA FHT: Cat I Dillon:q4-6min A/P: 1. IOL -PPROM/Chorio: Pit at 4cc/hr, cricket every 4-6min. Not yet uncomfortable with contractions. Will continue to titrate pitocin per protocol. Most recently afebrile. No longer tachycardic. Will recheck once more uncomfortable. Cx:defer FHT: Cat I Dillon:q2-3mins A/P: 1. IOL-PPROM/Chorio: Pit @ 6 mu/min. Most recently afebrile and not tachycardic at this time. Continue to titrate pitocin per protocol. Will recheck once patient is more uncomfortable. Cx:3/40/-3 FHT: Cat I Dillon:q2-6mins A/P: 1. IOL-PPROM/Chorio: Patient requesting SVE. Remains unchanged. Pit @ 12 mu/min. Patient feeling contractions but is relatively comfortable. Will continue to titrate pitocin to get contractions more regular and patient more uncomfortable. Will reassess once pitocin reaches 20. Last febrile at 1400. Tylenol was given. Not currently tachycardic. Cx: defer FHT: Cat II Dillon: q2-5m A/P: 1. Cat II for intermittent [...] since restarting. Patient has been afebrile since 0909 this AM. BPs have been normotensive. deferred. Pit at 10, titrate per protocol. Will plan for SVE at next note time. FHT Cat I with ctx 2-5 min. Temp 101.1, will give Tylenol and recheck 1hr. Amp/Gent running for ABx for intrapartumintra amniotic infection. CCM Cx: unchanged FHT: Cat I Dillon: q3min A/P: 1. IOL-PPROM/chorio. SVE unchanged, pit at 10mu/min. Forebag AROMed for copious amounts of clear fluid. FHT cat I. On amp and gent. Last febrile at 0100. Vital signs otherwise normal. Cx: unchanged FHT: Cat I Dillon: not tracing well A/P: 1. IOL-PPROM/chorio. SVE unchanged. Pit now at 14mu/min, will titrate per protocol. Afebrile since 0100. Discussed plan of care with RADHA Ramirez to place [facility] as we will likely need to titratepit above 20mu/min. Vital signs within normal limits Cx:defer FHT: Cat II Dillon: q 3 min A/P: 1. IOL - PPROM/Chorio - Pitocin at 14 ml/Hr will titrate per protocol. Recurrent late decels for 30 minutes with moderate variability. Pt repositioned and fluid bolus given. Plan to continue conservative interventions at this time. Cx:3/40/-3 FHT: Cat II Dillon: q 3 min A/P: 1. IOL - [...] IOL. Start Amp/Gent. Vtx by BSUS. SVE /-3, plan for cytotec augmentation. Dr. Allison updated over phone, induction will be covered by [facility]. * Marylou Aguilera RN - 07/31/2019 6:03 PM EDT Pt temp 99.8, HR 120, BP 86/50. Pt cheeks hakeem and pt has chills. FHR tachy in the 170's-180's. Resident paged * Marylou Aguilera RN - 07/31/2019 5:[address] Velazco requested return pae through perfect serve with updated BP and HR 30 Min after propanolol. Perfect serve page automatically diverted the page to who is group segment consultant which is Dr Ortiz. Perfect serve paged sent with BP and HR. NO return call at this time. Patient continues to be asymptomatic. Educated patient on moving slowly from sit to stand and call if any feelings of being dizzy or unstable. Pt verbalized understanding * Marylou Aguilera RN - 07/31/2019 4:[address] Christensen pagedorothy through perfect serve regarding patient BP, HR and propanolol. He wants the propanolol given now and to check a HR and BP in 30 minutes. Orders in EPIC * Marylou Aguilera RN - 07/31/2019 3:47 PM EDT Pt due for propanolol. BP 88/52, HR 124. Pt asymptomatic. Dr Guerrero penaloza. Will assess for parameters for propanolol. * [...] vaginal bleeding Positive LOF Negative Contractions Vitals: 07/30/198 07/30/19 2040 07/30/19 2314 07/31/19 0259 BP: (!) [...] 0.5 mL Intramuscular Once Cynthia Allison DO Nsslzbf-Cjbfbx-Uggrk Pertussis (BOOSTRIX) injection 0.5 mL 0.5 mL [...] Blood Cx and Urine Cx pending at [place]. Will obtain results today. - Procal negative. - Last febrile to 101.8 @ 2150 on 07/29. 3. Cardiac Arrhythmia - Follows with [facility]. - On Pindolol 5mg BID, continue. [...] with more than 50% of the total oiyd-qf-dkwn time of the visit in counseling/coordination of care. * Post, Melita Leonard - 07/31/2019 5:52 AM EDT Maternal Medicine [...] fluid Negative Contractions (does feel crampy) Vitals: 07/30/198 07/30/19 2040 07/30/19 2314 07/31/19 0259 BP: (!) [...] at 07/31/19 0255 500 mg at 07/31/19 025 ampicillin 2 g ivpb mini bag 2 g Intravenous 4 times per day Jeimy Clemente MD Stopped at 07/30/199 Followed by [START ON 08/01/2019] amoxicillin (AMOXIL) capsule 500 mg 500 mg Oral TID Jeimy Clemente MD lactated ringers infusion Intravenous Continuous Jeimy Clemente MD 125 mL/hr at 07/30/191837 levothyroxine (SYNTHROID) tablet 75 mcg 75 mcg Oral Q MWF Jeimy Clemente MD 75 mcg at 07/30/192037 levothyroxine (SYNTHROID) tablet 50 mcg 50 mcg Oral Once per day on Tue Jeimy Clemente MD albuterol sulfate HFA 108 (90 Base) MCG/ACT inhaler 2 puff 2 puff Inhalation Q6H PRN eDmond Hauser DO influenza quadrivalent split vaccine (FLUZONE;FLUARIX;FLULAVAL;AFLURIA) injection 0.5 mL 0.5 mL Intramuscular Once Cynthia Allison DO Ntdjhhy-Pkvnts-Qaqcr Pertussis (BOOSTRIX) injection 0.5 mL 0.5 mL Intramuscular Once Cynthia Allison DO Assessment/Plan: Kaitlin Saeed is a 18 y.o. female 31w4d 1. PPROM - Time of ROM unclear- patient reports leaking clear fluid Tuesday, but SSE 07/25 and 07/28 negative for ROM. SSE 07/29 with positive ROM Plus test - SSE on presentation to [facility] 07/30 positive for pooling of 30cc blood, [...] cough, congestion, N/V/diarrhea - Negative UA at [place]- denies dysuria, urgency, frequency. Straight cath culture pending. -No fundal tenderness, tachycardia or purulent discharge. - Blood cultures and urine culture pending at [place]. Will need to call for results - [...] placenta away from os on US at [place] - Abruption labs wnl - FHT cat [...] 2:35 PM EDT See progress note. * Demond Hauser DO - 07/30/2019 5:36 AM EDT Maternal Medicine [...] puff Inhalation Q6H PRN Demond Hauser DO Assessment/Plan: Kaitlin Saeed is a 18 [...] Blood Cx and Urine Cx pending at [place]. Will obtain results. - Procal pending. - [...] 5:37 AM Associated attestation - Cynthia Allison - 07/30/2019 2:02 PM EDT Attending Supervising [...] with more than 50% of the total fsim-jv-hthv time of the visit in counseling/coordination of [...] puff Inhalation Q6H PRN Demond Hauser DO Assessment/Plan: Kaitlin Saeed is a 18 y.o. female 31w3d 1. PPROM - Time of ROM unclear- patient reports leaking clear fluid Tuesday, but SSE 07/25 and 07/28 negative for ROM. SSE 07/29 with positive ROM Plus test - SSE on presentation to [facility] 07/30 positive for pooling of 30cc blood, positive Nitrazine, 1 small spot of ferning with RBCs - MELY at [place] 21.9, will repeat US today - Latency [...] Blood cultures and urine culture pending at [place]. Will need to call for results - LA 0.7 at [place]. Procal pending - last febrile 101.8 on [...] scanned & sent to lab. * Fallon Magaña, MIRI - 07/30/2019 3:25 AM EDT Scant amt of red drainage noted on peripad after returning from bathroom. there wasn't any when I was in the BR documented in this encounter Health Concerns Infection Onset Date Last Indicated Resolved Time COVID-19 Rule-Out 01/16/2022 01/16/2022 Infection Onset Date Last Indicated Resolved Time COVID-19 Rule-Out 08/29/2022 08/29/2022 Problem Noted Date Diagnosed Date [facility] Education - COMMON 06/22/2023 [place] - [place] 06/22/2023 Problem Noted Date Diagnosed Date [facility] Education - COMM[place] 06/22/2023 Education - [place] 06/22/2023 Problem Noted Date Diagnosed Date [facility] Education - COMMON 06/22/2023 Education - [place] 06/22/2023 Problem Noted Date Diagnosed Date [facility] Education - COMMON 06/22/2023 Education - [place] 06/22/2023 Problem Noted Date Diagnosed Date [facility] Education - COMMON 06/22/2023 Education - [place] 06/22/2023 Problem Noted Date Diagnosed Date [facility] Education - COMMON 06/22/2023 Education - [place] 06/22/2023 Problem Noted Date Diagnosed Date [facility] Education - COMMON 06/22/2023 Education - [place] 06/22/2023 Problem Noted Date Diagnosed Date [facility] Education - COMMON 06/22/2023 Education - [place] 06/22/2023 Problem Noted Date Diagnosed Date [facility] Education - COMMON 06/22/2023 Education - [place] 06/22/2023 Problem Noted Date Diagnosed Date [facility] Education - COMMON 06/22/2023 Education - [place] 06/22/2023 Problem Noted Date Diagnosed Date [facility] Education - COMMON 06/22/2023 Education - [place] 06/22/2023 Problem Noted Date Diagnosed Date [facility] Education - COMMON 06/22/2023 Education - [place] 06/22/2023 Problem Noted Date Diagnosed Date [facility] Education - COMMON 06/22/2023 Education - [place] 06/22/2023 Reason for Referral Specialty Diagnoses / Procedures Referred By Contac t Referred To Contact Diagnoses in first trimester with history of , antepartum History of delivery, currently History of depression, currently Food insecurity Procedures PRIMARY CARE SOCIAL WORK CONSULT Pauline Saini APRN.BOWLING ALLEY MANAGER [address] [place] [address] Adriana Almodovar MSW Referral ID Status Reason Start Date Expiration Date Visits Requested Visits Authorized [id number] Ref Not Required PCP Requested Referral 06/22/2023 09/20/2023 1 1 Specialty Diagnoses / Procedures Referred By Contac t Referred To Contact [facility] Diagnoses with uncertain viability, single or unspecified fetus Procedures OBSTETRIC ULTRASOUND WHI US PREG UTERUS AFTER 1ST TRIMEST GESTATION Pauline Saini APRN.BOWLING ALLEY MANAGER [address] [place] [address] [facility] [address] [place] [address] Referral ID Status Reason Start Date Expiration Date Visits Requested Visits Authorized [id number] Pending Review Auto-Generat ed Referral 06/22/2023 06/21/2024 1 1 Specialty Diagnoses / Procedures Referred By Contac t Referred To Contact [facility] Diagnoses with uncertain viability, single or unspecified fetus Procedures NUCHAL TRANSLUCENCY WHI US NUCHAL TRANSLUCENCY 1ST GESTATION Paulien Saini APRN.BOWLING ALLEY MANAGER [address] [place] [address] [facility] [address] [place] [address] Referral ID Status Reason Start Date Expiration Date V isits Requested Visits Authorized [id number] Closed Auto-Generate d Referral 06/22/2023 06/21/2024 1 1 Additional Source Comments INFORMATION SOURCE (unrecogn ized section and content) DATE CREATED AUTHOR AUTHOR'S ORGANIZ ATION 04/19/2018 [facility] DATE CREATED AUTHOR AUTHOR'S ORGANIZ ATION 04/19/2018 [facility] DATE CREATED AUTHOR AUTHOR'S ORGANIZ ATION 08/14/2019 [facility] DATE CREATED AUTHOR AUTHOR'S ORGANIZ ATION 08/19/2019 [facility] DATE CREATED AUTHOR AUTHOR'S ORGANIZ ATION 10/01/2022 [facility] DATE CREATED AUTHOR AUTHOR'S ORGANIZ ATION 04/03/2023 [facility] DATE CREATED AUTHOR AUTHOR'S ORGANIZ ATION 09/09/2023 [facility] DATE CREATED AUTHOR AUTHOR'S ORGANIZ ATION 11/11/2023 [facility] DATE CREATED AUTHOR AUTHOR'S ORGANIZ ATION 11/24/2023 [facility] DATE CREATED AUTHOR AUTHOR'S ORGANIZ ATION 11/25/2023 [facility] Reason for Visit (unrecogniz ed section and [...] Referred By Contac t Referred To Contact [facility] Diagnoses 17 weeks gestation of Procedures OBSTETRIC ULTRASOUND WHI US PREG UTERUS AFTER 1ST TRIMEST GESTATION Nita Garcia, MARCELA.CNM [address] [place] [address] [facility] [address] [place] [address] Referral ID Status Reason Start Date Expiration Date V isits Requested Visits Authorized [id number] Closed Auto-Generate d Referral 07/29/2023 07/28/2024 1 1 Reason Comments Appointment Specialty Diagnoses / Procedures Referred By Contac t Referred To Contact [facility] Diagnoses with uncertain viability, single or unspecified fetus Procedures OBSTETRIC ULTRASOUND WHI US PREG UTERUS AFTER 1ST TRIMEST GESTATION Pauline Saini, LEAD NITRATE PROCESSOR.BOWLING ALLEY MANAGER [address] [place] [address] [facility] [address] [place] [address] Referral ID Status Reason Start Date Expiration Date V isits Requested Visits Authorized [id number] Closed Auto-Generate d Referral 06/22/2023 06/21/2024 1 [...] NEW PSYC ADULT Larry Ramires MD [address] [place] [address] Maty Reyes DO [address] [place] [address] Referral ID Status Reason Start Date Expiration Date V isits Requested Visits Authorized [id number] Pending Review 09/14/2023 12/13/2023 1 1 Reason Comments Bipolar Disorder Reason Comments Bipolar Disorder Specialty Diagnoses / Procedures Referred By Contac t Referred To Contact Psychiatry / ADULT PSYCHIATRY Diagnoses vv Procedures VIDEO PSYC/PSYL EST Self Maty Reyes DO [address] [place] [address] Referral ID Status Reason Start Date Expiration Date V isits Requested Visits Authorized [id number] Outside PCP 10/07/2023 10/23/2024 99 99 Source Comments (unrecognize d section and content) In the event this informatio n is protected by the Federal Confidentiality of Alcohol and Drug Abuse Patient Records regulations: The Federal rules restrict any use of the information to criminally investigate or prosecute any alcohol or drug abuse patient.[facility] HospitalIn the event this information is protected by the Federal Confidentiality of Alcohol and Drug Abuse Patient Records regulations: The Federal rules restrict any use of the information to criminally investigate or prosecute any alcohol or drug abuse patient.[facility] HospitalIn the event this information is protected by the Federal Confidentiality of Alcohol and Drug Abuse Patient Records regulations: The Federal rules restrict any use of the information to criminally investigate or prosecute any alcohol or drug abuse patient.[facility] HospitalIn the event this information is protected by the Federal Confidentiality of Alcohol and Drug Abuse Patient Records regulations: The Federal rules restrict any use of the information to criminally investigate or prosecute any alcohol or drug abuse patient.[facility] HospitalIn the event this information is protected by the Federal Confidentiality of Alcohol and Drug Abuse Patient Records regulations: The Federal rules restrict any use of the information to criminally investigate or prosecute any alcohol or drug abuse patient.[facility] HospitalIn the event this information is protected by the Federal Confidentiality of Alcohol and Drug Abuse Patient Records regulations: The Federal rules restrict any use of the information to criminally investigate or prosecute any alcohol or drug abuse patient.[facility] HospitalIn the event this information is protected by the Federal Confidentiality of Alcohol and Drug Abuse Patient Records regulations: The Federal rules restrict any use of the information to criminally investigate or prosecute any alcohol or drug abuse patient.[facility] HospitalIn the event this information is protected by the Federal Confidentiality of Alcohol and Drug Abuse Patient Records regulations: The Federal rules restrict any use of the information to criminally investigate or prosecute any alcohol or drug abuse patient.[facility] HospitalIn the event this information is protected by the Federal Confidentiality of Alcohol and Drug Abuse Patient Records regulations: The Federal rules restrict any use of the information to criminally investigate or prosecute any alcohol or drug abuse patient.[facility] HospitalIn the event this information is protected by the Federal Confidentiality of Alcohol and Drug Abuse Patient Records regulations: The Federal rules restrict any use of the information to criminally investigate or prosecute any alcohol or drug abuse patient.[facility] HospitalIn the event this information is protected by the Federal Confidentiality of Alcohol and Drug Abuse Patient Records regulations: The Federal rules restrict any use of the information to criminally investigate or prosecute any alcohol or drug abuse patient.[facility] HospitalIn the event this information is protected by the Federal Confidentiality of Alcohol and Drug Abuse Patient Records regulations: The Federal rules restrict any use of the information to criminally investigate or prosecute any alcohol or drug abuse patient.[facility] HospitalIn the event this information is protected by the Federal Confidentiality of Alcohol and Drug Abuse Patient Records regulations: The Federal rules restrict any use of the information to criminally investigate or prosecute any alcohol or drug abuse patient.[facility] HospitalIn the event this information is protected by the Federal Confidentiality of Alcohol and Drug Abuse Patient Records regulations: The Federal rules restrict any use of the information to criminally investigate or prosecute any alcohol or drug abuse patient.[facility] HospitalIn the event this information is protected by the Federal Confidentiality of Alcohol and Drug Abuse Patient Records regulations: The Federal rules restrict any use of the information to criminally investigate or prosecute any alcohol or drug abuse patient.[facility] HospitalIn the event this information is protected by the Federal Confidentiality of Alcohol and Drug Abuse Patient Records regulations: The Federal rules restrict any use of the information to criminally investigate or prosecute any alcohol or drug abuse patient.[facility] HospitalIn the event this information is protected by the Federal Confidentiality of Alcohol and Drug Abuse Patient Records regulations: The Federal rules restrict any use of the information to criminally investigate or prosecute any alcohol or drug abuse patient.[facility] HospitalIn the event this information is protected by the Federal Confidentiality of Alcohol and Drug Abuse Patient Records regulations: The Federal rules restrict any use of the information to criminally investigate or prosecute any alcohol or drug abuse patient.[facility] HospitalIn the event this information is protected by the Federal Confidentiality of Alcohol and Drug Abuse Patient Records regulations: The Federal rules restrict any use of the information to criminally investigate or prosecute any alcohol or drug abuse patient.[facility] HospitalIn the event this information is protected by the Federal Confidentiality of Alcohol and Drug Abuse Patient Records regulations: The Federal rules restrict any use of the information to criminally investigate or prosecute any alcohol or drug abuse patient.[facility] HospitalIn the event this information is protected by the Federal Confidentiality of Alcohol and Drug Abuse Patient Records regulations: The Federal rules restrict any use of the information to criminally investigate or prosecute any alcohol or drug abuse patient.[facility] HospitalIn the event this information is protected by the Federal Confidentiality of Alcohol and Drug Abuse Patient Records regulations: The Federal rules restrict any use of the information to criminally investigate or prosecute any alcohol or drug abuse patient.[facility] HospitalIn the event this information is protected by the Federal Confidentiality of Alcohol and Drug Abuse Patient Records regulations: The Federal rules restrict any use of the information to criminally investigate or prosecute any alcohol or drug abuse patient.[facility] HospitalIn the event this information is protected by the Federal Confidentiality of Alcohol and Drug Abuse Patient Records regulations: The Federal rules restrict any use of the information to criminally investigate or prosecute any alcohol or drug abuse patient.[facility] HospitalIn the event this information is protected by the Federal Confidentiality of Alcohol and Drug Abuse Patient Records regulations: The Federal rules restrict any use of the information to criminally investigate or prosecute any alcohol or drug abuse patient.[facility] HospitalIn the event this information is protected by the Federal Confidentiality of Alcohol and Drug Abuse Patient Records regulations: The Federal rules restrict any use of the information to criminally investigate or prosecute any alcohol or drug abuse patient.[facility] HospitalIn the event this information is protected by the Federal Confidentiality of Alcohol and Drug Abuse Patient Records regulations: The Federal rules restrict any use of the information to criminally investigate or prosecute any alcohol or drug abuse patient.[facility] Care Teams (unrecognized sec tion and content) Manager [employer] Relationship Specialty Start Date End Date Larry Ramires MD [address], [place] [id number] PCP - General Family Practice 09/21/21 Manager [employer] Relationship Specialty Start Date End Date Larry Ramires MD [address], [place] [id number] PCP - General Family Practice 09/21/21 Manager [employer] Relationship Specialty Start Date End Date Larry Ramires MD [address] [place] [address] PCP - General Family Practice 09/21/21 Manager [employer] Relationship Specialty Start Date End Date Larry Ramires MD [address] [place] [address] PCP - General Family Medicine 09/21/21 Manager [employer] Relationship Specialty Start Date End Date Larry Ramires MD [address] [place] [address] PCP - General Family Medicine 09/21/21 Manager [employer] Relationship Specialty Start Date End Date Larry Ramires MD [address] [place] [address] PCP - General Family Medicine 09/21/21 Manager [employer] Relationship Specialty Start Date End Date Larry Ramires MD [address] [place] [address] PCP - General Family Medicine 09/21/21 Manager [employer] Relationship Specialty Start Date End Date Larry Ramires MD [address] [place] [address] PCP - General Family Medicine 09/21/21 Manager [employer] Relationship Specialty Start Date End Date Larry Ramires MD [address] [place] [address] PCP - General Family Medicine 09/21/21 Manager [employer] Relationship Specialty Start Date End Date Larry Ramires MD [address] [place] [address] PCP - General Family Medicine 09/21/21 Manager [employer] Relationship Specialty Start Date End Date Larry Ramires MD [address] [place] [address] PCP - General Family Medicine 09/21/21 Manager [employer] Relationship Specialty Start Date End Date Larry Ramires MD [address] [place] [address] PCP - General Family Medicine 09/21/21 Manager [employer] Relationship Specialty Start Date End Date Larry Ramires MD [address] [place] [address] PCP - General Family Medicine 09/21/21 Manager [employer] Relationship Specialty Start Date End Date Larry Ramires MD [address] [place] [address] PCP - General Family Medicine 09/21/21 Manager [employer] Relationship Specialty Start Date End Date Larry Ramires MD [address] [place] [address] PCP - General Family Medicine 09/21/21 Manager [employer] Relationship Specialty Start Date End Date Larry Ramires MD [address] [place] [address] PCP - General Family Medicine 09/21/21 Manager [employer] Relationship Specialty Start Date End Date Larry Ramires MD [address] [place] [address] PCP - General Family Medicine 09/21/21 Manager [employer] Relationship Specialty Start Date End Date No, Physician [facility] PCP - General 07/01/17 Manager [employer] Content [employer] Relationship Specialty Start Date End Date Larry Ramires MD [address] [place] [address] PCP - General Family Medicine 09/21/21 Manager [employer] Relationship Specialty Start Date End Date Larry Ramires MD [address] [place] [address] PCP - General Family Medicine 09/21/21 Manager [employer] Relationship Specialty Start Date End Date Larry Ramires MD [address], [place] [address] PCP - General Family Medicine 09/21/21 Manager [employer] Relationship Specialty Start Date End Date Larry Ramires MD [address], [place] [id number] PCP - General Family Medicine 09/21/21 FOR [...] BE BASED ON THE PRIMARY CLINICAL RECORDS. [facility] [employer] [facility]. provides no warranty or guarantee of the accuracy or completeness of information in this document.
[2023-12-01 18:44] VITALS: PULSE 95; O2SAT 98
[2023-12-01 19:02] VITALS: BMI 36.2
[2023-12-01 19:09] LABS: Hematocrit 30.2 % (37-47); Hemoglobin 9.5 g/dL (12.0-15.0); Mean Corp Hgb Conc 31.5 g/dL (32-36); Mean Corpuscular Hgb 23.8 pg (27.0-32.0); Mean Corpuscular Volume 75.5 fL (81-99); Mean Platelet Vol. 11.1 fl (6.2-12.0); Platelet Count 208 K/mm3 (150-450); RBC Distribution Width CV 15.2 % (11.6-14.6); RBC Distribution Width SD 41.5 fl (35.1-43.9); White Blood Count 9.9 K/mm3 (4.4-11.0)
[2023-12-01 19:22] LABS: Protein, Urine (Random) 11.7 mg/dL (<11.9); Protein:Creat Ratio 109 mg/g CRE (0-200)
[2023-12-01 19:23] LABS: AST(SGOT) 3 U/L (15-37); Alanine Aminotransfer ALT/SGPT 16 U/L (13-56); Creatinine, Serum 0.45 mg/dL (0.55-1.02); EST Glomerular Filtration Rate 182 mL/min (>60); Est Glom Filt Rate - Afr Amer 220 mL/min (>60); Estimated Creatinine Clearance 230.32 ml/min; Uric Acid 3.7 mg/dL (2.6-6.0)
[2023-12-01 19:31] VITALS: BP 123/56; PULSE 83; TEMP 36.8
[2023-12-01 19:40] VITALS: BP 114/54; PULSE 81
[2023-12-01 19:50] VITALS: BP 113/53; PULSE 75
[2023-12-01 19:51] VITALS: PULSE 74; O2SAT 98
[2023-12-01] MEDS: Acetaminophen/Butalbital/Caffe 1 Tablet PO (19:59)
[2023-12-01 20:25] LABS: ROM Internal Control Test YES-OK TO RESULT pt. (Internal QC); ROM Patient Test Negative (Negative)
--- NOTE | 2023-12-01 20:39 | OB.TRI.NOTE ---
HPI - General General Date of Admission: 12/01/23 Date of Service: 12/01/23 Chief Complaint: headache HPI Narrative KAITLIN SAEED, is a 23 F who presents with BOWLES for several days that does not improve with Tylenol. Rate 6/10. No vision changes or RUQ pain. Denies h/o migraines. Some vaginal itching and concerned about yeast infection. No ctx, vb, lof. Good FM. PFSH PFSH Medical History Asthma Frequent PVCs Hypothyroidism (acquired) Palpitations Syncope and collapse (vaginal after ) Home Medications metoprolol tartrate 25 mg tablet 25 mg PO BID #30 tabs 09/29/22 [Rx Last Taken Unknown] acyclovir 400 mg tablet 400 mg PO DAILY 12/01/23 [History Last Taken 11/30/23 20:00 400 mg] duloxetine 20 mg capsule,delayed release (Cymbalta) 20 mg PO DAILY 12/01/23 [History Last Taken Unknown] famotidine 20 mg tablet mg 12/01/23 [History Last Taken 12/01/23 08:00 20 mg] lamotrigine 100 mg tablet 200 mg PO DAILY 12/01/23 [History Last Taken 12/01/23 08:00 200 mg] levothyroxine 25 mcg tablet (Euthyrox) 25 mcg PO DAILY 12/01/23 [History Last Taken 12/01/23 08:00 50 mcg] quetiapine 25 mg tablet 50 mg PO QHS 12/01/23 [History Last Taken 11/30/23 21:00 50 mg] Allergy/AdvReac Type Severity Reaction Status Date / Time No Known Allergies Allergy Verified 12/01/23 18:55 Family History Mother Heart disease Thyroid disorder Surgical History History of No history of previous surgery Social History Smoking Status: Never smoker alcohol intake: never substance use type: does not use caffeine: No History Elective abortions Hx Para 2 Spontaneous abortions Hx # Term Pregnancies Ectopic pregnancies Hx # Pregnancies Multiple births # of living children Physical Exam Const alert and no apparent distress General Appearance: comfortable HEENT normocephalic Resp normal respiratory effort GI soft to palpation and non-distended GI Narrative: Gravid, no RUQ tenderness Extremity no calf tenderness Extremity Narrative: trace edema bilaterally, no clonus or hyper reflexia NST FHR Rate Baby A Baseline: 130 Variability:: Moderate Accelerations:: 15 x 15 Decelerations:: None NST Reactive:: Yes FHR Category:: Category I Uterine Activity:: no ctx's Assessment & Plan (1) 34 weeks gestation of : PLAN: BP's normal. Pre e labs normal. She attributes BOWLES to change in psych medications. Instructed her to call prescriber who recently changed medication. To follow up in office tomorrow to r/o yeast infection. (2) Headache:
== END 2023-12-01 20:50 | disposition home or self-care (01) ==
LOC: WPOUT 18:36 → WP 18:36
PROVIDERS: PCP Family Medicine; Visit Provider Obstetrics & Gynecology
DX: O99.891 Other specified diseases and conditions complicating pregnancy (principal); O99.283 Endocrine, nutritional and metabolic diseases complicating pregnancy, third trimester; R51.9 Headache, unspecified; E03.9 Hypothyroidism, unspecified; Z79.899 Other long term (current) drug therapy; Z3A.34 34 weeks gestation of pregnancy
CPT/HCPCS: 36415; 59025; 59050; 82565; 82570; 84112; 84156; 84450; 84460; 84550; 85027; 99221; G0378

== ENCOUNTER 2023-12-26 06:55 | Inpatient (IN) | payer MEDICAID, SELFPAY ==
[2023-12-26] VITALS (22 sets, daily range): BP systolic 114–129; BP diastolic 53–74; PULSE 74–99; RESP 16–18; TEMP 36.2–36.7; O2SAT 99; BMI 38.4
--- OUTSIDE RECORDS SUMMARY | 2023-12-26 07:07 | XMS RPT_ITS | CCD ---
Author Name Unknown Address [address] [place] [address] Organization [facility] Care Team Providers Care Guest Request Runner Name Role Phone No, Physician Unavailable Unavailable Longsdorf, Cynthia A Unavailable Unavailab le Solen, Jhoana March Unavailable Unavailab le Longsdorf, Cynthia A Unavailable Unavailab le Longsdorf, Cynthia A Unavailable Unavailab le Solen, Jhoana March Unavailable Unavailab le Longsdorf, Cynthia A Unavailable Unavailab le Longsdorf, Cynthia A Unavailable Unavailab le Longsdorf, Cynthia A Unavailable Unavailab le Solen, Jhoana March Unavailable Unavailab COCO García Unavailable [...] Unavailable KYUNG TRACEY Admitting Unavailable DAVID KOLB Unavailable No, Physician Primary Care Provider Unavailabl e NO, PHYSICIAN Primary Care Unavailable LOBO GONSALES Attending Unavailable LARRY RAMIRES Referring Unavailable LARRY RAMIRES Primary Care Unavailable MATY REYES Attending Unavailable LARRY RAMIRES Primary Care Unavailable MATY REYES Attending Unavailable LARRY RAMIRES Primary Care Unavailable MATY REYES Attending Unavailable ELDERBROCK, LARRY D Primary Care Unavailable REYES, MATY W Referring Unavailable REYES, MATY W Attending Unavailable HAURY, ALVINA Referring Unavailable JAKE RAMIREZ Attending Unavailable ELDERBROCK, LARRY D Primary Care Unavailable ELDERBROCK, LARRY D Primary Care Unavailable WISWELL, MELITA Referring Unavailable ELDERBROCK, LARRY D Primary Care Unavailable CHALINO GASPAR Attending Unavailable ELDERBROCK, LARRY D Primary Care Unavailable WISWELL, MELITA Attending Unavailable ELDERBROCK, LARRY D Primary Care Unavailable YOON GAYTAN Attending Unavailable DAPHNE LAWRENCE Referring Unavailable LEAH MODI Attending Unavailable ELDERBROCK, LARRY D Primary Care Unavailable ELDERBROCK, LARRY D Primary Care Unavailable TIARA CHEUNG Attending Unavail able ELDERBROCK, LARRY D Primary Care Unavailable NICKIE, NITA Referring Unavailable SAINI, PAULINE Referring Unavailable ELDERBROCK, LARRY D Primary Care Unavailable ELDERBROCK, LARRY D Primary Care Unavailable CORAL GARCIAICA Referring Unavailable ELDERBROCK, LARRY D Primary Care Unavailable HAURY, ALVINA Referring Unavailable ELDERBROCK, LARRY D Primary Care Unavailable NEACACIA NGUYENRE Attending Unavail able SAINI, PAULINE Referring Unavailable ELDERBROCK, LARRY D Primary Care Unavailable ELDERBROCK, LARRY D Primary Care Unavailable ELDERBROCK, LARRY D Primary Care Unavailable CORAL GARCIAICA Attending Unavailable ELDERBROCK, LARRY D Primary Care Unavailable WISWELL, MELITA Attending Unavailable ELDERBROCK, LARRY D Primary Care Unavailable WISWELL, MELITA Referring Unavailable ELDERBROCK, LARRY D Primary Care Unavailable ALEX, ALVINA Attending Unavailable SAINI, PAULINE Referring Unavailable GARCIA, NITA Attending Unavailable ELDERBROCK, LARRY D Primary Care Unavailable ELDERBROCK, LARRY D Referring Unavailable ELDERBROCK, LARRY D Primary Care Unavailable YOEL FRANCO Attending Unavailable DAPHNE LAWRENCE Attending Unavailable ELDERBROCK, LARRY D Primary Care Unavailable ELDERBROCK, LARRY D Primary Care Unavailable DAPHNE LAWRENCE Referring Unavailable ELDERBROCK, LARRY D Primary Care Unavailable NEYSHANEKAT ANTIONETTE TIARA Referring Unavail able SAINI, PAULINE Attending Unavailable ELDERBROCK, LARRY D Primary Care Unavailable HAURY, ALVINA Referring Unavailable ELDERBROCK, LARRY D Primary Care Unavailable Allergies Allergy Classification Reported Allergen(s) Allergy Type Date of Onset Reaction(s) Facility (1 source) ibuprofen; Translations: [Motrin] Drug Allergy [facility] Repository (3 sources) Acetaminophen Drug Allergy 9 Other: See Comments [facility] (3 sources) Ibuprofen Drug Allergy 9 Intolerance [facility] Medications Current Medications Medication Drug Class(es) [...] Drug Class(es) Dates Sig (Normalized) Sig (Original) acyclovir 400 mg oral tablet (12 sources) Herpesvirus Nucleoside Analog DNA Polymerase Inhibitor, Herpes Simplex Virus Nucleoside Analog DNA Polymerase Inhibitor, Herpes Zoster Virus Nucleoside Analog DNA Polymerase Inhibitor Start: 11-04-2023 take 1 tablet by mouth three times daily acyclovir (ZOVIRAX) 400 mg tablet Indications: 31 weeks gestation of , Encounter for supervision of other normal in third trimester , History of herpes genitalis Take 1 tablet by mouth three times a day. 40 tablet 2 11/04/2023 Active Problems Active Problems Problem Classification Problem Date Documented Date Episodic/Chronic Administrative/social admission (1 source) Food insecurity; [...] depression in third trimester] Onset: 09-14-2023 Mycoses (2 sources) Tinea pedis; Translations: [Tinea pedis] Episodic Other complications of (2 sources) Maternal obesity complicating , childbirth and the puerperium, antepartum; Translations: [Obesity complicating , second trimester] 08-12-2023 Chronic Other complications of (12 sources) Anemia of ; Translations: [Anemia complicating , unspecified trimester] Onset: 10-18-2023 10-18-2023 Chronic Other complications of (1 source) Obesity complicating , third trimester; Translations: [Obesity complicating , childbirth, or the puerperium, antepartum condition or complication] 12-06-2023 Chronic Other complications of (1 source) Obesity complicating , second trimester; Translations: [Obesity affecting in second trimester, unspecified obesity type] Onset: 10-13-2023 Chronic Other complications of (1 source) Uncertain viability of ; Translations: [ with inconclusive viability, not applicable or unspecified] 06-22-2023 Episodic Other complications of (1 source) depression; Translations: [Other mental disorders complicating , second trimester] 09-14-2023 Episodic Other complications of (1 source) Other mental disorders complicating , third trimester; Translations: [ depression in third trimester] Onset: 11-24-2023 Episodic Other complications of (1 source) Other mental disorders complicating , second trimester; Translations: [ depression in second trimester] Onset: 09-14-2023 Episodic Other complications of (5 sources) High risk ; Translations: [Supervision of high risk , unspecified, third trimester] 12-02-2023 Episodic Other complications of (3 sources) Viral disease in mother complicating , childbirth AND/OR puerperium; Translations: [Other viral diseases complicating , third trimester] 12-06-2023 Episodic Other complications of (1 source) Supervision of high risk with history of previous section done; Translations: [Supervision of high risk , unspecified, unspecified trimester] 12-22-2023 Episodic Other complications of (1 source) Supervision of high risk , unspecified, third trimester; Translations: [Encounter for supervision of high risk in third trimester, antepartum] Onset: 12-14-2023 Episodic Other complications of (1 source) Other viral diseases complicating , third trimester; Translations: [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, antepartum] Onset: 12-14-2023 Episodic Other complications of (1 source) Other specified related conditions, third trimester; Translations: [Vaginal discharge during in third trimester] Onset: 12-14-2023 Episodic Other female genital disorders (2 sources) Vaginal discharge; Translations: [Other specified noninflammatory disorders of vagina] 12-02-2023 Episodic Other female genital disorders (1 source) Pruritus of vagina; Translations: [Other specified noninflammatory disorders of vagina] 12-02-2023 Episodic Other female genital disorders (1 source) Other specified noninflammatory disorders of vagina; Translations: [Vaginal discharge during in third trimester] Onset: 12-14-2023 Episodic Other female genital disorders (1 source) [...] upper respiratory infection, unspecified] Onset: 09-07-2023 Episodic Polyhydramnios and other problems of amniotic cavity (14 sources) Chorioamnionitis; Translations: [ premature rupture of membranes, unspecified as to length of time between rupture and onset of labor, unspecified trimester] Onset: 12-02-2022 Resolved: 08-05-2019 08-05-2019 Episodic Previous (3 sources) Uterine scar from previous surgery affecting ; Translations: [Maternal care for low transverse scar from previous delivery] Onset: 06-22-2023 12-06-2023 Episodic Residual codes; unclassified (1 source) History [...] 08-26-2023 Episodic Residual codes; unclassified (1 source) Gestation period, 35 weeks; Translations: [35 weeks gestation of ] 12-02-2023 Episodic Residual codes; unclassified (2 sources) Gestation period, 36 weeks; Translations: [36 weeks gestation of ] 12-05-2023 Episodic Residual codes; unclassified (1 source) Gestation period, 34 weeks; Translations: [34 weeks gestation of ] 12-06-2023 Episodic Residual codes; unclassified (1 source) Gestation period, 37 weeks; Translations: [37 weeks gestation of ] 12-14-2023 Episodic Residual codes; unclassified (1 source) 36 weeks gestation of ; Translations: [36 weeks gestation of ] Onset: 12-14-2023 Episodic Residual codes; unclassified (1 source) 32 weeks gestation of ; Translations: [32 weeks gestation of ] Onset: 12-06-2023 Episodic Residual codes; unclassified (1 source) 34 weeks gestation of ; Translations: [34 weeks gestation of ] Onset: 12-06-2023 Episodic Residual codes; unclassified (1 source) 31 [...] unspecified] Onset: 08-27-2021 08-27-2021 Chronic Viral infection (2 sources) Viral disease; Translations: [Viral infection, unspecified] Onset: 12-14-2023 Episodic Past or Other Problems Problem Classification [...] 06-22-2023 Episodic Other complications of (20 sources) Complication occurring during ; Translations: [ complication before ] Onset: 08-29-2023 08-29-2023 Episodic Other complications of (2 sources) Supervision of with other poor reproductive or obstetric history, first trimester; Translations: [Supervision of high-risk with other poor reproductive history] Onset: 06-22-2023 06-22-2023 Episodic Other complications of (1 source) with inconclusive viability, not applicable or unspecified; Translations: [ with uncertain viability, single or unspecified fetus] Onset: 08-26-2023 Episodic Other non-traumatic joint disorders (20 sources) [...] vulgaris; Translations: [Acne vulgaris] Onset: 07-05-2017 Episodic Residual codes; unclassified (1 source) 17 weeks gestation of ; Translations: [17 weeks gestation of ] Onset: 08-12-2023 Episodic NEGATED: Highlighted row has been ruled out!Unclassified (1 source) No known active problems 09-07-2023 Results Test Name Value Interpretation Reference Range Facil ity Vital Signs Date Time Vital Sign Value Performing Clinician Facility 12-22-2023 15:55-0500 Body weight 105.23 kg Tiara Shen MD Work Phone: [facility] 12-22-2023 15:55-0500 Diastolic blood pressure 68 mm[Hg] Tiara Shen MD Work Phone: [facility] 12-22-2023 15:55-0500 Systolic blood pressure 124 mm[Hg] Tiara Shen MD Work Phone: [facility] 12-14-2023 11:26-0500 Diastolic blood pressure 69 mm[Hg] Chalino Gaspar MD Work Phone: [facility] 12-14-2023 11:26-0500 Systolic blood pressure 120 mm[Hg] Chalino Gaspar MD Work Phone: [facility] 12-14-2023 10:53-0500 Body weight 102.97 kg Chalino Gaspar MD Work Phone: [facility] 12-06-2023 11:13-0500 Body weight 102.51 kg Jake Ramirez MD Work Phone: [facility] 12-06-2023 11:13-0500 Diastolic blood pressure 62 mm[Hg] Jake Ramirez MD Work Phone: [facility] 12-06-2023 11:13-0500 Systolic blood pressure 126 mm[Hg] Jake Ramirez MD Work Phone: [facility] 12-02-2023 15:10-0500 Body weight 102.33 kg Melita Michelle MD Work Phone: [facility] 12-02-2023 15:10-0500 Diastolic blood pressure 62 mm[Hg] Melita Michelle MD Work Phone: [facility] 12-02-2023 15:10-0500 Systolic blood pressure 120 mm[Hg] Melita Michelle MD Work Phone: [facility] 09-07-2023 18:39-0500 Body temperature 97.59 [degF] Lobo Gonsales DO Work Phone: [facility] 09-07-2023 18:39-0500 Diastolic blood pressure 65 mm[Hg] Lobo Gonsales DO Work Phone: [facility] 09-07-2023 18:39-0500 Heart rate 92 /min Lobo Gonsales DO Work Phone: [facility] 09-07-2023 18:39-0500 Respiratory rate 16 /min Lobo Gonsales DO Work Phone: [facility] 09-07-2023 18:39-0500 SaO2% (BldA) [Mass fraction] 97 % Lobo Gonsales DO Work Phone: [facility] 09-07-2023 18:39-0500 Systolic blood pressure 105 mm[Hg] Lobo Gonsales DO Work Phone: [facility] 08-26-2023 15:56-0400 Body weight 89.81 kg Nita Garcia TRACTION POWER ENGINEER.CNM Work Phone: [facility] 08-26-2023 15:56-0400 Diastolic blood pressure 74 mm[Hg] Nita Garcia TRACTION POWER ENGINEER.CNM Work Phone: [facility] 08-26-2023 15:56-0400 Systolic blood pressure 116 mm[Hg] Nita Garcia TRACTION POWER ENGINEER.CNM Work Phone: [facility] 07-29-2023 16:34-0400 Body weight 90.45 kg Nita Garcia TRACTION POWER ENGINEER.CNM Work Phone: [facility] 07-29-2023 16:34-0400 Diastolic blood pressure 70 mm[Hg] Nita Garcia TRACTION POWER ENGINEER.CNM Work Phone: [facility] 07-29-2023 16:34-0400 Systolic blood pressure 110 mm[Hg] Nita Garcia TRACTION POWER ENGINEER.CNM Work Phone: [facility] 06-22-2023 13:10-0400 Body height 167.6 cm Pauline Saini APRN.BATCH MAKER Work Phone: [facility] 06-22-2023 13:10-0400 Body weight 86.55 kg Pauline Saini APRN.BATCH MAKER Work Phone: [facility] 06-22-2023 13:10-0400 Diastolic blood pressure 60 mm[Hg] Pauline Saini APRN.BATCH MAKER Work Phone: [facility] 06-22-2023 13:10-0400 Systolic blood pressure 100 mm[Hg] Pauline Saini APRN.BATCH MAKER Work Phone: [facility] 06-09-2023 09:23-0400 Body weight 86.18 kg Tiara Shen MD Work Phone: [facility] 06-09-2023 09:23-0400 Diastolic blood pressure 64 mm[Hg] Tiara Shen MD Work Phone: [facility] 06-09-2023 09:23-0400 Systolic blood pressure 116 mm[Hg] Tiara Shen MD Work Phone: [facility] 01-10-2023 14:28-0400 Body weight 86.64 kg Leah Tannhof TRACTION POWER ENGINEER.BATCH MAKER Work Phone: [facility] 01-10-2023 14:28-0400 Diastolic blood pressure 80 mm[Hg] Leah Tannhof TRACTION POWER ENGINEER.BATCH MAKER Work Phone: [facility] 01-10-2023 14:28-0400 Heart rate 78 /min Leah Tannhof TRACTION POWER ENGINEER.BATCH MAKER Work Phone: [facility] 01-10-2023 14:28-0400 Respiratory rate 16 /min Leah Tannhof TRACTION POWER ENGINEER.BATCH MAKER Work Phone: [facility] 01-10-2023 14:28-0400 SaO2% (BldA) [Mass fraction] 96 % Leah Tannhof TRACTION POWER ENGINEER.BATCH MAKER Work Phone: [facility] 01-10-2023 14:28-0400 Systolic blood pressure 118 mm[Hg] Leah Tannhof TRACTION POWER ENGINEER.BATCH MAKER Work Phone: [facility] 08-29-2022 12:13-0500 Body temperature 98.29 [degF] Melba Athy PA-C Work Phone: [facility] 08-29-2022 12:13-0500 Body weight 79.29 kg Melba Athy PA-C Work Phone: [facility] 08-29-2022 12:13-0500 Diastolic blood pressure 52 mm[Hg] Melba Athy PA-C Work Phone: [facility] 08-29-2022 12:13-0500 Heart rate 90 /min Melba Athy PA-C Work Phone: [facility] 08-29-2022 12:13-0500 Respiratory rate 21 /min Melbachirag Guillaumey PA-C Work Phone: [facility] 08-29-2022 12:13-0500 SaO2% (BldA) [Mass fraction] 98 % Melba Athy PA-C Work Phone: [facility] 08-29-2022 12:13-0500 Systolic blood pressure 100 mm[Hg] Melba Athy PA-C Work Phone: [facility] 06-22-2022 10:30-0400 Body weight 78.74 kg Larry Ramires MD Work Phone: [facility] 06-22-2022 10:30-0400 Diastolic blood pressure 72 mm[Hg] Larry Ramires MD Work Phone: [facility] 06-22-2022 10:30-0400 Heart rate 80 /min Larry Ramires MD Work Phone: [facility] 06-22-2022 10:30-0400 Respiratory rate 16 /min Larry Ramires MD Work Phone: [facility] 06-22-2022 10:30-0400 Systolic blood pressure 114 mm[Hg] Larry Ramires MD Work Phone: [facility] 04-20-2022 16:23-0400 Body temperature 97.11 [degF] Nigel Peña TRACTION POWER ENGINEER.BATCH MAKER Work Phone: [facility] 04-20-2022 16:23-0400 Body weight 80.74 kg Nigel Peña TRACTION POWER ENGINEER.BATCH MAKER Work Phone: [facility] 04-20-2022 16:23-0400 Diastolic blood pressure 62 mm[Hg] Nigel Casey TRACTION POWER ENGINEER.BATCH MAKER Work Phone: [facility] 04-20-2022 16:23-0400 Heart rate 96 /min Nigel Casey TRACTION POWER ENGINEER.BATCH MAKER Work Phone: [facility] 04-20-2022 16:23-0400 Respiratory rate 16 /min Nigel Casey TRACTION POWER ENGINEER.BATCH MAKER Work Phone: [facility] 04-20-2022 16:23-0400 SaO2% (BldA) [Mass fraction] 98 % Nigel Peña TRACTION POWER ENGINEER.BATCH MAKER Work Phone: [facility] 04-20-2022 16:23-0400 Systolic blood pressure 108 mm[Hg] Nigel Peña TRACTION POWER ENGINEER.BATCH MAKER Work Phone: [facility] 01-16-2022 13:29-0400 Body temperature 100.71 [degF] Tatyana Praisler-Wood TRACTION POWER ENGINEER.BATCH MAKER Work Phone: [facility] 01-16-2022 13:29-0400 Body weight 83.46 kg Tatyana Praisler-Wood TRACTION POWER ENGINEER.BATCH MAKER Work Phone: [facility] 01-16-2022 13:29-0400 Diastolic blood pressure 70 mm[Hg] Tatyana Praisler-Wood TRACTION POWER ENGINEER.BATCH MAKER Work Phone: [facility] 01-16-2022 13:29-0400 Heart rate 108 /min Tatyana Praisler-Wood TRACTION POWER ENGINEER.BATCH MAKER Work Phone: [facility] 01-16-2022 13:29-0400 Respiratory rate 20 /min Tatyana Praisler-Wood TRACTION POWER ENGINEER.BATCH MAKER Work Phone: [facility] 01-16-2022 13:29-0400 SaO2% (BldA) [Mass fraction] 98 % Tatyana Praisler-Wood TRACTION POWER ENGINEER.BATCH MAKER Work Phone: [facility] 01-16-2022 13:29-0400 Systolic blood pressure 118 mm[Hg] Tatyana Praisler-Wood TRACTION POWER ENGINEER.BATCH MAKER Work Phone: [facility] 08-05-2019 14:56-0400 BP Diastolic 60 mm[Hg] [place], [place] 08-05-2019 14:56-0400 BP Systolic 114 mm[Hg] [place] 08-05-2019 14:56-0400 Pulse (Heart Rate) 78 /min [place], [place] 08-05-2019 08:45-0400 Body Temperature 97 [degF] Meli Montelongo [facility] [place] 08-05-2019 08:45-0400 Pulse Oximetry 98 % Meli Montelongo [facility] [place] 08-05-2019 08:45-0400 Respiratory Rate 16 /min Meli Montelongo [facility] [place] 07-30-2019 02:12-0400 BMI (Body Mass Index) 31.37 kg/m2 Meli Saeed [facility] [place] 07-30-2019 02:12-0400 Body weight 90.86 kg Meli Saeed [place], [place] 07-30-2019 02:12-0400 Height 170.2 cm Meli Saeed [place], [place] Encounters Encounter Date Encounter Type Care Provider Facility Start: 12-22-2023 End: 12-22-2023 [facility] Facility:[facility] Start: 12-22-2023 End: 12-22-2023 Patient encounter procedure Tiara Shen MD Work Phone: OB/Gynecology Procedures Date Procedure Procedure Detail Performing Clinician Start: 12-22-2023 URINE OB DIP B/O Tiara Shen MD Work Phone: Start: 12-22-2023 Us preg uterus after 1st trimest 10/24 gestation Alvina Cook APRN.BATCH MAKER Work Phone: Start: 12-06-2023 URINE OB DIP B/O Yesi Ramirez MD Work Phone: Start: 12-06-2023 Us preg uterus after 1st trimest 10/24 gestation Alvina Cook APRN.BATCH MAKER Work Phone: Start: 12-02-2023 URINE OB DIP B/O Melita hunter MD Work Phone: Start: 08-26-2023 URINE OB DIP B/O Dakotah Garcia APRN.CNM Work Phone: Start: 08-26-2023 Us preg uterus after 1st trimest 10/24 gestation Pauline Saini APRN.BATCH MAKER Work Phone: Start: 08-12-2023 Us preg uterus after 1st trimest 10/24 gestation Nita Garcia APRN.CNM Work Phone: Start: 06-22-2023 Antibody screen ALVINA DEY Plan of Treatment Date Care Activity Detail Author Start: 10-13-2033 Urine microalbumin profile DTaP,Tdap,Td Vaccine (9 - Td or Tdap) [facility] Start: 07-31-2029 Tetanus vaccination Tetanus: Every 1 0yrs [facility] Start: 07-31-2029 Urine microalbumin profile [facility] Start: 07-13-2025 PAP TESTING PAP TESTING [facility] Start: 07-13-2025 Screening for malign ant neoplasm of cervix Pap Testing [facility] Start: 06-22-2024 Screening for Chlamy lisa trachomatis Chlamydia Screening [facility] Start: 01-11-2024 ANNUAL PCP TEAM SEO STRATEGIST MAMIE DISEASE VISIT ANNUAL PCP TEAM CHRONIC DISEASE VISIT [facility] Start: 09-30-2023 End: 09-23-2024 ECG COMPLETE ECG COMPLETE ECG Routine Moderate mixed bipolar I disorder (HCC) Expected: 09/30/2023 (Approximate), Expires: 09/23/2024 [facility] Work Phone: Immunizations Immunization Date Immunization Notes Care Provider Denzel strickland 10-13-2023 tetanus toxoid, redu lavonne diphtheria toxoid, and acellular pertussis vaccine, adsorbed Melita Michelle MD Work Phone: [facility] 08-02-2019 diphtheria, tetanus toxoids and acellular pertussis vaccine, unspecified formulation [facility] , [place] 08-02-2019 measles, mumps and rubella virus vaccine [facility], [place] 07-31-2019 tetanus toxoid, redu lavonne diphtheria toxoid, and acellular pertussis vaccine, adsorbed [facility] Work Phone: 07-31-2019 diphtheria, tetanus toxoids and acellular pertussis vaccine, unspecified formulation [facility] , [place] 05-14-2016 meningococcal oligosaccharide (groups A, C, Y and W-135) diphtheria toxoid conjugate vaccine (MCV4O) Leah Tannhof TRACTION POWER ENGINEER.BATCH MAKER Work Phone: [facility] Work Phone: 04-04-2012 human papilloma viru s vaccine, quadrivalent Leah Modi TRACTION POWER ENGINEER.BATCH MAKER Work Phone: [facility] Work Phone: 09-09-2011 hepatitis A vaccine, pediatric/adolescent dosage, 2 dose schedule Leah Modi TRACTION POWER ENGINEER.BATCH MAKER Work Phone: [facility] Work Phone: 09-09-2011 human papilloma viru s vaccine, quadrivalent Leah Modi TRACTION POWER ENGINEER.[facility] Work Phone: [facility] Work Phone: 01-08-2010 hepatitis A vaccine, pediatric/adolescent dosage, 2 dose schedule Leah Modi TRACTION POWER ENGINEER.BATCH MAKER Work Phone: [facility] Work Phone: 01-08-2010 human papilloma viru s vaccine, quadrivalent Leah Modi TRACTION POWER ENGINEER.BATCH MAKER Work Phone: [facility] Work Phone: 01-08-2010 meningococcal polysaccharide (groups A, C, Y and W-135) diphtheria toxoid conjugate vaccine (MCV4P) Leah Modi APRN.BATCH MAKER Work Phone: [facility] Work Phone: 01-08-2010 tetanus toxoid, redu lavonne diphtheria toxoid, and acellular pertussis vaccine, adsorbed Leah Modi TRACTION POWER ENGINEER.BATCH MAKER Work Phone: [facility] Work Phone: 01-08-2010 varicella virus vaccine Shwetha Modi TRACTION POWER ENGINEER.BATCH MAKER Work Phone: [facility] Work Phone: 11-13-2009 influenza, seasonal, injectable Leah Modi TRACTION POWER ENGINEER.BATCH MAKER Work Phone: [facility] Work Phone: 11-13-2009 novel Influenza-H1N1 -09, live virus for nasal administration Leah Modi TRACTION POWER ENGINEER.[facility] Work Phone: [facility] Work Phone: 11-13-2009 influenza virus vacc ine, unspecified formulation Jhoana Triplett [facility] 07-01-2004 diphtheria, tetanus toxoids and acellular pertussis vaccine Leah Modi TRACTION POWER ENGINEER.[facility] Work Phone: [facility] Work Phone: 07-01-2004 measles, mumps and rubella virus vaccine Leah Taiwof TRACTION POWER ENGINEER.BATCH MAKER Work Phone: [facility] Work Phone: 07-01-2004 poliovirus vaccine, inactivated Leah Modi TRACTION POWER ENGINEER.[facility] Work Phone: [facility] Work Phone: 09-21-2000 pneumococcal conjuga te vaccine, 7 valent Leah Modi TRACTION POWER ENGINEER.[facility] Work Phone: [facility] Work Phone: 09-21-2000 poliovirus vaccine, inactivated Leah Modi TRACTION POWER ENGINEER.[facility] Work Phone: [facility] Work Phone: 02-06-2000 diphtheria, tetanus toxoids and acellular pertussis vaccine Leah Modi TRACTION POWER ENGINEER.[facility] Work Phone: [facility] Work Phone: 02-06-2000 haemophilus influenz ae type b vaccine, PRP-T conjugate Leah Modi TRACTION POWER ENGINEER.[employer] Work Phone: [facility] Work Phone: 10-31-1999 measles, mumps and rubella virus vaccine Leah Modi TRACTION POWER ENGINEER.[employer] Work Phone: [facility] Work Phone: 10-31-1999 varicella virus vaccine Shwetha Modi TRACTION POWER ENGINEER.[employer] Work Phone: [facility] Work Phone: 1999 hepatitis B vaccine, pediatric or pediatric/adolescent dosage Leah Tannhof TRACTION POWER ENGINEER.[employer] Work Phone: [facility] Work Phone: 07-27-1999 hepatitis B vaccine, pediatric or pediatric/adolescent dosage Leah Tannhof TRACTION POWER ENGINEER.[employer] Work Phone: [facility] Work Phone: 05-02-1999 diphtheria, tetanus toxoids and acellular pertussis vaccine Leah Tannhof TRACTION POWER ENGINEER.[employer] Work Phone: [facility] Work Phone: 05-02-1999 haemophilus influenz ae type b vaccine, PRP-T conjugate Leah Tannhof TRACTION POWER ENGINEER.[facility] Work Phone: [facility] Work Phone: 02-07-1999 diphtheria, tetanus toxoids and acellular pertussis vaccine Leah Tannhof TRACTION POWER ENGINEER.[employer] Work Phone: [facility] Work Phone: 02-07-1999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 2nd risk assessment form submitted 08/29/23 Yamileth Baumann RN documented in this encounter [facility] 08-26-2023 Miscellaneous Notes VERONICA-S: Kaitlin Saeed [...] to Women's Behavioral Health, MPOWER, and social media senior associate consult. Nita Garcia APRN.CNM documented in this encounter [facility] 08-26-2023 Instructions Fernando Montilla Cma - 08/26/2023 3:44 PM EDT SEQUENTIAL SCREENINGS The [facility] offers sequential screenings for women who [...] It will require an appointment with our legal technician. This is not an ultrasound performed [...] the above symptoms, contact our office at [phone] and ask to speak with a nurse. After hours, you can call doctors registry at [phone] OR call [facility] at [phone] and ask to have the doctor service delivery management consultant paged. If you consider this an emergency, dial 9-1-1 or go to your nearest emergency department. NEED HELP? Are you dealing with a violent or abusive relationship? Are you a victim of rape or sexual assult? Call [facility] 24 hour Crisis Hotline: 627.976.3127 or 908-872-4910. MANUAL Your Guide to a Healthy manual is now on-line. Visit [email or web address] [email or web address] to download your free copy documented in this encounter [facility] 08-15-2023 Miscellaneous Notes Per [place] patient [...] Suad Swann RN documented in this encounter [facility] 08-04-2023 Miscellaneous Notes Patient scheduled So [...] Nita Garcia APRN.CNM documented in this encounter [facility] 08-01-2023 Miscellaneous Notes Referral received Sent to [facility] team to assist with scheduling. documented in this encounter [facility] 07-29-2023 Miscellaneous Notes VERONICA-S: Kaitlin Saeed [...] SHARIFA Montez APRN.CNM documented in this encounter [facility] 07-29-2023 Fernando Trent Cma - 07/29/2023 4:33 PM EDT SEQUENTIAL SCREENINGS The [facility] offers sequential screenings for women who [...] It will require an appointment with our legal technician. This is not an ultrasound performed [...] the above symptoms, contact our office at [phone] and ask to speak with a nurse. After hours, you can call doctors registry at [phone] OR call [facility] at [phone] and ask to have the doctor service delivery management consultant paged. If you consider this an emergency, dial 0-8-5 or go to your nearest emergency department. NEED HELP? Are you dealing with a violent or abusive relationship? Are you a victim of rape or sexual assult? Call [facility] 24 hour Crisis Hotline: 621.543.9744 or 746-019-0168. MANUAL Your Guide to a Healthy manual is now on-line. Visit [email or web address] ncyGuide to download your free copy documented in this encounter [facility] 07-05-2023 Miscellaneous Notes [employer]hart message sent to pt that we need [...] appt and AFP documented in this encounter [facility] 06-23-2023 Miscellaneous Notes Sw called patient [...] out to Sw. documented in this encounter [facility] 06-22-2023 Note HNO ID: [id number] Author: Pauline Saini APRN.ZAHIRA Service: ? 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 OB Community care order placed. Discussed aneuploidy [...] May consider in future. Reviewed midwifery and propulsion motor and generator repairer services that are available. 2) History of [...] which included preparing to see the patient, [id number] patient care, completing clinical documentation, obtaining and/or reviewing separately obtained history, performing a medically appropriate examination, counseling and educating the patient/family/caregiver, ordering medications, tests, or procedures, communicating with other HCPs (not separately reported), and care coordination (not separately reported). documented in this encounter [facility] 06-22-2023 Instructions Lillian Alfaro MA - 06/22/2023 12:52 PM EDT Please select the following link to access the [facility] Your Guide to a Healthy . [email or web address] documented in this encounter [facility] 06-09-2023 Note HNO ID: [id number] Author: Tiara Cheung MD Service: ? Author [...] L0 SAB0 IAB0 Ectopic0 Multiple0 Live Births0 International Travel Consultant History LMP: 01/03/2022 (Exact Date), Unknown Age at Menarche: Age at First : Age at Menopause: International Travel Consultant History Comments: Sexual Activity: No sexual activity [...] in . 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 Reviewed blood pressure parameters and reassurance was given. 8. Follow up new ob as scheduled Medical Decision Making: Problems: Moderate: 1+ chronic illnesses with change Data: Unique test(s) ordered: 3+ Medical Decision Making Level: 4 - Moderate Tiara King MD [facility] 06-09-2023 History of Present illness Narrative Kaitlin [...] L0 SAB0 IAB0 Ectopic0 Multiple0 Live Births0 International Travel Consultant History LMP: 01/03/2022 (Exact Date), Unknown Age at Menarche: Age at First : Age at Menopause: International Travel Consultant History Comments: Sexual Activity: No sexual activity [...] in . 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 Reviewed blood pressure parameters and reassurance was given. 8. Follow up new ob as scheduled Medical Decision Making: Problems: Moderate: 1+ chronic illnesses with change Data: Unique test(s) ordered: 3+ Medical Decision Making Level: 4 - Moderate Tiara King MD documented in this encounter [facility] 01-10-2023 Note HNO ID: [id number] Author: Leah Modi APRN.BATCH MAKER Service: ? Author Type: Nurse Practitioner Type: [...] discussed and patient voices understanding. Leah Modi APRN.BATCH MAKER This note was partially generated using Compiere voice recognition system. Note was reviewed for accuracy. There may be minor misspellings or grammar miscues with Compiere voice recognition. [facility] 01-10-2023 Instructions Leah Modi APRN.ZAHIRA - 01/10/2023 2:39 PM EDT Start Paxil [...] this medication abruptly. documented in this encounter [facility] 01-10-2023 History of Present illness Narrative [...] APRN.CNP This note was partially generated using Compiere voice recognition system. Note was reviewed for accuracy. There may be minor misspellings or grammar miscues with Compiere voice recognition. documented in this encounter [facility] 12-05-2022 Note Department of Obstet rics [...] & Procedures: Information for the patient's : ChristopheOlena [[id number]] male 5 lb 0.8 oz (2.29 kg) Apgars: Information for the patient's : Olena Saeed [[id number]] : : boy Blood Type/Rh: B Antibody Screen: No [...] Your Medications These medications were sent to [facility] [address] [place] [address] Hours: Tuesday to Tuesday 10 am to 6 pm DSS 100 MG capsule ferrous sulfate 325 (65 Fe) MG tablet ibuprofen 600 MG tablet Activity: Activity as tolerated Diet: Regular diet Follow-up Appointments: - visit - depression screen If a patient meets criteria for hypertension, make sure the following are done prior to discharge: [] Order a blood pressure kit through [facility] (or the patient's own pharmacy on the weekend) [] Order the blood pressure log through [facility] [] Place an office visit or telephone [...] her physician if any of these occur. [facility] 12-03-2022 Note Labor Progress Note Date: 12/03/2022 [...] antibiotics were discontinued. Cx:defer FHT: Cat I [place]:none A/P: 1. AOL-PPROM: Cat I FHT with baseline 130, moderate variability, spontaneous accelerations, and no decelerations. BP normotensive since last note time. Will plan to start pitocin and titrate per protocol. CCM. Cx:defer FHT: Cat I [place]:None A/P: 1. AOL-PROM. FHT 130 baseline, with moderate variability, Accelerations present Yes, and no decelerations seen . BP normotensive. Pitocin running at 2cc/hr, will continue to titrate per protocol. Cx:defer FHT: Cat I [place]:none A/P: 1. AOL-PPROM. FHT 125 baseline. Moderate variability. Spontaneous accelerations present. No decelerations. Pitocin at 4 mL/hr. Continue to titrate per protocol. CCM. Cx:defer FHT: Cat I [place]:not tracing well A/P: 1. AOL-PPROM: Cat I FHT with baseline 120, moderate variability, spontaneous accelerations, and no decelerations. BP normotensive since last note time. Pitocin @ 8 cc/hr, continue to titrate per protocol. CCM. Cx:Defer FHP: Defer FHT: Cat I [place]:difficulty tracing A/P: 1. AOL-PPROM FHT Cat I with normal baseline, moderate variability and spontaneous accelerations present, no deceleration. Pitocin @ 12 mL/hr, continue to titrate per protocol. BP normotensive. CCM. Cx: defer FHP: defer FHT: Cat I [place]: not tracing well A/P: 1. AOL-PPROM: FHT Category I, with moderate variability, accelerations spontaneous, and decelerations absent. Blood pressure NT. Pit @ 14. RN states she is still very comfortable. Continue titration. PARI BLANC DO 12/03/2022 10:22 AM Cx:370/-2 FHP:defer FHT: Cat I [place]:not tracing well A/P: 1. AOL-PPROM - Cat I. Pitocin now at 20. Patient not really feeling any contractions, just some mild cramping. IUPC placed at this time. Will monitor MVUs and determine POC, of maintaining at 20 vs going above despite TOLAC status. Patient still oc with continuing induction at this time. Normotenisv.e Discussed plan with Dr. Isaacs, pit currently at 20cc/hr since 111 and patient still not getting uncomfortable. Will [...] PM Cx:defer FHP: defer FHT: Cat I [place]:q3-4min A/P: 1. AOL-PPROM FHR Cat I with a baseline of 130 's, moderate variability, accelerations present, and no decelerations. Pitocin at 16 cc/hr. Continue to titrate per protocol. BP's normotensive. Will reassess when pitocin at 20cc/hr. Cx:unchanged per Dr. Elkins FHP: defer FHT: Cat I [place]:q3-4 min A/P: 1. AOL-PPROM: FHT Category I. Pit at 20 ml/hr. Patient still comfortable. Normotensive. IUPC in place with inadequate MVUs. Continue currnet management. Patient wants to continue for at least 3 hours, and consider section at that time. PARI SHELDONER, DO 12/03/2022 6:13 PM SVE at this time. /-3. Rupture of forebag at this time for minimal bloody fluid. Has been overall Cat I. Due to rupture and forebag with SVE, will continue AOL at this time. PARI JAYASHREE, DO 12/03/2022 9:24 PM Patient feeling pressured. Unchanged. PARI JAYASHREE, 12/03/2022 9:56 PM Feeling pressure, SVE /-3. PARI JAYASHREE, DO 12/03/2022 10:23 PM [facility] 12-03-2022 Note Patient: Kaitlin Saeed Procedure Information [...] patient is not NPO Additional Equipment Requests [facility] 12-02-2022 Note Attestation signed by Kyung Tracey MD at 12/03/2022 2:08 PM Maternal Medicine attending attestation: I reviewed and agree with the care provided by the resident during or immediately following the visit including the patient's medical history, the resident's findings in the physical exam, patient's diagnosis and treatment plan. Transfer from [place] grossly ruptured on Dr. Valdez's exam confirmed [...] to TOLAC. Transport: Yes, describe: transfer from [facility] Prior Hospitalizations: No Estimated Due Date: Estimated [...] Age of Onset Heart disease Mother Other ([id number]) Sister Other ([id number]) Maternal Grandmother Other ([id number]) Mother Medications Prior to Admission: No medications [...] Not Performed ASSES (more content not included)... [facility] 08-29-2022 History of Present illness Narrative This note was created using ibabyboxriter. Subjective Kaitlin Saeed is a 21 year [...] Melba Wilson PA-C documented in this encounter [facility] 08-10-2022 History of Present illness Narrative View External Lab - Miscellaneous Lab [ID [id number]] documented in this encounter [facility] 06-22-2022 Nurse Note OV Note from today faxed to [facility] at [phone], notifying them to schedule an OV for f/u with pt. Brandi Mustafa Ma documented in this encounter [facility] 06-22-2022 History of Present illness Narrative [...] frequent PVCs. Pt has followed up with [facility] last OV in October [...] Pt states she lost her job at [employer] due to syncopal episodes and wants to avoid this with her current Employer at [employer] and working first shift, which seems to [...] were stable. Previous EKG's from Cardiology at [facility] in 2020. ED visits from 08/03/19 [...] HPV VACCINE Completed Data reviewed [facility]/Care Everywhere ASSESSMENT/PLAN: 1. Palpitations/PVCs - ICD9: 785.1, [...] V22.2, ICD10: Z34.90 - Follow up with [facility]. Post covid-19 condition, unspecified - ICD9: 139.8, ICD10: U09.9 - Cont to monitor Update office in 2-4 weeks on symptoms. Pt needs to f/u with Cardiology. I agree with the Chief Complaint, ROS, and Past Histories independently gathered by the clinical supportive employment case manager and the remaining scribed note accurately [...] Brandi Mustafa Ma documented in this encounter [facility] 04-20-2022 History of Present illness Narrative [...] Nigel Peña APRN.ZAHIRA documented in this encounter [facility] 01-16-2022 History of Present illness Narrative [...] coronavirus infection (COVID-19). documented in this encounter [facility] 01-16-2022 Instructions Tatyana Avina APRN.CNP - 01/16/2022 1:46 PM EDT ASSESSMENT/PLAN: 1. [...] to your local emergency facility: Notify the injection moulding machine operator that you are seeking care [...] pedialyte or Gatorade, or flat sprite or mayrjane-kang. Start slowly and increase as you are [...] concerning to you. documented in this encounter [facility] 01-15-2022 Miscellaneous Notes Pt notified via [facility]. Jo [place] Ma Can you please call [...] has any questions. Thank you. Leah Modi APRN.CNP documented in this encounter 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 Diagnosis Palpitations- Primary Dizziness Dizziness and giddiness Hx of syncope Other specified personal history presenting hazards to health Hypothyroidism, unspecified type at early stage state, incidental Post covid-19 condition, unspecified documented in this encounter [facility] note* Diagnosis Viral URI- Primary Acute upper respiratory infections of unspecified site documented in this encounter [facility] note* Diagnosis Anxiety with depression- Primary Nausea Nausea alone documented in this encounter [facility] note* Diagnosis Dizziness- Primary Dizziness and giddiness Palpitations Early stage of state, incidental History of hypothyroidism Personal history of other endocrine, metabolic, and immunity disorders Screening, anemia, deficiency, iron Screening for iron deficiency anemia Encounter for vitamin deficiency screening Screening for other and unspecified endocrine, nutritional, metabolic, and immunity disorders documented in this encounter [facility] note* Diagnosis with uncertain viability, single or [...] history Food insecurity documented in this encounter [facility] note* Diagnosis 17 weeks gestation of - Primary state, incidental documented in this encounter [facility] note* Diagnosis Encounter for anatomic survey- Primary 19 weeks gestation of state, incidental Obesity affecting in second trimester, unspecified obesity type documented in this encounter [facility] note* Diagnosis History of delivery, currently - Primary with history of pre-term labor 21 weeks gestation of state, incidental documented in this encounter [facility] note* Diagnosis Obesity affecting in second trimester, unspecified obesity type- Primary 21 weeks gestation of state, incidental History of depression Depression, unspecified depression type documented in this encounter [facility] note* Diagnosis Acute non-recurrent maxillary sinusitis- Primary documented in this encounter [facility] note* 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 depression in second trimester documented in this encounter [facility] note* Diagnosis History of delivery- Primary documented in this encounter [facility] note* Diagnosis Moderate mixed bipolar I disorder (HCC)- Primary Bipolar I disorder, most recent episode (or current) mixed, moderate documented in this encounter [facility] note* Diagnosis Moderate mixed bipolar I disorder (HCC)- Primary Bipolar I disorder, most recent episode (or current) mixed, moderate [facility] Diagnosis 35 weeks gestation of - Primary state, incidental Encounter for supervision of high risk in third trimester, antepartum Vaginal discharge Leukorrhea, not specified as infective Vaginal itching Pruritus of genital organs [facility] Diagnosis Vaginal yeast infection- Primary Candidiasis of vulva and vagina 36 weeks gestation of state, incidental [facility] this 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* Diagnosis 34 weeks gestation of state, incidental Encounter for supervision of high risk in third trimester, antepartum Hypothyroidism, acquired Unspecified hypothyroidism [facility] this 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 Diagnosis Polyhydramnios in third trimester complication, single or unspecified fetus [facility] Attachments The following attachments cannot be sent through Care Everywhere. * Sinusitis: Acute ([place]) documented in this encounterOhioHealthReason for referral (narrative)* Diagnostic Procedure Only (Routine) - Authorized Specialty Diagnoses / Procedures Referred By Contac t Referred To Contact [facility] Diagnoses 17 weeks gestation of Procedures OBSTETRIC ULTRASOUND WHI US PREG UTERUS AFTER 1ST TRIMEST GESTATION Nita Garcia APRN.CNM [address] [place] [address] [id number] [place] [address] Referral ID Status Reason Start Date Expiration Date Visits Requested Visits Authorized [id number] Authorized Auto-Generat ed Referral 07/29/2023 07/28/2024 1 1 * Consult, Test, Treat (Routine) - Authorized Specialty Diagnoses / Procedures Referred By Contac t Referred To Contact Diagnoses 17 weeks gestation of Procedures CONSULT TO MATERNAL MEDI OFFICE/OUTPATIENT NEW HIGH MDM 60-74 MINUTES Nita Garcia APRN.CNM [address] [place] [address] Referral ID Status Reason Start Date Expiration Date Visits Requested Visits Authorized [id number] Authorized PCP Requested Referral Auto-Generate d Referral 07/29/2023 07/28/2024 1 1 [facility] for referral (narrative)* Diagnostic Procedure Only (Routine) - Authorized Specialty Diagnoses / Procedures Referred By Contac t Referred To Contact [facility] Diagnoses History of delivery Procedures OBSTETRIC ULTRASOUND WHI US PREG UTERUS AFTER 1ST TRIMEST GESTATION Nita Garcia APRN.CNM [address] [place] [address] [facility] [address] [place] [address] Referral ID Status Reason Start Date Expiration Date Visits Requested Visits Authorized [id number] Authorized Auto-Generat ed Referral 09/23/2023 09/22/2024 1 1 [facility] for referral (narrative)* Outpatient Procedure (Routine) - Pending Review Specialty Diagnoses / Procedures Referred By Contac t Referred To Contact [facility] Diagnoses Moderate mixed bipolar I disorder (HCC) Procedures ECG COMPLETE ECG ROUTINE ECG W/LEAST 12 LDS W/I&R Maty Reyes DO [address] [place] [address] [address] Referral ID Status Reason Start Date Expiration Date Visits Requested Visits Authorized [id number] Pending Review Auto-Generat ed Referral 09/30/2023 09/22/2024 1 1 [facility] for referral (narrative)* Outpatient Procedure (Routine) - Authorized Specialty Diagnoses / Procedures [facility] Diagnoses 36 weeks gestation of Encounter for supervision of high risk in third trimester, antepartum Hypothyroidism, acquired 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, antepartum Vaginal discharge during in third trimester Maternal care due to low transverse uterine scar from previous delivery Acquired hypothyroidism Procedures NON-STRESS TEST NON-STRESS TEST Jake Ramirez MD [address] [place] [address] [address] Referral ID Status Reason Start Date Expiration Date Visits Requested Visits Authorized [id number] Authorized Auto-Generat ed Referral 12/06/2023 12/05/2024 2 1 [facility] for referral (narrative)* Diagnostic Procedure Only (Routine) - Pending Review Specialty Diagnoses / Procedures Referred By Contac t Referred To Contact [facility] Diagnoses Polyhydramnios in third trimester complication, single or unspecified fetus Procedures BIOPHYSICAL PROFILE US WHI BIOPHYSICAL PROFILE NON-STRESS TESTING Alvina Cook APRN.BATCH MAKER [address] [place] [address] [facility] [address] [place] [address] Referral ID Status Reason Start Date Expiration Date Visits Requested Visits Authorized [id number] Pending Review Auto-Generat ed Referral 12/07/2023 12/06/2024 10 1 * Diagnostic Procedure Only (Routine) - Authorized Specialty Diagnoses / Procedures Referred By Contac t Referred To Contact [facility] Diagnoses Polyhydramnios in third trimester complication, single or unspecified fetus Procedures OBSTETRIC ULTRASOUND WHI US PREG UTERUS AFTER 1ST TRIMEST GESTATION Alvina Cook APRN.CNP [address] [address] [address] [place] [place] [address] Referral ID Status Reason Start Date Expiration Date Visits Requested Visits Authorized [id number] Authorized Auto-Generat ed Referral 12/07/2023 12/06/2024 5 1 [facility] for visit Narrative* Diagnostic Procedure Only (Routine) - Closed Specialty Diagnoses / Procedures Referred By Contac t Referred To Contact [facility] Diagnoses 34 weeks gestation of Encounter for supervision of high risk in third trimester, antepartum Hypothyroidism, acquired Procedures OBSTETRIC ULTRASOUND WHI US PREG UTERUS AFTER 1ST TRIMEST GESTATION Alvina Cook APRN.CNP [address] [place] [address] [facility] [address] [place] [address] Referral ID Status Reason Start Date Expiration Date V isits Requested Visits Authorized [id number] Closed Auto-Generate d Referral 11/23/2023 11/22/[address] 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 Patient was evaluated on 07/29/19 for concern for PPROM. She had initially presented to the outpatient office on Wednesday 07/25 with complaints of fever and LOF. She was diagnosed with a UTI and started on Keflex.Symptoms did not improve so she was switched on Macrobid. On 07/29 she presented to [facility] ED with worsening suprapubic pain and bleeding. She was diagnosed with PPROM on ROM-plus test with MELY 21, and transferred to [facility] for further evaluation. On admission she was [...] Information for the patient's : Joao Saeed [[id number]] female Weight: 4 lb 0.9 oz (1.84 kg) Apgars: Information for the patient's : Joao Saeed [[id number]] One Minute : 7 Five Minute : 8 Course: Uncomplicated : Female Blood Type/Rh: B POS Antibody Screen: Antibody Screen Date Value Ref Range Status 08/02/2019 NEG NA Final Comment: Test Performed by [facility], [address] [place] [id number] Rubella: No results found for: RUBELLAIGG Contraception: no method : yes DVT ppx: none Meds: ChristopheLoboa Pushpa Home Medication Instructions SHANEKA:[id number] Printed on:08/05/19 1442 Medication Information acetaminophen (TYLENOL) [...] Follow up appointment in 4 weeks with [facility] Condition on discharge: Good and stable Discharge [...] OB doctor in {Time; 1 to 12 weeks:09682} weeks or as specified by your physician. Be sure to make and go to all appointments, and call your doctor if you are having problems. It's also a good idea to know your test results and keep a list of the medicines you take. BLEEDING Vaginal bleeding will decrease in amount over the next few weeks. Bleeding may pick up attendant and then decrease again around 7-10 days [...] of harming yourself or your . If infant will not stop crying, contact [...] hand express some milk so that the can latch on more easily or ease [...] avoid constipation you may take a mild psts-qnw-iksrbhr stool softener (such as colace) as recommended [...] Nandini Escamilla MD Family Medicine PGY-1 Pager [phone] Maternal Medicine Attending attestation: Patient was seen [...] NEG NA Final Comment: Test Performed by [facility], [address] [place] [id number] No results found for: RUBELLAIGG LABOR DELIVERY [...] s/p PLTCS 2/2 Chorio and PPROM per [facility] recomendations - Doing well, VSS - Female infant - Encourage ambulation - Postoperative Hb 10.3 [...] Primary Low Transverse Section Surgeon: Dr. Andrews Stock Chaser(s): Dr. Mata Anesthesia: spinal, Duramorph Utilized: Yes, [...] be monitored and followed by the diet tire technician. * Levar Krishnan MD - 08/01/2019 [...] Chorio 6. PPROM 7. Continue management Cx: /3 FHT: Cat II [place] Cross[place]: not tracing well A/P: 1. IOL - Chorio and PPROM. Cat II for tachycardia but overall reassuring with moderate variability and accels. Cytotec placed at this time. Febrile 101.3 @ 2100. Cx: defer FHT: Cat II [place]: not tracing well A/P: 1. IOL - Chorio and PPROM. Cat II for tachycardia but overall reassuring with moderate variability and accels. Afebrile since last note. BP's normotensive. Cytotec up at this time. Magnesium started @ 2330, no UOP recorded at this time. Cx: /-3 FHT: Cat II [place]: not tracing well, irritable A/P: 1. Cat II for tachycardia with baseline FHR 160-165. Overall reassuring w/ mod variability. Second cytotec placed at this note time. Febrile to 100.6, tylenol 650mg PO given. Cx: 3/40/-3 FHT: Cat II [place]: not tracing well A/P: 1. Cat II for rare variable deceleration. Baseline FHR 150. Ctx not tracing on toco, pt reports she has only felt 4 ctx in the last hour, and they are not painful. Third cytotec placed at this time. Per RN, afebrile on most recent temp check. 520cc UOP over last 4h. Cx:defer FHT: Cat I [place]:Not tracing well A/P: 1. IOL - PPROM [...] mg TID. Cx:defer FHP:defer FHT: Cat II [place]:irritable A/P: 1. IOL-PPROM/Chorio Third cytotec time is up. Plan to start standard pit protocol at this time. Defer cvx exam to reduce risk of infection. Currently tachy with baseline at 160-165 bpm. Maternal fever at 100.4. Tylenol given. Will recheck when ctx are regular. Cx:deferred FHP: NA FHT: Cat I [place]:q4-6min A/P: 1. IOL -PPROM/Chorio: Pit at 4cc/hr, cricket every 4-6min. Not yet uncomfortable with contractions. Will continue to titrate pitocin per protocol. Most recently afebrile. No longer tachycardic. Will recheck once more uncomfortable. Cx:defer FHT: Cat I [place]:q2-3mins A/P: 1. IOL-PPROM/Chorio: Pit @ 6 mu/min. Most recently afebrile and not tachycardic at this time. Continue to titrate pitocin per protocol. Will recheck once patient is more uncomfortable. Cx:3/40/-3 FHT: Cat I [place]:q2-6mins A/P: 1. IOL-PPROM/Chorio: Patient requesting SVE. Remains unchanged. Pit @ 12 mu/min. Patient feeling contractions but is relatively comfortable. Will continue to titrate pitocin to get contractions more regular and patient more uncomfortable. Will reassess once pitocin reaches 20. Last febrile at 1400. Tylenol was given. Not currently tachycardic. Cx: defer FHT: Cat II [place]: q2-5m A/P: 1. Cat II for intermittent [...] infection. CCM Cx: unchanged FHT: Cat I [place]: q3min A/P: 1. IOL-PPROM/chorio. SVE unchanged, pit at 10mu/min. Forebag AROMed for copious amounts of clear fluid. FHT cat I. On amp and gent. Last febrile at 0100. Vital signs otherwise normal. Cx: unchanged FHT: Cat I [place]: not tracing well A/P: 1. IOL-PPROM/chorio. SVE unchanged. Pit now at 14mu/min, will titrate per protocol. Afebrile since 0100. Discussed plan of care with RADHA Ramirez to place [facility] as we will likely need to titratepit above 20mu/min. Vital signs within normal limits Cx:defer FHT: Cat II [place]: q 3 min A/P: 1. IOL - PPROM/Chorio - Pitocin at 14 ml/Hr will titrate per protocol. Recurrent late decels for 30 minutes with moderate variability. Pt repositioned and fluid bolus given. Plan to continue conservative interventions at this time. Cx:3/40/-3 FHT: Cat II [place]: q 3 min A/P: 1. IOL - [...] IOL. Start Amp/Gent. Vtx by BSUS. SVE /, plan for cytotec augmentation. Dr. Allison updated over phone, induction will be covered by [facility]. * Marylou Aguilera RN - 07/31/2019 6:03 [...] automatically diverted the page to who is service delivery management consultant which is Dr Ortiz. Perfect serve paged sent with BP and HR. NO return call at this time. Patient continues to be asymptomatic. Educated patient on moving slowly from sit to stand and call if any feelings of being dizzy or unstable. Pt verbalized understanding * Marylou Aguilera RN - 07/31/2019 4:[address] Christensen paged through perfect Wedge Buster regarding patient BP, HR and propanolol. He [...] g Intravenous 4 times per day Jeimy Clemenet MD Stopped at 07/30/199 Followed by [START [...] 0.5 mL Intramuscular Once Cynthia Allison DO Mjsxtuv-Cjnmqk-Lwssj Pertussis (BOOSTRIX) injection 0.5 mL 0.5 mL [...] Blood Cx and Urine Cx pending at [facility]. Will obtain results today. - Procal negative. - Last febrile to 101.8 @ 2150 on 07/29. 3. Cardiac Arrhythmia - Follows with [facility]. - On Pindolol 5mg BID, continue. [...] with more than 50% of the total fusu-tr-oxxr time of the visit in counseling/coordination of care. * Melita Jernigan - 07/31/2019 5:52 AM EDT Maternal Medicine [...] per day Jeimy Clemente MD Stopped at 07/30/192338 Followed by [START ON 08/01/2019] amoxicillin (AMOXIL) [...] 0.5 mL Intramuscular Once Cynthia Allison DO Seuoerv-Drmjmp-Hqgub Pertussis (BOOSTRIX) injection 0.5 mL 0.5 mL Intramuscular Once Cynthia Allison DO Assessment/Plan: Kaitlin Saeed is a 18 y.o. female 31w4d 1. PPROM - Time of ROM unclear- patient reports leaking clear fluid Tuesday, but SSE 07/25 and 07/28 negative for ROM. SSE 07/29 with positive ROM Plus test - SSE on presentation to [facility] 07/30 positive for pooling of 30cc blood, [...] cough, congestion, N/V/diarrhea - Negative UA at [facility]- denies dysuria, urgency, frequency. Straight cath culture pending. -No fundal tenderness, tachycardia or purulent discharge. - Blood cultures and urine culture pending at [facility]. Will need to call for results - LA 0.7 at [facility]. Procal wnl. - Last febrile 101.8 on 07/29 at 2152, afebrile since admission 3. Vaginal bleeding - SVE with 30cc dark blood in the vault. 10cc clot expressed from os with valsalva on admission. - Concern for abruption given active bleeding and suprapubic pain - Anterior placenta away from os on US at [facility] - Abruption labs wnl - FHT cat [...] pending Further plan pending d/w attending. Melita Rere, MS4 07/31/2019, 5:52 AM Associated attestation - [...] Blood Cx and Urine Cx pending at [facility]. Will obtain results. - Procal pending. - [...] pending. Further plan pending d/w attending. Demond Hasuer DO 07/30/2019, 5:37 AM Associated attestation - [...] with more than 50% of the total byrw-ra-mvor time of the visit in counseling/coordination of care. * Melita Jernigan - 07/30/2019 5:32 AM EDT Maternal Medicine Service Resident Progress Note 07/30/2019 5:32 AM 07/30/2019 Hospital Day: 1 Kaitlinchirag Saeed, 18 y.o. 31w3d Patient has been [...] 07/25 and 07/28 negative for ROM. SSE 106 with positive ROM Plus test - SSE on presentation to [facility] 07/30 positive for pooling of 30cc blood, positive Nitrazine, 1 small spot of ferning with RBCs - MELY at [facility] 21.9, will repeat US today - Latency [...] cough, congestion, N/V/diarrhea - Negative UA at [facility]- denies dysuria, urgency, frequency. Straight cath culture [...] CC Education - COMMON 06/22/2023 [place] - [place] 06/22/2023 Problem Noted Date Diagnosed Date [facility] Education - [facility] 06/22/2023 [place] - [place] 06/22/2023 Problem Noted Date Diagnosed Date [facility] CC Education - COMMON 06/22/2023 [place] - [place] 06/22/2023 Problem Noted Date Diagnosed Date [facility] Education - COMMON 06/22/2023 [place] - [place] 06/22/2023 Problem Noted Date Diagnosed Date [facility] CC Education - COMMON 06/22/2023 [place] - [place] 06/22/2023 Problem Noted Date Diagnosed Date [facility] CC Education - COMMON 06/22/2023 [place] - [place] 06/22/2023 Problem Noted Date Diagnosed Date [facility] CC Education - COMMON 06/22/2023 [place] - [place] 06/22/2023 Problem Noted Date Diagnosed Date [facility] CC Education - COMMON 06/22/2023 [place] - [place] 06/22/2023 Problem Noted Date Diagnosed Date [facility] CC Education - COMMON 06/22/2023 [place] - [place] 06/22/2023 Problem Noted Date Diagnosed Date [facility] CC Education - COMMON 06/22/2023 [place] - [place] 06/22/2023 Problem Noted Date Diagnosed Date [facility] CC Education - COMMON 06/22/2023 [place] - [place] 06/22/2023 Problem Noted Date Diagnosed Date [facility] CC Education - COMMON 06/22/2023 [place] - [place] 06/22/2023 Problem Noted Date Diagnosed Date [facility] Education - [facility] 06/22/2023 [place] - [place] 06/22/2023 Problem Noted Date Diagnosed Date [facility] CC Education - [facility] 06/22/2023 [place] - [place] 06/22/2023 Problem Noted Date Diagnosed Date [facility] CC Education - [facility] 06/22/2023 Education - [place] 06/22/2023 Problem Noted Date Diagnosed Date [facility] CC Education - [facility] 06/22/2023 [place] - [place] 06/22/2023 Problem Noted Date Diagnosed Date [facility] Education - [facility] 06/22/2023 [place] - [place] 06/22/2023 Problem Noted Date Diagnosed Date [facility] Education - [facility] 06/22/2023 Education - [place] 06/22/2023 Problem Noted Date Diagnosed Date [facility] CC Education - [facility] 06/22/2023 Education - [place] 06/22/2023 Problem Noted Date Diagnosed Date [facility] CC Education - [facility] 06/22/2023 [place] - [place] 06/22/2023 Problem Noted Date Diagnosed Date [facility] CC Education - [facility] 06/22/2023 Education - [place] 06/22/2023 Problem Noted Date Diagnosed Date [facility] CC Education - [facility] 06/22/2023 [place] - [place] 06/22/2023 Problem Noted Date Diagnosed Date [facility] CC Education - [facility] 06/22/2023 [place] - [place] 06/22/2023 Reason for Referral Specialty Diagnoses / Procedures Referred By Contac t Referred To Contact Diagnoses in first trimester with history of , antepartum History of delivery, currently History of depression, currently Food insecurity Procedures PRIMARY CARE SOCIAL WORK CONSULT Pauline Saini, AMRCELA.BATCH MAKER [address] [place] [address] Adriana Almodovar MSW Referral ID Status Reason Start Date Expiration Date Visits Requested Visits Authorized [id number] Ref Not Required PCP Requested Referral 06/22/2023 09/20/2023 1 1 Specialty Diagnoses / Procedures Referred By Contac t Referred To Contact [facility] Diagnoses with uncertain viability, single or unspecified fetus Procedures OBSTETRIC ULTRASOUND WHI US PREG UTERUS AFTER 1ST TRIMEST GESTATION Pauline Saini APRN.BATCH MAKER [address] [place] [address] [facility] [address] [place] [address] Referral ID Status Reason Start Date Expiration Date Visits Requested Visits Authorized [id number] Pending Review Auto-Generat ed Referral 06/22/2023 06/21/2024 1 1 Specialty Diagnoses / Procedures Referred By Contac t Referred To Contact [facility] Diagnoses with uncertain viability, single or unspecified fetus Procedures NUCHAL TRANSLUCENCY WHI US NUCHAL TRANSLUCENCY 1ST GESTATION Pauline Saini APRN.BATCH MAKER [address] [place] [address] [facility] [address] [place] [address] Referral ID Status Reason Start Date Expiration Date V isits Requested Visits Authorized [id number] Closed Auto-Generate d Referral 06/22/2023 06/21/2024 1 1 Additional Source Comments INFORMATION SOURCE (unrecogn ized section and content) DATE CREATED AUTHOR AUTHOR'S ORGANIZ ATION 04/19/2018 [facility] DATE CREATED AUTHOR AUTHOR'S ORGANIZ ATION 04/19/2018 [facility] DATE CREATED AUTHOR AUTHOR'S ORGANIZ ATION 08/14/2019 [facility] DATE CREATED AUTHOR AUTHOR'S ORGANIZ ATION 08/19/2019 [facility] DATE CREATED AUTHOR AUTHOR'S ORGANIZ ATION 10/01/2022 [facility] DATE CREATED AUTHOR AUTHOR'S ORGANIZ ATION 04/03/2023 [facility] DATE CREATED AUTHOR AUTHOR'S ORGANIZ ATION 09/09/2023 [facility] DATE CREATED AUTHOR AUTHOR'S ORGANIZ ATION 11/11/2023 [facility] DATE CREATED AUTHOR AUTHOR'S ORGANIZ ATION 11/25/2023 [facility] DATE CREATED AUTHOR AUTHOR'S ORGANIZ ATION 12/25/2023 [facility] Reason for Visit (unrecogniz ed section and [...] Referred By Contac t Referred To Contact [facility] Diagnoses 17 weeks gestation of Procedures OBSTETRIC ULTRASOUND WHI US PREG UTERUS AFTER 1ST TRIMEST GESTATION Nita Garcia, TRACTION POWER ENGINEER.CNM [address] [place] [address] [facility] [address] [place] [address] Referral ID Status Reason Start Date Expiration Date V isits Requested Visits Authorized [id number] Closed Auto-Generate d Referral 07/29/2023 07/28/2024 1 1 Reason Comments Appointment Specialty Diagnoses / Procedures Referred By Contac t Referred To Contact [facility] Diagnoses with uncertain viability, single or unspecified fetus Procedures OBSTETRIC ULTRASOUND WHI US PREG UTERUS AFTER 1ST TRIMEST GESTATION Pauline Saini, TRACTION POWER ENGINEER.BATCH MAKER [address] [place] [address] [facility] [address] [place] [address] Referral ID Status Reason Start Date Expiration Date V isits Requested Visits Authorized [id number] Closed Auto-Generate d Referral 06/22/2023 06/21/2024 1 [...] Procedures NEW PSYC ADULT Larry Ramires MD [address] [place] [address] Maty Reyes, [address] [place] [address] Referral ID Status Reason Start Date Expiration Date V isits Requested Visits Authorized [id number] Pending Review 09/14/2023 12/13/2023 1 1 Reason Comments Bipolar Disorder Reason Comments Bipolar Disorder Specialty Diagnoses / Procedures Referred By Contac t Referred To Contact Psychiatry / ADULT PSYCHIATRY Diagnoses vv Procedures VIDEO PSYC/PSYL EST Self ReyesMaty, [address] [place] [address] Referral ID Status Reason Start Date Expiration Date V isits Requested Visits Authorized [id number] Outside PCP 10/07/2023 10/23/2024 99 99 Reason Comments OB BOWLES, dizziness Reason Onset Date Comments Care 12/02/2023 Reason Onset Date Comments Results 12/03/2023 Reason Comments Orders Reason Onset Date Comments Care 12/06/2023 Reason Comments Results Reason Onset Date Comments Care 12/14/2023 Reason Onset Date Comments Care 12/22/2023 Specialty Diagnoses / Procedures Referred By Contac t Referred To Contact [facility] Diagnoses Polyhydramnios in third trimester complication, single or unspecified fetus Procedures OBSTETRIC ULTRASOUND WHI US PREG UTERUS AFTER 1ST TRIMEST GESTATION Alvina Cook, TRACTION POWER ENGINEER.BATCH MAKER [address] [place] [address] [facility] [address] [place] [address] Referral ID Status Reason Start Date Expiration Date V isits Requested Visits Authorized [id number] Closed Auto-Generate d Referral 12/07/2023 12/06/2024 5 1 Source Comments (unrecognize d section and content) In the event this informatio n is protected by the Federal Confidentiality of Alcohol and Drug Abuse Patient Records regulations: The Federal rules restrict any use of the information to criminally investigate or prosecute any alcohol or drug abuse patient.[facility] the event this information is protected by the Federal Confidentiality of Alcohol and Drug Abuse Patient Records regulations: The Federal rules restrict any use of the information to criminally investigate or prosecute any alcohol or drug abuse patient.[facility] the event this information is protected by the Federal Confidentiality of Alcohol and Drug Abuse Patient Records regulations: The Federal rules restrict any use of the information to criminally investigate or prosecute any alcohol or drug abuse patient.[facility] the event this information is protected by the Federal Confidentiality of Alcohol and Drug Abuse Patient Records regulations: The Federal rules restrict any use of the information to criminally investigate or prosecute any alcohol or drug abuse patient.[facility] HospitalIn the event this information is protected by the Federal Confidentiality of Alcohol and Drug Abuse Patient Records regulations: The Federal rules restrict any use of the information to criminally investigate or prosecute any alcohol or drug abuse patient.[facility] HospitalIn the event this information is protected by the Federal Confidentiality of Alcohol and Drug Abuse Patient Records regulations: The Federal rules restrict any use of the information to criminally investigate or prosecute any alcohol or drug abuse patient.[facility] HospitalIn the event this information is protected by the Federal Confidentiality of Alcohol and Drug Abuse Patient Records regulations: The Federal rules restrict any use of the information to criminally investigate or prosecute any alcohol or drug abuse patient.[facility] HospitalIn the event this information is protected by the Federal Confidentiality of Alcohol and Drug Abuse Patient Records regulations: The Federal rules restrict any use of the information to criminally investigate or prosecute any alcohol or drug abuse patient.[facility] HospitalIn the event this information is protected by the Federal Confidentiality of Alcohol and Drug Abuse Patient Records regulations: The Federal rules restrict any use of the information to criminally investigate or prosecute any alcohol or drug abuse patient.[facility] HospitalIn the event this information is protected by the Federal Confidentiality of Alcohol and Drug Abuse Patient Records regulations: The Federal rules restrict any use of the information to criminally investigate or prosecute any alcohol or drug abuse patient.[facility] HospitalIn the event this information is protected by the Federal Confidentiality of Alcohol and Drug Abuse Patient Records regulations: The Federal rules restrict any use of the information to criminally investigate or prosecute any alcohol or drug abuse patient.[facility] HospitalIn the event this information is protected by the Federal Confidentiality of Alcohol and Drug Abuse Patient Records regulations: The Federal rules restrict any use of the information to criminally investigate or prosecute any alcohol or drug abuse patient.[facility] HospitalIn the event this information is protected by the Federal Confidentiality of Alcohol and Drug Abuse Patient Records regulations: The Federal rules restrict any use of the information to criminally investigate or prosecute any alcohol or drug abuse patient.[facility] HospitalIn the event this information is protected by the Federal Confidentiality of Alcohol and Drug Abuse Patient Records regulations: The Federal rules restrict any use of the information to criminally investigate or prosecute any alcohol or drug abuse patient.[facility] HospitalIn the event this information is protected by the Federal Confidentiality of Alcohol and Drug Abuse Patient Records regulations: The Federal rules restrict any use of the information to criminally investigate or prosecute any alcohol or drug abuse patient.[facility] HospitalIn the event this information is protected by the Federal Confidentiality of Alcohol and Drug Abuse Patient Records regulations: The Federal rules restrict any use of the information to criminally investigate or prosecute any alcohol or drug abuse patient.[facility] HospitalIn the event this information is protected by the Federal Confidentiality of Alcohol and Drug Abuse Patient Records regulations: The Federal rules restrict any use of the information to criminally investigate or prosecute any alcohol or drug abuse patient.[facility] HospitalIn the event this information is protected by the Federal Confidentiality of Alcohol and Drug Abuse Patient Records regulations: The Federal rules restrict any use of the information to criminally investigate or prosecute any alcohol or drug abuse patient.[facility] HospitalIn the event this information is protected by the Federal Confidentiality of Alcohol and Drug Abuse Patient Records regulations: The Federal rules restrict any use of the information to criminally investigate or prosecute any alcohol or drug abuse patient.[facility] HospitalIn the event this information is protected by the Federal Confidentiality of Alcohol and Drug Abuse Patient Records regulations: The Federal rules restrict any use of the information to criminally investigate or prosecute any alcohol or drug abuse patient.[facility] HospitalIn the event this information is protected by the Federal Confidentiality of Alcohol and Drug Abuse Patient Records regulations: The Federal rules restrict any use of the information to criminally investigate or prosecute any alcohol or drug abuse patient.[facility] HospitalIn the event this information is protected by the Federal Confidentiality of Alcohol and Drug Abuse Patient Records regulations: The Federal rules restrict any use of the information to criminally investigate or prosecute any alcohol or drug abuse patient.[facility] HospitalIn the event this information is protected by the Federal Confidentiality of Alcohol and Drug Abuse Patient Records regulations: The Federal rules restrict any use of the information to criminally investigate or prosecute any alcohol or drug abuse patient.[facility] HospitalIn the event this information is protected by the Federal Confidentiality of Alcohol and Drug Abuse Patient Records regulations: The Federal rules restrict any use of the information to criminally investigate or prosecute any alcohol or drug abuse patient.[facility] HospitalIn the event this information is protected by the Federal Confidentiality of Alcohol and Drug Abuse Patient Records regulations: The Federal rules restrict any use of the information to criminally investigate or prosecute any alcohol or drug abuse patient.[facility] HospitalIn the event this information is protected by the Federal Confidentiality of Alcohol and Drug Abuse Patient Records regulations: The Federal rules restrict any use of the information to criminally investigate or prosecute any alcohol or drug abuse patient.[facility] HospitalIn the event this information is protected by the Federal Confidentiality of Alcohol and Drug Abuse Patient Records regulations: The Federal rules restrict any use of the information to criminally investigate or prosecute any alcohol or drug abuse patient.[facility] HospitalIn the event this information is protected by the Federal Confidentiality of Alcohol and Drug Abuse Patient Records regulations: The Federal rules restrict any use of the information to criminally investigate or prosecute any alcohol or drug abuse patient.[facility] HospitalIn the event this information is protected by the Federal Confidentiality of Alcohol and Drug Abuse Patient Records regulations: The Federal rules restrict any use of the information to criminally investigate or prosecute any alcohol or drug abuse patient.[facility] HospitalIn the event this information is protected by the Federal Confidentiality of Alcohol and Drug Abuse Patient Records regulations: The Federal rules restrict any use of the information to criminally investigate or prosecute any alcohol or drug abuse patient.[facility] HospitalIn the event this information is protected by the Federal Confidentiality of Alcohol and Drug Abuse Patient Records regulations: The Federal rules restrict any use of the information to criminally investigate or prosecute any alcohol or drug abuse patient.[facility] HospitalIn the event this information is protected by the Federal Confidentiality of Alcohol and Drug Abuse Patient Records regulations: The Federal rules restrict any use of the information to criminally investigate or prosecute any alcohol or drug abuse patient.[facility] HospitalIn the event this information is protected by the Federal Confidentiality of Alcohol and Drug Abuse Patient Records regulations: The Federal rules restrict any use of the information to criminally investigate or prosecute any alcohol or drug abuse patient.[facility] HospitalIn the event this information is protected by the Federal Confidentiality of Alcohol and Drug Abuse Patient Records regulations: The Federal rules restrict any use of the information to criminally investigate or prosecute any alcohol or drug abuse patient.[facility] HospitalIn the event this information is protected by the Federal Confidentiality of Alcohol and Drug Abuse Patient Records regulations: The Federal rules restrict any use of the information to criminally investigate or prosecute any alcohol or drug abuse patient.[facility] HospitalIn the event this information is protected by the Federal Confidentiality of Alcohol and Drug Abuse Patient Records regulations: The Federal rules restrict any use of the information to criminally investigate or prosecute any alcohol or drug abuse patient.[facility] HospitalIn the event this information is protected by the Federal Confidentiality of Alcohol and Drug Abuse Patient Records regulations: The Federal rules restrict any use of the information to criminally investigate or prosecute any alcohol or drug abuse patient.[facility] HospitalIn the event this information is protected by the Federal Confidentiality of Alcohol and Drug Abuse Patient Records regulations: The Federal rules restrict any use of the information to criminally investigate or prosecute any alcohol or drug abuse patient.[facility] HospitalIn the event this information is protected by the Federal Confidentiality of Alcohol and Drug Abuse Patient Records regulations: The Federal rules restrict any use of the information to criminally investigate or prosecute any alcohol or drug abuse patient.[facility] Care Teams (unrecognized sec tion and content) Guest Request Runner Relationship Specialty Start Date End Date Larry Ramires MD [address] [place] [address] PCP - General Family Practice 09/21/21 Guest Request Runner Relationship Specialty Start Date End Date Larry Ramires MD [address] [place] [address] PCP - General Family Practice 09/21/21 Guest Request Runner Relationship Specialty Start Date End Date Larry Ramires MD [address] [place] [address] PCP - General Family Practice 09/21/21 Guest Request Runner Relationship Specialty Start Date End Date Larry Ramires MD [address] [place] [address] PCP - General Family Medicine 09/21/21 Guest Request Runner Relationship Specialty Start Date End Date Larry Ramires MD [address] [place] [address] PCP - General Family Medicine 09/21/21 Guest Request Runner Relationship Specialty Start Date End Date Larry Ramires MD [address] [place] [address] PCP - General Family Medicine 09/21/21 Guest Request Runner Relationship Specialty Start Date End Date Larry Ramires MD [address] [place] [address] PCP - General Family Medicine 09/21/21 Guest Request Runner Relationship Specialty Start Date End Date Larry Ramires MD [address] [place] [address] PCP - General Family Medicine 09/21/21 Guest Request Runner Relationship Specialty Start Date End Date Larry Ramires MD [address] [place] [address] PCP - General Family Medicine 09/21/21 Guest Request Runner Relationship Specialty Start Date End Date Larry Ramires MD [address] [place] [address] PCP - General Family Medicine 09/21/21 Guest Request Runner Relationship Specialty Start Date End Date Larry Ramires MD [address] [place] [address] PCP - General Family Medicine 09/21/21 Guest Request Runner Relationship Specialty Start Date End Date Larry Ramires MD [address] [place] [address] PCP - General Family Medicine 09/21/21 Guest Request Runner Relationship Specialty Start Date End Date Larry Ramires MD [address] [place] [address] PCP - General Family Medicine 09/21/21 Guest Request Runner Relationship Specialty Start Date End Date Larry Ramires MD [address] [place] [address] PCP - General Family Medicine 09/21/21 Guest Request Runner Relationship Specialty Start Date End Date Larry Ramires MD [address] [place] [address] PCP - General Family Medicine 09/21/21 Guest Request Runner Relationship Specialty Start Date End Date Larry Ramires MD [address] [place] [address] PCP - General Family Medicine 09/21/21 Guest Request Runner Relationship Specialty Start Date End Date Larry Ramires MD [address] [place] [address] PCP - General Family Medicine 09/21/21 Guest Request Runner Relationship Specialty Start Date End Date No, Physician [facility] PCP - General 07/01/17 Guest Request Runner Relationship Specialty Start Date End Date Larry Ramires MD [address] [place] [address] PCP - General Family Medicine 09/21/21 Guest Request Runner Relationship Specialty Start Date End Date Larry Ramires MD [address] [place] [address] PCP - General Family Medicine 09/21/21 Guest Request Runner Relationship Specialty Start Date End Date Larry Ramires MD [address] [place] [address] PCP - General Family Medicine 09/21/21 Guest Request Runner Relationship Specialty Start Date End Date Larry Ramires MD [address] [place] [address] PCP - General Family Medicine 09/21/21 Guest Request Runner Relationship Specialty Start Date End Date Larry Ramires MD [address] [place] [address] PCP - General Family Medicine 09/21/21 Guest Request Runner Relationship Specialty Start Date End Date Larry Ramires MD [address] [place] [address] PCP - General Family Medicine 09/21/21 Guest Request Runner Relationship Specialty Start Date End Date Larry Ramires MD [address] [place] [address] PCP - General Family Medicine 09/21/21 Guest Request Runner Relationship Specialty Start Date End Date Larry Ramires MD [address] [place] [address] PCP - General Family Medicine 09/21/21 Guest Request Runner Relationship Specialty Start Date End Date Larry Ramires MD [address] [place] [address] PCP - General Family Medicine 09/21/21 Guest Request Runner Relationship Specialty Start Date End Date Larry Ramires MD [address] [place] [address] PCP - General Family Medicine 09/21/21 Guest Request Runner Relationship Specialty Start Date End Date Larry Ramires MD [address] [place] [address] PCP - General Family [facility] 09/21/21 Guest Request Runner Relationship Specialty Start Date End Date Larry Ramires MD [address] [place] [address] PCP - General Family Medicine 09/21/21 Guest Request Runner Relationship Specialty Start Date End Date Larry Ramires MD [address] [place] [address] PCP - General Family Medicine 09/21/21 FOR [...] BE BASED ON THE PRIMARY CLINICAL RECORDS. [facility]. provides no warranty or guarantee of the accuracy or completeness of information in this document.
[2023-12-26] MEDS: Lactated Ringers 1,000 ML 50 ML IV (07:55)
[2023-12-26] MEDS: Oxytocin 15 Units/NS 250ml 15 UNITS/250 ML IV.SOLN 2 UNITS IV (08:13)
[2023-12-26 08:17] LABS: Absolute Lymphocyte Count 1.78 X10^3/uL (0.83-4.51); Absolute Neutrophil Count 6.3 X10^3/uL (2.0-7.7); Basophil# 0.04 X10^3/uL; Basophil% 0.4 % (0-1); Eosinophil# 0.23 X10^3/uL; Eosinophils% 2.6 % (0-5); Hematocrit 29.3 % (37-47); Hemoglobin 9.1 g/dL (12.0-15.0); Lymphocyte # 1.78 X10^3/ul (0.83-4.51); Lymphocyte % 19.8 % (19-41); Mean Corp Hgb Conc 31.1 g/dL (32-36); Mean Corpuscular Hgb 23.3 pg (27.0-32.0); Mean Corpuscular Volume 74.9 fL (81-99); Mean Platelet Vol. 11.2 fl (6.2-12.0); Monocyte% 5.6 % (0-10); NRBC Flagged by Analyzer 0 % (0-5); Neutrophil # 6.31 X10^3/uL (2.7-7.7); Neutrophil % 70.3 % (47-70); Platelet Count 189 K/mm3 (150-450); RBC Distribution Width CV 16.5 % (11.6-14.6); RBC Distribution Width SD 44.3 fl (35.1-43.9); Red Blood Count 3.91 M/mm3 (4.2-5.4)
--- NOTE | 2023-12-26 08:18 | PCM.HP.OB ---
HPI - General General Date of Admission: 12/26/23 HPI Narrative KAITLIN SAEED, is a 23 F at 39 weeks who presents for scheduled induction of labor. Patient has a history of section followed by successful VBACs. Maternal Data Information [facility] Calculator Estimated Delivery Date Method Current WG Current Estimate 01/02/24 Manual 39w 0d PFSH PFS Medical History (Updated 12/26/23 @ 08:23 by Yoon Gaytan CNM) Asthma Frequent PVCs Hypothyroidism (acquired) Palpitations Syncope and collapse (vaginal after ) Home Medications metoprolol tartrate 25 mg tablet 25 mg PO BID #30 tabs 09/29/22 [Rx Last Taken Unknown] acyclovir 400 mg tablet 400 mg PO DAILY 12/01/23 [History Last Taken 11/30/23 20:00 400 mg] duloxetine 20 mg capsule,delayed release (Cymbalta) 20 mg PO DAILY 12/01/23 [History Last Taken Unknown] famotidine 20 mg tablet mg 12/01/23 [History Last Taken 12/01/23 08:00 20 mg] lamotrigine 100 mg tablet 200 mg PO DAILY 12/01/23 [History Last Taken 12/01/23 08:00 200 mg] levothyroxine 25 mcg tablet (Euthyrox) 25 mcg PO DAILY 12/01/23 [History Last Taken 12/01/23 08:00 50 mcg] quetiapine 25 mg tablet 50 mg PO QHS 12/01/23 [History Last Taken 11/30/23 21:00 50 mg] Allergy/AdvReac Type Severity Reaction Status Date / Time No Known Allergies Allergy Verified 12/01/23 18:55 Family History Mother Heart disease Thyroid disorder Surgical History (Updated 12/26/23 @ 08:23 by Yoon Gaytan CNM) History of No history of previous surgery Social History Smoking Status: Never smoker alcohol intake: never substance use type: does not use caffeine: No History Elective abortions Hx Para 2 Spontaneous abortions Hx # Term Pregnancies Ectopic pregnancies Hx # Pregnancies Multiple births # of living children ROS Eyes Eyes: Denies blurry vision, change in vision or spots in vision ENT HEENT: Denies dizziness or headache(s) Cardiovascular Cardiovascular: Denies abdominal pain, chest pain or dyspnea Respiratory/Chest Respiratory/Chest: Denies cough, dyspnea, shortness of breath at rest or shortness of breath with exertion Gastrointestinal Gastrointestinal: Denies abdominal pain, diarrhea or vomiting Genitourinary Genitourinary: Denies change in urinary stream, difficulty urinating or dysuria Musculoskeletal Musculoskeletal: Reports none Integumentary Integumentary: Denies rash Neurologic Neurologic: Denies dizziness, headache(s), memory loss or weakness Psychiatric Psychiatric: Reports none Vital Signs Vital Signs Vital Signs: 12/26/23 07:42 12/26/23 07:42 12/26/23 07:42 Pulse Rate 93 Blood Pressure 126/60 H BP Systolic 126 BP Diastolic 60 Pulse Ox 99 Weight Weight: 238 lb 1.588 oz Body Mass Index (BMI) 38.4 Physical Exam Const alert, oriented x3 and no apparent distress General Appearance: cooperative Orientation / Consciousness: awake Exam Limitations: no limitations HEENT normocephalic Head and Scalp: normal to inspection Eyes General Eye: normal appearance of both eyes Neck full ROM and no lymphadenopathy Lymph Lymphatic: no lymphadenopathy noted Chest inspection of chest normal Resp normal respiratory effort, normal air movement and clear to auscultation bilaterally Effort and Inspection: able to speak in complete sentences and symmetric chest movement Cardio regular rate and regular rhythm GI normal to inspection, nondistended, normoactive bowel sounds Manual OB Exam: presentation cephalic Back/Spine normal ROM Extremity full ROM and no calf tenderness Skin no rashes or lesions noted General Skin Exam: no breakdown Neuro oriented x3 and CN's II-XII intact bilaterally Psych mental status grossly normal and thought process normal Labs Labs Labs: Blood Type B POSITIVE Antibody Screen NEGATIVE Hct 29.3 % (37-47) L Hgb 9.1 g/dL (12.0-15.0) L Obstetrics Ultrasound Syphilis Total Ab Non-reactive VZV IgG Antibody 369 index (Immune >165) Rubella IgG Antibody Reactive (Nonreactive) Hep Bs Antigen Non-Reactive (Nonreactive) Hepatitis C Antibody Non-Reactive (Nonreactive) Hepatitis C Ab (EIA) <0.1 s/co ratio (0.0-0.9) Chlamydia DNA (YEIMY) Negative (Negative) N.gonorrhoeae DNA (YEIMY) Negative (Negative) HIV 1&2 Antibody Non-Reactive (Nonreactive) Glucose 1 Hr 50 gm 93 mg/dL (70-140) Group B Strep DNA Negative (Negative) Rhogam given: No Miscellaneous Test Assessment & Plan (1) Frequent PVCs: (2) Palpitations: (3) Asthma: (4) Hypothyroidism (acquired): (5) Previous section complicating : (6) Hx successful (vaginal after ), currently : (7) : COMMENT: nine days of life s/p HSV (8) Encounter for induction of labor: (9) Polyhydramnios affecting : PLAN: Plan TAUS confirms vertex CE /-2- ballotable Admit to labor and delivery Routine labs Start IV and run fluids per orders GBS negative Desires unmedicated Start Pitocin IV at 2 mu/min and increase per orders Dr. Michelle notified of plan of care and is collaborating physician
[2023-12-26 09:10] LABS: Syphilis Antibodies Non-reactive
--- NOTE | 2023-12-26 12:48 | PCM.PN.CNM ---
Subjective Subjective Patient seen at bedside. Sitting on birthing ball. Denies any pain with contractions. Requesting AROM. Objective Data Objective Data Vital Signs: Vital Signs Temp Pulse BP Pulse Ox 97.5 F L 90 128/74 H 99 12/26/23 11:52 12/26/23 12:46 12/26/23 12:46 12/26/23 12:46 Weight: 238 lb 1.588 oz Body Mass Index (BMI) 38.4 Intake & Output: Intake and Output for Last 24 Hours 12/24/23 12/25/23 12/26/23 23:59 23:59 23:59 Intake Total 259.23 / 259.23 Output Total 1100 / 1100 Balance -840.77 / -840.77 Lab / Micro Data 12/26/23 07:55 Labs: Laboratory Results - last 24 hr 12/26/23 07:55: WBC 9.0, RBC 3.91 L, Hgb 9.1 L, Hct 29.3 L, MCV 74.9 L, MCH 23.3 L, MCHC 31.1 L, RDW Std Deviation 44.3 H, RDW Coeff of [place] 16.5 H, Plt Count 189, MPV 11.2, Immature Gran % (Auto) 1.300 H, Neut % (Auto) 70.3 H, Lymph % (Auto) 19.8, Bibb % (Auto) 5.6, Eos % (Auto) 2.6, Baso % (Auto) 0.4, Absolute Neuts (auto) 6.3, Absolute Lymphs (auto) 1.78, Nucleated RBC % 0, Syphilis Total Ab Non-reactive, Blood Type B POSITIVE, Antibody Screen NEGATIVE Assessment & Plan (1) Polyhydramnios affecting : (2) Encounter for induction of labor: (3) Hx successful (vaginal after ), currently : (4) Previous section complicating : (5) Hypothyroidism (acquired): COMMENT: noted when first , not currently taking synthroid (6) Asthma: (7) Palpitations: (8) Frequent PVCs: (9) : COMMENT: nine days of life s/p HSV (10) 39 weeks gestation of : PLAN: Plan CE- 4.5/70/-2 AROM for copius amount of clear fluid Pitocin at 14 mu/min- continue to increase per policy Cat. 1 tracing Anticipate Desires unmedicated labor and delivery
--- NOTE | 2023-12-26 15:22 | PN.OBGYN_ITS ---
Subjective Subjective Patient seen at bedside. Standing at bedside swaying hips. Denies any pain. Objective Data Objective Data Vital Signs: Vital Signs Temp Pulse Resp BP Pulse Ox 97.6 F L 83 18 117/62 99 12/26/23 15:05 12/26/23 15:05 12/26/23 15:05 12/26/23 15:05 12/26/23 14:02 Weight: 238 lb 1.588 oz Body Mass Index (BMI) 38.4 Intake & Output: Intake and Output for Last 24 Hours 12/24/23 12/25/23 12/26/23 23:59 23:59 23:59 Intake Total 259.23 / 259.23 Output Total 1450 / 1450 Balance -1190.77 / -1190.77 Lab / Micro Data 12/26/23 07:55 Labs: Laboratory Results - last 24 hr 12/26/23 07:55: WBC 9.0, RBC 3.91 L, Hgb 9.1 L, Hct 29.3 L, MCV 74.9 L, MCH 23.3 L, MCHC 31.1 L, RDW Std Deviation 44.3 H, RDW Coeff of [place] 16.5 H, Plt Count 189, MPV 11.2, Immature Gran % (Auto) 1.300 H, Neut % (Auto) 70.3 H, Lymph % (Auto) 19.8, [place] % (Auto) 5.6, Eos % (Auto) 2.6, Baso % (Auto) 0.4, Absolute Neuts (auto) 6.3, Absolute Lymphs (auto) 1.78, Nucleated RBC % 0, Syphilis Total Ab Non-reactive, Blood Type B POSITIVE, Antibody Screen NEGATIVE Assessment & Plan (1) 39 weeks gestation of : (2) Polyhydramnios affecting : (3) Encounter for induction of labor: (4) Hx successful (vaginal after ), currently : (5) Previous section complicating : (6) Frequent PVCs: (7) Palpitations: (8) Asthma: (9) Hypothyroidism (acquired): COMMENT: noted when first , not currently taking synthroid PLAN: Plan CE 5.5/80/-2 Pitocin at 16 mu/min Cat. 1 tracing, Contractions every 2-3 minuets and palpate mild in between
--- NOTE | 2023-12-26 16:00 | NURSING ---
IBCLC at bedside to round with patient. IBCLC noted medications in patient's chart, including: acyclovir (L2), proventil (L1), duloxetine (L3), famotidine (L1), iron (L2), lamotrigine (L2), levothyroxine (L1), and quetiapine (L2). Upon looking up medication's in [employer] Medication and Mother's Milk 2022 resource, education shared with patient about watching for irritability, sleepiness, poor feeding, poor weight gain, and rash while nursing or providing breastmilk on these medications. Information shared that for mothers taking Lamictal, recommendation is to have infant tested between 1 and 3 months old to ensure safe plasma levels, and to discontinue if infant gets a head to toe rash and contact PCP as this can be a sign of Lamictal toxicity. Patient reports that she plans on stopping Lamictal and Quetiapine, and does not plan to take them anymore while . IBCLC encouraged patient to have this discussion with PCP or OBGYN as not all medications can be stopped abruptly. Patient also reports she has not been taking her levothyroxine, as her levels have been normal, and I only took it for 2 weeks once and then stopped and never took it again. IBCLC shared information that if patient has a history of lower supply, it is important to keep TSH levels within normal limits. Patient verbalized understanding of all education given, and plans to breastfeed and pump once infant is born. IBCLC informed family that outpatient visits are available 7 days a week, and telehealth visits are available Tuesday through most weeks. Patient reports she breastfeed and provided breastmilk for all of her children, and that nursing usually goes well but once she begins pumping her supply drops and doesn't respond to the pump. IBCLC encouraged frequent nursing and hand expression after delivery to help with stimulation.
[2023-12-26] MEDS: Lidocaine 1% (20 ml mdv) 20 ML Vial INFILT (17:58)
[2023-12-26] MEDS: Oxytocin 15 Units/NS 250ml 15 UNITS/250 ML IV.SOLN 83 UNITS IV (18:06)
--- NOTE | 2023-12-26 18:33 | EX.PCM.OBRPT ---
Assessment & Plan (1) Laceration, obstetrical, first degree: (2) Bipolar 1 disorder: (3) Asthma: (4) Palpitations: (5) Frequent PVCs: (6) : COMMENT: nine days of life s/p HSV (7) Hypothyroidism (acquired): COMMENT: noted when first , not currently taking synthroid Maternal Data Information [facility] Calculator Estimated Delivery Date Method Current WG Current Estimate 01/02/24 Manual 39w 0d Vaginal Delivery Maternal Presentation Maternal Presentation: Medically Indicated Induction Maternal Presentation: Patient is a for induction of labor for polyhydramnios and history of successful . Type of Induction: Pitocin and Amniotomy Medical Reason for Induction: Maternal Medical Condition: list: Operative Information Date of Procedure: 12/26/23 Pre-Operative Diagnosis: Term gestation, Induction of labor, Polyhydramnios Post-Operative Diagnosis: , Live male Surgery / Procedure Performed: Type of Anesthesia: Local with 1% Lidocaine Estimated Blood Loss: 200 Time of Delivery: 17:38 Findings Description of Procedure: Patient feeling urge to push. Found to be complete dilation and +2 station. With minimal maternal effort, head delivered followed immediately by posterior shoulder and remainder of infant body. Vigorous male placed on maternal abdomen and attended to by nursing staff. Pitocin IV started for active management of the third stage of labor. 3 vessel cord clamped and cut by FOB after delay and no longer pulsating. Infant placed immediately skin to skin with patient. First degree laceration repaired in usual fashion after local anesthesia placed. Hemostasis obtained. EBL [address] APGARS 8/9. Dr. Michelle on unit and aware of delivery. Presentation: Vertex Amniotic Membrane Rupture Type: Artificial Time of Membrane Rupture: 1241 Amniotic Fluid Description: Clear Placental Delivery Description: Spontaneous Placenta Disposition: [facility] Cord Vessel Description: 3 Vessels Cord Entanglement: None Infant A Gender: Male (1 minute): 8 (5 minute): 9 Delayed Cord Clamping: Yes Post Vaginal Delivery Medications Given After Delivery: IV Pitocin Episiotomy Description: None Laceration: 1st degree Complication Complications: None
[2023-12-26] MEDS: Naproxen 500 MG Tablet PO (19:16)
[2023-12-27 04:39] VITALS: BP 105/52; PULSE 73; RESP 16
[2023-12-27] MEDS: Naproxen 500 MG Tablet PO ×2 (06:10→12:35)
[2023-12-27 07:40] VITALS: BP 127/47; PULSE 92; RESP 16; TEMP 37.2; O2SAT 98
--- NOTE | 2023-12-27 07:45 | DS.PCM_ITS ---
Providers Date of Admission: 12/26/23 Primary Care Physician: Dr. Eusebio Ramires MD Reason For Visit: VAGINAL DELIVERY Diagnosis Discharge Diagnosis (1) Laceration, obstetrical, first degree: Status: Acute Code(s): O70.0 - First degree perineal laceration during delivery (2) Bipolar 1 disorder: Status: Acute Code(s): F31.9 - Bipolar disorder, unspecified (3) Asthma: Status: Chronic Code(s): J45.909 - Unspecified asthma, uncomplicated (4) Palpitations: Status: Chronic Code(s): R00.2 - Palpitations (5) Frequent PVCs: Status: Chronic Code(s): I49.3 - Ventricular premature depolarization (6) : Status: Acute Code(s): P96.9 - Condition originating in the period, unspecified (7) Hypothyroidism (acquired): Status: Chronic Code(s): E03.9 - Hypothyroidism, unspecified Plan PPD 1 support Routine care Follow up with Psychologist on Desires discharge home later tonight Follow up in office next week Medications at Discharge Home Medications duloxetine 20 mg capsule,delayed release (Cymbalta) 30 mg PO DAILY depression/bipolar 12/01/23 famotidine 20 mg tablet 20 mg PO Q12H heartburn indigestion 12/01/23 lamotrigine 100 mg tablet 200 mg PO DAILY depression and bipolar 12/01/23 levothyroxine 25 mcg tablet (Euthyrox) 25 mcg PO DAILY hypothyroid 12/01/23 quetiapine 25 mg tablet 50 mg PO QHS sleep and mood stabilization 12/01/23 albuterol sulfate 90 mcg/actuation aerosol inhaler (Proventil HFA) 2 inh inhalation Q4H PRN shortness of breath or wheezing 12/26/23 ferrous sulfate 325 mg (65 mg iron) tablet (FeroSul) 325 mg PO DAILY anemia 12/26/23 Hospital Course Operations None Procedures None Summary of Care Provided Minutes Spent on Discharge: 15 Hospital Course: Patient had . Hospital course was uneventful. Physical Exam Const alert and no apparent distress General Appearance: cooperative and comfortable Exam Limitations: no limitations HEENT normocephalic Eyes General Eye: normal appearance of both eyes Neck full ROM General: normal visual inspection Chest Chest: symmetrical chest wall rise Resp normal respiratory effort and normal air movement Effort and Inspection: symmetric chest movement Auscultation: clear to auscultation bilaterally Cardio regular rate and regular rhythm GI normal to inspection, nondistended, normoactive bowel sounds Back/Spine normal ROM Extremity full ROM and no calf tenderness General Extremity: normal exam except as noted Skin no rashes or lesions noted Neuro CN's II-XII intact bilaterally Psych mental status grossly normal Weight / BMI Weight Weight: 238 lb 1.588 oz Body Mass Index (BMI) 38.4 ABG / Lab / Microbiology Data 12/26/23 07:55 Laboratory: Laboratory Results - last 24 hr 12/26/23 07:55: WBC 9.0, RBC 3.91 L, Hgb 9.1 L, Hct 29.3 L, MCV 74.9 L, MCH 23.3 L, MCHC 31.1 L, RDW Std Deviation 44.3 H, RDW Coeff of [place] 16.5 H, Plt Count 189, MPV 11.2, Immature Gran % (Auto) 1.300 H, Neut % (Auto) 70.3 H, Lymph % (Auto) 19.8, [place] % (Auto) 5.6, Eos % (Auto) 2.6, Baso % (Auto) 0.4, Absolute Neuts (auto) 6.3, Absolute Lymphs (auto) 1.78, Nucleated RBC % 0, Syphilis Total Ab Non-reactive, Blood Type B POSITIVE, Antibody Screen NEGATIVE D/C Instructions Discharge Diet: No restrictions Discharge Activity: Return to Normal Activity, May Shower and May Take a Tub Bath May resume sexual activity in: 4-6 weeks Weight Bearing Status: Weight bearing as tolerated Call your doctor if you observe: Fever of 101 or Higher, Inability to urinate, Using more than 1 pad per hour, Shortness of breath, Dizziness, Swelling in the ankles, Chest pain, Calf discomfort and Uncontrolled pain Please Follow Up With: Yoon Gaytan CNM When: Within 10 days Meaningful Use Info Meaningful Use Diagnoses (Choose all that apply): None applicable Discharge Plan Admission Admit Date/Time: 12/26/23 06:55 Primary Reason for Your Visit: Labor and Delivery Attending Provider: Yoon Gaytan Primary Care Provider: Eusebio Ramires Discharge Orders/Prescriptions Prescriptions: Continued famotidine 20 mg tablet 20 mg PO Q12H lamotrigine 100 mg tablet 200 mg PO DAILY quetiapine 25 mg tablet 50 mg PO QHS levothyroxine [Euthyrox] 25 mcg tablet 25 mcg PO DAILY duloxetine [Cymbalta] 20 mg capsule,delayed release(DR/EC) 30 mg PO DAILY ferrous sulfate [FeroSul] 325 mg (65 mg iron) tablet 325 mg PO DAILY albuterol sulfate [Proventil HFA] 90 mcg/actuation HFA aerosol inhaler 2 inh inhalation Q4H PRN (Reason: shortness of breath or wheezing) Discontinued acyclovir 400 mg tablet 400 mg PO DAILY duloxetine 30 mg capsule,delayed release(DR/EC) 30 mg PO DAILY Referrals / Follow Up: Yoon Gaytan CNM [Med Staff - [facility]] - Eusebio Ramires MD [Primary Care Provider] - Disposition Disposition (needs filled in before D/C Order can be placed): Home, Self Care
[2023-12-27 12:30] VITALS: BP 133/62; PULSE 97; RESP 16; TEMP 36.6; O2SAT 97
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
[2023-12-27 16:00] VITALS: BP 135/66; PULSE 92; RESP 16; TEMP 36.8; O2SAT 100
[2023-12-27 20:25] VITALS: BP 128/52; PULSE 78; RESP 16; TEMP 36.7; O2SAT 99
== END 2023-12-27 20:45 | disposition home or self-care (01) | DRG 560 ==
PROVIDERS: Obstetrics & Gynecology; Admitting Provider Advanced Practice Midwife; PCP Family Medicine; Visit Provider Advanced Practice Midwife
DX: O40.3XX0 Polyhydramnios, third trimester, not applicable or unspecified (principal); Z37.0 Single live birth; O99.42 Diseases of the circulatory system complicating childbirth; F31.9 Bipolar disorder, unspecified; O99.344 Other mental disorders complicating childbirth; O34.219 Maternal care for unspecified type scar from previous cesarean delivery; I49.3 Ventricular premature depolarization; O70.0 First degree perineal laceration during delivery; Z3A.39 39 weeks gestation of pregnancy; Z79.899 Other long term (current) drug therapy; Z59.7 Insufficient social insurance and welfare support; Z63.6 Dependent relative needing care at home; Z63.79 Other stressful life events affecting family and household; Z91.410 Personal history of adult physical and sexual abuse; Z87.59 Personal history of other complications of pregnancy, childbirth and the puerperium
CPT/HCPCS: 59025; 59050; 76815; 85025; 86780; 86850; 86900; 86901; 99221; J7120; G0378

== ENCOUNTER 2024-02-24 17:40 | Emergency (ER) | payer MEDICAID, SELFPAY ==
[2024-02-24 17:40] VITALS: BP 132/78; PULSE 78; RESP 16; TEMP 36.4; O2SAT 98; BMI 34.8
--- NOTE | 2024-02-24 18:00 | RAD_ITS ---
STUDY: X-RAY - LEFT ANKLE REASON FOR EXAM: Female, 23 years old. INJURY TECHNIQUE: view(s) of the ankle. COMPARISON: None. FINDINGS: Normal visualized distal tibia and fibula. Normal medial and lateral malleoli. Normal tibiotalar articulation and ankle mortise. Normal visualized talus and calcaneus. The visualized subtalar, talonavicular, calcaneocuboid and tarsal articulations are normal. The soft tissue structures are unremarkable. RAD/Ankle min 3 Views IMPRESSION: Normal x-ray examination of the ankle. If concern for Achilles tendon injury ultrasound or MRI recommended for further evaluation Electronically Signed: Stef Valdes MD at 18:37 EDT ,
--- NOTE | 2024-02-24 18:35 | EDS_ITS ---
HPI <LISSET Rae - Last Filed: 02/24/24 19:10> History of Present Illness Chief Complaint: Lower Extremity Injury Narrative Narrative: Patient presenting due to left ankle pain after missing a step and inverting her left ankle while walking down the stairs this evening. She is able to ambulate. She denies any other injury. PFSH <LISSET Rae - Last Filed: 02/24/24 19:10> [facility] Medical History 39 weeks gestation of Asthma Bipolar 1 disorder Depression Frequent PVCs History of pre-term labor History of premature rupture of membranes (PPROM) Hypothyroidism (acquired) Laceration, obstetrical, first degree Palpitations Polyhydramnios depression Syncope and collapse (vaginal after ) Home Medications duloxetine 20 mg capsule,delayed release (Cymbalta) 30 mg PO DAILY depression/bipolar 12/01/23 [History Last Taken 12/26/23 05:30 30 mg] famotidine 20 mg tablet 20 mg PO Q12H heartburn indigestion 12/01/23 [History Last Taken 12/25/23 20:00 20 mg] lamotrigine 100 mg tablet 200 mg PO DAILY depression and bipolar 12/01/23 [History Last Taken 12/26/23 05:30 200 mg] levothyroxine 25 mcg tablet (Euthyrox) 25 mcg PO DAILY hypothyroid 12/01/23 [History Last Taken 12/01/23 08:00 50 mcg] quetiapine 25 mg tablet 50 mg PO QHS sleep and mood stabilization 12/01/23 [History Last Taken 12/25/23 10:30 50 mg] albuterol sulfate 90 mcg/actuation aerosol inhaler (Proventil HFA) 2 inh inhalation Q4H PRN shortness of breath or wheezing 12/26/23 [History Last Taken Unknown] ferrous sulfate 325 mg (65 mg iron) tablet (FeroSul) 325 mg PO DAILY anemia 12/26/23 [History Last Taken 12/25/23 20:00 325 mg] Allergy/AdvReac Type Severity Reaction Status Date / Time No Known Allergies Allergy Verified 02/24/24 17:40 Family History Mother Heart disease Thyroid disorder Surgical History History of Hx successful (vaginal after ), currently No history of previous surgery Previous section complicating Social History Smoking Status: Never smoker alcohol intake: never substance use type: does not use caffeine: No ROS <LISSET Rae - Last Filed: 02/24/24 19:10> ROS ED Constitutional Constitutional ED: Denies chills or fever(s) Cardiovascular Cardiovascular: Denies chest pain Respiratory/Chest Respiratory/Chest: Denies cough or dyspnea Gastrointestinal Gastrointestinal: Denies abdominal pain, nausea or vomiting Musculoskeletal Musculoskeletal: Reports arthralgias; Denies myalgias Integumentary Denies Abrasions Neurologic Neurologic: Denies paresthesias EXAM <LISSET Rae - Last Filed: 02/24/24 19:10> Physical Exam Const Vital Signs: 02/24/24 17:40 Temperature 97.6 F L Temperature Source Temporal Pulse Rate 78 Respiratory Rate 16 Blood Pressure 132/78 H Blood Pressure Mean 96 Pulse Ox 98 Oxygen Delivery Method Room Air Positive well nourished, well developed and no apparent distress General Appearance ED: well developed HEENT Reports normocephalic and head/scalp atraumatic Mouth ED: Yes moist mucous membranes normal Eyes PERRL and EOMs intact bilaterally Neck full ROM and supple Chest Wall inspection of chest normal Resp normal respiratory effort and clear to auscultation bilaterally Cardio regular rate and regular rhythm GI soft to palpation, non-tender, non-distended and no masses Back/Spine normal ROM and normal to inspection Extremity normal to inspection and full ROM Extremity Narrative: Pain to the left posterior talofibular ligament, no pain to the lateral or medial malleolus. No pain along the Achilles tendon. Left DP pulse 2+, good capillary refill, sensation intact. No proximal fibular tenderness. Neuro oriented x3, CN's II-XII intact bilaterally, moves all extremities, no focal motor deficits and no sensory deficits noted Sensorium / Orientation: awake and alert Psych mental status grossly normal and thought process normal Skin no rashes or lesions noted and no wounds <Dr. Bryan Tang MD - Last Filed: 02/24/24 19:00> Physical Exam Const Vital Signs: 02/24/24 17:40 Temperature 97.6 F L Temperature Source Temporal Pulse Rate 78 Respiratory Rate 16 Blood Pressure 132/78 H Blood Pressure Mean 96 Pulse Ox 98 Oxygen Delivery Method Room Air [facility] <LISSET Rae - Last Filed: 02/24/24 19:10> [facility] Narrative Medical decision making narrative: Patient presenting due to pain to her left ankle. Her pain is along the left posterior talofibular ligament, x-ray of the left ankle was obtained via nursing protocol orders. I did offer analgesia, she declines. She is able to ambulate. X-ray negative for fracture. She will be put in a Aircast. RICE instructions discussed. She can alternate Tylenol and ibuprofen as needed for pain. She will be discharged in stable condition. Radiography X-Ray: Read by ED Physician Diagnostic Testing: Clinical Impression(s) from Imaging Studies Ankle X-Ray 02/24/24 18:00 IMPRESSION: Normal x-ray examination of the ankle. If concern for Achilles tendon injury ultrasound or MRI recommended for further evaluation Electronically Signed: Stef Valdes MD at 18:37 EDT , <Dr. Bryan Tang MD - Last Filed: 02/24/24 19:00> [facility] Radiography Diagnostic Testing: Clinical Impression(s) from Imaging Studies Ankle X-Ray 02/24/24 18:00 IMPRESSION: Normal x-ray examination of the ankle. If concern for Achilles tendon injury ultrasound or MRI recommended for further evaluation Electronically Signed: Stef Valdes MD at 18:37 EDT , Treatment and Re-Evaluation Narrative: I have personally performed a face to face assessment of the patient and have reviewed the AMBROCIO Note. I performed a substantive portion of the visit including all aspects of the following. My delacruz findings include: History is accidentally twisted left ankle while going upstairs when it slipped. Able to bear weight. Pain outside of the left ankle and the posterior. Exam is tender left malleolus laterally, but not the medial 1, stable ankle joint, nontender base of the fifth metatarsal and proximal fibula. Medical Decison Making three-view x-ray series of the left ankle negative on my interpretation radiology in agreement. Will give the patient an Aircast and an Sheldon wrap, the latter for use in her work boots, and light duty for tomorrow. Other additions or changes: [None] Discharge Plan Triage Chief Complaint: Lower Extremity Injury ED Midlevel Provider: Sylvie Walsh ED Provider: Bryan Tang Dx/Rx/DC Orders Clinical Impression: Left ankle sprain Instructions: ED Ankle Sprain (Adult) Prescriptions: No Action famotidine 20 mg tablet 20 mg PO Q12H lamotrigine 100 mg tablet 200 mg PO DAILY quetiapine 25 mg tablet 50 mg PO QHS levothyroxine [Euthyrox] 25 mcg tablet 25 mcg PO DAILY duloxetine [Cymbalta] 20 mg capsule,delayed release(DR/EC) 30 mg PO DAILY ferrous sulfate [FeroSul] 325 mg (65 mg iron) tablet 325 mg PO DAILY albuterol sulfate [Proventil HFA] 90 mcg/actuation HFA aerosol inhaler 2 inh inhalation Q4H PRN (Reason: shortness of breath or wheezing) Stand Alone Forms: ED Work / School Excuse Primary Care Provider: Eusebio Ramires Referrals: Eusebio Ramires MD [Primary Care Provider] - 10-14 Days if not better Disposition Disposition: Home, Self Care
[2024-02-24 19:28] VITALS: BP 128/76; PULSE 75; RESP 18; TEMP 36.4; O2SAT 98
== END 2024-02-24 19:20 | disposition home or self-care (01) ==
PROVIDERS: Emergency Provider Emergency Medicine; PCP Family Medicine; Visit Provider Emergency Medicine
DX: S93.402A Sprain of unspecified ligament of left ankle, initial encounter (principal); X58.XXXA Exposure to other specified factors, initial encounter
CPT/HCPCS: 73610; 99283

== ENCOUNTER 2024-09-17 15:39 | Emergency (ER) | payer MEDICAID, SELFPAY ==
[2024-09-17 15:40] VITALS: BP 124/51; PULSE 90; RESP 18; TEMP 37.1; O2SAT 99; BMI 33.7
--- NOTE | 2024-09-17 15:52 | ED.RN ---
Dr. Tang bedside
--- NOTE | 2024-09-17 16:00 | RAD_ITS ---
STUDY: X-RAY CHEST REASON FOR EXAM: Female, 23 years old. Cough, syncope TECHNIQUE: Frontal and lateral views of the chest. COMPARISON: None. FINDINGS: The lungs are clear and expanded. There is no demonstrated pleural abnormality. Normal size heart. Normal mediastinum and alejandra. Normal visualized pulmonary arteries. Normal visualized aortic arch and descending thoracic aorta. Normal visualized thoracic spine. Normal visualized ribs, clavicles, and shoulders. There is no demonstrated abnormality of the visualized soft tissue structures of the upper abdomen. RAD/Chest PA and Lateral IMPRESSION: Normal x-ray examination of the chest. Electronically Signed: Massimo Mcintosh MD at 18:42 EST ,
--- NOTE | 2024-09-17 16:00 | EKG12_ITS ---
Test Reason : SYNCOPE Blood Pressure : */* mmHG Vent. Rate : 77 BPM Atrial Rate : 77 BPM P-R Int : 160 ms QRS Dur : 76 ms QT Int : 382 ms P-R-T Axes : -6 51 6 degrees QTcB Int : 432 ms Sinus rhythm with occasional Premature ventricular complexes Otherwise normal ECG Confirmed by Henry Navarrete ([id number]), web content editor AYLA AGUERO ([id number]) on 09/18/2024 10:41:04 AM Referred By: Bryan Tang Confirmed By: Henry Navarrete
--- NOTE | 2024-09-17 16:01 | EDS_ITS ---
HPI History of Present Illness Chief Complaint: Syncope Informant: patient Narrative Narrative: Patient had a syncopal episode in shower today. Not a hot shower. It was preceded by lightheadedness/feeling faint. She has been having orthostatic symptoms for the past week, and this has been a recurrent issue for her. She states typically she feels lightheaded/faint about once a week, she has a near syncopal episode about once every couple of months, she currently is 19 weeks with her seventh baby and states this past week has been worse. When this occurs at work, she typically is cold, not overheated. She has been well- hydrated, has noted no nausea or vomiting or bleeding from anywhere. Feeling the baby move off and on as usual. No abdominal pain, cramping associated with this. Sometimes she feels like she cannot catch her breath when she is feeling lightheaded but at no other times. She denies any leg edema. She has had a cold for the past week or so, with cough, congestion, and some headaches. She denies taking any new medicines for this. She is on none of her old medications right now, saying that her mental health issues have been very stable when she is doing well. She denies any history of DVT or PE, and does not think she has ever been tested for PE for any of these episodes, but states that these episodes have been explored and the etiology is unknown; she states she has seen cardiology used to see Dr. Logan, they ruled out POTS, she was having palpitations and PVCs and they put her on a beta-jaime but that did not help anything. She denies any long travel or immobilization recently. [facility] Medical History Bipolar 1 disorder Laceration, obstetrical, first degree 39 weeks gestation of History of premature rupture of membranes (PPROM) History of pre-term labor Polyhydramnios depression Depression (vaginal after ) Frequent PVCs Palpitations Hypothyroidism (acquired) Asthma Syncope and collapse Allergy/AdvReac Type Severity Reaction Status Date / Time No Known Allergies Allergy Verified 09/17/24 15:40 Family History Mother Heart disease Thyroid disorder Surgical History History of Hx successful (vaginal after ), currently No history of previous surgery Previous section complicating Social History Smoking Status: Never smoker alcohol intake: never substance use type: does not use caffeine: No ROS ROS ED Constitutional Constitutional ED: Denies chills or fever(s) Eyes Eyes: Denies change in vision or diplopia ENT ENT ED: Reports headache(s) and nasal congestion; Denies rhinorrhea or sore throat Cardiovascular Cardiovascular: Reports lightheadedness and syncope; Denies chest pain or palpitations Respiratory/Chest Respiratory/Chest: Reports cough; Denies dyspnea Gastrointestinal Gastrointestinal: Denies abdominal pain, diarrhea, nausea or vomiting Genitourinary Genitourinary ED: Denies dysuria or hematuria Musculoskeletal Musculoskeletal: Denies back pain or neck pain Integumentary Denies abscess or rash Neurologic Neurologic: Reports headache(s); Denies paresthesias or weakness Psychiatric Psychiatric: Denies anxiety or suicidal thoughts EXAM Physical Exam Const Vital Signs: 09/17/24 15:40 09/17/24 15:52 09/17/24 16:02 Temperature 98.7 F Temperature Source Oral Pulse Rate 90 Pulse Rate [Lying] Pulse Rate [Sitting (for 1 minute prior to obtaining)] Pulse Rate [Standing (for 1 minute prior to obtaining)] Respiratory Rate 18 Respiratory Effort Normal Respiratory Pattern Normal Blood Pressure 124/51 H Blood Pressure [Lying] Blood Pressure [Sitting (for 1 minute prior to obtaining)] Blood Pressure [Standing (for 1 minute prior to obtaining)] Blood Pressure Mean 75 Blood Pressure Mean [Lying] Blood Pressure Mean [Sitting (for 1 minute prior to obtaining)] Blood Pressure Mean [Standing (for 1 minute prior to obtaining)] Pulse Ox 99 Oxygen Delivery Method Room Air Room Air 09/17/24 16:35 Temperature Temperature Source Pulse Rate Pulse Rate [Lying] 78 Pulse Rate [Sitting (for 1 minute prior to obtaining)] 79 Pulse Rate [Standing (for 1 minute prior to obtaining)] 88 Respiratory Rate Respiratory Effort Respiratory Pattern Blood Pressure Blood Pressure [Lying] 118/49 L Blood Pressure [Sitting (for 1 minute prior to obtaining)] 119/53 L Blood Pressure [Standing (for 1 minute prior to obtaining)] 119/52 L Blood Pressure Mean Blood Pressure Mean [Lying] 72 Blood Pressure Mean [Sitting (for 1 minute prior to obtaining)] 75 Blood Pressure Mean [Standing (for 1 minute prior to obtaining)] 74 Pulse Ox Oxygen Delivery Method Positive well nourished and well developed General Appearance ED: well developed and NAD HEENT Reports moist mucous membranes normocephalic and atraumatic Eyes PERRL and EOMs intact bilaterally Neck full ROM and supple Chest Wall inspection of chest normal and palpation of chest normal Resp normal respiratory effort and clear to auscultation bilaterally Effort and Inspection: able to speak in complete sentences Cardio regular rate, regular rhythm and no murmurs Rate: Negative for bradycardia or tachycardic GI non-tender GI Narrative: Distended to about the umbilicus consistent with secondary measure Auscultation: normoactive bowel sounds Palpation: soft Back/Spine no CVA tenderness General Back: other FROM Extremity normal to inspection General Extremety ED: Negative for edema, pulses abnormal or tenderness General Extremity: Negative for edema or pulses abnormal Neuro oriented x3, CN's II-XII intact bilaterally and no sensory deficits noted Sensorium / Orientation: awake and alert Motor Exam: strength 5/5 throughout Skin no rashes or lesions noted and no wounds MDM MDM MDM Narrative Medical decision making narrative: Performed orthostatics prior to giving her some IV fluids, they were negative and she did not have symptoms. Given this I added a D-dimer to her labs to evaluate for the possibility of PE given her and the fact she states she has never been evaluated for this that she knows of. I did review past imaging, there is no prior CTA, and there is no prior D-dimer measurement. Her D-dimer returned within normal limits, ruling out DVT and PE. Her other blood testing is all normal along with a troponin that is less than 3, so a second 1 will not be necessary. Two-view chest x-ray on my interpretation is normal showing no acute pneumonia. At this time her vital signs are normal she is asymptomatic, heart tones were 160, blood pressure is normal, 120/51 in triage, 119/52 on reevaluation, and comfortable letting her go home. I recommend following up with cardiology. She states she has done probably for Holter monitors in the past and other than PVCs I did not see anything, she has not had a tilt table test yet because she states she has been every single year for the past 7 years. Lab Data Attestation: I reviewed the patient's lab results. Labs: Laboratory Results - last 24 hr 09/17/24 16:15 WBC 7.3 RBC 4.25 Hgb 11.8 L Hct 35.2 L MCV 82.8 MCH 27.8 MCHC 33.5 RDW Std Deviation 43.7 RDW Coeff of [place] 14.6 Plt Count TNP MPV 11.7 Immature Gran % (Auto) 0.400 Neut % (Auto) 71.9 H Lymph % (Auto) 17.6 L [place] % (Auto) 7.1 Eos % (Auto) 2.6 Baso % (Auto) 0.4 Absolute Neuts (auto) 5.2 Absolute Lymphs (auto) 1.28 Nucleated RBC % 0 Platelet Estimate MOD DEC RBC Morphology NORM C+C Anisocytosis RARE D-Dimer Quant (PE/DVT) 0.34 Sodium 139 Potassium 3.5 Chloride 108 H Carbon Dioxide 24.0 Anion Gap 7 BUN 8 Creatinine 0.52 L Estim Creat Clear Calc 191.90 Est GFR (MDRD) Af Amer 186 Est GFR (MDRD) Non-Af 153 BUN/Creatinine Ratio 15.5 Glucose 79 Calcium 9.0 Troponin I High Sens < 3 L Rhythm Strip Rhythm Strip: Sinus Rhythm Rate: 77 Ectopy: PVC(s) EKG Initial EKG: Attestation: I personally reviewed and interpreted this EKG as follows: Interpretation: Sinus Rhythm and No Acute Injury Pattern Comments: Nml axis & intervals; nml EKG except for PVC Discharge Plan Triage Chief Complaint: Syncope ED Provider: Bryan Tang Dx/Rx/DC Orders Clinical Impression: Recurrent syncope, Instructions: ED Fainting, Uncertain Cause Stand Alone Forms: ED Work / School Excuse Primary Care Provider: Eusebio Ramires Referrals: Eusebio Ramires MD [Primary Care Provider] - Henry Navarrete MD [Med Staff - Active Staff] - As soon as possible (Or first available primer assembler) Print Language: Bangladeshi Disposition Disposition: Home, Self Care
[2024-09-17 16:35] VITALS: BP 118/49; BP 119/52; BP 119/53; PULSE 78; PULSE 79; PULSE 88
[2024-09-17 16:38] LABS: Absolute Lymphocyte Count 1.28 X10^3/uL (0.83-4.51); Absolute Neutrophil Count 5.2 X10^3/uL (2.0-7.7); Basophil# 0.03 X10^3/uL; Basophil% 0.4 % (0-1); Eosinophil# 0.19 X10^3/uL; Eosinophils% 2.6 % (0-5); Hematocrit 35.2 % (37-47); Hemoglobin 11.8 g/dL (12.0-15.0); Lymphocyte # 1.28 X10^3/ul (0.83-4.51); Lymphocyte % 17.6 % (19-41); Mean Corp Hgb Conc 33.5 g/dL (32-36); Mean Corpuscular Hgb 27.8 pg (27.0-32.0); Mean Corpuscular Volume 82.8 fL (81-99); Mean Platelet Vol. 11.7 fl (6.2-12.0); Monocyte# 0.52 X10^3/uL; Monocyte% 7.1 % (0-10); NRBC Flagged by Analyzer 0 % (0-5); Neutrophil # 5.24 X10^3/uL (2.7-7.7); Neutrophil % 71.9 % (47-70); POSITIVE COUNT YES; RBC Distribution Width CV 14.6 % (11.6-14.6); RBC Distribution Width SD 43.7 fl (35.1-43.9); Red Blood Count 4.25 M/mm3 (4.2-5.4); White Blood Count 7.3 K/mm3 (4.4-11.0)
[2024-09-17 16:48] LABS: D-Dimer Quantitative (DVT/PE) 0.34 FEU/ug/m (0.27-0.49)
[2024-09-17] MEDS: 0.9% Normal Saline (500mL Bag) 500 ML 999 ML IV (16:50)
[2024-09-17 16:57] LABS: Anion Gap 7 (5-15); BUN 8 mg/dL (7-18); BUN/Creat Ratio 15.5 RATIO (10-20); Chloride 108 mmol/L (98-107); Creatinine, Serum 0.52 mg/dL (0.55-1.02); EST Glomerular Filtration Rate 153 mL/min (>60); Est Glom Filt Rate - Afr Amer 186 mL/min (>60); Glucose 79 mg/dL (74-106); Potassium 3.5 mmol/L (3.5-5.1); Sodium Level 139 mmol/L (136-145); Troponin-I HS (w/2H Reflex) < 3 pg/mL (3.0-54.0)
[2024-09-17 17:16] LABS: Differential Indicated SCAN CRITERIA MET
[2024-09-17 17:18] LABS: Anisocytosis RARE; Platelet Estimate MOD DEC (ADEQ); Red Cell Morphology NORM C+C NORMAL (NORM C&C)
[2024-09-17 17:33] VITALS: BP 124/51; PULSE 90; RESP 18; TEMP 37.1; O2SAT 99
[2024-09-17 18:25] LABS: Reflex Troponin-HS? (from REC) Y
== END 2024-09-17 17:35 | disposition home or self-care (01) ==
PROVIDERS: Emergency Provider Emergency Medicine; PCP Family Medicine; Referring Provider Emergency Medicine; Visit Provider Emergency Medicine
DX: O99.891 Other specified diseases and conditions complicating pregnancy (principal); F31.9 Bipolar disorder, unspecified; R55 Syncope and collapse; O99.412 Diseases of the circulatory system complicating pregnancy, second trimester; I49.3 Ventricular premature depolarization; R05.9 Cough, unspecified; R09.81 Nasal congestion; R51.9 Headache, unspecified; O99.342 Other mental disorders complicating pregnancy, second trimester; Z3A.19 19 weeks gestation of pregnancy
CPT/HCPCS: 71046; 80048; 84484; 85025; 85379; 93005; 96360; 99285; J7040; A4216

== ENCOUNTER → 2024-10-30 | Outpatient (CLI) | payer MEDICAID, SELFPAY ==
[2024-10-30 15:06] LABS: Anion Gap 5 (5-15); BUN 8 mg/dL (7-18); BUN/Creat Ratio 12.3 RATIO (10-20); Calcium,Total 8.8 mg/dL (8.5-10.1); Chloride 106 mmol/L (98-107); Creatinine, Serum 0.65 mg/dL (0.55-1.02); EST Glomerular Filtration Rate 117 mL/min (>60); Est Glom Filt Rate - Afr Amer 142 mL/min (>60); Glucose 83 mg/dL (74-106); Potassium 3.8 mmol/L (3.5-5.1); Sodium Level 136 mmol/L (136-145)
== END | disposition home or self-care (01) ==
LOC: LAB 14:00
PROVIDERS: PCP Family Medicine; Referring Provider Physician Assistant Medical; Visit Provider Physician Assistant Medical
DX: R55 Syncope and collapse (principal); R00.2 Palpitations
CPT/HCPCS: 36415; 80048; 83735

== ENCOUNTER → 2024-11-05 | Outpatient (CLI) | payer MEDICAID, SELFPAY | END | disposition home or self-care (01) | LOC: PSN 07:47 | PROVIDERS: PCP Family Medicine; Referring Provider Physician Assistant Medical; Visit Provider Physician Assistant Medical | DX: R55 Syncope and collapse (principal); R00.2 Palpitations | CPT/HCPCS: 93225; 93226 ==

== ENCOUNTER → 2024-11-12 | Outpatient (CLI) | payer MEDICAID, SELFPAY ==
--- NOTE | 2024-11-12 13:13 | ECHOD_ITS ---
Reason For Study: ARRHYTHMIA Procedure This was a 2D Doppler, Color Flow transthoracic echocardiogram. Exam performed in department. Left Ventricle Normal LV size. Left ventricular systolic function is normal. The left ventricular ejection fraction is 60 %. No regional wall motion abnormalities noted. Right Ventricle Normal RV size. Normal systolic function. Atria Normal left atrium. Normal right atrium. Mitral Valve Normal mitral valve. Tricuspid Valve Normal tricuspid valve. Aortic Valve Trisinus/trileaflet aortic valve. Pulmonic Valve Normal pulmonic valve. Great Vessels Normal aortic root. The pulmonary artery is normal size. Inferior vena cava collapse with respiration. Pericardium/Pleural No pericardial effusion. MMode/2D Measurements & Calculations LVIDd: 4.9 cm IVSd: 1.0 cm LVOT diam: 2.1 cm LVIDs: 2.9 cm LVPWd: 0.96 cm LVOT area: 3.4 cm2 RVDd: 3.8 cm FS: 39.5 % asc Aorta Diam: 2.8 cm LAV(MOD-bp): 59.6 ml LVAd ap4: 32.9 cm2 LAV(MOD-bp) Indexed: 28.9 ml/m2 LVLd ap4: 8.4 cm LAV(MOD-sp2): 55.7 ml EDV(MOD-sp4): 105.0 ml LAV(MOD-sp4): 61.0 ml EDV(sp4-el): 109.6 ml LVAs ap4: 18.7 cm2 LVLs ap4: 6.9 cm ESV(MOD-sp4): 42.5 ml ESV(sp4-el): 43.1 ml EF(MOD-sp4): 59.5 % EF(sp4-el): 60.7 % LVAd ap2: 32.6 cm2 SV(MOD-sp4): 62.5 ml SV(MOD-sp2): 57.5 ml LVLd ap2: 8.6 cm SI(MOD-sp4): 30.3 ml/m2 SI(MOD-sp2): 27.9 ml/m2 EDV(MOD-sp2): 102.1 ml EDV(sp2-el): 105.2 ml LVAs ap2: 19.0 cm2 LVLs ap2: 6.9 cm ESV(MOD-sp2): 44.6 ml ESV(sp2-el): 44.6 ml EF(MOD-sp2): 56.3 % SV(sp4-el): 66.5 ml Ao sinus diam: 2.[address] Junction: 2.2 cm LA dimension(2D): 4.1 cm LA A4 area: 19.9 cm2 RA A4 area: 12.4 cm2 TAPSE: 2.3 cm Time Measurements MV dec time: 0.17 sec Doppler Measurements & Calculations MV E max leonel: 84.0 cm/sec Lat Peak E' Leonel: 22.2 cm/sec Med Peak E' Leonel: 14.1 cm/sec MV A max leonel: 69.8 cm/sec E/E' lat: 3.8 E/E' med: 6.0 MV E/A: 1.2 MV dec slope: 495.2 cm/sec2 Ao V2 max: 166.5 cm/sec LV V1 max: 111.6 cm/sec Ao max P.1 mmHg LV V1 max P.0 mmHg Ao V2 mean: 117.5 cm/sec LV V1 mean P.8 mmHg Ao mean P.3 mmHg LV V1 mean: 79.3 cm/sec Ao V2 VTI: 33.9 cm LV V1 VTI: 22.0 cm AV (velocity ratio): 0.65 YANET(I,D): 2.2 cm2 YANET(V,D): 2.3 cm2 SV(LVOT): 75.3 ml PA V2 max: 105.9 cm/sec ECHO/Echo Complete Interpretation Summary Normal LV size. Left ventricular systolic function is normal. The left ventricular ejection fraction is 60 %. Structurally normal valves. Ordering Physician: Radha Hi Referring Physician: MD Ike Eusebio Performed By: Yoon Casey, ANA
== END | disposition home or self-care (01) ==
LOC: CVS 13:13
PROVIDERS: PCP Family Medicine; Referring Provider Physician Assistant Medical; Visit Provider Physician Assistant Medical
DX: R55 Syncope and collapse (principal); R00.2 Palpitations
CPT/HCPCS: 93306

== ENCOUNTER 2024-11-22 09:58 | Emergency (ER) | payer MEDICAID, SELFPAY ==
[2024-11-22 09:59] VITALS: BP 124/62; PULSE 108; RESP 16; TEMP 36.4; O2SAT 99
[2024-11-22 10:09] VITALS: BMI 36.7
--- NOTE | 2024-11-22 10:36 | EKG12_ITS ---
Test Reason : Blood Pressure : */* mmHG Vent. Rate : 91 BPM Atrial Rate : 91 BPM P-R Int : 160 ms QRS Dur : 76 ms QT Int : 356 ms P-R-T Axes : -10 74 23 degrees QTcB Int : 437 ms Sinus rhythm with occasional Premature ventricular complexes Otherwise normal ECG Confirmed by GRETCHEN MURRAY, MISTY ([id number]), sound editor KYLIE EWING ([id number]) on 11/26/2024 7:08:52 AM Referred By: Confirmed By: MISTY GODINEZ MD
--- NOTE | 2024-11-22 10:37 | EX.ED.DYSGE1 ---
HPI History of Present Illness Chief Complaint: Dizziness Informant: patient Narrative Narrative: 24-year-old female is 29 weeks , she states that she follows with cardiology because of a 15% PVC burden and she feels palpitations all the time. She also has been feeling lightheaded every day, every morning. 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 She had similar numbers at home this morning before work. She is feeling better now that she is resting. She has been feeling the baby move. She denies any recent illness, vomiting, diarrhea. She is drinking fluids. She states she is scheduled for an EP consultation because of all of the PVCs, she states she was told by her vehicle glass technician that her heart is structurally normal. She has a headache this morning which she states she has most mornings. She states that she has been having no vision problems except for when she is feeling near syncopal, and she denies any leg pain or edema. 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 Palpitations Hypothyroidism (acquired) Asthma Syncope and collapse Allergy/AdvReac Type Severity Reaction Status Date / Time No Known Allergies Allergy Verified 11/22/24 10:04 Family History Mother Heart disease Thyroid disorder Surgical History History of Hx successful (vaginal after ), currently No history of previous surgery Previous section complicating Social History Smoking Status: Never smoker alcohol intake: never substance use type: does not use caffeine: No ROS ROS ED Constitutional Constitutional ED: Denies chills or fever(s) Eyes Eyes: Denies blurry vision, change in vision or diplopia ENT ENT ED: Denies rhinorrhea or sore throat Cardiovascular Cardiovascular: Reports lightheadedness and palpitations; Denies chest pain, leg edema or syncope Respiratory/Chest Respiratory/Chest: Reports dyspnea on exertion; Denies cough Gastrointestinal Gastrointestinal: Denies abdominal pain, diarrhea, nausea or vomiting Genitourinary Genitourinary ED: Denies dysuria or hematuria Musculoskeletal Musculoskeletal: Denies back pain or neck pain Integumentary Denies abscess or rash Neurologic Neurologic: Reports headache(s); Denies paresthesias or weakness EXAM Physical Exam Const Vital Signs: 11/22/24 09:59 11/22/24 10:42 11/22/24 12:01 Temperature 97.6 F L Temperature Source Temporal Pulse Rate 108 H 96 Pulse Rate [Lying] 95 Pulse Rate [Sitting (for 1 minute prior to obtaining)] 110 H Pulse Rate [Standing (for 1 minute prior to obtaining)] 108 H Respiratory Rate 16 Blood Pressure 124/62 H 101/69 Blood Pressure [Lying] 110/51 L Blood Pressure [Sitting (for 1 minute prior to obtaining)] 101/45 L Blood Pressure [Standing (for 1 minute prior to obtaining)] 80/47 L Blood Pressure Mean 82 79 Blood Pressure Mean [Lying] 70 Blood Pressure Mean [Sitting (for 1 minute prior to obtaining)] 63 Blood Pressure Mean [Standing (for 1 minute prior to obtaining)] 58 Pulse Ox 99 99 Oxygen Delivery Method Room Air Room Air 11/22/24 12:45 Temperature Temperature Source Pulse Rate Pulse Rate [Lying] 93 Pulse Rate [Sitting (for 1 minute prior to obtaining)] Pulse Rate [Standing (for 1 minute prior to obtaining)] 105 H Respiratory Rate Blood Pressure Blood Pressure [Lying] 96/37 L Blood Pressure [Sitting (for 1 minute prior to obtaining)] 102/43 L Blood Pressure [Standing (for 1 minute prior to obtaining)] 96/33 L Blood Pressure Mean Blood Pressure Mean [Lying] 56 Blood Pressure Mean [Sitting (for 1 minute prior to obtaining)] 62 Blood Pressure Mean [Standing (for 1 minute prior to obtaining)] 54 Pulse Ox Oxygen Delivery Method Positive well nourished and well developed General Appearance ED: well developed and NAD HEENT Reports moist mucous membranes normocephalic and atraumatic Eyes PERRL and EOMs intact bilaterally Neck full ROM and supple Resp normal respiratory effort and clear to auscultation bilaterally Cardio regular rate, regular rhythm and no murmurs Rate: Negative for bradycardia or tachycardic GI non-tender GI Narrative: Abdomen distended above the umbilicus consistent with her trimester , benign abdomen Auscultation: normoactive bowel sounds Palpation: soft Back/Spine no CVA tenderness General Back: other FROM Extremity normal to inspection General Extremety ED: Negative for edema, pulses abnormal or tenderness General Extremity: Negative for edema or pulses abnormal Neuro oriented x3, CN's II-XII intact bilaterally and no sensory deficits noted Neuro Narrative: Conversive in full sentences. No respiratory distress. Sensorium / Orientation: awake and alert Motor Exam: strength 5/5 throughout Skin no rashes or lesions noted and no wounds MDM MDM MDM Narrative Medical decision making narrative: Patient is not tachycardic here. To me being , I am not concerned about her numbers. Mild resting tachycardia as normal during , blood pressure supposed to go lower, and her MAP is normal on all of these measurements. I question the measurement of her respiratory rate at 96 unless she was timed for 2 seconds while she was hyperventilating. She is well-appearing now and not tachycardic, with heart rate on my estimation 80s-90s. I do not think this is a pulmonary embolus, especially since his symptoms have been chronic and she does not have out of proportion tachycardia when she rests, nor does she have hypoxemia or anywhere close with her oxygenation at 99% on room air. My suspicion is that she needs to drink more fluids, and this may or may not be complicated by her having frequent PVCs. I am putting her on a monitor obtain an EKG, she has a history of iron deficiency anemia so I will check her hemoglobin because she certainly could be more anemic since she should be anyway during , and check orthostatics prior to giving her a liter of fluids. Patient's hemoglobin is 9.7, although this is low and lower than where she was in August, she is in her third trimester, and this is not low enough to require emergent intervention and I do not think it is responsible for her symptoms. Consistent with this, her orthostatics are positive with her systolic dropping 30 points when she stood up and feeling lightheaded. She also developed some mild tachycardia with this in the 110 range, but not a major change from the 95 that she was while lying down. Also consistent with orthostatic cause, she felt better after only half of a liter of IV fluids was finished. Her EKG is normal except for PVC which she has has not infrequently on the monitor. She will finish the rest of the IV fluids and then be discharged to follow-up with her OB at [facility]. Lab Data Attestation: I reviewed the patient's lab results. Labs: Laboratory Results - last 24 hr 11/22/24 11/22/24 10:55 11:50 WBC 5.7 RBC 3.64 L Hgb 9.7 L Hct 29.7 L MCV 81.6 MCH 26.6 L MCHC 32.7 RDW Std Deviation 40.3 RDW Coeff of [place] 13.8 Plt Count Immature Gran % (Auto) 0.700 Neut % (Auto) 81.1 H Lymph % (Auto) 6.6 L [place] % (Auto) 11.1 H Eos % (Auto) 0.3 Baso % (Auto) 0.2 Absolute Neuts (auto) 4.7 Absolute Lymphs (auto) 0.38 L Nucleated RBC % 0 Diff Path Review May foll Platelet Estimate MKD DEC Sodium 138 Potassium 3.5 Chloride 108 H Carbon Dioxide 22.0 Anion Gap 8 BUN 5 L Creatinine 0.61 Estim Creat Clear Calc 169.57 Est GFR (MDRD) Af Amer 151 Est GFR (MDRD) Non-Af 125 BUN/Creatinine Ratio 8.1 L Glucose 83 Calcium 8.6 Rhythm Strip Rhythm Strip: Sinus Rhythm Rate: 95 Ectopy: PVC(s) EKG Initial EKG: Attestation: I personally reviewed and interpreted this EKG as follows: Interpretation: Sinus Rhythm (With PVC) and No Acute Injury Pattern Comments: Nml axis & intervals; nml EKG Discharge Plan Triage Chief Complaint: Dizziness ED Provider: Bryan Tang Dx/Rx/DC Orders Clinical Impression: Orthostasis, PVC (premature ventricular contraction), Anemia complicating , third trimester Instructions: Orthostatic Hypotension Primary Care Provider: Eusebio Ramires Referrals: rosa spence [Other] - As soon as possible Activity Restrictions/Additional Instructions: Try to drink plenty of fluids. Print Language: Japanese Disposition Disposition: Home, Self Care
[2024-11-22 10:42] VITALS: BP 101/45; BP 110/51; BP 80/47; PULSE 108; PULSE 110; PULSE 95
[2024-11-22] MEDS: 0.9% Normal Saline (1000mL) 1,000 ML 999 ML IV (11:00)
[2024-11-22 11:11] LABS: Absolute Lymphocyte Count 0.38 X10^3/uL (0.83-4.51); Absolute Neutrophil Count 4.7 X10^3/uL (2.0-7.7); Basophil# 0.01 X10^3/uL; Basophil% 0.2 % (0-1); Eosinophil# 0.02 X10^3/uL; Eosinophils% 0.3 % (0-5); Hematocrit 29.7 % (37-47); Hemoglobin 9.7 g/dL (12.0-15.0); Lymphocyte # 0.38 X10^3/ul (0.83-4.51); Lymphocyte % 6.6 % (19-41); Mean Corp Hgb Conc 32.7 g/dL (32-36); Mean Corpuscular Hgb 26.6 pg (27.0-32.0); Mean Corpuscular Volume 81.6 fL (81-99); Monocyte# 0.64 X10^3/uL; Monocyte% 11.1 % (0-10); NRBC Flagged by Analyzer 0 % (0-5); Neutrophil # 4.65 X10^3/uL (2.7-7.7); Neutrophil % 81.1 % (47-70); RBC Distribution Width CV 13.8 % (11.6-14.6); RBC Distribution Width SD 40.3 fl (35.1-43.9); Red Blood Count 3.64 M/mm3 (4.2-5.4); White Blood Count 5.7 K/mm3 (4.4-11.0)
[2024-11-22 11:44] LABS: Platelet Estimate MKD DEC (ADEQ)
[2024-11-22 12:01] VITALS: BP 101/69; PULSE 96; O2SAT 99
[2024-11-22 12:23] LABS: Anion Gap 8 (5-15); BUN 5 mg/dL (7-18); BUN/Creat Ratio 8.1 RATIO (10-20); Calcium,Total 8.6 mg/dL (8.5-10.1); Chloride 108 mmol/L (98-107); Creatinine, Serum 0.61 mg/dL (0.55-1.02); EST Glomerular Filtration Rate 125 mL/min (>60); Est Glom Filt Rate - Afr Amer 151 mL/min (>60); Estimated Creatinine Clearance 169.57 ml/min; Glucose 83 mg/dL (74-106); Potassium 3.5 mmol/L (3.5-5.1); Sodium Level 138 mmol/L (136-145)
[2024-11-22 12:45] VITALS: BP 102/43; BP 96/33; BP 96/37; PULSE 105; PULSE 93
[2024-11-22 13:42] VITALS: BP 107/49; PULSE 87; RESP 16; TEMP 36.6; O2SAT 100
[2024-11-23 15:03] LABS: Pathologist Review Reviewed
== END 2024-11-22 13:44 | disposition home or self-care (01) ==
PROVIDERS: Emergency Provider Emergency Medicine; PCP Family Medicine; Visit Provider Emergency Medicine
DX: O99.891 Other specified diseases and conditions complicating pregnancy (principal); F31.9 Bipolar disorder, unspecified; O99.413 Diseases of the circulatory system complicating pregnancy, third trimester; R42 Dizziness and giddiness; I49.3 Ventricular premature depolarization; O99.343 Other mental disorders complicating pregnancy, third trimester; O99.013 Anemia complicating pregnancy, third trimester; D50.9 Iron deficiency anemia, unspecified; Z3A.29 29 weeks gestation of pregnancy
CPT/HCPCS: 80048; 85025; 93005; 96360; 96361; 99285

== ENCOUNTER 2025-01-24 20:25 | Inpatient (IN) | payer MEDICAID, SELFPAY ==
[2025-01-24 19:42] VITALS: BMI 37.7
[2025-01-24 19:47] VITALS: BP 132/63; PULSE 85; RESP 16; TEMP 36.7; O2SAT 98
--- NOTE | 2025-01-24 20:17 | NURSING ---
ROM collected for rule out SROM.
[2025-01-24 20:23] LABS: ROM Internal Control Test YES-OK TO RESULT pt. (Internal QC)
[2025-01-24 20:25] LABS: ROM Patient Test POSITIVE (Negative); Record Kit Lot#, ROM+ K3294
--- NOTE | 2025-01-24 20:29 | PCM.HP.OB ---
HPI - General General Date of Admission: 01/24/25 Date of Service: 01/24/25 Chief Complaint: LOF HPI Narrative KAITLIN SAEED, is a 24 F who presents leaking fluid. Clear. Positive ROM. GBS negative. Previous x 4. 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 Palpitations Hypothyroidism (acquired) Asthma Syncope and collapse Home Medications ?Medication ?Instructions ?Recorded ?Last Taken ?Type famotidine 20 mg tablet (Acid 20 mg PO DAILY 01/24/25 01/23/25 21:39 History Controller) ferrous sulfate 325 mg (65 mg 325 mg PO BID 01/24/25 01/24/25 08:00 History iron) tablet (Feosol) fluticasone propionate 50 1 spray intranasal DAILY PRN 01/24/25 01/24/25 08:39 History mcg/actuation nasal allergy symptoms spray,suspension (Allergy Relief (fluticasone)) vit no.95-ferrous 1 tab PO DAILY 01/24/25 01/24/25 08:00 History fumarate 28 mg-folic acid 800 mcg tablet () valacyclovir 500 mg tablet 500 mg PO DAILY see provid 01/24/25 01/24/25 08:38 History (Valtrex) Allergy/AdvReac Type Severity Reaction Status Date / Time No Known Allergies Allergy Verified 01/24/25 19:36 Family History Mother Heart disease Thyroid disorder Surgical History Hx successful (vaginal after ), currently Previous section complicating History of No history of previous surgery Social History Smoking Status: Never smoker alcohol intake: never substance use type: does not use caffeine: No History 7 Elective abortions Hx Para 5 Spontaneous abortions Hx # Term Pregnancies Ectopic pregnancies Hx # Pregnancies Multiple births # of living children NST FHR Rate Baby A Baseline: 140 Variability:: Moderate Accelerations:: 15 x 15 Decelerations:: None NST Reactive:: Yes FHR Category:: Category I ROS Constitutional Constitutional: Denies fatigue, fever(s) or malaise Eyes Eyes: Denies change in vision ENT HEENT: Denies dizziness or headache(s) Cardiovascular Cardiovascular: Denies chest pain, dyspnea or lightheadedness Respiratory/Chest Respiratory/Chest: Denies cough or dyspnea Gastrointestinal Gastrointestinal: Denies change in bowel habits Genitourinary Genitourinary: Denies burning urination or genital lesions Integumentary Integumentary: Denies rash Neurologic Neurologic: Denies confusion, dizziness, headache(s), numbness or weakness Vital Signs Vital Signs Vital Signs: 01/24/25 19:47 01/24/25 19:47 01/24/25 19:47 Temperature Temperature Source Temporal Pulse Rate 85 Respiratory Rate Blood Pressure 132/63 H BP Systolic 132 BP Diastolic 63 Pulse Ox 01/24/25 19:47 01/24/25 19:47 01/24/25 19:47 Temperature 98.0 F Temperature Source Pulse Rate Respiratory Rate 16 Blood Pressure BP Systolic BP Diastolic Pulse Ox 98 Weight Weight: 106 kg Body Mass Index (BMI) 37.7 Physical Exam Const alert and no apparent distress General Appearance: cooperative HEENT normocephalic Resp normal respiratory effort Cardio regular rate GI soft to palpation GI Narrative: gravid, nontender, appropriate for gestational age Extremity no calf tenderness General Extremity: edema Skin no wounds Rashes: No rashes noted Psych activity/motor behavior normal Labs Labs Labs: Blood Type B POSITIVE Antibody Screen NEGATIVE Hct 29.7 % (37-47) L Hgb 9.7 g/dL (12.0-15.0) L Obstetrics Ultrasound Syphilis Total Ab Non-reactive VZV IgG Antibody 369 index (Immune >165) Rubella IgG Antibody Reactive (Nonreactive) Hep Bs Antigen Non-Reactive (Nonreactive) Hepatitis C Antibody Non-Reactive (Nonreactive) Hepatitis C Ab (EIA) <0.1 s/co ratio (0.0-0.9) Chlamydia DNA (YEIMY) Negative (Negative) N.gonorrhoeae DNA (YEIMY) Negative (Negative) HIV 1&2 Antibody Non-Reactive (Nonreactive) Glucose 1 Hr 50 gm 93 mg/dL (70-140) Group B Strep DNA Negative (Negative) Rhogam given: No Miscellaneous Test Assessment & Plan (1) PROM (premature rupture of membranes): QUALIFIERS: PROM onset of labor timing: onset of labor within 24 hours of rupture PROM gestational age: full term Qualified Code(s): O42.02 - Full-term premature rupture of membranes, onset of labor within 24 hours of rupture (2) 37 weeks gestation of : PLAN: Plan Pitocin per protocol
[2025-01-24] MEDS: Lactated Ringers 1,000 ML 50 ML IV (20:55)
[2025-01-24 21:04] LABS: Absolute Lymphocyte Count 1.63 X10^3/uL (0.83-4.51); Absolute Neutrophil Count 9.3 X10^3/uL (2.0-7.7); Basophil# 0.03 X10^3/uL; Basophil% 0.3 % (0-1); Eosinophil# 0.09 X10^3/uL; Eosinophils% 0.8 % (0-5); Hemoglobin 11.2 g/dL (12.0-15.0); Lymphocyte # 1.63 X10^3/ul (0.83-4.51); Lymphocyte % 13.8 % (19-41); Mean Corp Hgb Conc 32.9 g/dL (32-36); Mean Corpuscular Volume 81.9 fL (81-99); Monocyte# 0.74 X10^3/uL; Monocyte% 6.2 % (0-10); NRBC Flagged by Analyzer 0 % (0-5); Neutrophil # 9.27 X10^3/uL (2.7-7.7); Neutrophil % 78.1 % (47-70); POSITIVE COUNT YES; RBC Distribution Width CV 19.9 % (11.6-14.6); RBC Distribution Width SD 58.5 fl (35.1-43.9); Red Blood Count 4.15 M/mm3 (4.2-5.4); White Blood Count 11.9 K/mm3 (4.4-11.0)
[2025-01-24] MEDS: Oxytocin 15 Units/NS 250ml 15 UNITS/250 ML IV.SOLN 2 UNITS IV (21:07)
[2025-01-24 21:34] LABS: Differential Indicated SCAN CRITERIA MET; Platelet Estimate ADEQUATE (ADEQ)
[2025-01-24 21:35] LABS: Platelet Morphology CLUMPED
[2025-01-24 21:50] LABS: Syphilis Antibodies Nonreactive (Nonreactive)
[2025-01-24 21:55] VITALS: BP 126/60; PULSE 88; RESP 16; TEMP 36.8; O2SAT 99
[2025-01-24 22:55] VITALS: BP 123/58; PULSE 84; RESP 16; TEMP 36.7; O2SAT 98
[2025-01-24] MEDS: Famotidine 20 MG Tablet PO (22:56)
[2025-01-24] MEDS: Fluticasone 0.05% 1 SPRAY NASAL.SRY NASAL (22:58)
[2025-01-24 23:02] LABS: Platelet Count 138 K/mm3 (150-450)
[2025-01-24 23:53] VITALS: PULSE 110; O2SAT 100
[2025-01-24 23:54] VITALS: BP 129/59; PULSE 81
[2025-01-24 23:55] VITALS: RESP 16; TEMP 36.7
[2025-01-25] VITALS (20 sets, daily range): BP systolic 113–126; BP diastolic 54–71; PULSE 70–96; RESP 16–18; TEMP 36.1–37.1; O2SAT 98–100
--- NOTE | 2025-01-25 01:18 | EX.PCM.OBVAG ---
Assessment & Plan (1) (spontaneous vaginal delivery): Maternal Data Information Final [facility]: 02/09/25 Gestational age: 37+6 Vaginal Delivery Maternal Presentation Maternal Presentation: Spontaneous Rupture of Membranes Type of Induction: Pitocin Vaginal Delivery Information Procedure Performed: Spontaneous Vaginal Delivery Surgeon/Practitioner: Laura Jorge Date of Procedure: 01/25/25 Pre-Procedure Diagnosis: PROM Post-Procedure Diagnosis: Type of anesthesia: None Estimated Blood Loss: 100 cc Time of Delivery: 01:00 Findings Description of procedure: Presented with SROM at 1450. Pitocin augmentation over 4 hours. Quickly progressed to complete and pushed through 2 contractions to deliver BRANDEN. The anterior and posterior shoulders delivered quickly. The cried spontaneously. The cord was cut after delivery of the placenta per patient request. There were no lacerations. All sponge and instrument counts were correct. 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
[2025-01-25] MEDS: Oxytocin 15 Units/NS 250ml 15 UNITS/250 ML IV.SOLN 83 UNITS IV (01:32)
[2025-01-25] MEDS: Ibuprofen 600 MG Tablet PO (01:45)
[2025-01-25] MEDS: 0.9% Saline Lock 10 ML Syringe IV (04:33)
[2025-01-25] MEDS: Fluticasone 0.05% 1 SPRAY NASAL.SRY NASAL (12:39)
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
--- NOTE | 2025-01-25 20:47 | NURSING ---
Patient stated she really wants to leave after 24 hours testing if everything looks good. RN called OB Ivette Gaytan CNM to notify her of her patients wishes. RN updated Selwyn DUDLEY that patient is stable, bleeding is appropriate, vitals are with in range. Ivette Gaytan CNM stated she will be over later to assess the patient. RN verbalized understanding. RN then called horse racetrack manager Dr. Santos to notify her of the patients wishes. Dr. Brito stated she will not be available at 1am and the patient needs to wait till 5am to be discharged. RN verbalized understanding and let told the patient. Patient states she is not happy but will wait till 5 am for discharge. RN gave emotional support.
--- NOTE | 2025-01-25 21:22 | PCM.DC.SUM ---
Providers Date of Admission: 01/24/25 Primary Care Physician: Dr. Eusebio Ramires MD Reason For Visit: VAG Diagnosis Discharge Diagnosis (1) (spontaneous vaginal delivery): Status: Acute Code(s): O80 - Encounter for full-term uncomplicated delivery Plan PPD 1 - Intact Pain controlled without difficulty Desires discharge home after 24 hours Mirena IUD after 8 weeks PP Medications at Discharge Home Medications famotidine 20 mg tablet (Acid Controller) 20 mg PO DAILY 01/24/25 ferrous sulfate 325 mg (65 mg iron) tablet (Feosol) 325 mg PO BID 01/24/25 fluticasone propionate 50 mcg/actuation nasal spray,suspension (Allergy Relief (fluticasone)) 1 spray intranasal DAILY PRN allergy symptoms 01/24/25 vit no.95-ferrous fumarate 28 mg-folic acid 800 mcg tablet () 1 tab PO DAILY 01/24/25 Hospital Course Operations None Procedures None Summary of Care Provided Minutes Spent on Discharge: 15 Hospital Course: Patient had vaginal delivery. Hospital course was uneventful. Physical Exam Narrative Patient seen at bedside. Denies pain. Ambulating and voiding without difficulty. Lochia decreased. Desires discharge home after 24 hours. independently. Const alert and oriented x3 General Appearance: Negative for in distress HEENT normocephalic Eyes General Eye: normal appearance of both eyes Neck General: normal visual inspection Chest Chest: symmetrical chest wall rise Resp normal respiratory effort and normal air movement Effort and Inspection: symmetric chest movement; Negative for tachypneic Auscultation: clear to auscultation bilaterally Cardio regular rate and regular rhythm Peripheral Pulses: pulses 2+ throughout GI normal to inspection, nondistended, normoactive bowel sounds Narrative: Ice to perineum OB / External & Speculum: vaginal bleeding and other Lochia decreasing Uterus Palpation: uterus fundus firm (Below U) Extremity normal to inspection, full ROM and normal capillary refill Skin no rashes or lesions noted Neuro oriented x3, CN's II-XII intact bilaterally and gait normal Psych mental status grossly normal, thought process normal and activity/motor behavior normal Weight / BMI Weight Weight: 233 lb 11.04 oz Body Mass Index (BMI) 37.7 ABG / Lab / Microbiology Data 01/24/25 22:25 Laboratory: Laboratory Results - last 24 hr 01/24/25 20:45: WBC 11.9 H, RBC 4.15 L, Hgb 11.2 L, Hct 34.0 L, MCV 81.9, MCH 27.0, MCHC 32.9, RDW Std Deviation 58.5 H, RDW Coeff of [place] 19.9 H, Plt Count TNP, MPV TNP, Immature Gran % (Auto) 0.800, Neut % (Auto) 78.1 H, Lymph % (Auto) 13.8 L, [place] % (Auto) 6.2, Eos % (Auto) 0.8, Baso % (Auto) 0.3, Absolute Neuts (auto) 9.3 H, Absolute Lymphs (auto) 1.63, Nucleated RBC % 0, Platelet Estimate ADEQUATE, Plt Morphology Comment CLUMPED, Syphilis Total Ab Nonreactive, Blood Type B POSITIVE, Antibody Screen NEGATIVE 01/24/25 22:25: Plt Count 138 L D/C Instructions Discharge Diet: No restrictions Discharge Activity: Return to Normal Activity, No Restrictions, May Drive, May Shower and May Take a Tub Bath (Warm water only. No bath salts, soaps, bubbles) May resume sexual activity in: 6-8 weeks Weight Bearing Status: Weight bearing as tolerated Call your doctor if you observe: Fever of 101 or Higher, Inability to urinate, Using more than 1 pad per hour, Shortness of breath, Dizziness, Chest pain, Calf discomfort and Uncontrolled pain DC O2, CPAP, BIPAP Needs Home O2 Discharge instructions: No Please Follow Up With: [facility] Ashtyn ANDINO When: 2 weeks in office or virtual Meaningful Use Info Meaningful Use Meaningful Use Diagnoses (Choose all that apply): None applicable Ischemic Stroke Statin Dosing Therapy Reference: STATIN DOSE THERAPY REFERENCE: * Patients > 75 years receive moderate or high dose statin therapy. * Patients 75 years or YOUNGER should receive HIGH intensity statin dose unless contraindicated. You will be required to document reason for non-treatment if statin daily dose does not meet guidelines. HIGH DOSE STATIN THERAPY DAILY Atorvastatin > than or = to 40 mg Rosuvastatin > than or = to 20 mg Amlodipine + Atorvastatin > than or = to 2.5/40 mg Ezetimibe + Simvastatin 10/80 mg Simvastatin 80mg Discharge Plan Admission Admit Date/Time: 01/24/25 20:25 Primary Reason for Your Visit: Labor and Delivery Attending Provider: Laura Jorge Primary Care Provider: Eusebio Ramires Discharge Orders/Prescriptions Prescriptions: Continued famotidine [Acid Controller] 20 mg tablet 20 mg PO DAILY fluticasone propionate [Allergy Relief (fluticasone)] 50 mcg/actuation spray,suspension 1 spray intranasal DAILY PRN (Reason: allergy symptoms) Rx Instructions: administer into each nostril PNV cmb#95-ferrous fumarate-FA [] 28 mg iron- 800 mcg tablet 1 tab PO DAILY ferrous sulfate [Feosol] 325 mg (65 mg iron) tablet 325 mg PO BID Discontinued valacyclovir [Valtrex] 500 mg tablet 500 mg PO DAILY Referrals / Follow Up: Yoon Gaytan CNM [Med Staff - Adv Practice Prof] - Eusebio Ramires MD [Primary Care Provider] - Disposition Disposition (needs filled in before D/C Order can be placed): Home, Self Care
[2025-01-26 01:28] VITALS: BP 122/76; PULSE 81; RESP 16; TEMP 36.1; O2SAT 99
[2025-01-26 01:29] VITALS: BP 122/57; PULSE 76
== END 2025-01-26 06:20 | disposition home or self-care (01) | DRG 560 ==
LOC: WPOUT 20:26 → WP 20:26
PROVIDERS: Admitting Provider Obstetrics & Gynecology; PCP Family Medicine; Referring Provider Obstetrics & Gynecology; Visit Provider Obstetrics & Gynecology
DX: O42.02 Full-term premature rupture of membranes, onset of labor within 24 hours of rupture (principal); Z37.0 Single live birth; O34.219 Maternal care for unspecified type scar from previous cesarean delivery; Z3A.37 37 weeks gestation of pregnancy
CPT/HCPCS: 59025; 59050; 84112; 85025; 85049; 86780; 86850; 86900; 86901; 99221; A4216; G0378

== ENCOUNTER → 2025-04-02 | Outpatient (CLI) | payer MEDICAID, SELFPAY ==
[2025-04-02 09:31] LABS: Absolute Neutrophil Count 3.4 X10^3/uL (2.0-7.7); Basophil# 0.05 X10^3/uL; Basophil% 0.8 % (0-1); Eosinophil# 0.55 X10^3/uL; Eosinophils% 8.5 % (0-5); Hematocrit 40.7 % (37-47); Hemoglobin 13.6 g/dL (12.0-15.0); Lymphocyte % 29.3 % (19-41); Mean Corp Hgb Conc 33.4 g/dL (32-36); Mean Corpuscular Hgb 27.2 pg (27.0-32.0); Mean Corpuscular Volume 81.4 fL (81-99); Mean Platelet Vol. 9.8 fl (6.2-12.0); Monocyte# 0.53 X10^3/uL; Monocyte% 8.2 % (0-10); NRBC Flagged by Analyzer 0 % (0-5); Neutrophil # 3.44 X10^3/uL (2.7-7.7); Neutrophil % 52.9 % (47-70); POSITIVE COUNT YES; RBC Distribution Width CV 14.4 % (11.6-14.6); White Blood Count 6.5 K/mm3 (4.4-11.0)
[2025-04-02 09:49] LABS: Internal QC Validated? YES +Cl - CLEAR BKGD; Pregnancy, Serum, hCG Quali. NEGATIVE Negative
[2025-04-02 10:03] LABS: Anion Gap 11 (5-15); BUN 17 mg/dL (4-19); BUN/Creat Ratio 25.2 RATIO (10-20); Calcium,Total 9.4 mg/dL (7.6-11.0); Carbon Dioxide 23.6 mmol/L (21.0-32.0); Chloride 105 mmol/L (98-108); Creatinine, Serum 0.69 mg/dL (0.70-1.20); EST Glomerular Filtration Rate 123 (>60); Glucose 99 mg/dL (70-99); Potassium 4.2 mmol/L (3.3-5.1); Sodium Level 140 mmol/L (133-145)
[2025-04-02 10:16] LABS: Differential Indicated SCAN CRITERIA MET
[2025-04-02 10:18] LABS: Platelet Estimate SLT DEC (ADEQ)
[2025-04-02 10:19] LABS: Red Cell Morphology NORM C+C NORMAL (NORM C&C)
--- NOTE | 2025-04-09 06:51 | TILTTABLE_ITS ---
Staff Staff: Lillian Salvador and Ella Bowling Summary Pre Test Resting HR: 60 Pre Test Resting BP: 125/69 Minimum Test HR: 60 Maximum Test HR: 101 Minimum Test BP: 68/31 Maximum Test BP: 125/69 Reason for Test Termination: Near Syncope Physician Tilt Table Report Patient's Physicians Primary Care Physician: Eusebio Ramires Indications/Diagnosis: Syncope Procedure Comments: The patient was brought to the noninvasive lab in the postab sorptive nonsedated state. Initial heart rate and blood pressure were obtained with a heart rate of 60 bpm and a blood pressure 125/69 mmHg with EKG demonstrating normal sinus rhythm with occasional premature ventricular complexes noted. Patient was then placed in the 70 degree head upright tilt position for approximately 20 minutes. Patient maintained appropriate stable heart rate and blood pressures. The patient was then put in the recumbent position and then administered 0.4 mg of sublingual nitroglycerin. Patient was then put back in the 70 degree head upright tilt position. Initial heart rate of 75 bpm went up to 112 bpm with a drop in the blood pressure to 87/41 mmHg with symptoms of numbness nausea dizziness and then the heart rate dropped to 73 and 71 with a blood pressure dropping to 68 mmHg patient exhibiting pallor and then was placed in the recumbent position with recovery of the blood pressure. Summary: Likely orthostatic hypotension with mild vagal component.
== END | disposition home or self-care (01) ==
LOC: CVS 08:48
PROVIDERS: PCP Family Medicine; Referring Provider Physician Assistant Medical; Visit Provider Physician Assistant Medical
DX: R55 Syncope and collapse (principal); I49.3 Ventricular premature depolarization
CPT/HCPCS: A4216; 36415; 80048; 84703; 85025; 93660